=== PATIENT | female | born 1970 | race Caucasian/White ===

== ENCOUNTER 2017-06-11 16:10 | Outpatient (CLI) | payer MEDICAID, SELFPAY ==
[2017-06-11 16:10] VITALS: BMI 18.1
[2017-06-11 16:29] LABS: Basophils % 0.3 % (0.1-2.0); Eosinophils # 0.6 K/mm3 (0.0-0.4); Hematocrit 43.5 % (37.0-47.0); Hemoglobin 13.4 g/dL (12.2-16.2); Lymphocytes # 2.8 K/mm3 (0.7-4.5); Lymphocytes % 24.2 K/mm3 (10-50); Mean Corpuscular HGB Conc 30.9 g/dL (31.8-35.4); Mean Corpuscular Hemoglobin 27.5 pg (27.0-31.2); Mean Corpuscular Volume 89.1 fl (81-99); Mean Platelet Volume 7.4 fl (7.4-10.4); Monocytes # 0.7 K/mm3 (0.1-1.0); Monocytes % 6.3 % (1.7-9.3); Neutrophils # 7.4 K/mm3 (1.8-7.8); Neutrophils % 64.2 % (37.0-80.0); Platelet Count 473 K/mm3 (142-424); Red Blood Count 4.89 M/mm3 (4.20-5.40); Red Cell Distribution Width 16.9 % (11.5-17.5); White Blood Count 11.5 K/mm3 (4.8-10.8)
[2017-06-11 16:36] LABS: INR 1.18 (0.9-1.1); Prothrombin Time 12.8 seconds (9.4-11.8)
[2017-06-11 16:42] LABS: Alanine Aminotransferase 21 U/L (12-78); Albumin Level 2.8 gm/dL (3.4-5.0); Albumin/Globulin Ratio 0.6 (1.1-1.8); Alkaline Phosphatase 95 U/L (46-116); Anion Gap 11.5 mEq/L (5-15); Aspartate Amino Transferase 21 U/L (15-37); Bilirubin,Total 0.1 mg/dL (0.2-1.0); Blood Urea Nitrogen 13 mg/dL (7-18); Calcium 8.7 mg/dL (8.5-10.1); Carbon Dioxide 27 mmol/L (21.0-32.0); Chloride 101 mmol/L (98-107); Creatinine Clearance Estimated 73 mL/min (0-300); Creatinine,Serum 0.63 mg/dL (0.55-1.02); Estimated Glomerular Filt Rate 101 ml/min (>60); GFR (African American) 122 ML/MIN (>60); Glucose 95 mg/dL (74-106); Potassium 4.5 mmoL/L (3.5-5.1); Sodium 135 mmol/L (136-145); Total Protein,Serum 7.8 gm/dL (6.4-8.2)
[2017-06-11 17:15] LABS: Erythrocyte Sedimentation Rate 53 mm/hr (0-20)
--- NOTE | 2017-06-26 10:06 | HMH.ACPN ---
Internal Medicine - PN: Subj *Date: 06/26/17 *Time: 10:06 Assessment and Plan - Assessment and plan all Dx Assessment and Plan for all problems:: CALLED ON 06/15/17 AND LEFT MESSAGE. CALLED ON 06/19/17 AND SOMEONE ANSWERED PHONE BUT HUNG UP X2. CALLED ON 06/26/18 AND LEFT MESSAGE FOR PATIENT TO CALL BACK. CALLED MD OFFICE AND INFORMED THEM THAT I HAVE NOT YET BEEN ABLE TO REACH PATIENT BUT WILL CONTINUE TO TRY. BRYAN BOWLES, PHARMD
== END 2017-06-11 16:37 | disposition home or self-care (01) ==
LOC: INF 16:11
PROVIDERS: Family Provider Internal Medicine Adolescent Medicine; Visit Provider Internal Medicine Adolescent Medicine
DX: D68.61 Antiphospholipid syndrome (principal); M05.79 Rheumatoid arthritis with rheumatoid factor of multiple sites without organ or systems involvement; Z45.2 Encounter for adjustment and management of vascular access device
CPT/HCPCS: 80053; 85025; 85610; 85651; J1642

== ENCOUNTER 2018-02-08 12:18 | Inpatient (IN) ==
[2018-02-08 13:25] LABS: Basophils % 0.1 % (0.1-2.0); Hematocrit 32.1 % (37.0-47.0); Lymphocytes # 1.1 K/mm3 (0.7-4.5); Lymphocytes % 5.1 % (10-50); Mean Corpuscular HGB Conc 28.2 g/dL (31.8-35.4); Mean Corpuscular Hemoglobin 24.4 pg (27.0-31.2); Mean Corpuscular Volume 86.6 fl (81-99); Mean Platelet Volume 6.5 fl (7.4-10.4); Monocytes # 0.5 K/mm3 (0.1-1.0); Monocytes % 2.2 % (1.7-9.3); Neutrophils # 19.7 K/mm3 (1.8-7.8); Neutrophils % 92.6 % (37.0-80.0); Platelet Count 717 K/mm3 (142-424); Red Blood Count 3.71 M/mm3 (4.20-5.40); Red Cell Distribution Width 16.9 % (11.5-17.5); White Blood Count 21.3 K/mm3 (4.8-10.8)
[2018-02-08 13:36] LABS: Albumin Level 2.3 gm/dL (3.4-5.0); Albumin/Globulin Ratio 0.5 (1.1-1.8); Bilirubin,Total 0.3 mg/dL (0.2-1.0); C-Reactive Protein 8.5 mg/L (0.0-0.9); Calcium 8.4 mg/dL (8.5-10.1); Globulin 4.3 gm/dl (1.3-3.2); Total Protein,Serum 6.6 gm/dL (6.4-8.2)
[2018-02-08 13:37] LABS: INR 7.86 (0.9-1.1); Prothrombin Time 76.2 seconds (9.4-11.8)
--- NOTE | 2018-02-08 13:39 | Pharmacy Consult Notes ---
[facility] Pharmacy VTE Monitoring - Patient Demographics Admission date: 02/08/18 Report Date: 02/08/18 Time: 13:39 Allergies/Adverse Reactions: Patient Allergies gabapentin [GABAPENTIN] Allergy (Severe, Verified 11/23/17 08:00) HALLUCINATIONS methadone [METHADONE] Allergy (Severe, Verified 11/23/17 08:00) THROAT CLOSES codeine [CODEINE] Allergy (Mild, Verified 11/23/17 08:00) NA-NAUSEA Height: 1.52 m Weight: 40.965 kg - VTE Risk Labs: VTE Related Lab Results PT 76.2 seconds (9.4-11.8) H 02/08/18 13:15 INR 7.86 (0.9-1.1) H 02/08/18 13:15 VTE Score: 3 VTE Risk Level: Low Risk - Prophylaxis VTE Prophylaxis Ordered?: Yes Types of VTE Prophylaxis: TEDS Knee High Location of Applied Device: Right Leg - VTE Diagnosis Confirmed Treatment or plan recommended: Continue Current Treatment
--- NOTE | 2018-02-08 13:44 | Pharmacy Consult Notes ---
- Pharmacy Consult Date: 02/08/18 Time: 13:43 Referring provider: DR. ZAMORA Reason for Consult:: VANCOMYCIN DOSING Allergies and ADEs:: Allergies Allergy/AdvReac Type Severity Reaction Status Date / Time gabapentin [GABAPENTIN] Allergy Severe HALLUCINATI Verified 11/23/17 08:00 ONS methadone [METHADONE] Allergy Severe THROAT Verified 11/23/17 08:00 CLOSES codeine [CODEINE] Allergy Mild NA-NAUSEA Verified 11/23/17 08:00 Home Medications:: Home Medications Medication Instructions Recorded Confirmed Type Hydroxychloroquine Sulfate 200 mg PO DAILY 11/23/17 11/23/17 History [Plaquenil] Oxycodone HCl/Acetaminophen 1 tab PO DAILY 11/23/17 11/23/17 History [Percocet 10-325 mg Tab] Warfarin Sodium [Coumadin] 4 mg PO DAILY 11/23/17 11/23/17 History Height: 1.52 m Weight: 40.965 kg Laboratory Results:: Laboratory Results - last 24 hr 02/08/18 13:15: Sodium 137, Potassium 4.0, Chloride 101, Carbon Dioxide 29, Anion Gap 11.0, BUN 19 H, Creatinine 0.68, Estimated Creat Clear 65, Estimated GFR 92, Est GFR ( Amer) 111, Glucose 99, Calcium 8.4 L, Total Bilirubin 0.3, AST 13 L, ALT 30, Alkaline Phosphatase 75, C-Reactive Protein 8.5 H, Total Protein 6.6, Albumin 2.3 L, Globulin 4.3 H, Albumin/Globulin Ratio 0.5 L 02/08/18 13:15: PT 76.2 H, INR 7.86 H Medical History: Reports:: Myocardial Infarction Denies:: Cancer, Diabetes Mellitus Type 1, Diabetes Mellitus Type 2, MRSA Assessment and Plan - Assessment and plan all Dx Assessment and Plan for all problems:: BASED ON PATIENT'S FACTORS, RECOMMEND STARTING WITH VANCOMYCIN 750 MG Q18H AT THIS TIME. PHARMACY WILL FOLLOW DAILY AND ADJUST APPROPRIATE. BRYAN BOWLES, KARLAD
[2018-02-08 15:04] LABS: Lymphocytes % 4 % (10-50); Monocytes % 2 % (2-9); Neutrophils % 94 % (42-76); Total Cells Counted 100
[2018-02-08 15:05] LABS: Hypochromasia 1+
--- NOTE | 2018-02-08 15:07 | Consult Report ---
*Admission Date: 02/08/18 *Chief complaint: Left foot cellulitis, ulcer *History of present illness: Mrs. Esteban is a 47 y/o female who presents as a direct admission from Dr. Larry's office for evaluation of left foot cellulitis with an open wound. 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 Patient states she has circulatory vascular i ssues and is on long-term coagulation therapy. Patient also has RA. In 1999 she had reconstructive foot surgery in [place]. Based on previous left foot x-rays it appears she had a gong metatarsal resection with fusions of the toes, which is consistent with how the patient describes "pins coming out of her toes". She states she has had an open wound to the dorsal aspect of the first MPJ on and off for 16 years. She states it closes or almost closes then reopens. She does home wound care with betadine as needed. She denies seeing a Artificial Teeth Inspector "since like [id number]". She denies going to a wound care clinic or having debridements. She admits to frequent episodes of cellulitis, lower extremity bruising and sores, abrasions with occasional pain. Patient takes chronic pain medication at home, Percocet 10/325mg. Based on the chart patient was in the ER 11/23 and again 11/25/17. Ankle x-rays from 11/23/17 show a nondisplaced minimally impacted fracture of the distal fibula with lateral angulation of the distal fracture fragment. She has been utilizing a fracture boot at home. She has not been seeing an orthopedic doctor. Review of Systems - Constitutional Denies body ache(s), Denies chills - Eyes Denies blurry vision - ENT Reports poor balance - *Cardiovascular Denies chest pain, Denies shortness of breath - *Respiratory Denies chest congestion, Denies shortness of breath - *Gastrointestinal Denies abdominal pain - *Genitourinary Denies hot flashes - *Musculoskeletal Reports joint pain, Reports deformity, Reports joint swelling, Reports tingling - Integumentary/Breasts Reports hair loss, Reports change in skin color, Reports changing lesions, Reports non-healing lesions, Reports skin ulcer - *Neurologic Reports localized weakness, Reports tingling/numbness/burning sensations - Endocrine Reports cold intolerance - Hematologic/Lymphatic Reports easy bleeding, Reports easy bruising - Allergic/Immunologic Reports GI upset with certain foods [facility] History Medical History: Reports:: Myocardial Infarction Denies:: Cancer, Diabetes Mellitus Type 1, Diabetes Mellitus Type 2, MRSA Other Medical History: Reports: Anemia, Arthritis, Thyroid Disease Laterality Cases: Right: Other, Bilateral: Tonsillectomy Other Surgeries: Yes: Appendectomy Amputation: Yes (RT leg) Fractures: No - *Social History Educational Level: Completed GED/General Educational Development Smoking Status: Current every day smoker Tobacco Type: cigarettes Alcohol Intake: never Occupational Status: disabled Housing: house Household Members: spouse - Psychiatric History Expresses thoughts of harming self/others: None Suicide Plan Description: No Plan *Family Hx:: Asthma, Coronary Artery Disease, Diabetes, Heart Attack, Hyperlipidemia, Hypertension, Stroke, Tuberculosis Meds Home Medications Medication Instructions Recorded Confirmed Type Warfarin Sodium [Coumadin] 4 mg PO DAILY 11/23/17 02/08/18 History Adalimumab [Humira Pen] 40 mg SQ QOW 02/08/18 02/08/18 History Albuterol Sulfate [Proair Hfa 2 puffs IH QIDP PRN 02/08/18 02/08/18 History 90mcg/puff Inh] Cilostazol [Pletal 100mg tablet] 100 mg PO BID 02/08/18 02/08/18 History Clopidogrel Bisulfate [Clopidogrel 75 mg PO DAILY 02/08/18 02/08/18 History 75mg Tab] Cyclobenzaprine HCl 10 mg PO TIDP PRN 02/08/18 02/08/18 History [Cyclobenzaprine 10mg Tab] Ferrous Sulfate 325 mg PO BID 02/08/18 02/08/18 History Folic Acid [Folic Acid 1mg tablet] 1 mg PO DAILY 02/08/18 02/08/18 History Hydroxychloroquine Sulfate 400 mg PO DAILY 02/08/18 02/08/18 History [Plaquenil 200mg tablet] Levothyroxine Sodium 50 mcg PO DAILY 02/08/18 02/08/18 History [Levothyroxine 50mcg (0.05mg) Tab] Meloxicam [Mobic] 15 mg PO DAILY 02/08/18 02/08/18 History Metoprolol Tartrate 50 mg PO DAILY 02/08/18 02/08/18 History Oxycodone HCl/Acetaminophen 1 tab PO QID 02/08/18 02/08/18 History [Oxycodone W/Apap 325mg Tablet] Pravastatin Sodium [Pravachol] 40 mg PO HS 02/08/18 02/08/18 History Promethazine HCl [Phenergan 25mg 25 mg PO Q6HP PRN 02/08/18 02/08/18 History tab] Tizanidine HCl [Zanaflex] 8 mg PO TID 02/08/18 02/08/18 History predniSONE [Deltasone 20mg 20 mg PO DAILYP PRN 02/08/18 02/08/18 History tablet] raNITIdine HCl [Acid Control] 150 mg PO DAILY 02/08/18 02/08/18 History Allergies Allergy/AdvReac Type Severity Reaction Status Date / Time gabapentin [GABAPENTIN] Allergy Severe HALLUCINATI Verified 11/23/17 08:00 ONS methadone [METHADONE] Allergy Severe THROAT Verified 11/23/17 08:00 CLOSES codeine [CODEINE] Allergy Mild NA-NAUSEA Verified 11/23/17 08:00 Exam Vital signs and Labs for Last 24 Hours: Temp Pulse Resp BP Pulse Ox 98.2 F 89 17 103/69 L 97 02/08/18 12:32 02/08/18 12:32 02/08/18 12:32 02/08/18 12:32 02/08/18 12:32 Laboratory Results - last 24 hr 02/08/18 13:15: WBC 21.3 H*, RBC 3.71 L, Hgb 9.0 L, Hct 32.1 L, MCV 86.6, MCH 24.4 L, MCHC 28.2 L, RDW 16.9, Plt Count 717 H, MPV 6.5 L, Neut % (Auto) 92.6 H, Lymph % (Auto) 5.1 L, [place] % (Auto) 2.2, Eos % (Auto) 0.0 L, Baso % (Auto) 0.1, Neut # (Auto) 19.7 H, Lymph # (Auto) 1.1, [place] # (Auto) 0.5, Eos # (Auto) 0.0, Baso # (Auto) 0.0 02/08/18 13:15: Sodium 137, Potassium 4.0, Chloride 101, Carbon Dioxide 29, Anion Gap 11.0, BUN 19 H, Creatinine 0.68, Estimated Creat Clear 65, Estimated GFR 92, Est GFR ( Amer) 111, Glucose 99, Calcium 8.4 L, Total Bilirubin 0.3, AST 13 L, ALT 30, Alkaline Phosphatase 75, C-Reactive Protein 8.5 H, Total Protein 6.6, Albumin 2.3 L, Globulin 4.3 H, Albumin/Globulin Ratio 0.5 L 02/08/18 13:15: ESR 72 H 02/08/18 13:15: PT 76.2 H, INR 7.86 H I & O for Last 24 hours: Intake & Output 02/06/18 02/07/18 02/08/18 02/09/18 11:59 11:59 11:59 11:59 Intake Total 240 / 240 Balance 240 / 240 Weight 90 lb 5 oz - *Routine HEENT Exam Head: Present: normocephalic ENT: Present: mucous membranes moist - *Routine Neck Exam Present: full ROM - *Routine Respiratory Exam Absent: respiratory distress - *Routine Cardiovascular Exam Present: RRR - *Routine Abdominal Exam Absent: guarding - *Routine Rectal Exam Patient deferred: visual exam - *Routine Exam Patient deferred: external exam - *Routine Extremities Exam Present: edema, amputation. Absent: pulses intact, normal capillary refill - *Routine Skin Exam Present: erythema, dry, scars, ecchymosis - *Routine Neurological Exam Present: alert - Detailed Lower Extremity Exam Foot/Toes: Left crepitus (MPJs 1-5), Left deformity (RA w/previous gong met reconstruction), Left erythema (localized to the 1st MPJ), Left swelling (1st MPJ and left foot), Left tenderness (1st MPJ), Left wound (dorsal 1st MPJ: ~3 x 2.5 x 0.3cm, wound basee 100% fibrotic with slough, no necrotic tissue or purulence), Left pain with active ROM (1st MPJ), Left pain with passive ROM (1st MPJ) Comments: Non palpable and non dopplerable DP. Weakly palpable PT, dopplerable PT monophasic. LLE cold. R AKA. Delayed left CFT. Multiple abrasions and bruising noted to LLE, extending from knee to left medial cuneiform and anterior ankle. Edema to left foot. Localized erythema to 1st MPJ with no ascending cellulitis. No fluctuance or evidence of abscess. Fibrotic slough and wet looking 1st MPJ dorsal ulcer. No purulence or malodor noted. Results - Labs Result Diagrams: 02/08/18 13:15 02/08/18 13:15 Labs: Abnormal lab results 02/08/18 02/08/18 02/08/18 Range/Units 13:15 13:15 13:15 WBC 21.3 H* (4.8-10.8) K/mm3 RBC 3.71 L (4.20-5.40) M/mm3 Hgb 9.0 L (12.2-16.2) g/dL Hct 32.1 L (37.0-47.0) % MCH 24.4 L (27.0-31.2) pg MCHC 28.2 L (31.8-35.4) g/dL Plt Count 717 H (142-424) K/mm3 MPV 6.5 L (7.4-10.4) fl Neut % (Auto) 92.6 H (37.0-80.0) % Lymph % (Auto) 5.1 L (10-50) % Eos % (Auto) 0.0 L (0.1-12.0) % Neut # (Auto) 19.7 H (1.8-7.8) K/mm3 ESR 72 H (0-20) mm/hr PT (9.4-11.8) seconds INR (0.9-1.1) BUN 19 H (7-18) mg/dL Calcium 8.4 L (8.5-10.1) mg/dL AST 13 L (15-37) U/L C-Reactive Protein 8.5 H (0.0-0.9) mg/L Albumin 2.3 L (3.4-5.0) gm/dL Globulin 4.3 H (1.3-3.2) gm/dl Albumin/Globulin Ratio 0.5 L (1.1-1.8) 02/08/18 Range/Units 13:15 WBC (4.8-10.8) K/mm3 RBC (4.20-5.40) M/mm3 Hgb (12.2-16.2) g/dL Hct (37.0-47.0) % MCH (27.0-31.2) pg MCHC (31.8-35.4) g/dL Plt Count (142-424) K/mm3 MPV (7.4-10.4) fl Neut % (Auto) (37.0-80.0) % Lymph % (Auto) (10-50) % Eos % (Auto) (0.1-12.0) % Neut # (Auto) (1.8-7.8) K/mm3 ESR (0-20) mm/hr PT 76.2 H (9.4-11.8) seconds INR 7.86 H (0.9-1.1) BUN (7-18) mg/dL Calcium (8.5-10.1) mg/dL AST (15-37) U/L C-Reactive Protein (0.0-0.9) mg/L Albumin (3.4-5.0) gm/dL Globulin (1.3-3.2) gm/dl Albumin/Globulin Ratio (1.1-1.8) H & H 12/14/18 Range/Units 13:15 Hgb 9.0 L (12.2-16.2) g/dL Hct 32.1 L (37.0-47.0) % Coagulation 12/14/18 Range/Units 13:15 INR 7.86 H (0.9-1.1) All other labs normal. - Diagnostic results Ankle/Foot x-ray: report reviewed (Chronic changes to the foot with no significant change compared to previous x-ray), image reviewed Assessment and Plan (1) Cellulitis of left foot Current visit: Yes Status: Acute Category: Medical Code(s): L03.116 - Cellulitis of left lower limb (2) Ulcer of left foot Current visit: Yes Status: Acute Category: Medical Code(s): L97.529 - Non- pressure chronic ulcer of other part of left foot with unspecified severity (3) Rheumatoid arthritis Current visit: Yes Status: Acute Category: Medical Code(s): M06.9 - Rheumatoid arthritis, unspecified (4) PAD (peripheral artery disease) Current visit: Yes Status: Acute Category: Medical Code(s): I73.9 - Peripheral vascular disease, unspecified (5) Closed fracture of left distal fibula Current visit: No Status: Acute Qualifiers: Encounter type: initial encounter Fracture morphology: unspecified fracture morphology Qualified Code(s): S82.832A - Other fracture of upper and lower end of left fibula, initial encounter for closed fracture Category: Medical Code(s): S82.832A - Other fracture of upper and lower end of left fibula, initial encounter for closed fracture - Assessment and plan all Dx Assessment and Plan for all problems:: Infected Wound: left 1st MPJ ulcer: I discussed with the patient the importance of proper hygiene and maintaining a clean healthy wound bed to avoid the infection spreading. Topical lidocaine applied. Wound culture taken. Patient could not tolerate debridement with currette or even 1st MPJ ROM. The wound extends through skin into capsule overlying bone. Biofilm and fibrotic slough were visible. The wound did probe thru deep fascia and questionable into the bone, not the joint. There was no purulence noted. Ruthann-wound cellulitis noted. Non-palpable popliteal lymph nodes. 1. Dressing applied: dry sterile dressing 2. Wound care instructions given: change dressing daily with Santyl (order by Pharmacy) 3. DME assistance 4. Follow wound culture 5. Broad spectrum IV antibiotics 6. ABIs to evaluate vascular disease 7. MRI left foot w/wout to evaluate for osteomyelitis or underlying abscess I am very concerned with the patient's pulses and circulation history. I would much rather try IV antibiotics and Santyl enzymatic debridement over surgery which could ultimately lead to amputation. I explained to the patient that if the infection becomes life-threatening, redness or purulence or worsening wound then she may require an amputation. Given she has had the ulcer for 16 years I am hesitant for hallux/first metatarsal partial amputation because likely she will not heal. I explained if amputation were undertaken she runs high risk of more proximal amputation including transmetatarsal, below- knee or above-knee amputation. Patient verbalized understanding, and is hesitant for surgery. She states that she would like to try the wound care with IV antibiotics and has agreed to vascular workup and MRI for further evaluation.
--- NOTE | 2018-02-08 16:42 | History & Physical Report ---
*Admission Date: 02/08/18 *Chief complaint: Left foot infection/worsening joint status *History of present illness: Very unfortunate 47-year-old white female with a long and complex medical history, significant for tobacco abuse disorder, peripheral arterial disease and history of antiphospholipid syndrome status post peripheral arterial clot of the right leg causing above-knee amputation in the remote past, as well as recurrent miscarriages and significant KNOWLEDGE MANAGER bleeding resulting in complete hysterectomy several years ago. She also has a remote history of cocaine use which complicated her vascular condition. She also suffers from severe and aggressive rheumatoid arthritis which has made her elbows and hands essentially unusable and has caused her to be wheelchair- bound. She has had multiple complications of vascular and arthritic disease, and came to my office today with a chief complaint of left foot pain and some drainage from the base of the left toe. Her also notes that she has had drainage from both of her elbows and wonders if "she could get a cortisone injection in her joints." On examination she looked very pale and ill-appearing, over her baseline, and had active infection of the base of the left foot as well as serous drainage from what appeared to be a fistula tract on the lateral aspect of the right elbow. I am very concerned about intra-articular infection/aggressive cellulitis and also concerned about the possibility of sepsis. She is admitted for IV antibi otics, laboratory testing and specialty consultation with podiatry and orthopedics. [facility] History Medical History: Reports:: Myocardial Infarction Denies:: Cancer, Diabetes Mellitus Type 1, Diabetes Mellitus Type 2, MRSA Other Medical History: Reports: Anemia, Arthritis, Thyroid Disease Comment: Significant history of antiphospholipid syndrome as noted in HPI, chronic opioid dependence for her chronic joint destruction pain, chronic tobacco use and chronic vascular disease with amputation. Laterality Cases: Right: Other, Bilateral: Tonsillectomy Other Surgeries: Yes: Appendectomy, Hysterectomy-Total Amputation: Yes (RT leg) Fractures: No - *Social History Educational Level: Completed GED/General Educational Development Smoking Status: Current every day smoker Tobacco Type: cigarettes Alcohol Intake: never Substance Use Type: former substance user, crack/cocaine Occupational Status: disabled Housing: house Household Members: spouse - Psychiatric History Expresses thoughts of harming self/others: None Suicide Plan Description: No Plan *Family Hx:: Asthma, Coronary Artery Disease, Diabetes, Heart Attack, Hyperlipidemia, Hypertension, Stroke, Tuberculosis Review of Systems - Review of Systems Review of systems:: pertinent systems reviewed and negative unless documented below - Constitutional Reports anorexia, Reports body ache(s), Reports chills, Denies daytime sleepiness - Eyes Denies blind spots, Denies blurry vision, Denies change in vision - ENT Denies abnormal hearing, Denies bleeding gums - *Cardiovascular Reports shortness of breath, Denies chest pain, Denies chest pain at rest, Denies irregular heart rhythm, Denies leg swelling - *Respiratory Denies change in phlegm color, Denies chest congestion, Denies cough, Denies shortness of breath with activity - *Gastrointestinal Denies abdominal pain, Denies belching, Denies coffee ground vomit, Denies diffi culty swallowing - *Musculoskeletal Reports abnormal walking, Reports muscle weakness - *Neurologic Reports unsteadiness, Reports localized weakness, Reports tingling/numbness/burning sensations, Reports tingling - Endocrine Reports excessive sweating Meds Home Medications Medication Instructions Recorded Confirmed Type Warfarin Sodium [Coumadin] 4 mg PO DAILY 11/23/17 02/08/18 History Adalimumab [Humira Pen] 40 mg SQ QOW 02/08/18 02/08/18 History Albuterol Sulfate [Proair Hfa 2 puffs IH QIDP PRN 02/08/18 02/08/18 History 90mcg/puff Inh] Cilostazol [Pletal 100mg tablet] 100 mg PO BID 02/08/18 02/08/18 History Clopidogrel Bisulfate [Clopidogrel 75 mg PO DAILY 02/08/18 02/08/18 History 75mg Tab] Cyclobenzaprine HCl 10 mg PO TIDP PRN 02/08/18 02/08/18 History [Cyclobenzaprine 10mg Tab] Ferrous Sulfate 325 mg PO BID 02/08/18 02/08/18 History Folic Acid [Folic Acid 1mg tablet] 1 mg PO DAILY 02/08/18 02/08/18 History Hydroxychloroquine Sulfate 400 mg PO DAILY 02/08/18 02/08/18 History [Plaquenil 200mg tablet] Levothyroxine Sodium 50 mcg PO DAILY 02/08/18 02/08/18 History [Levothyroxine 50mcg (0.05mg) Tab] Meloxicam [Mobic] 15 mg PO DAILY 02/08/18 02/08/18 History Metoprolol Tartrate 50 mg PO DAILY 02/08/18 02/08/18 History Oxycodone HCl/Acetaminophen 1 tab PO QID 02/08/18 02/08/18 History [Oxycodone W/Apap 325mg Tablet] Pravastatin Sodium [Pravachol] 40 mg PO HS 02/08/18 02/08/18 History Promethazine HCl [Phenergan 25mg 25 mg PO Q6HP PRN 02/08/18 02/08/18 History tab] Tizanidine HCl [Zanaflex] 8 mg PO TID 02/08/18 02/08/18 History predniSONE [Deltasone 20mg 20 mg PO DAILYP PRN 02/08/18 02/08/18 History tablet] raNITIdine HCl [Acid Control] 150 mg PO DAILY 02/08/18 02/08/18 History Allergies Allergy/AdvReac Type Severity Reaction Status Date / Time gabapentin [GABAPENTIN] Allergy Severe HALLUCINATI Verified 11/23/17 08:00 ONS methadone [METHADONE] Allergy Severe THROAT Verified 11/23/17 08:00 CLOSES codeine [CODEINE] Allergy Mild NA-NAUSEA Verified 11/23/17 08:00 Exam Vital signs and Labs for Last 24 Hours: Temp Pulse Resp BP Pulse Ox 97.5 F L 69 16 82/52 L 93 L 02/08/18 16:32 02/08/18 16:32 02/08/18 16:32 02/08/18 16:32 02/08/18 16:32 Laboratory Results - last 24 hr 02/08/18 13:15: WBC 21.3 H*, RBC 3.71 L, Hgb 9.0 L, Hct 32.1 L, MCV 86.6, MCH 24.4 L, MCHC 28.2 L, RDW 16.9, Plt Count 717 H, MPV 6.5 L, Neut % (Auto) 92.6 H, Lymph % (Auto) 5.1 L, [place] % (Auto) 2.2, Eos % (Auto) 0.0 L, Baso % (Auto) 0.1, Neut # (Auto) 19.7 H, Lymph # (Auto) 1.1, [place] # (Auto) 0.5, Eos # (Auto) 0.0, Baso # (Auto) 0.0, Total Counted 100, Neutrophils % (Manual) 94 H, Lymphocytes % (Manual) 4 L, Monocytes % (Manual) 2, Platelet Estimate Marked increase, Hypochromasia 1+ 02/08/18 13:15: Sodium 137, Potassium 4.0, Chloride 101, Carbon Dioxide 29, Anion Gap 11.0, BUN 19 H, Creatinine 0.68, Estimated Creat Clear 65, Estimated GFR 92, Est GFR ( Amer) 111, Glucose 99, Calcium 8.4 L, Total Bilirubin 0.3, AST 13 L, ALT 30, Alkaline Phosphatase 75, C-Reactive Protein 8.5 H, Total Protein 6.6, Albumin 2.3 L, Globulin 4.3 H, Albumin/Globulin Ratio 0.5 L 02/08/18 13:15: Hemoglobin A1c 5.8 02/08/18 13:15: ESR 72 H 02/08/18 13:15: PT 76.2 H, INR 7.86 H I & O for Last 24 hours: Intake & Output 02/06/18 02/07/18 02/08/18 02/09/18 11:59 11:59 11:59 11:59 Intake Total 240 / 240 Balance 240 / 240 Weight 90 lb 5 oz Narrative: Patient is awake, alert, talkative. However, has a significant peters/sallow appearance to her skin appears dry overall. Lungs have smoker's rhonchi but fairly symmetric air entry. Heart rate is minimally tachycardic but no murmurs. Abdomen is soft, scaphoid, nontender. Extremity exam is markedly abnormal with significant deformity consistent with rheumatoid arthritis in her hands with lateral deviation and MCP joint deformities. Right leg is absent with an above-knee amputation. Left foot and leg show significant swelling at the base of the left great toe with a rim of exposed tissue-please see podiatry exam for detailed description. Her elbows have limited range of motion, swollen and old evidence of synovitis noted. The right elbow has serous/bloody drainage from an area just above the lateral condyle. There is no red streaking or warmth to the joint, however. Assessment and Plan (1) Cellulitis of left foot Current visit: Yes Status: Acute Category: Medical Code(s): L03.116 - Cellulitis of left lower limb Appreciate podiatry consult. (2) Ulcer of left foot Current visit: Yes Status: Acute Category: Medical Code(s): L97.529 - Non- pressure chronic ulcer of other part of left foot with unspecified severity (3) Rheumatoid arthritis Current visit: Yes Status: Acute Category: Medical Code(s): M06.9 - Rheumatoid arthritis, unspecified Complicated with antiphospholipid syndrome. Given elevated INR we will hold warfarin therapy. Podiatry and orthopedic consultation for possible infected joints. Start aggressive antibiotic therapy. (4) PAD (peripheral artery disease) Current visit: Yes Status: Acute Category: Medical Code(s): I73.9 - Peripheral vascular disease, unspecified High risk for issues with surgery or debridement of foot. Agree with podiatry plan. (5) Closed fracture of left distal fibula Current visit: No Status: Acute Qualifiers: Encounter type: initial encounter Fracture morphology: unspecified fracture morphology Qualified Code(s): S82.832A - Other fracture of upper and lower end of left fibula, initial encounter for closed fracture Category: Medical Code(s): S82.832A - Other fracture of upper and lower end of left fibula, initial encounter for closed fracture (6) Arthritis of right elbow Current visit: Yes Status: Acute Category: Medical Code(s): M19.021 - Primary osteoarthritis, right elbow I am concerned about the drainage. Possible infectious issues given her ongoing infection of the toe. Orthopedic consultation.
--- NOTE | 2018-02-08 17:47 | Consult Report ---
*Admission Date: 02/08/18 *Chief complaint: draining wounds bilateral elbows *History of present illness: Mrs. Esteban is a 47 y/o female admitted for treatment of L foot cellulitis and evaluation for possible underlying osteomyelitis. She was also found to have draining wounds from bilateral elbows. She has a history of severe rheumatoid arthritis and has taken many medications over the years for this. She is currently on Humira, prednisone; her last dose of Humira was 2 weeks ago. She says she is taking plaquenil but this is not reflected on her med rec; she is taking Pletal and Plavix. She reports pain in bilateral elbows, wrist, fingers and neck. She has not seen an orthopedic physician for her joints before. 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 Reconstructive foot surgery was done on the E in [place] in 1999; she reports wound healing issues after that surgery, with draining wounds since that time, which intermittently open up and drain red/purulent material. She has a history of antiphospholipid antibody syndrome, on warfarin; INR 7 on admission. Reported hi story of cocaine use in the past, denies current use, and is a smoker. No history of diabetes. Takes Percocet 10/325mg at home, managed by Dr. Larry. L distal fibula fracture sustained in October 2017; has been using a fracture boot at home. She reports a history of neck pain, with prior difficulty holding head up; she would have to use her arms to push her head back so that it wouldn't fall forward. She is unaware of her neck ever being examined/imaged. She is wheelchair-bound and has limited use of her arms due to her RA and destruction of multiple joints. Inflammatory markers elevated today, but no fevers/chills at home. Review of Systems - Review of Systems Review of systems:: pertinent systems reviewed and negative unless documented below - Constitutional Denies fever(s), Denies night sweats, Denies weight loss - *Musculoskeletal Reports joint pain, Reports deformity, Reports joint swelling, Reports limited joint movement, Reports muscle weakness, Reports neck pain, Denies numbness, Denies tingling - *Neurologic Reports localized weakness, Denies numbness [facility] History Medical History: Reports:: Myocardial Infarction Denies:: Cancer, Diabetes Mellitus Type 1, Diabetes Mellitus Type 2, MRSA Other Medical History: Reports: Anemia, Arthritis, Thyroid Disease Comment: rheumatoid arthritis Laterality Cases: Right: Other (R AKA; L foot reconstructive surgery), Bilateral: Tonsillectomy Other Surgeries: Yes: Appendectomy, Hysterectomy-Total Amputation: Yes (RT leg) Fractures: Yes (L distal fibula fracture 10/2017) - *Social History Educational Level: Completed GED/General Educational Development Smoking Status: Current every day smoker Tobacco Type: cigarettes Alcohol Intake: never Substance Use Type: former substance user, crack/cocaine Occupational Status: disabled Housing: house Household Members: spouse - Psychiatric History Expresses thoughts of harming self/others: None Suicide Plan Description: No Plan *Family Hx:: Asthma, Coronary Artery Disease, Diabetes, Heart Attack, Hyperlipidemia, Hypertension, Stroke, Tuberculosis Meds Home Medications Medication Instructions Recorded Confirmed Type Warfarin Sodium [Coumadin] 4 mg PO DAILY 11/23/17 02/08/18 History Adalimumab [Humira Pen] 40 mg SQ QOW 02/08/18 02/08/18 History Albuterol Sulfate [Proair Hfa 2 puffs IH QIDP PRN 02/08/18 02/08/18 History 90mcg/puff Inh] Cilostazol [Pletal 100mg tablet] 100 mg PO BID 02/08/18 02/08/18 History Clopidogrel Bisulfate [Clopidogrel 75 mg PO DAILY 02/08/18 02/08/18 History 75mg Tab] Cyclobenzaprine HCl 10 mg PO TIDP PRN 02/08/18 02/08/18 History [Cyclobenzaprine 10mg Tab] Ferrous Sulfate 325 mg PO BID 02/08/18 02/08/18 History Folic Acid [Folic Acid 1mg tablet] 1 mg PO DAILY 02/08/18 02/08/18 History Hydroxychloroquine Sulfate 400 mg PO DAILY 02/08/18 02/08/18 History [Plaquenil 200mg tablet] Levothyroxine Sodium 50 mcg PO DAILY 02/08/18 02/08/18 History [Levothyroxine 50mcg (0.05mg) Tab] Meloxicam [Mobic] 15 mg PO DAILY 02/08/18 02/08/18 History Metoprolol Tartrate 50 mg PO DAILY 02/08/18 02/08/18 History Oxycodone HCl/Acetaminophen 1 tab PO QID 02/08/18 02/08/18 History [Oxycodone W/Apap 325mg Tablet] Pravastatin Sodium [Pravachol] 40 mg PO HS 02/08/18 02/08/18 History Promethazine HCl [Phenergan 25mg 25 mg PO Q6HP PRN 02/08/18 02/08/18 History tab] Tizanidine HCl [Zanaflex] 8 mg PO TID 02/08/18 02/08/18 History predniSONE [Deltasone 20mg 20 mg PO DAILYP PRN 02/08/18 02/08/18 History tablet] raNITIdine HCl [Acid Control] 150 mg PO DAILY 02/08/18 02/08/18 History Allergies Allergy/AdvReac Type Severity Reaction Status Date / Time gabapentin [GABAPENTIN] Allergy Severe HALLUCINATI Verified 11/23/17 08:00 ONS methadone [METHADONE] Allergy Severe THROAT Verified 11/23/17 08:00 CLOSES codeine [CODEINE] Allergy Mild NA-NAUSEA Verified 11/23/17 08:00 Exam Vital signs and Labs for Last 24 Hours: Temp Pulse Resp BP Pulse Ox 97.5 F L 69 16 82/52 L 93 L 02/08/18 16:32 02/08/18 16:32 02/08/18 16:32 02/08/18 16:32 02/08/18 16:32 Laboratory Results - last 24 hr 02/08/18 13:15: WBC 21.3 H*, RBC 3.71 L, Hgb 9.0 L, Hct 32.1 L, MCV 86.6, MCH 24.4 L, MCHC 28.2 L, RDW 16.9, Plt Count 717 H, MPV 6.5 L, Neut % (Auto) 92.6 H, Lymph % (Auto) 5.1 L, [place] % (Auto) 2.2, Eos % (Auto) 0.0 L, Baso % (Auto) 0.1, Neut # (Auto) 19.7 H, Lymph # (Auto) 1.1, [place] # (Auto) 0.5, Eos # (Auto) 0.0, Baso # (Auto) 0.0, Total Counted 100, Neutrophils % (Manual) 94 H, Lymphocytes % (Manual) 4 L, Monocytes % (Manual) 2, Platelet Estimate Marked increase, Hypochromasia 1+ 02/08/18 13:15: Sodium 137, Potassium 4.0, Chloride 101, Carbon Dioxide 29, Anion Gap 11.0, BUN 19 H, Creatinine 0.68, Estimated Creat Clear 65, Estimated GFR 92, Est GFR ( Amer) 111, Glucose 99, Calcium 8.4 L, Total Bilirubin 0.3, AST 13 L, ALT 30, Alkaline Phosphatase 75, C-Reactive Protein 8.5 H, Total Protein 6.6, Albumin 2.3 L, Globulin 4.3 H, Albumin/Globulin Ratio 0.5 L 02/08/18 13:15: Hemoglobin A1c 5.8 02/08/18 13:15: ESR 72 H 02/08/18 13:15: PT 76.2 H, INR 7.86 H I & O for Last 24 hours: Intake & Output 02/06/18 02/07/18 02/08/18 02/09/18 11:59 11:59 11:59 11:59 Intake Total 240 / 240 Balance 240 / 240 Weight 90 lb 5 oz - Constitutional no acute distress, chronically ill appearing - *Routine HEENT Exam Head: Present: normocephalic Eye: Present: EOMI ENT: Present: mucous membranes moist - *Routine Neck Exam Absent: full ROM - *Routine Respiratory Exam Present: CTA bilaterally. Absent: rhonchi, wheezes, diminished air movement - *Routine Cardiovascular Exam Present: RRR - *Routine Abdominal Exam Present: soft. Absent: tenderness - *Routine Extremities Exam Comments: s/p R AKA; R leg absent from knee distally L foot wrapped; examined by Dr. Castillo, who is treating foot, so I did not remove her dressings bilateral elbows with extremely poor ROM, roughly 60-90 degrees with significant crepitus and pain; difficulty with ROM at all there IS gross deformity of bilateral elbows, wrists and fingers; wrists appear to be dislocated and hang in flexion draining sinus tracts over bilateral posterior elbows, roughly 2-3mm in size; no purulent material expressed, all appears serosanginous no significant foul odor to any extremity SILT distally in m/r/u dist BUE no meaningful use of bilateral wrists/fingers, limited movement in elbows weakly palpable radial pulses bilaterally diminished cervical spine ROM with pain no hyperreflexia with testing of triceps reflex cannot elicit Aponte's but doubt validity of test in this patient, due to her deformity Results - Labs Result Diagrams: 02/08/18 13:15 02/08/18 13:15 Labs: Abnormal lab results 02/08/18 02/08/18 02/08/18 Range/Units 13:15 13:15 13:15 WBC 21.3 H* (4.8-10.8) K/mm3 RBC 3.71 L (4.20-5.40) M/mm3 Hgb 9.0 L (12.2-16.2) g/dL Hct 32.1 L (37.0-47.0) % MCH 24.4 L (27.0-31.2) pg MCHC 28.2 L (31.8-35.4) g/dL Plt Count 717 H (142-424) K/mm3 MPV 6.5 L (7.4-10.4) fl Neut % (Auto) 92.6 H (37.0-80.0) % Lymph % (Auto) 5.1 L (10-50) % Eos % (Auto) 0.0 L (0.1-12.0) % Neut # (Auto) 19.7 H (1.8-7.8) K/mm3 Neutrophils % (Manual) 94 H (42-76) % Lymphocytes % (Manual) 4 L (10-50) % ESR 72 H (0-20) mm/hr PT (9.4-11.8) seconds INR (0.9-1.1) BUN 19 H (7-18) mg/dL Calcium 8.4 L (8.5-10.1) mg/dL AST 13 L (15-37) U/L C-Reactive Protein 8.5 H (0.0-0.9) mg/L Albumin 2.3 L (3.4-5.0) gm/dL Globulin 4.3 H (1.3-3.2) gm/dl Albumin/Globulin Ratio 0.5 L (1.1-1.8) 02/08/18 Range/Units 13:15 WBC (4.8-10.8) K/mm3 RBC (4.20-5.40) M/mm3 Hgb (12.2-16.2) g/dL Hct (37.0-47.0) % MCH (27.0-31.2) pg MCHC (31.8-35.4) g/dL Plt Count (142-424) K/mm3 MPV (7.4-10.4) fl Neut % (Auto) (37.0-80.0) % Lymph % (Auto) (10-50) % Eos % (Auto) (0.1-12.0) % Neut # (Auto) (1.8-7.8) K/mm3 Neutrophils % (Manual) (42-76) % Lymphocytes % (Manual) (10-50) % ESR (0-20) mm/hr PT 76.2 H (9.4-11.8) seconds INR 7.86 H (0.9-1.1) BUN (7-18) mg/dL Calcium (8.5-10.1) mg/dL AST (15-37) U/L C-Reactive Protein (0.0-0.9) mg/L Albumin (3.4-5.0) gm/dL Globulin (1.3-3.2) gm/dl Albumin/Globulin Ratio (1.1-1.8) H & H 12/14/18 Range/Units 13:15 Hgb 9.0 L (12.2-16.2) g/dL Hct 32.1 L (37.0-47.0) % Coagulation 12/14/18 Range/Units 13:15 INR 7.86 H (0.9-1.1) All other labs normal. Assessment and Plan (1) Rheumatoid arthritis Current visit: Yes Status: Acute Category: Medical Code(s): M06.9 - Rheumatoid arthritis, unspecified - Assessment and plan all Dx Assessment and Plan for all problems:: 47yo female with severe rheumatoid arthritis with destruction of multiple j oints, being evaluated by Dr. Castillo for cellulitis/possible osteomyelitis of the L foot; evaluated by myself for draining wounds from bilateral elbows. Also with h/o antiphospholipid antibody syndrome, on chronic anticoagulation with supratherapeutic INR. WBC elevated at 21, CRP 8.5. Has been started on vanc/unasyn. -- elbows, wrists and fingers are clinically deformed; also suspect cervical spi ne involvement. Will order imaging of c-spine, elbows, and wrists/hands since she has not had an orthopedic evaluation for these. Ultimately, wrist fusions would be very beneficial, and ideally elbow arthroplasty as well, but with her h/o infection and use of BUE as weightbearing extremities in her wheelchair, arthroplasty would not be hamlin at this time. Elbow fusion may be a better alternative, but with the draining wounds, I have a high suspicion for a chronic draining sinus tract from osteomyelitis. Should this be true, this would be a significant problem and would likely require surgical treatment and prolonged antibiotic therapy. The first priority is to rule out infection and treat that if present, as well as evaluating and treating her foot; the aforementioned treatments may be considered in the future. If osteo is present in the elbow, bone biopsies versus surgical debridement may be necessary, but results may be skewed because antibiotics have already been started. Recommendations/plan: -- XR of bilateral elbows, wrists, hands and cervical spine -- MRI of bilateral elbows -- recommend blood cultures -- local wound care to bilateral elbows; dry dressing with 4x4/Kerlix -- will f/u imaging results and make further recommendations based on those results
[2018-02-09 06:27] LABS: Basophils % 0.1 % (0.1-2.0); Eosinophils % 0.3 % (0.1-12.0); Hematocrit 27.4 % (37.0-47.0); Lymphocytes # 3.1 K/mm3 (0.7-4.5); Lymphocytes % 24.4 % (10-50); Mean Corpuscular HGB Conc 27.1 g/dL (31.8-35.4); Mean Corpuscular Hemoglobin 23.9 pg (27.0-31.2); Mean Corpuscular Volume 88.2 fl (81-99); Monocytes # 0.5 K/mm3 (0.1-1.0); Monocytes % 4.2 % (1.7-9.3); Neutrophils # 9.1 K/mm3 (1.8-7.8); Neutrophils % 70.9 % (37.0-80.0); Platelet Count 543 K/mm3 (142-424); Red Blood Count 3.11 M/mm3 (4.20-5.40); Red Cell Distribution Width 16.5 % (11.5-17.5); White Blood Count 12.8 K/mm3 (4.8-10.8)
[2018-02-09 06:37] LABS: Hemoglobin 7.4 g/dL (12.2-16.2)
[2018-02-09 06:38] LABS: INR 11.47 (0.9-1.1)
[2018-02-09 06:40] LABS: Albumin Level 1.8 gm/dL (3.4-5.0); Albumin/Globulin Ratio 0.5 (1.1-1.8); Anion Gap 7.8 mEq/L (5-15); Bilirubin,Total 0.2 mg/dL (0.2-1.0); Calcium 7.8 mg/dL (8.5-10.1); Globulin 3.3 gm/dl (1.3-3.2); Potassium 3.8 mmoL/L (3.5-5.1); Total Protein,Serum 5.1 gm/dL (6.4-8.2)
--- NOTE | 2018-02-09 07:55 | Progress Note ---
Internal Medicine - PN: Subj *Date: 02/09/18 *Time: 07:52 Interval history: Patient rested well, states that she feels better and has a little bit more energy. Exam Vital signs and Labs for Last 24 Hours: Temp Pulse Resp BP Pulse Ox 97.5 F L 93 H 17 92/61 L 95 02/09/18 04:00 02/09/18 04:00 02/09/18 04:00 02/09/18 04:00 02/09/18 04:00 Laboratory Results - last 24 hr 02/08/18 13:15: WBC 21.3 H*, RBC 3.71 L, Hgb 9.0 L, Hct 32.1 L, MCV 86.6, MCH 24.4 L, MCHC 28.2 L, RDW 16.9, Plt Count 717 H, MPV 6.5 L, Neut % (Auto) 92.6 H, Lymph % (Auto) 5.1 L, [place] % (Auto) 2.2, Eos % (Auto) 0.0 L, Baso % (Auto) 0.1, Neut # (Auto) 19.7 H, Lymph # (Auto) 1.1, [place] # (Auto) 0.5, Eos # (Auto) 0.0, Baso # (Auto) 0.0, Total Counted 100, Neutrophils % (Manual) 94 H, Lymphocytes % (Manual) 4 L, Monocytes % (Manual) 2, Platelet Estimate Marked increase, Hypochromasia 1+ 02/08/18 13:15: Sodium 137, Potassium 4.0, Chloride 101, Carbon Dioxide 29, Anion Gap 11.0, BUN 19 H, Creatinine 0.68, Estimated Creat Clear 65, Estimated GFR 92, Est GFR ( Amer) 111, Glucose 99, Calcium 8.4 L, Total Bilirubin 0.3, AST 13 L, ALT 30, Alkaline Phosphatase 75, C-Reactive Protein 8.5 H, Total Protein 6.6, Albumin 2.3 L, Globulin 4.3 H, Albumin/Globulin Ratio 0.5 L 02/08/18 13:15: Hemoglobin A1c 5.8 02/08/18 13:15: ESR 72 H 02/08/18 13:15: PT 76.2 H, INR 7.86 H 02/09/18 06:19: WBC 12.8 H D, RBC 3.11 L, Hgb 7.4 L*, Hct 27.4 L, MCV 88.2, MCH 23.9 L, MCHC 27.1 L, RDW 16.5, Plt Count 543 H, MPV 7.0 L, Neut % (Auto) 70.9, Lymph % (Auto) 24.4, [place] % (Auto) 4.2, Eos % (Auto) 0.3, Baso % (Auto) 0.1, Neut # (Auto) 9.1 H, Lymph # (Auto) 3.1, [place] # (Auto) 0.5, Eos # (Auto) 0.0, Baso # (Auto) 0.0 02/09/18 06:19: PT 110.0 H, INR 11.47 H 02/09/18 06:19: Sodium 138, Potassium 3.8, Chloride 106, Carbon Dioxide 28, Anion Gap 7.8, BUN 17, Creatinine 0.71, Estimated Creat Clear 62, Estimated GFR 87, Est GFR ( Amer) 106, Glucose 82, Calcium 7.8 L, Total Bilirubin 0.2, AST 11 L, ALT 21 D, Alkaline Phosphatase 57, Total Protein 5.1 L, Albumin 1.8 L D, Globulin 3.3 H, Albumin/Globulin Ratio 0.5 L I & O for Last 24 hours: Intake & Output 02/06/18 02/07/18 02/08/18 02/09/18 11:59 11:59 11:59 11:59 Intake Total 240 / 240 Output Total 525 / 525 Balance -285 / -285 Weight 90 lb 5 oz Narrative: Patient is awake, alert, eating breakfast. Her color is much improved with more of an appropriate flesh toned color. She has bandages on her foot as well as both elbows. Heart rate regular. Lungs are clear in the anterior rees, abdomen soft, oropharynx is clear. Assessment and Plan (1) Rheumatoid arthritis Current visit: Yes Status: Acute Category: Medical Code(s): M06.9 - Rheumatoid arthritis, unspecified (2) Arthritis of right elbow Current visit: Yes Status: Acute Category: Medical Code(s): M19.021 - Primary osteoarthritis, right elbow (3) Cellulitis of left foot Current visit: Yes Status: Acute Category: Medical Code(s): L03.116 - Cellulitis of left lower limb (4) PAD (peripheral artery disease) Current visit: Yes Status: Acute Category: Medical Code(s): I73.9 - Peripheral vascular disease, unspecified (5) Ankle fracture, left Current visit: No Status: Acute Category: Medical Code(s): S82.892A - Other fracture of left lower leg, initial encounter for closed fracture - Assessment and plan all Dx Assessment and Plan for all problems:: No significant change from plan and H&P. Patient's blood counts dipped below 8 this morning. Given her evidence of infection and need for peripheral perfusion patient does need blood. This will be done today. Follow with podiatry and orthopedics. Continue IV antibiotic
[2018-02-09 13:20] LABS: Hematocrit 33.6 % (37.0-47.0)
[2018-02-09 13:21] LABS: Hemoglobin 9.4 g/dL (12.2-16.2)
[2018-02-10 07:04] LABS: INR 2.62 (0.9-1.1); Prothrombin Time 26.2 seconds (9.4-11.8)
[2018-02-10 07:06] LABS: Anion Gap 8.2 mEq/L (5-15); Calcium 7.6 mg/dL (8.5-10.1); Potassium 3.2 mmoL/L (3.5-5.1)
--- NOTE | 2018-02-10 07:45 | Progress Note ---
Internal Medicine - PN: Subj *Date: 02/10/18 *Time: 08:55 Interval history: Patient did well overnight, tolerating p.o. intake. No fevers, hypotension, nausea or vomiting. Tolerating IV antibiotics. Reports feeling "better". Still having significant pain, current regimen is not controlling and she feels the gap overnight causes her to wake with significant increase in her acute on chronic pain. Exam Vital signs and Labs for Last 24 Hours: Temp Pulse Resp BP Pulse Ox 97.5 F L 88 17 142/81 H 96 02/10/18 04:00 02/10/18 04:00 02/10/18 04:00 02/10/18 04:00 02/10/18 04:00 Laboratory Results - last 24 hr 02/09/18 07:14: Blood Type O Positive, Antibody Screen Negative, Crossmatch (AHG) See Detail 02/09/18 13:10: Hgb 9.4 L D, Hct 33.6 L 02/10/18 06:44: Sodium 138, Potassium 3.2 L, Chloride 107, Carbon Dioxide 26, Anion Gap 8.2, BUN 16, Creatinine 0.66, Estimated Creat Clear 67, Estimated GFR 95, Est GFR ( Amer) 115, Glucose 130 H, Calcium 7.6 L 02/10/18 06:44: PT 26.2 H, INR 2.62 H I & O for Last 24 hours: Intake & Output 02/07/18 02/08/18 02/09/18 02/10/18 23:59 23:59 23:59 23:59 Intake Total 240 / 240 1940 / 1940 750 / 750 Output Total 250 / 250 550 / 550 Balance -10 / -10 1390 / 1390 750 / 750 Weight 40.965 kg Microbiology Reports for the Last 24 Hours: Microbiology 02/08/18 13:46 Blood Blood Culture - Preliminary Gram Positive Cocci Gram Positive Cocci#2 02/08/18 14:00 Foot,Left - Wound Gram Stain - Final 02/08/18 14:00 Foot,Left - Wound Wound Culture - Preliminary Narrative: Chronically ill-appearing 47-year-old female with cushingoid appearance awake, alert, eating breakfast. Color is appropriate flesh toned color. She has bandages on her foot as well as both elbows. Heart rate regular. Lungs are clear in the anterior rees, abdomen soft, oropharynx is clear Capillary refill brisk in toes of left lower extremity Significant deformity in bilateral hands due to chronic rheumatoid arthritis with dislocation of wrist in flexed position, elbows with limited range of motion of 60-90 degrees. Assessment and Plan (1) Rheumatoid arthritis Current visit: Yes Status: Acute Category: Medical Code(s): M06.9 - Rheumatoid arthritis, unspecified (2) Arthritis of right elbow Current visit: Yes Status: Acute Category: Medical Code(s): M19.021 - Primary osteoarthritis, right elbow (3) Cellulitis of left foot Current visit: Yes Status: Acute Category: Medical Code(s): L03.116 - Cellulitis of left lower limb (4) PAD (peripheral artery disease) Current visit: Yes Status: Acute Category: Medical Code(s): I73.9 - Peripheral vascular disease, unspecified (5) Ankle fracture, left Current visit: No Status: Acute Category: Medical Code(s): S82.892A - Other fracture of left lower leg, initial encounter for closed fracture (6) Sepsis Current visit: Yes Status: Acute Qualifiers: Sepsis type: Streptococcus group B Qualified Code(s): A40.1 - Sepsis due to streptococcus, group B Category: Medical Code(s): A41.9 - Sepsis, unspecified organism Patient presented with marked leukocytosis of approximately 21,000, tachycardia greater than 90, found to have positive blood cultures for GBS. -Received IV fluids -Initiated on IV antibiotic -Blood cultures obtained -Symptoms defervescing, hemodynamically stable. Sepsis appears to be resolving - Assessment and plan all Dx Assessment and Plan for all problems:: Continue current management of elbows and foot per orthopedics and podiatry respectively. -Continue anti-biotics as ordered, sensitivities and specificities pending. De- escalate when appropriate -Increase Percocet for pain control for the next 24-48 hours pending response with plan to de-escalate back to home regimen -Stop IV fluids as patient is tolerating p.o. intake appropriately -Continues to require inpatient management
[2018-02-11 06:32] LABS: INR 1.67 (0.9-1.1)
--- NOTE | 2018-02-11 07:36 | Progress Note ---
Subjective Date: 02/11/18 Time: 07:20 Principal diagnosis: Left foot cellulitis Interval history: Patient is resting comfortably eating breakfast. Reports some pain to the left foot, intermittently. Denies any changes to the left lower extremity. Denies N/V, F/C, SOB/CP. Pateint feels left foot "looks and feels better". PN: Obj Ex Vital signs: Temp Pulse Resp BP Pulse Ox 97.9 F 97 H 17 122/75 97 02/11/18 04:00 02/11/18 04:00 02/11/18 04:00 02/11/18 04:00 02/11/18 04:00 Narrative: Afebrile. No N/V, F/C. - Constitutional no acute distress, thin - Routine HEENT Exam Head: Present: normocephalic - Routine Respiratory Exam Absent: respiratory distress - Routine Abdominal Exam Present: guarding - Routine Extremities Exam Present: edema (improving left foot), extremity cold to touch, amputation (R AKA). Absent: pulses intact, normal capillary refill, calf tenderness - Detailed Lower Extremity Exam Comments: Foot/Toes: Left crepitus (MPJs 1-5), Left deformity (RA w/previous gong met re construction), Left erythema (localized to the 1st MPJ), Left swelling has improving, 1st MPJ pain has decreased some Left wound: dorsal 1st MPJ: ~3 x 2.5 x 0.3cm, wound base 100% fibrotic with minimal slough, no necrotic tissue, no drainage or purulence. No malodor or ascending cellulitis Comments: Non palpable and non dopplerable DP. Weakly palpable PT, dopplerable PT monophasic. LLE cold. R AKA. Delayed left CFT. Multiple abrasions and bruising noted to LLE, extending from knee to left medial cuneiform and anterior ankle. Edema to left foot, improving. Localized erythema to 1st MPJ improving with no ascending cellulitis. No fluctuance or evidence of abscess. - Routine Back/Spine/Pelvis Exam Back/Spine: Absent: full ROM - Routine Skin Exam Present: dry, pallor, lesions (multiple LLE abrasions and dry arterial lesions), scars, wounds (left 1st MPJ dorsally). Absent: intact - Routine Neurological Exam Present: alert, oriented X3 Progress Note: A&P (1) Rheumatoid arthritis Status: Acute Current Visit: Yes (2) Arthritis of right elbow Status: Acute Current Visit: Yes (3) Cellulitis of left foot Status: Acute Current Visit: Yes (4) PAD (peripheral artery disease) Status: Acute Current Visit: Yes (5) Ankle fracture, left Status: Acute Current Visit: No (6) Sepsis Status: Acute Current Visit: Yes Assessment and Plan for All Diagnoses:: Left 1st MPJ ulcer, cellulitis: Patient can not tolerate debridement with currette or blade. The wound extends through skin into capsule overlying bone. Biofilm and fibrotic slough were reduced since last dressing change. The wound did probe thru deep fascia and questionable into the bone. Suspicious for osteomyelitis. There was no purulence noted. Ruthann-wound cellulitis noted. Non-palpable popliteal lymph nodes. 1. Dressing changed by myself at bedside 2. Continue wound care: change dressing daily with Santyl 3. DME assistance 4. Wound culture, 02/08/18: Staph, GPB 5. Blood cultures, 02/08/18: positive Group B strep 6. Broad spectrum IV antibiotics, PICC 7. ABIs LLE, 02/08/18: L MIRI 0.68 and TBI 0.22 with diminished pulses and waveforms MIRI indicates moderate arterial vascular disease and toe pressure only 17mmHg indicating severe small vessel disease I am very concerned with the patient's pulses and circulation history. I would much rather try IV antibiotics and Santyl enzymatic debridement over surgery which could ultimately lead to amputation. I explained to the patient that if the infection becomes life-threatening, redness or purulence or worsening wound then she may require an amputation. Given she has had the ulcer for 16 years I am hesitant for hallux/first metatarsal partial amputation because likely she will not heal. I explained if amputation were undertaken she runs high risk of more proximal amputation including transmetatarsal, below-knee or above-knee amputation. Patient verbalized understanding, and is hesitant for surgery. She states that she would like to try the wound care with IV antibiotics and has agreed to vascular workup and MRI for further evaluation. 8. MRI left foot w/wout to evaluate for osteomyelitis or underlying abscess: pending for today 9. Vascular consult: any possible LLE intervention?
--- NOTE | 2018-02-11 07:40 | Progress Note ---
Internal Medicine - PN: Subj *Date: 02/11/18 *Time: 07:38 Interval history: Patient feels better. Seen in conjunction with podiatry who was unwrapping her foot which patient states has some pain. Less fevers. Breathing better. Exam Vital signs and Labs for Last 24 Hours: Temp Pulse Resp BP Pulse Ox 97.9 F 97 H 17 122/75 97 02/11/18 04:00 02/11/18 04:00 02/11/18 04:00 02/11/18 04:00 02/11/18 04:00 Laboratory Results - last 24 hr 02/10/18 19:30: Vancomycin Trough 7.8 L 02/11/18 06:12: PT 17.0 H, INR 1.67 H I & O for Last 24 hours: Intake & Output 02/08/18 02/09/18 02/10/18 02/11/18 11:59 11:59 11:59 11:59 Intake Total 600 / 600 2810 / 2810 1450 / 1450 Output Total 525 / 525 275 / 275 300 / 300 Balance 75 / 75 2535 / 2535 1150 / 1150 Weight 90 lb 5 oz Microbiology Reports for the Last 24 Hours: Microbiology 02/08/18 13:46 Blood Blood Culture - Final Strep agalactiae - (group b)#2 Strep agalactiae - (group b) 02/08/18 14:00 Foot,Left - Wound Gram Stain - Final 02/08/18 14:00 Foot,Left - Wound Wound Culture - Final Staphylococcus aureus#2 Staphylococcus aureus Gram Positive Bacilli 02/08/18 13:15 Blood Blood Culture - Preliminary NO GROWTH AFTER 48 HOURS Narrative: Patient's color looks much better. Lungs have smoker's rhonchi but good air movement. Heart rate regular. Abdomen soft. Joints are essentially unchanged except her foot which has much less redness. The open area has less greenish exudate. Please see podiatry notes for details. Assessment and Plan (1) Rheumatoid arthritis Current visit: Yes Status: Acute Category: Medical Code(s): M06.9 - Rheumatoid arthritis, unspecified Currently stable. Joint destruction is stable. (2) Arthritis of right elbow Current visit: Yes Status: Acute Category: Medical Code(s): M19.021 - Primary osteoarthritis, right elbow Orth O notes appreciated. Consistent with joint destruction and synovial fluid leakage. (3) Cellulitis of left foot Current visit: Yes Status: Acute Category: Medical Code(s): L03.116 - Cellulitis of left lower limb Overall improving on surface exam. MRI pending. Appreciate podiatry input (4) PAD (peripheral artery disease) Current visit: Yes Status: Acute Category: Medical Code(s): I73.9 - Peripheral vascular disease, unspecified (5) Ankle fracture, left Current visit: No Status: Acute Category: Medical Code(s): S82.892A - Other fracture of left lower leg, initial encounter for closed fracture (6) Sepsis Current visit: Yes Status: Acute Qualifiers: Qualified Code(s): A40.1 - Sepsis due to streptococcus, group B Category: Medical Code(s): A41.9 - Sepsis, unspecified organism Group B strep. Questionable culture. Follow sensitivity issues.
--- NOTE | 2018-02-11 07:56 | Progress Note ---
Internal Medicine - PN: Subj *Date: 02/11/18 *Time: 07:56 Exam Vital signs and Labs for Last 24 Hours: Temp Pulse Resp BP Pulse Ox 97.9 F 97 H 17 122/75 97 02/11/18 04:00 02/11/18 04:00 02/11/18 04:00 02/11/18 04:00 02/11/18 04:00 Laboratory Results - last 24 hr 02/10/18 19:30: Vancomycin Trough 7.8 L 02/11/18 06:12: PT 17.0 H, INR 1.67 H I & O for Last 24 hours: Intake & Output 02/08/18 02/09/18 02/10/18 02/11/18 23:59 23:59 23:59 23:59 Intake Total 240 / 240 1940 / 1940 2330 / 2330 350 / 350 Output Total 250 / 250 550 / 550 300 / 300 Balance -10 / -10 1390 / 1390 2330 / 2330 50 / 50 Weight 40.965 kg Microbiology Reports for the Last 24 Hours: Microbiology 02/08/18 13:46 Blood Blood Culture - Final Strep agalactiae - (group b)#2 Strep agalactiae - (group b) 02/08/18 14:00 Foot,Left - Wound Gram Stain - Final 02/08/18 14:00 Foot,Left - Wound Wound Culture - Final Staphylococcus aureus#2 Staphylococcus aureus Gram Positive Bacilli 02/08/18 13:15 Blood Blood Culture - Preliminary NO GROWTH AFTER 48 HOURS Assessment and Plan (1) Rheumatoid arthritis Current visit: Yes Status: Acute Category: Medical Code(s): M06.9 - Rheumatoid arthritis, unspecified (2) Arthritis of right elbow Current visit: Yes Status: Acute Category: Medical Code(s): M19.021 - Primary osteoarthritis, right elbow (3) Cellulitis of left foot Current visit: Yes Status: Acute Category: Medical Code(s): L03.116 - Cellulitis of left lower limb (4) PAD (peripheral artery disease) Current visit: Yes Status: Acute Category: Medical Code(s): I73.9 - Peripheral vascular disease, unspecified (5) Ankle fracture, left Current visit: No Status: Acute Category: Medical Code(s): S82.892A - Other fracture of left lower leg, initial encounter for closed fracture (6) Sepsis Current visit: Yes Status: Acute Qualifiers: Sepsis type: Streptococcus group B Qualified Code(s): A40.1 - Sepsis due to streptococcus, group B Category: Medical Code(s): A41.9 - Sepsis, unspecified organism The patient's infection will respond to the chosen ABx?: Yes Is the patient receiving the right drug, dose, and route?: Yes Could a more targeted ABx be ordered?: No
--- NOTE | 2018-02-11 08:38 | Consult Report ---
History of Present Illness Consult date: 02/11/18 Requesting physician: Mary Lou Castillo Chief complaint: LLE chronic ulcer, Abnormal MIRI Additional Medical History:: 1. Tobacco use since age 12 of about a half a pack per day 2. 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 History of myocardial infarction approximately A. History of coronary stenting x3 in 4. 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 Severe rheumatoid arthritis with recurrent intermittent prednisone use 6. Hypothyroidism 7. Recurrent anemia History of present illness: 47-year-old white female admitted for left lower extremity pain and nonhealing ulcer which has been recurrent since 1999. ABIs were obtained showing left lower extremity MIRI of 0.7. Cardiology consulted for evaluation and recommendations. Patient is felt to have chronic osteomyelitis of the foot and possibly of bilateral elbows for which MRI has been ordered to be performed today. Patient denies chest pain, pressure or tightness. She does continue to smoke. She is on Pletal, Plavix and Coumadin with an INR of 1.67 this morning peer EKG shows prior inferior infarct otherwise no acute changes. [facility] History Medical History: Reports:: Myocardial Infarction Denies:: Cancer, Diabetes Mellitus Type 1, Diabetes Mellitus Type 2, MRSA Other Medical History: Reports: Anemia, Arthritis, Thyroid Disease Laterality Cases: Right: Other (R AKA; L foot reconstructive surgery), Bilateral: Tonsillectomy Other Surgeries: Yes: Appendectomy, Hysterectomy-Total Amputation: Yes (RT leg) Fractures: Yes (L distal fibula fracture 10/2017) - *Social History Educational Level: Completed GED/General Educational Development Smoking Status: Current every day smoker Tobacco Type: cigarettes Alcohol Intake: never Substance Use Type: former substance user, crack/cocaine Occupational Status: disabled Housing: house Household Members: spouse - Psychiatric History Expresses thoughts of harming self/others: None Suicide Plan Description: No Plan *Family Hx:: Asthma, Coronary Artery Disease, Diabetes, Heart Attack, Hyperlipidemia, Hypertension, Stroke, Tuberculosis Meds Home Medications Medication Instructions Recorded Confirmed Type Warfarin Sodium [Coumadin] 4 mg PO DAILY 11/23/17 02/08/18 History Adalimumab [Humira Pen] 40 mg SQ QOW 02/08/18 02/08/18 History Albuterol Sulfate [Proair Hfa 2 puffs IH QIDP PRN 02/08/18 02/08/18 History 90mcg/puff Inh] Cilostazol [Pletal 100mg tablet] 100 mg PO BID 02/08/18 02/08/18 History Clopidogrel Bisulfate [Clopidogrel 75 mg PO DAILY 02/08/18 02/08/18 History 75mg Tab] Cyclobenzaprine HCl 10 mg PO TIDP PRN 02/08/18 02/08/18 History [Cyclobenzaprine 10mg Tab] Ferrous Sulfate 325 mg PO BID 02/08/18 02/08/18 History Folic Acid [Folic Acid 1mg tablet] 1 mg PO DAILY 02/08/18 02/08/18 History Hydroxychloroquine Sulfate 400 mg PO DAILY 02/08/18 02/08/18 History [Plaquenil 200mg tablet] Levothyroxine Sodium 50 mcg PO DAILY 02/08/18 02/08/18 History [Levothyroxine 50mcg (0.05mg) Tab] Meloxicam [Mobic] 15 mg PO DAILY 02/08/18 02/08/18 History Metoprolol Tartrate 50 mg PO DAILY 02/08/18 02/08/18 History Oxycodone HCl/Acetaminophen 1 tab PO QID 02/08/18 02/08/18 History [Oxycodone W/Apap 325mg Tablet] Pravastatin Sodium [Pravachol] 40 mg PO HS 02/08/18 02/08/18 History Promethazine HCl [Phenergan 25mg 25 mg PO Q6HP PRN 02/08/18 02/08/18 History tab] Tizanidine HCl [Zanaflex] 8 mg PO TID 02/08/18 02/08/18 History predniSONE [Deltasone 20mg 20 mg PO DAILYP PRN 02/08/18 02/08/18 History tablet] raNITIdine HCl [Acid Control] 150 mg PO DAILY 02/08/18 02/08/18 History Allergies Allergy/AdvReac Type Severity Reaction Status Date / Time gabapentin [GABAPENTIN] Allergy Severe HALLUCINATI Verified 11/23/17 08:00 ONS methadone [METHADONE] Allergy Severe THROAT Verified 11/23/17 08:00 CLOSES codeine [CODEINE] Allergy Mild NA-NAUSEA Verified 11/23/17 08:00 Review of Systems - *Cardiovascular Denies chest pain, Denies shortness of breath - *Respiratory Reports cough, Denies shortness of breath with activity - *Gastrointestinal Denies abdominal pain, Denies loose stools - *Genitourinary Denies blood in urine - *Musculoskeletal Reports joint pain - *Neurologic Reports abnormal walking, Reports unsteadiness, Reports localized weakness, Reports tingling/numbness/burning sensations, Denies abnormal hearing, Denies numbness, Denies tingling Exam Vital signs and Labs for Last 24 Hours: Temp Pulse Resp BP Pulse Ox 98.2 F 109 H 18 131/67 94 L 02/11/18 08:00 02/11/18 08:00 02/11/18 08:00 02/11/18 08:00 02/11/18 08:00 Laboratory Results - last 24 hr 02/10/18 19:30: Vancomycin Trough 7.8 L 02/11/18 06:12: PT 17.0 H, INR 1.67 H I & O for Last 24 hours: Intake & Output 02/08/18 02/09/18 02/10/18 02/11/18 11:59 11:59 11:59 11:59 Intake Total 600 / 600 2810 / 2810 1450 / 1450 Output Total 525 / 525 275 / 275 300 / 300 Balance 75 / 75 2535 / 2535 1150 / 1150 Weight 90 lb 5 oz Microbiology Reports for the Last 24 Hours: Microbiology 02/08/18 13:46 Blood Blood Culture - Final Strep agalactiae - (group b)#2 Strep agalactiae - (group b) 02/08/18 14:00 Foot,Left - Wound Gram Stain - Final 02/08/18 14:00 Foot,Left - Wound Wound Culture - Final Staphylococcus aureus#2 Staphylococcus aureus Gram Positive Bacilli 02/08/18 13:15 Blood Blood Culture - Preliminary NO GROWTH AFTER 48 HOURS - *Routine Neck Exam Present: supple. Absent: JVD, carotid bruit - *Routine Respiratory Exam Present: CTA bilaterally. Absent: accessory muscle use, rales, rhonchi, wheezes - *Routine Cardiovascular Exam Present: RRR. Absent: murmur, gallop, rubs - *Routine Abdominal Exam Present: soft. Absent: tenderness, distended, guarding - *Routine Extremities Exam Absent: edema, calf tenderness Comments: Right lower extremity AKA noted. Left lower extremity warm with foot wrapped in gauze bandage. No appreciable dorsalis pedis or posterior tibial pulse palpation. - *Routine Neurological Exam Present: alert, oriented X3, moving all extremities Assessment and Plan (1) Rheumatoid arthritis Current visit: Yes Status: Acute Category: Medical Code(s): M06.9 - Rheumatoid arthritis, unspecified (2) Arthritis of right elbow Current visit: Yes Status: Acute Category: Medical Code(s): M19.021 - Primary osteoarthritis, right elbow (3) Cellulitis of left foot Current visit: Yes Status: Acute Category: Medical Code(s): L03.116 - Cellulitis of left lower limb (4) PAD (peripheral artery disease) Current visit: Yes Status: Acute Category: Medical Code(s): I73.9 - Peripheral vascular disease, unspecified (5) Ankle fracture, left Current visit: No Status: Acute Category: Medical Code(s): S82.892A - Other fracture of left lower leg, initial encounter for closed fracture (6) Sepsis Current visit: Yes Status: Acute Qualifiers: Sepsis type: Streptococcus group B Qualified Code(s): A40.1 - Sepsis due to streptococcus, group B Category: Medical Code(s): A41.9 - Sepsis, unspecified organism (7) History of myocardial infarction Current visit: Yes Status: Acute Category: Medical Code(s): I25.2 - Old myocardial infarction (8) History of coronary artery stent placement Current visit: Yes Status: Acute Category: Surgical Code(s): Z95.5 - Presence of coronary angioplasty implant and graft - Assessment and plan all Dx Assessment and Plan for all problems:: 1. With severe PAD and possible osteomyelitis myelitis of the foot and elbows, MRI has been ordered to evaluate this finding. Recommend waiting to see the results of the MRI before proceeding with invasive procedures. If lower extremity arteriogram needed, then would also recommend proceeding with cardiac catheterization to evaluate coronary arteries for presumed preop evaluation. 2. We will obtain an echocardiogram to evaluate left ventricular size and function in the setting of previous myocardial infarction and prior coronary stenting.
--- NOTE | 2018-02-11 11:57 | Pharmacy Consult Notes ---
- Pharmacy Consult Date: 02/11/18 Time: 11:53 Referring provider: DR. ZAMORA Reason for Consult:: VANCOMYCIN LEVEL AND DOSING INTERVAL CHANGE Allergies and ADEs:: Allergies Allergy/AdvReac Type Severity Reaction Status Date / Time gabapentin [GABAPENTIN] Allergy Severe HALLUCINATI Verified 11/23/17 08:00 ONS methadone [METHADONE] Allergy Severe THROAT Verified 11/23/17 08:00 CLOSES codeine [CODEINE] Allergy Mild NA-NAUSEA Verified 11/23/17 08:00 Home Medications:: Home Medications Medication Instructions Recorded Confirmed Type Warfarin Sodium [Coumadin] 4 mg PO DAILY 11/23/17 02/08/18 History Adalimumab [Humira Pen] 40 mg SQ QOW 02/08/18 02/08/18 History Albuterol Sulfate [Proair Hfa 2 puffs IH QIDP PRN 02/08/18 02/08/18 History 90mcg/puff Inh] Cilostazol [Pletal 100mg tablet] 100 mg PO BID 02/08/18 02/08/18 History Clopidogrel Bisulfate [Clopidogrel 75 mg PO DAILY 02/08/18 02/08/18 History 75mg Tab] Cyclobenzaprine HCl 10 mg PO TIDP PRN 02/08/18 02/08/18 History [Cyclobenzaprine 10mg Tab] Ferrous Sulfate 325 mg PO BID 02/08/18 02/08/18 History Folic Acid [Folic Acid 1mg tablet] 1 mg PO DAILY 02/08/18 02/08/18 History Hydroxychloroquine Sulfate 400 mg PO DAILY 02/08/18 02/08/18 History [Plaquenil 200mg tablet] Levothyroxine Sodium 50 mcg PO DAILY 02/08/18 02/08/18 History [Levothyroxine 50mcg (0.05mg) Tab] Meloxicam [Mobic] 15 mg PO DAILY 02/08/18 02/08/18 History Metoprolol Tartrate 50 mg PO DAILY 02/08/18 02/08/18 History Oxycodone HCl/Acetaminophen 1 tab PO QID 02/08/18 02/08/18 History [Oxycodone W/Apap 325mg Tablet] Pravastatin Sodium [Pravachol] 40 mg PO HS 02/08/18 02/08/18 History Promethazine HCl [Phenergan 25mg 25 mg PO Q6HP PRN 02/08/18 02/08/18 History tab] Tizanidine HCl [Zanaflex] 8 mg PO TID 02/08/18 02/08/18 History predniSONE [Deltasone 20mg 20 mg PO DAILYP PRN 02/08/18 02/08/18 History tablet] raNITIdine HCl [Acid Control] 150 mg PO DAILY 02/08/18 02/08/18 History Height: 1.52 m Weight: 40.965 kg Laboratory Results:: Laboratory Results - last 24 hr 02/10/18 19:30: Vancomycin Trough 7.8 L 02/11/18 06:12: PT 17.0 H, INR 1.67 H Medical History: Reports:: Myocardial Infarction Denies:: Cancer, Diabetes Mellitus Type 1, Diabetes Mellitus Type 2, MRSA Assessment and Plan (1) Rheumatoid arthritis Current visit: Yes Status: Acute Category: Medical Code(s): M06.9 - Rheumatoid arthritis, unspecified (2) Arthritis of right elbow Current visit: Yes Status: Acute Category: Medical Code(s): M19.021 - Primary osteoarthritis, right elbow (3) Cellulitis of left foot Current visit: Yes Status: Acute Category: Medical Code(s): L03.116 - Cellulitis of left lower limb (4) PAD (peripheral artery disease) Current visit: Yes Status: Acute Category: Medical Code(s): I73.9 - Peripheral vascular disease, unspecified (5) Ankle fracture, left Current visit: No Status: Acute Category: Medical Code(s): S82.892A - Other fracture of left lower leg, initial encounter for closed fracture (6) Sepsis Current visit: Yes Status: Acute Qualifiers: Sepsis type: Streptococcus group B Qualified Code(s): A40.1 - Sepsis due to streptococcus, group B Category: Medical Code(s): A41.9 - Sepsis, unspecified organism (7) History of myocardial infarction Current visit: Yes Status: Acute Category: Medical Code(s): I25.2 - Old myocardial infarction (8) History of coronary artery stent placement Current visit: Yes Status: Acute Category: Surgical Code(s): Z95.5 - Presence of coronary angioplasty implant and graft - Assessment and plan all Dx Assessment and Plan for all problems:: PATIENT'S VANCOMYCIN TROUGH LEVEL WAS 7.8 MCG/ML OVERNIGHT. VANCOMYCIN DOSING INTERVAL WAS CHANGED FROM Q18H TO Q12H. PHARMACY WILL FOLLOW DAILY AND ADJUST APPROPRIATE. BRYAN BOWLES, PHARMD
--- NOTE | 2018-02-11 21:00 | Progress Note ---
Subjective Date: 02/11/18 Time: 17:55 Principal diagnosis: L foot cellulitis r/o osteomyelitis; draining wounds b/l elbows; severe RA Interval history: I spoke with the patient this evening at bedside, with Dr. Castillo. The patient remains in constant pain, in L foot, bilateral elbows/wrists/shoulders, and the neck. She's on Percocet 10/325mg q4 hours and taking prednisone PRN. MRI of the L foot and B/L elbows performed earlier today. PN: Obj Ex Vital signs: Temp Pulse Resp BP Pulse Ox 98.0 F 92 H 17 135/79 98 02/11/18 20:00 02/11/18 20:00 02/11/18 20:00 02/11/18 20:00 02/11/18 20:00 - Constitutional no acute distress - Routine HEENT Exam Head: Present: normocephalic, cushingoid faces Eye: Present: EOMI ENT: Present: mucous membranes moist - Routine Neck Exam Present: tenderness. Absent: full ROM - Routine Respiratory Exam Present: CTA bilaterally. Absent: accessory muscle use - Routine Cardiovascular Exam Present: RRR - Routine Extremities Exam Present: pulses intact, joint swelling, amputation (R AKA). Absent: full ROM - Detailed Upper Extremity Exam Elbow: Bilateral crepitus, Bilateral deformity, Bilateral swelling, Bilateral tenderness, Bilateral wound, Bilateral decreased ROM, Bilateral pain with active ROM, Bilateral pain with passive ROM Wrist: Bilateral crepitus, Bilateral deformity, Bilateral dislocation, Bilateral tenderness, Bilateral decreased ROM, Bilateral pain with active ROM, Bilateral pain with passive ROM Hand/Fingers: Bilateral joint deformity, Bilateral joint swelling, Bilateral decreased ROM, Bilateral pain with active ROM, Bilateral pain with passive ROM - Routine Skin Exam Present: intact, lesions (open wounds posterior B/L elbows 2-3mm). Absent: erythema, ecchymosis - Routine Neurological Exam Present: alert, oriented X3, moving all extremities, normal tone, vision grossly intact, hearing grossly intact, normal speech. Absent: altered mental status - Detailed Neurological Exam Neuro motor strength exam: LLE 4/5, LUE 5/5 (BUE), RLE 0/5 (absent from mid- thigh distally; s/p AKA) Sensory: Normal lower extremity light touch, Normal upper extremity light touch DTR: 2+: patellar (L), triceps (L), triceps (R) - Routine Psychiatric Exam Present: normal affect, normal thought process, cooperative - Additional findings Additional findings: s/p R AKA; R leg absent from knee distally L foot wrapped; examined by Dr. Castillo, who is treating foot, so I did not remove her dressings bilateral elbows with extremely poor ROM, roughly 60-90 degrees with significant crepitus and pain; difficulty with ROM at all there IS gross deformity of bilateral elbows, wrists and fingers; wrists appear to be dislocated and hang in flexion draining sinus tracts over bilateral posterior elbows, roughly 2-3mm in size; no purulent material expressed, all appears serosanginous no significant foul odor to any extremity SILT distally in m/r/u dist BUE no meaningful use of bilateral wrists/fingers, limited movement in elbows weakly palpable radial pulses bilaterally diminished cervical spine ROM with pain no hyperreflexia with testing of triceps reflex cannot elicit Aponte's but doubt validity of test in this patient, due to her deformity Progress Note: A&P (1) Rheumatoid arthritis Status: Acute Current Visit: Yes (2) Cellulitis of left foot Status: Acute Current Visit: Yes Assessment and Plan for All Diagnoses:: 47yo F with severe RA, admitted with cellulitis L foot and suspicion of osteomyelitis (h/o chronic draining wound) --> WBC/CRP/ESR elevated and bacteremic. INR supratherapeutic with peak of 11 on day 2 of admission. Showing improvement with IV antibiotics and medical stabilization. Draining wounds over bilateral elbows are concerning for osteomyelitis of the elbows as well. -- elbows: XR shows severe destructive changes; MRI with increased signal in/around bone c/w RA but cannot exclude osteo - appearance of both conditions on MRI are similar. No fluid collections amenable to drainage. I would recommend a bone biopsy to r/o osteo, followed by surgical treatment if positive, wound care if negative. The elbows already present a significant reconstructive challenge, but the addition of osteomyelitis would be difficult. I would NOT recommend any surgical intervention of any kind, even a bone biopsy, until her cervical spine is evaluated by a spine surgeon; CT and MRI would be necessary as well. Eventually I also recommend wrist fusion or some other salvage procedure to prevent skin breakdown/infection, as there is very little soft tissue on the dorsum of her wrists at present. -- I recommend transfer to large center with multiple disciplines such as orthopedics/podiatry (specifically upper extremity reconstructive specialists), spine (neuro/ortho), infectious disease, rheumatology, heme/onc, cardiology, and internal medicine. -- Dr. Castillo and I spoke with the patient at length about transfer to , and the patient said she will think about it an speak with her . We reiterated the severity of her condition, specifically her cervical spine, and how she may easily sustain a significant spinal cord injury with an unstable neck. If she is transferred, I recommend cervical collar for transport, and at least a soft collar while she is an inpatient here.
[2018-02-12 07:34] LABS: INR 1.24 (0.9-1.1); Prothrombin Time 12.7 seconds (9.4-11.8)
--- NOTE | 2018-02-12 08:58 | Progress Note ---
Subjective Date: 02/12/18 Time: 08:54 Principal diagnosis: L foot cellulitis r/o osteomyelitis; draining wounds b/l elbows; severe RA Interval history: 47 yo WF in bed. Discussed situation with Dr. Draper. Pt has agreed to proceed with transfer to tertiary facility in [place], [place] for further treatment in setting of multiple medical problems. Exam Vital signs and Labs for Last 24 Hours: Temp Pulse Resp BP Pulse Ox 98.0 F 98 H 18 137/83 97 02/12/18 07:58 02/12/18 07:58 02/12/18 07:58 02/12/18 07:58 02/12/18 07:58 Laboratory Results - last 24 hr 02/09/18 07:14: Crossmatch (AHG) See Detail 02/12/18 07:00: PT 12.7 H, INR 1.24 H I & O for Last 24 hours: Intake & Output 02/09/18 02/10/18 02/11/18 02/12/18 11:59 11:59 11:59 11:59 Intake Total 600 / 600 2810 / 2810 1930 / 1930 1390 / 1390 Output Total 525 / 525 275 / 275 300 / 300 1425 / 1425 Balance 75 / 75 2535 / 2535 1630 / 1630 -35 / -35 Weight 90 lb 5 oz 90 lb 5 oz 90 lb 4.998 oz Microbiology Reports for the Last 24 Hours: Microbiology 02/08/18 13:46 Blood Blood Culture - Final Strep agalactiae - (group b)#2 Strep agalactiae - (group b) 02/08/18 14:00 Foot,Left - Wound Gram Stain - Final 02/08/18 14:00 Foot,Left - Wound Wound Culture - Final Staphylococcus aureus#2 Staphylococcus aureus Gram Positive Bacilli Progress Note: A&P (1) Rheumatoid arthritis Status: Acute Current Visit: Yes (2) Cellulitis of left foot Status: Acute Current Visit: Yes Assessment and Plan for All Diagnoses:: Pt to be transferred to tertiary facility. No further cardiac workup here. Official echo report pending.
--- NOTE | 2018-02-12 12:02 | Discharge Summary ---
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 She also has a remote history of cocaine use which complicated her vascular condition. She also suffers from severe and aggressive rheumatoid arthritis which has made her elbows and hands essentially unusable and has caused her to be wheelchair- bound. She has had multiple complications of vascular and arthritic disease, and came to my office today with a chief complaint of left foot pain and some drainage from the base of the left toe. Her also notes that she has had drainage from both of her elbows and wonders if "she could get a cortisone injection in her joints." On examination she looked very pale and ill-appearing, over her baseline, and had active infection of the base of the left foot as well as serous drainage from what appeared to be a fistula tract on the lateral aspect of the right elbow. I am very concerned about intra-articular infection/aggressive cellulitis and also concerned about the possibility of sepsis. She is admitted for IV antibiot ics, laboratory testing and specialty consultation with podiatry and orthopedics. <Baron,Gasper - 02/12/18 12:02> Hospital Course Hospital Course: Orthopedics were consulted, recommended MRI of elbows and neck, showed significant impending neurosurgical problems, and consideration of neurosurgery services was done. Given patient's significant comorbid conditions of vascular disease, possible osteomyelitis of foot, elbows and need for orthopedic evaluation of elbow and wrist fusion issues as well as neurosurgical consultation for neck stability issues patient will be transferred to [facility] for specialty consultation. She is responded very nicely to Unasyn, cultures of blood have shown Streptococcus species sensitive to penicillin. <Raad Larry - 02/15/18 18:10> Initiated Abx and fluids for sepsis. Defervesced. Consulted Ortho, Podiatry, Images, cards. COmplex. Transfer to <Gasper Draper - 02/12/18 12:02> Objective Vital signs: Temp Pulse Resp BP Pulse Ox 97.3 F L 80 18 112/69 97 02/15/18 15:50 02/15/18 15:50 02/15/18 15:50 02/15/18 15:50 02/15/18 15:50 <Raad Larry - 02/15/18 18:10> Temp Pulse Resp BP Pulse Ox 98.0 F 98 H 18 137/83 97 02/12/18 07:58 02/12/18 07:58 02/12/18 07:58 02/12/18 07:58 02/12/18 08:23 <Gasper Draper 02/12/18 12:02> Narrative: Patient is pleasant, talkative, oriented x3. Much better color and capillary refill than on admission. Significant joint deformity as detailed in the H&P. <Raad Larry - 02/15/18 18:10> Results Labs on day of discharge: Labs from last 24 hours 02/15/18 10:26 PT 28.5 H INR 2.85 H <Raad Larry - 02/15/18 18:10> Labs from last 24 hours 02/12/18 02/09/18 07:00 07:14 PT 12.7 H INR 1.24 H Crossmatch ([facility]G) See Detail Preliminary micro results at discharge 02/08/18 13:15 Blood Culture - Preliminary Blood NO GROWTH AFTER 48 HOURS <Gasper Draper - 02/12/18 12:02> DS: Diagnosis - Discharge Diagnosis (1) Ulcer of left foot Status: Acute (2) PAD (peripheral artery disease) Status: Chronic (3) Cellulitis of left foot Status: Acute (4) Rheumatoid arthritis Status: Acute (5) History of coronary artery stent placement Status: Chronic (6) CAD (coronary artery disease) Status: Acute <Raad Larry - 02/15/18 18:10> (1) Rheumatoid arthritis Status: Acute (2) Cellulitis of left foot Status: Acute (3) History of coronary artery stent placement (4) PAD (peripheral artery disease) (5) Ulcer of left foot <Gasper Draper 02/12/18 12:01> Discharge Plan - Patient Discharge Instructions ACTIVITY: Continue current activity <Raad Larry - 02/15/18 18:10> Patient Instructions: DI for Cellulitis -- Adult, Peripheral Artery Disease, DI for Rheumatoid Arthritis, DI for Sepsis -- Adult, Coumadin Vitamin K/ Diet, Coumadin Therapy Booklet <Raad Larry - 02/15/18 18:10> Forms: <Raad Larry - 02/15/18 18:10> - Follow up Plan Follow up with: <Raad Larry - 02/15/18 18:10> Disposition: Xfer Short-Term Hosp <Raad Larry - 02/15/18 18:10> Home Medications: Home Medications Medication Instructions Recorded Confirmed Type Warfarin Sodium [Coumadin] 4 mg PO DAILY 11/23/17 02/08/18 History Adalimumab [Humira Pen] 40 mg SQ QOW 02/08/18 02/08/18 History Albuterol Sulfate [Proair Hfa 2 puffs IH QIDP PRN 02/08/18 02/08/18 History 90mcg/puff Inh] Cilostazol [Pletal 100mg tablet] 100 mg PO BID 02/08/18 02/08/18 History Clopidogrel Bisulfate [Clopidogrel 75 mg PO DAILY 02/08/18 02/08/18 History 75mg Tab] Cyclobenzaprine HCl 10 mg PO TIDP PRN 02/08/18 02/08/18 History [Cyclobenzaprine 10mg Tab] Ferrous Sulfate 325 mg PO BID 02/08/18 02/08/18 History Folic Acid [Folic Acid 1mg tablet] 1 mg PO DAILY 02/08/18 02/08/18 History Hydroxychloroquine Sulfate 400 mg PO DAILY 02/08/18 02/08/18 History [Plaquenil 200mg tablet] Levothyroxine Sodium 50 mcg PO DAILY 02/08/18 02/08/18 History [Levothyroxine 50mcg (0.05mg) Tab] Meloxicam [Mobic] 15 mg PO DAILY 02/08/18 02/08/18 History Metoprolol Tartrate 50 mg PO DAILY 02/08/18 02/08/18 History Oxycodone HCl/Acetaminophen 1 tab PO QID 02/08/18 02/08/18 History [Oxycodone W/Apap 325mg Tablet] Pravastatin Sodium [Pravachol] 40 mg PO HS 02/08/18 02/08/18 History Promethazine HCl [Phenergan 25mg 25 mg PO Q6HP PRN 02/08/18 02/08/18 History tab] Tizanidine HCl [Zanaflex] 8 mg PO TID 02/08/18 02/08/18 History predniSONE [Deltasone 20mg 20 mg PO DAILYP PRN 02/08/18 02/08/18 History tablet] raNITIdine HCl [Acid Control] 150 mg PO DAILY 02/08/18 02/08/18 History <Raad Larry - 02/15/18 18:10> Prescriptions/Medication Reconciliation: New Ampicillin/Sulbactam [Unasyn 1.5gm Vial] 1.5 gm IV Q8H vial Nicotine [Nicoderm 21mg/24hr patch] 21 mg TD DAILYP PRN patch.td24 PRN Reason: Nicotine Cravings Collagenase Clostridium Hist. [Santyl Ointment 30gm] 1 gm TP DAILY tube Vancomycin HCl [Vancomycin 1000mg Vial] 750 mg IV Q12H vial Continue predniSONE [Deltasone 20mg tablet] 20 mg PO DAILYP PRN PRN Reason: Inflammation Cyclobenzaprine HCl [Cyclobenzaprine 10mg Tab] 10 mg PO TIDP PRN PRN Reason: Muscle Spasm Cilostazol [Pletal 100mg tablet] 100 mg PO BID Metoprolol Tartrate 50 mg PO DAILY Promethazine HCl [Phenergan 25mg tab] 25 mg PO Q6HP PRN PRN Reason: Nausea And Vomiting Hydroxychloroquine Sulfate [Plaquenil 200mg tablet] 400 mg PO DAILY Pravastatin Sodium [Pravachol] 40 mg PO HS Meloxicam [Mobic] 15 mg PO DAILY Levothyroxine Sodium [Levothyroxine 50mcg (0.05mg) Tab] 50 mcg PO DAILY Clopidogrel Bisulfate [Clopidogrel 75mg Tab] 75 mg PO DAILY Folic Acid [Folic Acid 1mg tablet] 1 mg PO DAILY Tizanidine HCl [Zanaflex] 8 mg PO TID Ferrous Sulfate 325 mg PO BID Albuterol Sulfate [Proair Hfa 90mcg/puff Inh] 2 puffs IH QIDP PRN PRN Reason: Shortness Of Breath Or Wheezing Oxycodone HCl/Acetaminophen [Oxycodone W/Apap 325mg Tablet] 1 tab PO QID Warfarin Sodium [Coumadin] 4 mg PO DAILY raNITIdine HCl [Acid Control] 150 mg PO DAILY Discontinued Adalimumab [Humira Pen] 40 mg SQ QOW <Raad Larry - 02/15/18 18:10>
--- NOTE | 2018-02-12 13:56 | Progress Note ---
Internal Medicine - PN: Subj *Date: 02/12/18 *Time: 08:30 Interval history: Did well overnight. Remains afebrile, tolerating regular diet. Pain managed though still constant. No bleeding, SOA, diarrhea, CP. at bedside and updated on plan Exam Vital signs and Labs for Last 24 Hours: Temp Pulse Resp BP Pulse Ox 98.0 F 98 H 18 137/83 97 02/12/18 07:58 02/12/18 07:58 02/12/18 07:58 02/12/18 07:58 02/12/18 08:23 Laboratory Results - last 24 hr 02/09/18 07:14: Crossmatch ([facility]G) See Detail 02/12/18 07:00: PT 12.7 H, INR 1.24 H I & O for Last 24 hours: Intake & Output 02/09/18 02/10/18 02/11/18 02/12/18 23:59 23:59 23:59 23:59 Intake Total 1940 / 1940 2330 / 2330 1070 / 1070 1150 / 1150 Output Total 550 / 550 1375 / 1375 350 / 350 Balance 1390 / 1390 2330 / 2330 -305 / -305 800 / 800 Weight 40.965 kg Narrative: Patient's alert and oriented. Cushingoid faces. Lungs have smoker's rhonchi but good air movement. Heart rate regular. Abdomen soft. Joints are essentially unchanged except her foot which has resolved redness. Please see podiatry and ortho notes for details on MSK and wound exam. Assessment and Plan (1) Rheumatoid arthritis Current visit: Yes Status: Acute Category: Medical Code(s): M06.9 - Rheumatoid arthritis, unspecified (2) Cellulitis of left foot Current visit: Yes Status: Acute Category: Medical Code(s): L03.116 - Cellulitis of left lower limb (3) History of coronary artery stent placement Current visit: Yes Status: Chronic Category: Surgical Code(s): Z95.5 - Presence of coronary angioplasty implant and graft (4) PAD (peripheral artery disease) Current visit: Yes Status: Chronic Category: Medical Code(s): I73.9 - Peripheral vascular disease, unspecified (5) Ulcer of left foot Current visit: Yes Status: Acute Category: Medical Code(s): L97.529 - Non- pressure chronic ulcer of other part of left foot with unspecified severity - Assessment and plan all Dx Assessment and Plan for all problems:: Discussion with patient and about goals of care. Explained the complexities of patient's current condition and wound/orthopedic needs in the setting of rheumatologic and hematologic disorders. and patient agreed that transfer would be in the patient's best interest for improved function, quality of life and resolution of current problems with appropriate ancillary services to consult and assist with care. Continue current plan with Abx, wound management. Will contact for transfer to medicine service with plan to consult ID, Rheum, Ortho, Neurosurgery, Heme. Remains stable, Sepsis resolved. PLace in C-collar to stabilize C-spine given findings of cervical Xray
--- NOTE | 2018-02-13 08:38 | Progress Note ---
Internal Medicine - PN: Subj *Date: 02/13/18 *Time: 08:37 Interval history: Overall patient feels better. No complaints of pain. Doing well receiving antibiotics. Exam Vital signs and Labs for Last 24 Hours: Temp Pulse Resp BP Pulse Ox 98.0 F 117 H 22 140/82 91 L 02/13/18 07:50 02/13/18 07:50 02/13/18 07:50 02/13/18 07:50 02/13/18 07:50 I & O for Last 24 hours: Intake & Output 02/10/18 02/11/18 02/12/18 02/13/18 11:59 11:59 11:59 11:59 Intake Total 2810 / 2810 1930 / 1930 1390 / 1390 600 / 600 Output Total 275 / 275 300 / 300 1425 / 1425 1100 / 1100 Balance 2535 / 2535 1630 / 1630 -35 / -35 -500 / -500 Weight 90 lb 5 oz 90 lb 4.998 oz Narrative: No changes on exam. Patient is pleasant. Alert. Oropharynx clear. Lungs have some rhonchi but at baseline. Heart rate regular. Extremity exam unchanged. Patient wearing c-collar Assessment and Plan (1) Rheumatoid arthritis Current visit: Yes Status: Acute Category: Medical Code(s): M06.9 - Rheumatoid arthritis, unspecified (2) Cellulitis of left foot Current visit: Yes Status: Acute Category: Medical Code(s): L03.116 - Cellulitis of left lower limb (3) History of coronary artery stent placement Current visit: Yes Status: Chronic Category: Surgical Code(s): Z95.5 - Presence of coronary angioplasty implant and graft (4) PAD (peripheral artery disease) Current visit: Yes Status: Chronic Category: Medical Code(s): I73.9 - Peripheral vascular disease, unspecified (5) Ulcer of left foot Current visit: Yes Status: Acute Category: Medical Code(s): L97.529 - Non- pressure chronic ulcer of other part of left foot with unspecified severity - Assessment and plan all Dx Assessment and Plan for all problems:: No changes in plan at this point. Still on wait list for transfer to . Currently stable. No oxygen requirements. Tolerating IV antibiotics well.
--- NOTE | 2018-02-13 09:58 | Progress Note ---
<Romy Blakely - Last Filed: 02/13/18 09:54> Subjective Date: 02/13/18 Time: 09:55 Principal diagnosis: L foot cellulitis r/o osteomyelitis; draining wounds b/l elbows; severe RA Interval history: Pt admitted to the hospital for cellulitis of the LLE. Pt has known severe PAD. 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 Pt has multiple co-morbities and has agreed to be transferred to [facility] for further treatment of her LLE cellulitis, possible osteomyelitis and PAD. This morning she denies CP or pressure. No SOB or edema. No fever, chills, N/V/D, PND or orthopnea. Her only complaint is restless leg at night and spasms in her leg. Flexeril and Zanaflex are not helping with this. Exam Vital signs and Labs for Last 24 Hours: Temp Pulse Resp BP Pulse Ox 98.0 F 85 H 22 140/82 91 L 02/13/18 07:50 02/13/18 09:55 02/13/18 07:50 02/13/18 07:50 02/13/18 07:50 I & O for Last 24 hours: Intake & Output 02/10/18 02/11/18 02/12/18 02/13/18 23:59 23:59 23:59 23:59 Intake Total 2330 / 2330 1070 / 1070 1630 / 1630 120 / 120 Output Total 1375 / 1375 550 / 550 900 / 900 Balance 2330 / 2330 -305 / -305 1080 / 1080 -780 / -780 Weight 90 lb 4.998 oz - Constitutional no acute distress, chronically ill appearing - *Routine HEENT Exam Head: Present: normocephalic, atraumatic Eye: Present: normal accommodation ENT: Present: mucous membranes moist, nares patent, external ear normal - *Routine Neck Exam Present: supple, full ROM. Absent: lymphadenopathy, swelling - *Routine Respiratory Exam Present: CTA bilaterally Comments: lungs are clear to auscultation bilaterally. good inspiratory and expiratory effort. no distres. - *Routine Cardiovascular Exam Present: RRR, Normal S1, Normal S2. Absent: murmur, gallop, rubs - *Routine Abdominal Exam Present: soft, normoactive bowel sounds. Absent: tenderness, distended, organomegaly, mass, bruit - *Routine Extremities Exam Absent: cyanosis, clubbing, edema Comments: RIGHT AKA - *Routine Skin Exam Present: erythema, wounds. Absent: cyanosis - *Routine Neurological Exam Present: alert, oriented X3, CN II-XII intact - Routine Psychiatric Exam Present: normal affect, normal thought process Progress Note: A&P (1) Ulcer of left foot Status: Acute Current Visit: Yes (2) PAD (peripheral artery disease) Status: Chronic Current Visit: Yes (3) Cellulitis of left foot Status: Acute Current Visit: Yes (4) Rheumatoid arthritis Status: Acute Current Visit: Yes (5) History of coronary artery stent placement Status: Chronic Current Visit: Yes (6) CAD (coronary artery disease) Status: Acute Current Visit: Yes Assessment and Plan for All Diagnoses:: Plan: 1. severe PAD is present. Pt with LLE ulcer/cellulitis/possible Osteomyelitis. Pt is awaiting transfer to [facility] for further evaluation and treatment at a tertiary facility given her co-morbidities. 2. CAD is present. she denies CP or pressure. CAD is likely stable. 3. BP is well controlled 4. LDL goal is < 55. 5. echo is pending. 6. RA is present. 7. Pt having restless LLE at night and spasms. zanaflex and flexeril do not help. Pt requesting Valium. Requip may be a better option for this pt. Will leave this up to Dr. Larry. 8. No further recommendations at this time. awaiting transfer to [facility]. Thank you for the opportunity to help participate in the care of this patient. <Jah Brown - Last Filed: 02/13/18 11:19> Exam Vital signs and Labs for Last 24 Hours: Temp Pulse Resp BP Pulse Ox 98.0 F 117 H 22 140/82 91 L 02/13/18 07:50 02/13/18 07:50 02/13/18 07:50 02/13/18 07:50 02/13/18 07:50 I & O for Last 24 hours: Intake & Output 02/10/18 02/11/18 02/12/18 02/13/18 11:59 11:59 11:59 11:59 Intake Total 2810 / 2810 1930 / 1930 1390 / 1390 600 / 600 Output Total 275 / 275 300 / 300 1425 / 1425 1100 / 1100 Balance 2535 / 2535 1630 / 1630 -35 / -35 -500 / -500 Weight 90 lb 5 oz 90 lb 4.998 oz Progress Note: A&P (1) Ulcer of left foot Status: Acute Current Visit: Yes (2) PAD (peripheral artery disease) Status: Chronic Current Visit: Yes (3) Cellulitis of left foot Status: Acute Current Visit: Yes (4) Rheumatoid arthritis Status: Acute Current Visit: Yes (5) History of coronary artery stent placement Status: Chronic Current Visit: Yes (6) CAD (coronary artery disease) Status: Acute Current Visit: Yes Assessment and Plan for All Diagnoses:: Physician Attestation I have discussed the above patient, assessment, and plan with the RIB CLOTH KNITTER and agree with the assessment and plan.
--- NOTE | 2018-02-14 07:45 | Progress Note ---
<Chava Lewis U - Last Filed: 02/14/18 07:41> Subjective Date: 02/14/18 Time: 07:41 Principal diagnosis: L foot cellulitis r/o osteomyelitis; draining wounds b/l elbows; severe RA Interval history: No complaints overnight. Foot redness has improved per patient. Still awaiting transfer to when bed available. Questionable history of clotting disorder (genetic). Pt is on pletal, plavix and coumadin. Exam Vital signs and Labs for Last 24 Hours: Temp Pulse Resp BP Pulse Ox 97.8 F 94 H 16 114/64 97 02/14/18 04:00 02/14/18 04:00 02/14/18 04:00 02/14/18 04:00 02/14/18 04:00 I & O for Last 24 hours: Intake & Output 02/11/18 02/12/18 02/13/18 02/14/18 11:59 11:59 11:59 11:59 Intake Total 1930 / 1930 1390 / 1390 600 / 600 840 / 840 Output Total 300 / 300 1425 / 1425 1100 / 1100 900 / 900 Balance 1630 / 1630 -35 / -35 -500 / -500 -60 / -60 Weight 90 lb 5 oz 90 lb 4.998 oz 100 lb Microbiology Reports for the Last 24 Hours: Microbiology 02/08/18 13:15 Blood Blood Culture - Final NO GROWTH AFTER 5 DAYS - *Routine Cardiovascular Exam Present: RRR. Absent: murmur, gallop, rubs - *Routine Abdominal Exam Present: soft. Absent: tenderness, distended, guarding Progress Note: A&P (1) Ulcer of left foot Status: Acute Current Visit: Yes (2) PAD (peripheral artery disease) Status: Chronic Current Visit: Yes (3) Cellulitis of left foot Status: Acute Current Visit: Yes (4) Rheumatoid arthritis Status: Acute Current Visit: Yes (5) History of coronary artery stent placement Status: Chronic Current Visit: Yes (6) CAD (coronary artery disease) Status: Acute Current Visit: Yes Assessment and Plan for All Diagnoses:: Continue current meds including metoprolol and statin with anti-platelets and coumadin. Echo shows severe LV EF reduction in the 30-40% range with evidence of previous NM. Pt needs further evaluation but will defer to tertiary center due to multiple comorbidities, as long as she remains stable. <Jah Brown - Last Filed: 02/14/18 12:52> Exam Vital signs and Labs for Last 24 Hours: Temp Pulse Resp BP Pulse Ox 97.8 F 94 H 16 114/64 97 02/14/18 08:00 02/14/18 08:00 02/14/18 08:00 02/14/18 08:00 02/14/18 08:00 Laboratory Results - last 24 hr 02/14/18 10:25: Sodium 139, Potassium 4.3, Chloride 105, Carbon Dioxide 28, Anio n Gap 10.3, BUN 11, Creatinine 0.79, Estimated Creat Clear 62, Estimated GFR 77, Est GFR ( Amer) 94, Glucose 159 H, Calcium 7.8 L 02/14/18 10:25: Vancomycin Trough 16.8 I & O for Last 24 hours: Intake & Output 02/12/18 02/13/18 02/14/18 02/15/18 11:59 11:59 11:59 11:59 Intake Total 1390 / 1390 600 / 600 1320 / 1320 Output Total 1425 / 1425 1100 / 1100 900 / 900 Balance -35 / -35 -500 / -500 420 / 420 Weight 90 lb 4.998 oz 100 lb Microbiology Reports for the Last 24 Hours: Microbiology 02/08/18 13:15 Blood Blood Culture - Final NO GROWTH AFTER 5 DAYS Progress Note: A&P (1) Ulcer of left foot Status: Acute Current Visit: Yes (2) PAD (peripheral artery disease) Status: Chronic Current Visit: Yes (3) Cellulitis of left foot Status: Acute Current Visit: Yes (4) Rheumatoid arthritis Status: Acute Current Visit: Yes (5) History of coronary artery stent placement Status: Chronic Current Visit: Yes (6) CAD (coronary artery disease) Status: Acute Current Visit: Yes Assessment and Plan for All Diagnoses:: Physician Attestation I have discussed the above patient, assessment, and plan with the PA-C and agree with the assessment and plan.
--- NOTE | 2018-02-14 08:37 | Progress Note ---
Internal Medicine - PN: Subj *Date: 02/14/18 *Time: 08:36 Interval history: Overall patient feels better. Continues to do well with antibiotics. Exam Vital signs and Labs for Last 24 Hours: Temp Pulse Resp BP Pulse Ox 97.8 F 94 H 16 114/64 97 02/14/18 08:00 02/14/18 08:00 02/14/18 08:00 02/14/18 08:00 02/14/18 08:00 I & O for Last 24 hours: Intake & Output 02/11/18 02/12/18 02/13/18 02/14/18 11:59 11:59 11:59 11:59 Intake Total 1930 / 1930 1390 / 1390 600 / 600 840 / 840 Output Total 300 / 300 1425 / 1425 1100 / 1100 900 / 900 Balance 1630 / 1630 -35 / -35 -500 / -500 -60 / -60 Weight 90 lb 5 oz 90 lb 4.998 oz 100 lb Microbiology Reports for the Last 24 Hours: Microbiology 02/08/18 13:15 Blood Blood Culture - Final NO GROWTH AFTER 5 DAYS Narrative: Patient is pleasant, alert. Lungs clear, heart rate regular. Joints unchanged. Assessment and Plan (1) Ulcer of left foot Current visit: Yes Status: Acute Category: Medical Code(s): L97.529 - Non- pressure chronic ulcer of other part of left foot with unspecified severity (2) PAD (peripheral artery disease) Current visit: Yes Status: Chronic Category: Medical Code(s): I73.9 - Peripheral vascular disease, unspecified (3) Cellulitis of left foot Current visit: Yes Status: Acute Category: Medical Code(s): L03.116 - Cellulitis of left lower limb (4) Rheumatoid arthritis Current visit: Yes Status: Acute Category: Medical Code(s): M06.9 - Rheumatoid arthritis, unspecified (5) History of coronary artery stent placement Current visit: Yes Status: Chronic Category: Surgical Code(s): Z95.5 - Presence of coronary angioplasty implant and graft (6) CAD (coronary artery disease) Current visit: Yes Status: Acute Category: Medical Code(s): I25.10 - Atherosclerotic heart disease of [place] coronary artery without angina pectoris - Assessment and plan all Dx Assessment and Plan for all problems:: No change in plan, patient is currently stable on treatment programs. Await transfer to when bed available
[2018-02-14 10:38] LABS: Anion Gap 10.3 mEq/L (5-15); Calcium 7.8 mg/dL (8.5-10.1); Potassium 4.3 mmoL/L (3.5-5.1)
--- NOTE | 2018-02-14 13:58 | Pharmacy Consult Notes ---
- Pharmacy Consult Date: 02/14/18 Time: 11:00 Referring provider: FATOU Reason for Consult:: VANCOMYCIN THERAPY Allergies and ADEs:: Allergies Allergy/AdvReac Type Severity Reaction Status Date / Time gabapentin [GABAPENTIN] Allergy Severe HALLUCINATI Verified 11/23/17 08:00 ONS methadone [METHADONE] Allergy Severe THROAT Verified 11/23/17 08:00 CLOSES codeine [CODEINE] Allergy Mild NA-NAUSEA Verified 11/23/17 08:00 Home Medications:: Home Medications Medication Instructions Recorded Confirmed Type Warfarin Sodium [Coumadin] 4 mg PO DAILY 11/23/17 02/08/18 History Adalimumab [Humira Pen] 40 mg SQ QOW 02/08/18 02/08/18 History Albuterol Sulfate [Proair Hfa 2 puffs IH QIDP PRN 02/08/18 02/08/18 History 90mcg/puff Inh] Cilostazol [Pletal 100mg tablet] 100 mg PO BID 02/08/18 02/08/18 History Clopidogrel Bisulfate [Clopidogrel 75 mg PO DAILY 02/08/18 02/08/18 History 75mg Tab] Cyclobenzaprine HCl 10 mg PO TIDP PRN 02/08/18 02/08/18 History [Cyclobenzaprine 10mg Tab] Ferrous Sulfate 325 mg PO BID 02/08/18 02/08/18 History Folic Acid [Folic Acid 1mg tablet] 1 mg PO DAILY 02/08/18 02/08/18 History Hydroxychloroquine Sulfate 400 mg PO DAILY 02/08/18 02/08/18 History [Plaquenil 200mg tablet] Levothyroxine Sodium 50 mcg PO DAILY 02/08/18 02/08/18 History [Levothyroxine 50mcg (0.05mg) Tab] Meloxicam [Mobic] 15 mg PO DAILY 02/08/18 02/08/18 History Metoprolol Tartrate 50 mg PO DAILY 02/08/18 02/08/18 History Oxycodone HCl/Acetaminophen 1 tab PO QID 02/08/18 02/08/18 History [Oxycodone W/Apap 325mg Tablet] Pravastatin Sodium [Pravachol] 40 mg PO HS 02/08/18 02/08/18 History Promethazine HCl [Phenergan 25mg 25 mg PO Q6HP PRN 02/08/18 02/08/18 History tab] Tizanidine HCl [Zanaflex] 8 mg PO TID 02/08/18 02/08/18 History predniSONE [Deltasone 20mg 20 mg PO DAILYP PRN 02/08/18 02/08/18 History tablet] raNITIdine HCl [Acid Control] 150 mg PO DAILY 02/08/18 02/08/18 History Height: 1.52 m Weight: 45.359 kg Laboratory Results:: Laboratory Results - last 24 hr 02/14/18 10:25: Sodium 139, Potassium 4.3, Chloride 105, Carbon Dioxide 28, Anion Gap 10.3, BUN 11, Creatinine 0.79, Estimated Creat Clear 62, Estimated GFR 77, Est GFR ( Amer) 94, Glucose 159 H, Calcium 7.8 L 02/14/18 10:25: Vancomycin Trough 16.8 Medical History: Reports:: Myocardial Infarction Denies:: Cancer, Diabetes Mellitus Type 1, Diabetes Mellitus Type 2, MRSA Assessment and Plan (1) Ulcer of left foot Current visit: Yes Status: Acute Category: Medical Code(s): L97.529 - Non- pressure chronic ulcer of other part of left foot with unspecified severity (2) PAD (peripheral artery disease) Current visit: Yes Status: Chronic Category: Medical Code(s): I73.9 - Peripheral vascular disease, unspecified (3) Cellulitis of left foot Current visit: Yes Status: Acute Category: Medical Code(s): L03.116 - Cellulitis of left lower limb (4) Rheumatoid arthritis Current visit: Yes Status: Acute Category: Medical Code(s): M06.9 - Rheumatoid arthritis, unspecified (5) History of coronary artery stent placement Current visit: Yes Status: Chronic Category: Surgical Code(s): Z95.5 - Presence of coronary angioplasty implant and graft (6) CAD (coronary artery disease) Current visit: Yes Status: Acute Category: Medical Code(s): I25.10 - Atherosclerotic heart disease of [place] coronary artery without angina pectoris - Assessment and plan all Dx Assessment and Plan for all problems:: VANCOMYCIN TROUGH = 16.8. WILL CONTINUE CURRENT VANCOMYCIN DOSING 750MG IVPB EVERY 12 HOURS. WILL CONTINUE TO FOLLOW DAILY AND ADJUST NECESSARY
--- NOTE | 2018-02-15 08:03 | Progress Note ---
Internal Medicine - PN: Subj *Date: 02/15/18 *Time: 08:02 Interval history: Patient is in good spirits. Again, request to go home. No neck pain, has been compliant with c-collar. Exam Vital signs and Labs for Last 24 Hours: Temp Pulse Resp BP Pulse Ox 98.3 F 81 16 127/69 95 02/15/18 04:00 02/15/18 04:00 02/15/18 04:00 02/15/18 04:00 02/15/18 04:00 Laboratory Results - last 24 hr 02/14/18 10:25: Sodium 139, Potassium 4.3, Chloride 105, Carbon Dioxide 28, Anion Gap 10.3, BUN 11, Creatinine 0.79, Estimated Creat Clear 62, Estimated GFR 77, Est GFR ( Amer) 94, Glucose 159 H, Calcium 7.8 L 02/14/18 10:25: Vancomycin Trough 16.8 I & O for Last 24 hours: Intake & Output 02/12/18 02/13/18 02/14/18 02/15/18 11:59 11:59 11:59 11:59 Intake Total 1390 / 1390 600 / 600 1320 / 1320 240 / 240 Output Total 1425 / 1425 1100 / 1100 900 / 900 Balance -35 / -35 -500 / -500 420 / 420 240 / 240 Weight 90 lb 4.998 oz 100 lb 100 lb Microbiology Reports for the Last 24 Hours: Microbiology 02/08/18 14:00 Foot,Left - Wound - Final 02/08/18 14:00 Foot,Left - Wound - Final Narrative: I reviewed patient's foot films which show no significant evidence of osteomyelitis. Culture results with streptococcal sepsis, responding very nicely to penicillin based antibiotics. Neck films are the most concerning. However she continues to do fairly well here. Lungs have good air movement. Heart rate regular. She is able to move her extremities well but significant deformities at her movement. No change in elbow or stump or foot exam from prior. Assessment and Plan (1) Ulcer of left foot Current visit: Yes Status: Acute Category: Medical Code(s): L97.529 - Non- pressure chronic ulcer of other part of left foot with unspecified severity (2) PAD (peripheral artery disease) Current visit: Yes Status: Chronic Category: Medical Code(s): I73.9 - Peripheral vascular disease, unspecified (3) Cellulitis of left foot Current visit: Yes Status: Acute Category: Medical Code(s): L03.116 - Cellulitis of left lower limb (4) Rheumatoid arthritis Current visit: Yes Status: Acute Category: Medical Code(s): M06.9 - Rheumatoid arthritis, unspecified (5) History of coronary artery stent placement Current visit: Yes Status: Chronic Category: Surgical Code(s): Z95.5 - Presence of coronary angioplasty implant and graft (6) CAD (coronary artery disease) Current visit: Yes Status: Acute Category: Medical Code(s): I25.10 - Atherosclerotic heart disease of [place] coronary artery without angina pectoris - Assessment and plan all Dx Assessment and Plan for all problems:: Overall patient is vastly improved. Infectious disease issues are under control. Issues with joints seem to be able to be put off at this point. My most concerning item is her neck and possible instability. still has a long wait list. I will discussed the case with neurosurgery by phone and see if they feel that outpatient follow-up is appropriate, and then we may arrange discharge home with IV antibiotics.
[2018-02-15 10:41] LABS: INR 2.85 (0.9-1.1); Prothrombin Time 28.5 seconds (9.4-11.8)
== END 2018-02-15 19:37 | disposition home or self-care (01) ==
LOC: 2ND → OBSVTOIN 12:18
PROVIDERS: ADMIT Internal Medicine Adolescent Medicine; ATTEND Internal Medicine Adolescent Medicine

== ENCOUNTER 2018-03-08 12:17 | Outpatient (CLI) | payer MEDICAID, SELFPAY ==
[2018-03-08 12:17] VITALS: BMI 17.9
[2018-03-08 12:55] LABS: Basophils % 0.2 % (0.1-2.0); Eosinophils # 0.1 K/mm3 (0.0-0.4); Eosinophils % 0.4 % (0.1-12.0); Hematocrit 30.2 % (37.0-47.0); Hemoglobin 8.2 g/dL (12.2-16.2); Lymphocytes # 3.1 K/mm3 (0.7-4.5); Lymphocytes % 22.2 % (10-50); Mean Corpuscular HGB Conc 27.1 g/dL (31.8-35.4); Mean Corpuscular Hemoglobin 23.8 pg (27.0-31.2); Mean Platelet Volume 7.1 fl (7.4-10.4); Monocytes # 0.9 K/mm3 (0.1-1.0); Monocytes % 6.5 % (1.7-9.3); Neutrophils % 70.7 % (37.0-80.0); Platelet Count 672 K/mm3 (142-424); Red Blood Count 3.43 M/mm3 (4.20-5.40); Red Cell Distribution Width 17.5 % (11.5-17.5); White Blood Count 14.1 K/mm3 (4.8-10.8)
[2018-03-08 12:57] LABS: INR 1.32 (0.9-1.1); Prothrombin Time 13.5 seconds (9.4-11.8)
[2018-03-08 13:02] LABS: Alanine Aminotransferase 17 U/L (12-78); Albumin Level 2.6 gm/dL (3.4-5.0); Albumin/Globulin Ratio 0.7 (1.1-1.8); Alkaline Phosphatase 73 U/L (46-116); Anion Gap 10.9 mEq/L (5-15); Aspartate Amino Transferase 14 U/L (15-37); Bilirubin,Total 0.2 mg/dL (0.2-1.0); Blood Urea Nitrogen 14 mg/dL (7-18); Calcium 8.7 mg/dL (8.5-10.1); Carbon Dioxide 30 mmol/L (21.0-32.0); Chloride 104 mmol/L (98-107); Creatinine Clearance Estimated 72 mL/min (50-200); Creatinine,Serum 0.62 mg/dL (0.55-1.02); Estimated Glomerular Filt Rate 102 ml/min (>60); GFR (African American) 124 ML/MIN (>60); Glucose 85 mg/dL (74-106); Potassium 3.9 mmoL/L (3.5-5.1); Sodium 141 mmol/L (136-145); Total Protein,Serum 6.6 gm/dL (6.4-8.2)
[2018-03-08 13:23] LABS: Chol/HDL Ratio 2.4 (1-3.5); Cholesterol 116 mg/dL (140-200); HDL Cholesterol 49 mg/dL (29-89); LDL Cholesterol 47 mg/dL (0-130); Triglycerides 100 mg/dL (30-200); VLDL Cholesterol 20 mg/dL (0-40)
== END 2018-03-08 12:45 | disposition home or self-care (01) ==
LOC: INF 12:17
PROVIDERS: Visit Provider Internal Medicine Adolescent Medicine
DX: Z45.2 Encounter for adjustment and management of vascular access device (principal); Z51.81 Encounter for therapeutic drug level monitoring; Z79.01 Long term (current) use of anticoagulants; Z13.220 Encounter for screening for lipoid disorders; M05.79 Rheumatoid arthritis with rheumatoid factor of multiple sites without organ or systems involvement; D68.61 Antiphospholipid syndrome
CPT/HCPCS: 80053; 80061; 85025; 85610; J1642

== ENCOUNTER → 2018-07-19 17:13 | Outpatient (CLI) | payer MEDICAID, SELFPAY ==
[2018-07-19 17:46] LABS: Prothrombin Time 23.9 seconds (9.4-11.8)
[2018-07-19 18:00] LABS: Basophils % 0.2 % (0.1-2.0); Eosinophils # 0.1 K/mm3 (0.0-0.4); Eosinophils % 1.3 % (0.1-12.0); Hematocrit 34.4 % (37.0-47.0); Hemoglobin 9.8 g/dL (12.2-16.2); Lymphocytes # 4.1 K/mm3 (0.7-4.5); Lymphocytes % 40.1 % (10-50); Mean Corpuscular HGB Conc 28.6 g/dL (31.8-35.4); Mean Corpuscular Hemoglobin 21.1 pg (27.0-31.2); Mean Corpuscular Volume 73.8 fl (81-99); Mean Platelet Volume 7.2 fl (7.4-10.4); Monocytes # 0.4 K/mm3 (0.1-1.0); Monocytes % 3.5 % (1.7-9.3); Neutrophils # 5.7 K/mm3 (1.8-7.8); Neutrophils % 54.9 % (37.0-80.0); Platelet Count 550 K/mm3 (142-424); Red Blood Count 4.66 M/mm3 (4.20-5.40); White Blood Count 10.3 K/mm3 (4.8-10.8)
[2018-07-19 19:54] LABS: Alanine Aminotransferase 24 U/L (12-78); Albumin Level 2.8 gm/dL (3.4-5.0); Albumin/Globulin Ratio 0.7 (1.1-1.8); Alkaline Phosphatase 71 U/L (46-116); Anion Gap 13.9 mEq/L (5-15); Aspartate Amino Transferase 16 U/L (15-37); Bilirubin,Total 0.2 mg/dL (0.2-1.0); Blood Urea Nitrogen 12 mg/dL (7-18); Calcium 8.5 mg/dL (8.5-10.1); Carbon Dioxide 27 mmol/L (21.0-32.0); Chloride 100 mmol/L (98-107); Estimated Glomerular Filt Rate 89 ml/min (>60); Ferritin 12 ng/mL (8-388); GFR (African American) 108 ML/MIN (>60); Globulin 3.9 gm/dl (1.3-3.2); Glucose 135 mg/dL (74-106); Potassium 3.9 mmoL/L (3.5-5.1); Sodium 137 mmol/L (136-145); Total Protein,Serum 6.7 gm/dL (6.4-8.2)
[2018-07-21 17:26] LABS: Vitamin B12 184 pg/mL (232-1245)
== END ==
PROVIDERS: Visit Provider Internal Medicine Adolescent Medicine
DX: M05.731 Rheumatoid arthritis with rheumatoid factor of right wrist without organ or systems involvement (principal); D68.61 Antiphospholipid syndrome; D50.9 Iron deficiency anemia, unspecified
CPT/HCPCS: 80053; 82607; 82728; 85025; 85610

== ENCOUNTER 2018-11-15 16:27 | Outpatient (CLI) | payer MEDICAID, SELFPAY ==
[2018-11-15 16:16] VITALS: BMI 17.9
[2018-11-15 16:48] LABS: Basophils % 0.2 % (0.1-2.0); Eosinophils # 0.1 K/mm3 (0.0-0.4); Eosinophils % 0.5 % (0.1-12.0); Hematocrit 38.1 % (37.0-47.0); Hemoglobin 10.9 g/dL (12.2-16.2); Lymphocytes # 1.6 K/mm3 (0.7-4.5); Lymphocytes % 12.6 % (10-50); Mean Corpuscular HGB Conc 28.7 g/dL (31.8-35.4); Mean Corpuscular Hemoglobin 23.9 pg (27.0-31.2); Mean Corpuscular Volume 83.4 fl (81-99); Mean Platelet Volume 7.8 fl (7.4-10.4); Monocytes # 0.3 K/mm3 (0.1-1.0); Monocytes % 2.1 % (1.7-9.3); Neutrophils # 10.9 K/mm3 (1.8-7.8); Neutrophils % 84.7 % (37.0-80.0); Platelet Count 557 K/mm3 (142-424); Red Blood Count 4.57 M/mm3 (4.20-5.40); Red Cell Distribution Width 16.7 % (11.5-17.5); White Blood Count 12.8 K/mm3 (4.8-10.8)
[2018-11-15 16:53] LABS: Activated Partial Thrombo Time 30.9 seconds (23.6-34.0); INR 1.12 (0.9-1.1); Prothrombin Time 11.6 seconds (9.4-11.8)
[2018-11-15 16:57] LABS: Alanine Aminotransferase 15 U/L (12-78); Albumin Level 2.9 gm/dL (3.4-5.0); Albumin/Globulin Ratio 0.6 (1.1-1.8); Alkaline Phosphatase 73 U/L (46-116); Anion Gap 14.1 mEq/L (5-15); Aspartate Amino Transferase 18 U/L (15-37); Bilirubin,Total 0.1 mg/dL (0.2-1.0); Blood Urea Nitrogen 10 mg/dL (7-18); Calcium 8.5 mg/dL (8.5-10.1); Carbon Dioxide 25 mmol/L (21.0-32.0); Chloride 102 mmol/L (98-107); Creatinine Clearance Estimated 73 mL/min (50-200); Creatinine,Serum 0.61 mg/dL (0.55-1.02); Estimated Glomerular Filt Rate 104 ml/min (>60); GFR (African American) 126 ML/MIN (>60); Globulin 4.5 gm/dl (1.3-3.2); Glucose 149 mg/dL (74-106); Potassium 4.1 mmoL/L (3.5-5.1); Sodium 137 mmol/L (136-145); Total Protein,Serum 7.4 gm/dL (6.4-8.2)
[2018-11-15 17:50] LABS: Ferritin 13 ng/mL (8-388)
== END 2018-11-15 16:40 | disposition home or self-care (01) ==
LOC: INF 16:27
PROVIDERS: PCP Internal Medicine Adolescent Medicine; Visit Provider Internal Medicine Adolescent Medicine
DX: D50.9 Iron deficiency anemia, unspecified (principal); D68.61 Antiphospholipid syndrome; Z79.01 Long term (current) use of anticoagulants
CPT/HCPCS: 80053; 82728; 85025; 85610; 85730

== ENCOUNTER 2019-03-12 15:16 | Outpatient (CLI) | payer OTHER, SELFPAY ==
[2019-03-12 15:17] VITALS: BMI 17.9
[2019-03-12 15:36] LABS: Basophils % 0.3 % (0.1-2.0); Eosinophils # 0.1 K/mm3 (0.0-0.4); Eosinophils % 1.2 % (0.1-12.0); Hematocrit 34.2 % (37.0-47.0); Hemoglobin 9.7 g/dL (12.2-16.2); Lymphocytes # 2.5 K/mm3 (0.7-4.5); Lymphocytes % 27.3 % (10-50); Mean Corpuscular HGB Conc 28.4 g/dL (31.8-35.4); Mean Corpuscular Hemoglobin 21.3 pg (27.0-31.2); Mean Platelet Volume 7.6 fl (7.4-10.4); Monocytes # 0.5 K/mm3 (0.1-1.0); Monocytes % 5.9 % (1.7-9.3); Neutrophils % 65.3 % (37.0-80.0); Platelet Count 520 K/mm3 (142-424); Red Blood Count 4.55 M/mm3 (4.20-5.40); Red Cell Distribution Width 17.5 % (11.5-17.5); White Blood Count 9.1 K/mm3 (4.8-10.8)
[2019-03-12 15:46] LABS: INR 1.99 (0.9-1.1)
[2019-03-12 15:51] LABS: Alanine Aminotransferase 11 U/L (12-78); Albumin Level 2.5 gm/dL (3.4-5.0); Albumin/Globulin Ratio 0.6 (1.1-1.8); Alkaline Phosphatase 73 U/L (46-116); Anion Gap 9.1 mEq/L (5-15); Aspartate Amino Transferase 15 U/L (15-37); Bilirubin,Total 0.2 mg/dL (0.2-1.0); Blood Urea Nitrogen 16 mg/dL (7-18); Calcium 8.4 mg/dL (8.5-10.1); Carbon Dioxide 27 mmol/L (21.0-32.0); Chloride 101 mmol/L (98-107); Creatinine Clearance Estimated 68 mL/min (50-200); Creatinine,Serum 0.65 mg/dL (0.55-1.02); Estimated Glomerular Filt Rate 96 ml/min (>60); GFR (African American) 117 ML/MIN (>60); Globulin 4.3 gm/dl (1.3-3.2); Glucose 82 mg/dL (74-106); Potassium 4.1 mmoL/L (3.5-5.1); Sodium 133 mmol/L (136-145); Total Protein,Serum 6.8 gm/dL (6.4-8.2)
== END 2019-03-12 15:35 | disposition home or self-care (01) ==
LOC: INF 15:16
PROVIDERS: PCP Internal Medicine Adolescent Medicine; Visit Provider Internal Medicine Adolescent Medicine
DX: D68.61 Antiphospholipid syndrome (principal)
CPT/HCPCS: 80053; 85025; 85610; J1642

== ENCOUNTER 2019-08-02 22:39 | Emergency (ER) | payer OTHER, SELFPAY ==
[2019-08-02 22:57] VITALS: BMI 23.4
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
[2019-08-02 22:58] VITALS: BP 143/107; PULSE 77; RESP 23; TEMP 37.1; O2SAT 95; BMI 23.6
--- NOTE | 2019-08-02 23:36 | PC.NURSE ---
called lab to obtain blood for inr lab. spoke with michael thompson.
[2019-08-03 00:25] LABS: Basophils % 0.1 % (0.1-2.0); Eosinophils # 0.3 K/mm3 (0.0-0.4); Eosinophils % 2.5 % (0.1-12.0); Hematocrit 37.6 % (37.0-47.0); Lymphocytes % 25.7 % (10-50); Mean Corpuscular HGB Conc 29.2 g/dL (31.8-35.4); Mean Corpuscular Hemoglobin 21.8 pg (27.0-31.2); Mean Corpuscular Volume 74.7 fl (81-99); Mean Platelet Volume 7.2 fl (7.4-10.4); Monocytes # 0.7 K/mm3 (0.1-1.0); Monocytes % 5.5 % (1.7-9.3); Neutrophils # 7.7 K/mm3 (1.8-7.8); Neutrophils % 66.1 % (37.0-80.0); Platelet Count 464 K/mm3 (142-424); Red Blood Count 5.03 M/mm3 (4.20-5.40); Red Cell Distribution Width 16.4 % (11.5-17.5); White Blood Count 11.7 K/mm3 (4.8-10.8)
[2019-08-03 00:35] LABS: Alanine Aminotransferase 16 U/L (12-78); Albumin Level 3.6 g/dl (3.5-5.0); Albumin/Globulin Ratio 0.8 (1.1-1.8); Alkaline Phosphatase 86 U/L (38-126); Anion Gap 12.4 mEq/L (5-15); Aspartate Amino Transferase 30 U/L (14-36); Bilirubin,Total 0.3 mg/dl (0.2-1.3); Blood Urea Nitrogen 9 mg/dl (7-17); Carbon Dioxide 29 mmol/L (22.0-30.0); Chloride 99 mmol/L (98-107); Creatinine Clearance Estimated 96 mL/min (50-200); Estimated Glomerular Filt Rate 106 ml/min (>60); GFR (African American) 128 ML/MIN (>60); Globulin 4.3 g/dL (1.3-3.2); Glucose 112 mg/dl (74-100); Potassium 3.4 mmoL/L (3.5-5.1); Sodium 137 mmol/L (136-145); Total Protein,Serum 7.9 g/dl (6.3-8.2)
[2019-08-03 00:38] LABS: INR 1.86 (0.9-1.1); Prothrombin Time 18.4 seconds (9.4-11.8)
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
[2019-08-03 01:14] VITALS: BP 143/89; PULSE 102; RESP 20; TEMP 36.9; O2SAT 94
== END 2019-08-03 01:55 | disposition home or self-care (01) ==
PROVIDERS: Emergency Provider Emergency Medicine; PCP Internal Medicine Adolescent Medicine
DX: S81.812A Laceration without foreign body, left lower leg, initial encounter (principal); W45.8XXA Other foreign body or object entering through skin, initial encounter; W22.8XXA Striking against or struck by other objects, initial encounter; Y92.019 Unspecified place in single-family (private) house as the place of occurrence of the external cause; I25.2 Old myocardial infarction; Z88.5 Allergy status to narcotic agent; F17.210 Nicotine dependence, cigarettes, uncomplicated; M06.9 Rheumatoid arthritis, unspecified; Z90.09 Acquired absence of other part of head and neck; Z79.899 Other long term (current) drug therapy; Z23 Encounter for immunization
CPT/HCPCS: 12004; 73590; 80053; 85025; 85610; 90471; 90715; 96374; 96375; 99283; J2405

== ENCOUNTER → 2019-11-11 11:57 | Outpatient (CLI) | payer OTHER, SELFPAY | PROVIDERS: Visit Provider Internal Medicine Adolescent Medicine | DX: S81.802A Unspecified open wound, left lower leg, initial encounter (principal) | CPT/HCPCS: 87070; 87077; 87186; 87205 ==

== ENCOUNTER 2019-12-09 14:00 | Outpatient (RCR) | payer OTHER, SELFPAY ==
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
== END 2019-12-09 14:05 | disposition home or self-care (01) ==
LOC: PT 14:00
PROVIDERS: Visit Provider Internal Medicine Adolescent Medicine
DX: L03.116 Cellulitis of left lower limb (principal)
CPT/HCPCS: 97163; 97597; 97598

== ENCOUNTER 2019-12-22 21:42 | Inpatient (IN) | payer OTHER, SELFPAY ==
[2019-12-22 21:56] VITALS: BP 140/83; PULSE 65; RESP 18; TEMP 36.9; O2SAT 98; BMI 13.3
--- NOTE | 2019-12-22 22:00 | PC.NURSE ---
offered pt to transfer from to bed, refused at this time. offered pillow, to prop leg up on; refused at this time.
--- NOTE | 2019-12-22 22:07 | CT_ITS ---
PROCEDURE: CT LOWER LEG LT WO CON CLINICAL HISTORY: rule out osteo Pain swelling and redness with drainage COMPARISON: CR XR TIBIA FIBULA LT 2V from 08/02/2019 TECHNIQUE: Axial images obtained with sagittal and coronal reformats. All CT scans at the facility use one or more dose reduction, viz: automated exposure control, ma/kV adjustment per patient size (including targeted exams where dose is matched to indication, i.e. head), or iterative reconstruction technique. FINDINGS: Osteoarthritic changes are present at the knee involving all 3 compartments. Sclerosis is present at the fibular neck and may be due to an old fracture. There is diffuse osteopenia. No acute fracture or dislocation. No bony destructive process. Please see separate ankle and foot report for those findings. There is a small knee joint effusion and Ba cyst. There is mild diffuse subcutaneous edema of the leg. Irregular skin defect is present along the anterior medial aspect of the junction of the mid distal 1/3 of the tibia with overlying soft tissue swelling but no bony erosive change. No abscess. Abscess evaluation is limited without IV contrast. There is diffuse generalized cutaneous and subcutaneous edema. IMPRESSION: 1. No acute fracture or bony destructive process that would indicate acute osteomyelitis of the leg. 2. Sclerosis of the fibular neck suggesting old fracture. 3. Mild osteoarthritis of the knee with knee joint effusion and Ba's cyst. 4. Diffuse cutaneous and subcutaneous edema with skin defect along the anterior medial aspect of the distal 1/3 of the leg soft tissue thickening superficial to the bone but no abscess or bony destruction Dictated by: Alfredo Britton MD 12/23/2019 06:17 Alfredo Britton MD in [place] 12/23/2019 06:17
--- NOTE | 2019-12-22 22:07 | XR_ITS ---
PROCEDURE: XR FOOT LT 2V CLINICAL INDICATION: rule out osteo Injury with pain worse with redness an open wound COMPARISON: CR FTL3 FOOT-LT-3 VIEWS from 01/14/2014 CR [id number] XR foot LT min 3V from 11/23/2017 CR [id number] XR foot LT min 3V from 02/08/[address] FOOT LT WO CON from 12/22/2019 FINDINGS: There is overall no significant change in the ununited fracture at the proximal aspect of the proximal phalanx of the great toe with prior fusion of the 1st MTP joint. Chronic dislocation of the 2nd metatarsophalangeal joint, old fracture at the 3rd metatarsophalangeal joint, erosion of the distal aspect of the metatarsals 1 through 4 and old fracture at the proximal aspect of the 1st metatarsal. There is diffuse osteopenia. No acute fracture or bony destructive process. IMPRESSION: Chronic changes as described above, no acute finding Dictated by: Alfredo Britton MD 12/23/2019 05:45 Alfredo Britton MD in [facility] 12/23/2019 05:45
--- NOTE | 2019-12-22 22:07 | XR_ITS ---
PROCEDURE: XR TIBIA FIBULA LT 2V CLINICAL INDICATION: rule out osteo Pain, open wound COMPARISON: CR XR TIBIA FIBULA LT 2V from 08/02/2019 FINDINGS: No acute fracture or dislocation. There is diffuse vascular calcification. Along the lower 1/3 of the tibia there is a faint curvilinear lucency possibly due to the overlying wound. There are osteoarthritic changes at the ankle. There is sclerosis of the proximal fibula at the neck.. Skin defect is present at the medial aspect of the distal tibia. IMPRESSION: Overall no significant change this with no acute bony findings. Skin defect medially and diffuse vascular calcification of the sella as osteoarthritis of the ankle. This Dictated by: Alfredo Britton MD 12/23/2019 05:38 Alfredo Britton MD in [place] 12/23/2019 05:38
--- NOTE | 2019-12-22 22:10 | CT_ITS ---
PROCEDURE: CT FOOT LT WO CON CLINICAL HISTORY: rule out osteo Pain swelling redness and drainage with discoloration COMPARISON: CR [id number] XR foot LT min 3V from 11/23/2017 CR XR FOOT LT 2V from 12/22/2019 TECHNIQUE: Axial images obtained with sagittal and coronal reformats. All CT scans at the facility use one or more dose reduction, viz: automated exposure control, ma/kV adjustment per patient size (including targeted exams where dose is matched to indication, i.e. head), or iterative reconstruction technique. FINDINGS: There is severe osteopenia. Severe osteoarthritic changes are present at the ankle with loss of joint space. In the mid and lateral aspect of the talus there is a well-circumscribed lucent defect which measures 1.3 x 1.4 cm. Within this defect there is an area of sclerosis. This could represent a large osteochondral defect with osteochondritis dissecans. Differential diagnosis would include an area of chronic osteomyelitis with sequestered bone. This defect communicates with ankle joint itself along the superior margin. There are other lucent areas within the talus and other tarsal bones including the calcaneus. The lucency in the calcaneus measures 1.4 by 1.2 cm and is slightly more dense than the remaining defects within the tarsal bones. The calcaneal lucency extends to the cortex of the foot with adjacent soft tissue thickening.. There is extensive erosion of the distal MTP articulations. There is skin thickening and edematous infiltration of the subcutaneous fat along the dorsum of the foot. There are areas of focal ulceration of the skin adjacent to the distal tibia as well as the dorsum of the foot there is diffuse vascular calcification there is valgus angulation of the phalanges. There is an old fracture of the mid aspect of the 1st metatarsal IMPRESSION: 1. Skin thickening and edematous infiltration of the subcutaneous fat of the lower extremity extending into the dorsum of the foot which may reflect cellulitis or passive edema with areas of skin ulceration along the distal tibia medially and the dorsum of the foot. 2. Severe osteoarthritis of the ankle at the tibial talar articulation with a 1.4 cm lucent defect of the talar dome and a central area of bony sclerosis which may represent bony sequestrum. A chronic large osteochondral defect with osteochondrosis dissecans or chronic osteomyelitis is a consideration. 3. Lytic defect of the calcaneus with intermediate attenuation internally extending into the plantar surface of the calcaneus with adjacent soft tissue thickening. Osteomyelitis here is a consideration. 4. Chronic changes of the metatarsophalangeal joint with chronic erosion of the distal aspect of the metatarsals with an old 1st metatarsal fracture and valgus angulation of the phalanges. 5. Numerous lucent defects of the tarsal bones possibly related to the diffuse osteopenia Dictated by: Alfredo Britton MD 12/23/2019 06:31 Alfredo Britton MD in [place] 12/23/2019 06:31
[2019-12-22 22:39] LABS: Basophils % 0.1 % (0.1-2.0); Eosinophils # 0.1 K/mm3 (0.0-0.4); Eosinophils % 0.6 % (0.1-12.0); Hematocrit 33.4 % (37.0-47.0); Hemoglobin 9.3 g/dL (12.2-16.2); Lymphocytes # 1.3 K/mm3 (0.7-4.5); Lymphocytes % 8.1 % (10-50); Mean Corpuscular HGB Conc 27.9 g/dL (31.8-35.4); Mean Corpuscular Hemoglobin 20.9 pg (27.0-31.2); Mean Corpuscular Volume 75.2 fl (81-99); Mean Platelet Volume 6.8 fl (7.4-10.4); Monocytes # 0.4 K/mm3 (0.1-1.0); Monocytes % 2.7 % (1.7-9.3); Neutrophils # 14.1 K/mm3 (1.8-7.8); Neutrophils % 88.6 % (37.0-80.0); Platelet Count 723 K/mm3 (142-424); Red Blood Count 4.45 M/mm3 (4.20-5.40); Red Cell Distribution Width 18.1 % (11.5-17.5); White Blood Count 15.9 K/mm3 (4.8-10.8)
[2019-12-22 22:41] LABS: Chloride 99 mmol/L (98-107); Potassium 4.3 mmoL/L (3.5-5.1); Sodium 132 mmol/L (136-145)
[2019-12-22 22:43] LABS: Blood Urea Nitrogen 15 mg/dl (7-17); Creatinine Clearance Estimated 60 mL/min (50-200); Estimated Glomerular Filt Rate 105 ml/min (>60); GFR (African American) 128 ML/MIN (>60)
[2019-12-22 22:44] LABS: Alanine Aminotransferase 19 U/L (12-78); Albumin Level 2.7 g/dl (3.5-5.0); Albumin/Globulin Ratio 0.7 (1.1-1.8); Alkaline Phosphatase 115 U/L (38-126); Anion Gap 9.3 mEq/L (5-15); Aspartate Amino Transferase 22 U/L (14-36); Calcium 8.3 mg/dl (8.4-10.2); Carbon Dioxide 28 mmol/L (22.0-30.0); Globulin 3.9 g/dL (1.3-3.2); Glucose 115 mg/dl (74-100); MANUAL DIFFERENTIAL MANUAL DIFFERENTIAL (MANUAL DIFF); Total Protein,Serum 6.6 g/dl (6.3-8.2)
[2019-12-22 22:45] LABS: Lactic Acid 1.9 mmol/L (0.7-2.1)
[2019-12-22 22:49] LABS: C-Reactive Protein 42.7 mg/L (0-4)
[2019-12-22 22:51] VITALS: BP 121/79; PULSE 72; RESP 15; O2SAT 92
[2019-12-22 22:53] LABS: Bilirubin,Total < 0.1 mg/dl (0.2-1.3)
[2019-12-22 23:02] LABS: Coronavirus 19 IgG Antibody Negative (Negative); Coronavirus 19 IgM Antibody Positive (Negative)
[2019-12-22 23:05] LABS: Erythrocyte Sedimentation Rate 59 mm/hr (0-30)
--- NOTE | 2019-12-22 23:05 | PC.NURSE ---
received positive IGM result on blood work. swab obtained for COVID in house testing. pt will receive the full swab due to lab stating they are out of the covid pcr swabs. spoke with chalo
[2019-12-22 23:09] LABS: Lymphocytes % 7 % (10-50); Neutrophils % 93 % (42-76); Total Cells Counted 100
[2019-12-22 23:10] LABS: Platelet Estimate Normal
[2019-12-22 23:11] LABS: Hypochromasia 2+; Microcytosis 1+; Ovalocytes 1+; Stomatocytes 1+
[2019-12-22 23:14] LABS: Adenovirus,PCR Not Detected (NotDetected); Bordetella Pertussis Not Detected (NotDetected); Chlamydophila Pneumoniae, PCR Not Detected (NotDetected); Coronavirus 19, PCR Not Detected (NotDetected); Coronavirus 229E Not Detected (NotDetected); Coronavirus NL63 Not Detected (NotDetected); Coronavirus OC43 Not Detected (NotDetected); Coronovirus HKU1,PCR Not Detected (NotDetected); Human Metapneumovirus Not Detected (NotDetected); Influenza A, PCR Not Detected (NotDetected); Influenza AH1, 2009 Not Detected (NotDetected); Influenza AH1, PCR Not Detected (NotDetected); Influenza AH3,PCR Not Detected (NotDetected); Influenza B, PCR Not Detected (NotDetected); Mycoplasma Pneumoniae, PCR Not Detected (NotDetected); Parainfluenza 1, PCR Not Detected (NotDetected); Parainfluenza 2, PCR Not Detected (NotDetected); Parainfluenza 3, PCR Not Detected (NotDetected); Parainfluenza 4, PCR Not Detected (NotDetected); Respiratory Syncytial Virus Not Detected (NotDetected); Rhinovirus/Enterovirus Not Detected (NotDetected)
[2019-12-22 23:20] VITALS: BP 107/64; PULSE 75; RESP 14; O2SAT 95
--- NOTE | 2019-12-22 23:25 | PC.NURSE ---
pt sent family member to request pillow for leg at this time
--- NOTE | 2019-12-22 23:43 | PC.NURSE ---
paged pharmacy on-call from vancomycin dose
--- NOTE | 2019-12-22 23:51 | PC.NURSE ---
call received from kenya rousseau who stated to give patient a LOADING DOSE of 750mg, then follow with 500mgmg iv q12 hours after that. notified
[2019-12-23] VITALS (8 sets, daily range): BP systolic 102–133; BP diastolic 66–88; PULSE 71–108; RESP 16–18; TEMP 36.2–36.9; O2SAT 93–100; BMI 16.7; BMI 16.8; BMI 16.9
--- NOTE | 2019-12-23 01:15 | PC.NURSE ---
paged dr alexander on-call
--- NOTE | 2019-12-23 01:17 | HMH.EDSKAF ---
ED Disposition Clinical Impression: Cellulitis of lower extremity Qualifiers: Laterality: left Qualified Code(s): L03.116 - Cellulitis of left lower limb Disposition: Admitted as Observation Condition on Discharge: Fair Referrals: Raad Larry MD [Primary Care Provider] - - Critical Care Critical Care Time: No Attestation: On 12/22/19, the high probability of a clinically significant, sudden or life threatening deterioration of the following system(s) required my full and direct attention, intervention and personal management. The time I documented below is in addition to time spent performing reported procedures but includes the following listed in this critical care notation. Medical Decision Making - Medical Records Medical records reviewed: Yes: I reviewed the patient's medical records. - Vaibhav Inquiry Pt receiving controlled substance: No Vital Signs: 12/22/19 21:56 12/22/19 22:51 12/22/19 23:20 Temperature 98.5 F Temperature Source Oral Pulse Rate [Right Brachial] 65 72 75 Respiratory Rate 18 15 14 Blood Pressure [Right Arm] 140/83 121/79 107/64 L Blood Pressure Mean [Right Arm] 102 93 78 Blood Pressure Source [Right Arm] Automatic Cuff Automatic Cuff Blood Pressure Position [Right Arm] Sitting Sitting 02 Sat by Pulse Oximetry 98 92 L 95 Oxygen Delivery Method Room Air Room Air Room Air 12/23/19 00:12 Temperature Temperature Source Pulse Rate [Right Brachial] 71 Respiratory Rate 16 Blood Pressure [Right Arm] 128/73 Blood Pressure Mean [Right Arm] 91 Blood Pressure Source [Right Arm] Automatic Cuff Blood Pressure Position [Right Arm] Sitting 02 Sat by Pulse Oximetry 96 Oxygen Delivery Method Room Air - Lab Data Lab results reviewed: Yes: I reviewed the patient's lab results. Lab Results 12/22/19 22:25: WBC 15.9 H, RBC 4.45, Hgb 9.3 L, Hct 33.4 L, MCV 75.2 L, MCH 20.9 L, MCHC 27.9 L, RDW 18.1 H, Plt Count 723 H, MPV 6.8 L, Neut % (Auto) 88.6 H, Lymph % (Auto) 8.1 L, [place] % (Auto) 2.7, Eos % (Auto) 0.6, Baso % (Auto) 0.1, Neut # (Auto) 14.1 H, Lymph # (Auto) 1.3, [place] # (Auto) 0.4, Eos # (Auto) 0.1, Baso # (Auto) 0.0, Total Counted 100, Neutrophils % (Manual) 93 H, Lymphocytes % (Manual) 7 L, Platelet Estimate Normal, RBC Morphology Not Reportable, Hypochromasia 2+, Microcytosis 1+, Ovalocytes 1+, Stomatocytes 1+, ESR 59 H 12/22/19 22:25: Sodium 132 L, Potassium 4.3, Chloride 99, Carbon Dioxide 28, Anion Gap 9.3, BUN 15, Creatinine 0.60, Estimated Creat Clear 60, Estimated GFR 105, Est GFR ( Amer) 128, Glucose 115 H, Calcium 8.3 L, Total Bilirubin < 0.1 L, AST 22, ALT 19, Alkaline Phosphatase 115, C-Reactive Protein 42.7 H, Total Protein 6.6, Albumin 2.7 L, Globulin 3.9 H, Albumin/Globulin Ratio 0.7 L 12/22/19 22:25: Lactate 1.9 12/22/19 22:25: SARS-CoV-2 IgG Ab (Rapid) Negative, SARS-CoV-2 IgM Ab (Rapid) Positive A 12/22/19 23:07: Chlamy pneumoniae PCR Not detected, Adenovirus (PCR) Not detected, B. pertussis DNA (PCR) Not detected, Coronavirus OC43 (PCR) Not detected, Coronavirus HKU1 (PCR) Not detected, Coronavirus 229E (PCR) Not detected, SARS-CoV-2 (PCR) Not detected, Coronavirus NL63 (PCR) Not detected, Human Metapneumovir PCR Not detected, Influenza A (H1) PCR Not detected, Influ A (H1N1/09) PCR Not detected, Influenza A (H3) PCR Not detected, Influenza Type A (PCR) Not detected, Influenza Type B (PCR) Not detected, M. pneumoniae (PCR) Not detected, Parainfluenza 1 (PCR) Not detected, Parainfluenza 2 (PCR) Not detected, Parainfluenza 3 (PCR) Not detected, Parainfluenza 4 (PCR) Not detected, RSV (PCR) Not detected, Entero/Rhino (PCR) Not detected Result diagrams: 12/22/19 22:25 12/22/19 22:25 Orders (Tests/Meds): ED MEDICATIONS Generic Name Dose Route Start Last Admin Trade Name Freq PRN Reason Stop Dose Admin Sodium Chloride 1,000 mls @ 999 mls/hr 12/22/19 23:00 12/22/19 22:50 Sod Chlor 0.9% 1000ml Bag IV 12/23/19 00:00 999 mls/hr .Q1H1M RANJAN Administr
--- NOTE | 2019-12-23 01:17 | PC.NURSE ---
on-call md returned call, dr terrell.
--- NOTE | 2019-12-23 01:46 | PC.NURSE ---
PT ARRIVED T THE FLOOR VIA W/C FROM ED W/STAFF AT 0725
[2019-12-23 02:52] LABS: INR > 8.00 (0.9-1.1); Prothrombin Time > 90.0 seconds (9.4-11.8)
--- NOTE | 2019-12-23 04:50 | PC.NURSE ---
LLE anterior to medial ulceration with opaque ylw drainage and exudate. Redness & edema surrounding wound. 15cm X 20cm
--- NOTE | 2019-12-23 04:56 | PC.NURSE ---
Posterior LLE. 2cm X 2cm ylw/brw scab. Redness, edema, and mottling noted
--- NOTE | 2019-12-23 04:58 | PC.NURSE ---
LLE Lateral ulceration with moran/ylw moist exudate. Redness, edmea, and mottling noted. 30cm X 11cm.
--- NOTE | 2019-12-23 05:02 | PC.NURSE ---
LLE Lateral to Posterior. moran/ylw moist exudate. Redness, edema, and cyanosis to wound.
--- NOTE | 2019-12-23 05:04 | PC.NURSE ---
Pt is A&Ox4 and has been up to [facility] x1 with staff and pt's to assist. Pt has a prev. BKA and large draining wound to LLE. Redness, edema, mottling, and cyanosis noted. Pictures taken and uploaded to chart and consent placed in chart. Lungs CTA on room air. Pt & were given soup, crackers and water (all low sodium), as they both report they have not eating since yesterday am. ABD is soft, non-tender, with active BS & last BM reported to be on 12/20. Pt c/o pain to LLE of 12/05 on [employer] and reports it to be burning, sharp pain. LLE placed on white chux pad and elevated on 1 pillow for pt's comfort and edema. +2 pitting edema to foot. Absent pulse to Left dorsal pedis peripheral pulse (palpation & Doppler). +1 pulse to popliteal and posterior tibia peripheral pulses. VSS, call light within reach, will continue to monitor.
--- NOTE | 2019-12-23 07:33 | HMH.HP ---
*Admission Date: 12/23/19 *Chief complaint: leg pain, drainage, infection *History of present illness: Mrs. Esteban is a 49yo F with stents of history of destructive rheumatoid arthritis, tobacco use, peripheral arterial disease, coronary artery disease, chronic steroid use (immunocompromise), antiphospholipid syndrome on chronic warfarin therapy, and chronic pain. She presented to the ER due to worsening pain and drainage from a left leg wound. Of note she sustained a wound to her left medial leg approximately 7 months ago when trying to enter a vehicle. Wound initially treated in the ER with some stitches but never healed properly. Has had chronic arterial ulceration with granulation tissue and undermining of larger medial wound. Was seen in the office approximately 7 to 8 weeks ago due to nonhealing ulcer and sent to wound management for further care out of concern for risk of infection. Has not been back to wound care in a few weeks but has since developed inflammation, bruising, drainage from the lateral aspect of her lower leg as well. On assessment the ER she was noted to have significant redness, pain, swelling of lower extremity. Purulent drainage from both aspects of her leg. Labs remarkable for leukocytosis, elevated phlegm Girard markers, and grossly abnormal INR. 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 Vancomycin initiated in the ER and blood cultures obtained. On assessment this morning, patient complaining of pain that is throbbing in character. Is afebrile but tachycardic. Hemodynamically stable. at bedside. [facility] History I have reviewed the patient's past medical history: Yes Medical History: Reports:: Congestive Heart Failure, Coronary Artery Disease, Myocardial Infarction, Peripheral Artery Disease Denies:: Cancer, Diabetes Mellitus Type 1, Diabetes Mellitus Type 2, MRSA *Have you ever received a pneumonia vaccine?: Yes *Have you received a flu vaccine this season?: No Other Medical History: Reports: Anemia, Arthritis, Thyroid Disease Comment:: Rheumatoid arthritis, antiphospholipid syndrome Laterality Cases: Right: Other, Bilateral: Tonsillectomy Other Surgeries: Yes: Appendectomy, Cardiac Catheterization, Coronary Stent, Hysterectomy-Total Amputation: Yes (RT leg) Fractures: Yes (L distal fibula fracture 10/2017) - *Social History Smoking Status: Current every day smoker Tobacco Type: cigarettes # Packs/Day (cigarettes): 1 Alcohol Intake: never Substance Use Type: former substance user, crack/cocaine *Occupational Status:: disabled Housing: house Household Members: spouse *Travel in the last 8 weeks: None Family Hx:: Asthma, Coronary Artery Disease, Diabetes, Heart Attack, Hyperlipidemia, Hypertension, Stroke, Tuberculosis Review of Systems - Review of Systems Review of systems:: pertinent systems reviewed and negative unless documented below (14 point review of systems performed, pertinent positives and negatives as per HPI) - *Neurologic Denies localized weakness Meds Home Medications Medication Instructions Recorded Confirmed Type Warfarin Sodium [Coumadin] 4 mg PO DAILY 11/23/17 12/23/19 History Albuterol Sulfate [Proair Hfa 2 puffs IH QIDP PRN 02/08/18 12/23/19 History 90mcg/puff Inh] Clopidogrel Bisulfate [Clopidogrel 75 mg PO DAILY 02/08/18 12/23/19 History 75mg Tab] Cyclobenzaprine HCl 10 mg PO TIDP PRN 02/08/18 12/23/19 History [Cyclobenzaprine 10mg Tab*] Ferrous Sulfate 325 mg PO BID 02/08/18 12/23/19 History Folic Acid [Folic Acid 1mg tablet] 1 mg PO DAILY 02/08/18 12/23/19 History Hydroxychloroquine Sulfate 400 mg PO DAILY 02/08/18 12/23/19 History [Plaquenil 200mg tablet] Levothyroxine Sodium 50 mcg PO DAILY 02/08/18 12/23/19 History [Levothyroxine 50mcg (0.05mg) Tab] Meloxicam [Mobic 15 mg tab] 15 mg PO DAILY 02/08/18 12/23/19 History Metoprolol Tartrate 50 mg PO DAILY 02/08/18 12/23/19 History Oxycodone HCl/Acetaminophen 1 tab PO QID P
--- NOTE | 2019-12-23 07:35 | HMH.PHAVTE ---
[facility] [place] Pharmacy VTE Monitoring - Patient Demographics Admission date: 12/23/19 Report Date: 12/23/19 Time: 07:36 Allergies/Adverse Reactions: Patient Allergies gabapentin [GABAPENTIN] Allergy (Severe, Verified 11/23/17 08:00) HALLUCINATIONS methadone [METHADONE] Allergy (Severe, Verified 11/23/17 08:00) THROAT CLOSES codeine [CODEINE] Allergy (Mild, Verified 11/23/17 08:00) NA-NAUSEA Height: 1.52 m Weight: 39.122 kg Patient Problems: Current Active Problems Cellulitis of lower extremity (Acute) - VTE Risk Labs: VTE Related Lab Results Hgb 9.3 g/dL (12.2-16.2) L 12/22/19 22:25 Hct 33.4 % (37.0-47.0) L 12/22/19 22:25 Plt Count 723 K/mm3 (142-424) H 12/22/19 22:25 PT > 90.0 seconds (9.4-11.8) H 12/23/19 02:15 INR > 8.00 (0.9-1.1) H 12/23/19 02:15 BUN 15 mg/dl (7-17) 12/22/19 22:25 Creatinine 0.60 mg/dl (0.52-1.04) 12/22/19 22:25 Estimated Creat Clear 60 mL/min (50-200) 12/22/19 22:25 Was VTE Risk Assessment Performed: Yes VTE Score: 11 VTE Risk Level: Moderate Risk Clinical Trial Participant: No - Prophylaxis VTE Prophylaxis Ordered?: Yes Types of VTE Prophylaxis: TEDS Knee High
--- NOTE | 2019-12-23 08:14 | PC.NURSE ---
Notified Dr. Draper of INR & PTT notification results @ [id number]
--- NOTE | 2019-12-23 09:44 | HMH.PHAINT ---
HOME MEDICATION RECONCILIATION COMPLETED USING LIST FROM [facility]
[2019-12-23 09:57] LABS: Chloride 106 mmol/L (98-107)
[2019-12-23 09:58] LABS: Sodium 137 mmol/L (136-145)
[2019-12-23 10:00] LABS: Blood Urea Nitrogen 16 mg/dl (7-17); Creatinine Clearance Estimated 69 mL/min (50-200); Estimated Glomerular Filt Rate 105 ml/min (>60); GFR (African American) 128 ML/MIN (>60)
[2019-12-23 10:01] LABS: Calcium 7.8 mg/dl (8.4-10.2); Carbon Dioxide 28 mmol/L (22.0-30.0); Glucose 87 mg/dl (74-100)
[2019-12-23 10:10] LABS: Basophils % 0.2 % (0.1-2.0); Eosinophils # 0.1 K/mm3 (0.0-0.4); Eosinophils % 0.5 % (0.1-12.0); Hematocrit 32.9 % (37.0-47.0); Lymphocytes # 1.8 K/mm3 (0.7-4.5); Lymphocytes % 10.2 % (10-50); Mean Corpuscular HGB Conc 27.3 g/dL (31.8-35.4); Mean Corpuscular Hemoglobin 20.7 pg (27.0-31.2); Mean Corpuscular Volume 75.9 fl (81-99); Mean Platelet Volume 6.3 fl (7.4-10.4); Monocytes # 0.8 K/mm3 (0.1-1.0); Monocytes % 4.5 % (1.7-9.3); Neutrophils # 14.8 K/mm3 (1.8-7.8); Neutrophils % 84.6 % (37.0-80.0); Platelet Count 638 K/mm3 (142-424); Red Blood Count 4.34 M/mm3 (4.20-5.40); Red Cell Distribution Width 18.4 % (11.5-17.5); White Blood Count 17.5 K/mm3 (4.8-10.8)
--- NOTE | 2019-12-23 10:11 | HMH.ORTHOCON ---
*Admission Date: 12/23/19 *Reason for consult:: L leg cellulitis, ulcers *History of present illness: 49yo F admitted overnight with non-healing ulcers and cellulitis of the LLE. I previously saw her in consultation during a hospital admission in January 2018, for open draining wounds of B/L elbows. She had cellulitis with an open wound of the L foot at that time and was evaluated by Dr. Castillo. Vascular workup and evaluation for possible amputation was begun but she was transferred to . Treatment at that time is unknown; records have been requested from . She has been followed as an outpatient by her PCP, and an injury to the L leg noted in April 2019. She was getting into a vehicle when she scraped the medial aspect of the lower leg. She performed local wound care at home but the wound was failing to heal so she was referred to outpatient wound care. Due to transportation issues she ceased follow-up with them and has been trying to care for the wound at home. Meanwhile, ecchymosis developed around the posterior and lateral aspects of the leg and heel, progressing to infected, necrotic wounds. They have been draining, prompting ER evaluation last night. She denies fevers or chills at home. She has a history of severe rheumatoid arthritis and has been on Humira in the past; she has not been on this recently. She was on it when I saw her in 2017 but the medication was denied by insurance last year so her last dose is unknown. She is currently on prednisone and plaquenil. Additionally she has a history of severe PVD and is on warfarin, plavix and pletal. S/p R AKA many years ago, which healed well. She underwent reconstructive surgery on the L foot 20 years ago, after which she reported wound healing issues. She says that over the past 20 years the wounds would intermittently open up and drain red/purulent material. She has a history of antiphospholipid antibody syndrome as well, and is on warfarin for this; INR was >8 on admission. Reported history of cocaine use in the past, denies current use; she is a smoker. No history of diabetes. She is wheelchair-bound and has limited use of her arms due to her RA and destruction of multiple joints. [facility] History I have reviewed the patient's past medical history: Yes Medical History: Reports:: Congestive Heart Failure, Myocardial Infarction Denies:: Cancer, Diabetes Mellitus Type 1, Diabetes Mellitus Type 2, MRSA *Have you ever received a pneumonia vaccine?: Yes *Have you received a flu vaccine this season?: No Other Medical History: Reports: Anemia, Arthritis, Thyroid Disease Laterality Cases: Right: Other, Bilateral: Tonsillectomy Other Surgeries: Yes: Appendectomy, Cardiac Catheterization, Coronary Stent, Hysterectomy-Total Amputation: Yes (RT leg) Fractures: Yes (L distal fibula fracture 10/2017) - *Social History Smoking Status: Current every day smoker Tobacco Type: cigarettes # Packs/Day (cigarettes): 1 Alcohol Intake: never Substance Use Type: former substance user, crack/cocaine *Occupational Status:: disabled Housing: house Household Members: spouse *Travel in the last 8 weeks: None Family Hx:: Asthma, Coronary Artery Disease, Diabetes, Heart Attack, Hyperlipidemia, Hypertension, Stroke, Tuberculosis Review of Systems - Review of Systems Review of systems:: pertinent systems reviewed and negative unless documented below - *Neurologic Denies localized weakness Meds Home Medications Medication Instructions Recorded Confirmed Type Warfarin Sodium [Coumadin] 4 mg PO DAILY 11/23/17 12/23/19 History Albuterol Sulfate [Proair Hfa 2 puffs IH QIDP PRN 02/08/18 12/23/19 History 90mcg/puff Inh] Clopidogrel Bisulfate [Clopidogrel 75 mg PO DAILY 02/08/18 12/23/19 History 75mg Tab] Cyclobenzaprine HCl 10 mg PO TIDP PRN 02/08/18 12/23/19 History [Cyclobenzaprine 10mg Tab*] Ferrous Sulfate 325 mg PO BID 02/08/18 12/23/19 History Folic Acid [Folic Acid 1mg tablet] 1 mg PO DAILY 02/08/18
[2019-12-23 10:12] LABS: MANUAL DIFFERENTIAL MANUAL DIFFERENTIAL (MANUAL DIFF)
--- NOTE | 2019-12-23 10:37 | HMH.PHACONS ---
- Pharmacy Consult Date: 12/23/19 Time: 10:37 Referring provider: DR. ZAMORA Reason for Consult:: PATIENT RECEIVED VANCOMYCIN 750 MG X1 DOSE IN ER OVERNIGHT. RECOMMENDED CONTINUING WITH VANCOMYCIN 500 MG Q12H AT THIS TIME STARTING AT 1100 TODAY. WILL OBTAIN TROUGH LEVEL TOMORROW. PHARMACY WILL FOLLOW DAILY AND ADJUST APPROPRIATE. Allergies and ADEs:: Allergies Allergy/AdvReac Type Severity Reaction Status Date / Time gabapentin [GABAPENTIN] Allergy Severe HALLUCINATI Verified 11/23/17 08:00 ONS methadone [METHADONE] Allergy Severe THROAT Verified 11/23/17 08:00 CLOSES codeine [CODEINE] Allergy Mild NA-NAUSEA Verified 11/23/17 08:00 Home Medications:: Home Medications Medication Instructions Recorded Confirmed Type Warfarin Sodium [Coumadin] 4 mg PO DAILY 11/23/17 12/23/19 History Albuterol Sulfate [Proair Hfa 2 puffs IH QIDP PRN 02/08/18 12/23/19 History 90mcg/puff Inh] Clopidogrel Bisulfate [Clopidogrel 75 mg PO DAILY 02/08/18 12/23/19 History 75mg Tab] Cyclobenzaprine HCl 10 mg PO TIDP PRN 02/08/18 12/23/19 History [Cyclobenzaprine 10mg Tab*] Ferrous Sulfate 325 mg PO BID 02/08/18 12/23/19 History Folic Acid [Folic Acid 1mg tablet] 1 mg PO DAILY 02/08/18 12/23/19 History Hydroxychloroquine Sulfate 400 mg PO DAILY 02/08/18 12/23/19 History [Plaquenil 200mg tablet] Levothyroxine Sodium 50 mcg PO DAILY 02/08/18 12/23/19 History [Levothyroxine 50mcg (0.05mg) Tab] Meloxicam [Mobic 15 mg tab] 15 mg PO DAILY 02/08/18 12/23/19 History Metoprolol Tartrate 50 mg PO DAILY 02/08/18 12/23/19 History Oxycodone HCl/Acetaminophen 1 tab PO QID PRN 02/08/18 12/23/19 History [Oxycodone W/Apap 325mg Tablet] Pravastatin Sodium [Pravachol] 40 mg PO HS 02/08/18 12/23/19 History Promethazine HCl [Phenergan 25mg 25 mg PO Q6HP PRN 02/08/18 12/23/19 History tab] Tizanidine HCl [Zanaflex 4mg 8 mg PO TID PRN 02/08/18 12/23/19 History tab] cilostazoL [Pletal 100mg tablet] 100 mg PO BID 02/08/18 12/23/19 History predniSONE [Deltasone 20mg 20 mg PO DAILYP PRN 02/08/18 12/23/19 History tablet] Nicotine [Nicoderm 21mg/24hr 21 mg TD DAILYP PRN patch.td24 02/12/18 12/23/19 Rx patch] Collagenase Clostridium Hist. 1 gm TP DAILY 05/05/18 12/23/19 History [Santyl Ointment 30gm] Famotidine [Pepcid 20mg Tablet] 20 mg PO BID 12/23/19 12/23/19 History Height: 1.52 m Weight: 39.122 kg Laboratory Results:: Laboratory Results - last 24 hr 12/22/19 22:25: WBC 15.9 H, RBC 4.45, Hgb 9.3 L, Hct 33.4 L, MCV 75.2 L, MCH 20.9 L, MCHC 27.9 L, RDW 18.1 H, Plt Count 723 H, MPV 6.8 L, Neut % (Auto) 88.6 H, Lymph % (Auto) 8.1 L, [place] % (Auto) 2.7, Eos % (Auto) 0.6, Baso % (Auto) 0.1, Neut # (Auto) 14.1 H, Lymph # (Auto) 1.3, [place] # (Auto) 0.4, Eos # (Auto) 0.1, Baso # (Auto) 0.0, Total Counted 100, Neutrophils % (Manual) 93 H, Lymphocytes % (Manual) 7 L, Platelet Estimate Normal, RBC Morphology Not Reportable, Hypochromasia 2+, Microcytosis 1+, Ovalocytes 1+, Stomatocytes 1+, ESR 59 H 12/22/19 22:25: Sodium 132 L, Potassium 4.3, Chloride 99, Carbon Dioxide 28, Anion Gap 9.3, BUN 15, Creatinine 0.60, Estimated Creat Clear 60, Estimated GFR 105, Est GFR ( Amer) 128, Glucose 115 H, Calcium 8.3 L, Total Bilirubin < 0.1 L, AST 22, ALT 19, Alkaline Phosphatase 115, C-Reactive Protein 42.7 H, Total Protein 6.6, Albumin 2.7 L, Globulin 3.9 H, Albumin/Globulin Ratio 0.7 L 12/22/19 22:25: Lactate 1.9 12/22/19 22:25: SARS-CoV-2 IgG Ab (Rapid) Negative, SARS-CoV-2 IgM Ab (Rapid) Positive A 12/22/19 23:07: Chlamy pneumoniae PCR Not detected, Adenovirus (PCR) Not detected, B. pertussis DNA (PCR) Not detected, Coronavirus OC43 (PCR) Not detected, Coronavirus HKU1 (PCR) Not detected, Coronavirus 229E (PCR) Not detected, SARS-CoV-2 (PCR) Not detected, Coronavirus NL63 (PCR) Not detected, Human Metapneumovir PCR Not detected, Influenza A (H1) PCR Not detected, Influ A (H1N1/09) PCR Not detected, Influenza A (H3) PC
[2019-12-23 10:50] LABS: Lymphocytes % 13 % (10-50); Monocytes % 5 % (2-9); Neutrophils % 82 % (42-76); Platelet Estimate Marked Increase; Total Cells Counted 100
[2019-12-23 10:51] LABS: Hypochromasia 2+
[2019-12-23 10:52] LABS: Poikilocytosis 1+; Stomatocytes 1+
--- NOTE | 2019-12-23 11:52 | HMH.CNCARD ---
History of Present Illness Consult date: 12/23/19 Requesting physician: Gasper Draper Consult reason: pre-op evaluation Chief complaint: Non-healing ulcers LLE Additional Medical History:: 1. Tobacco use since age 12 of about a half a pack per day 2. 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 Chronic Coumadin therapy for antiphospholipid antibody 3. History of myocardial infarction approximately A. History of coronary stenting x3 in 4. 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 MIRI, 2018, left lower extremity MIRI 0.7 5. Severe rheumatoid arthritis with recurrent intermittent prednisone use A. History of Humira use 6. Hypothyroidism 7. Recurrent anemia History of present illness: Mrs. Esteban is a 49yo F with extensive history of destructive rheumatoid arthritis, tobacco use, peripheral arterial disease, coronary artery disease, chronic steroid use (immunocompromise), antiphospholipid syndrome on chronic warfarin therapy, and chronic pain. She presented to the ER due to worsening pain and drainage from a left leg wound. Of note she sustained a wound to her left medial leg approximately 7 months ago when trying to enter a vehicle. Wound initially treated in the ER with some stitches but never healed properly. Has had chronic arterial ulceration with granulation tissue and undermining of larger medial wound. Was seen in the office approximately 7 to 8 weeks ago due to nonhealing ulcer and sent to wound management for further care out of concern for risk of infection. Has not been back to wound care in a few weeks but has since developed inflammation, bruising, drainage from the lateral aspect of her lower leg as well. On assessment the ER she was noted to have significant redness, pain, swelling of lower extremity. Purulent drainage from both aspects of her leg. Labs remarkable for leukocytosis, elevated phlegm Giovanni markers, and grossly abnormal INR. 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 Vancomycin initiated in the ER and blood cultures obtained. On assessment this morning, patient complaining of pain that is throbbing in character. Is afebrile but tachycardic. Hemodynamically stable. at bedside. The above per Dr. Draper 49yo F admitted overnight with non-healing ulcers and cellulitis of the LLE. I previously saw her in consultation during a hospital admission in January 2018, for open draining wounds of B/L elbows. She had cellulitis with an open wound of the L foot at that time and was evaluated by Dr. Castillo. Vascular workup and evaluation for possible amputation was begun but she was transferred to . Treatment at that time is unknown; records have been requested from . She has been followed as an outpatient by her PCP, and an injury to the L leg noted in April 2019. She was getting into a vehicle when she scraped the medial aspect of the lower leg. She performed local wound care at home but the wound was failing to heal so she was referred to outpatient wound care. Due to transportation issues she ceased follow-up with them and has been trying to care for the wound at home. Meanwhile, ecchymosis developed around the posterior and lateral aspects of the leg and heel, progressing to infected, necrotic wounds. They have been draining, prompting ER evaluation last night. She denies fevers or chills at home. She has a history of severe rheumatoid arthritis and has been on Humira in the past; she has not been on this recently. She was on it when I saw her in 2017 but the medication was denied by insurance last year so her last dose is unknown. She is currently on prednisone and plaquenil. Additionally she has a history of severe PVD and is on warfarin, plavix and pletal. S/p R AKA many years ago, which healed well. She underwent reconstructive surgery on the L foot 20 years ago, after which she reporte
--- NOTE | 2019-12-23 12:15 | HMH.PTWOUND ---
Rehab Inpt Wound Evaluation Rehab IP Wound Evaluation Start: 12/23/19 07:33 Freq: ONCE Status: Active Protocol: Document 12/23/19 11:59 [email or web address] (Rec: 12/23/19 12:15 [email or web address] [id number]) Rehab PT Wound Assessment Patient Status Premedicated Prior to Dressing Change Yes Subjective Subjective Pt reports she has been to OP wound care but unable to go for a few weeks . Pt reports wound on lateral calf has been there a couple of weeks - Pt reports c/o pain in LLE calf area, partner reports c/ o wound smells bad Wound Left Posterior Lateral Calf Wound Type Stasis Ulcer Is This a Chronic Wound Yes Wound Length (cm) 20 Wound Width (cm) 10 Wound Bed Appearance Slough,Peeling Skin,Necrotic Percentage of Slough (%) 100 Percentage of Eschar (Purple) (%) 100 Wound Margins Description Indistinct Surrounding Tissue Appearance Purple,Macerated,Weeping Surrounding Tissue Temperature Cool Wound Drainage Description Serous Drainage Amount Moderate Drainage Odor Foul Odor Dressing Status Open to Air Wound Topical Solution/Irrigant Antibiotic Irrigant Primary Dressing Gauze Pad Comment betadyne gauze Wound Secondary Dressing Type Gauze Roll/Wrap Dressing Change Date 12/23/19 Dressing Change Patient Tolerance Tolerated Poorly Left Anterior Medial [place] Wound Type Stasis Ulcer Wound Length (cm) 10 Wound Width (cm) 6 Wound Depth (cm) 2 Wound Bed Appearance Yellow,Slough Percentage of Slough (%) 100 Percentage of Eschar (Yellow) (%) 100 Wound Margins Description Roll Under Edges Surrounding Tissue Appearance [place],Blanched/Dull Surrounding Tissue Temperature Cool Wound Drainage Description None Drainage Amount None Drainage Odor Slight Odor Dressing Status Open to Air Wound Topical Solution/Irrigant Antibiotic Irrigant Packing Type Gauze Pads Primary Dressing Gauze Pad Comment betadyne gauze Wound Secondary Dressing Type Gauze Roll/Wrap Comment kerlix Wound Debridement Amount of Tissue None Removed Wound Debridement Result Necrotic Tissue Remains Dressing Change Date 12/23/19 Dressing Change Patient Tolerance Tolerated Poorly Plan/Recommendation Comment Pt
[2019-12-23 13:09] LABS: Prothrombin Time > 90.0 seconds (9.4-11.8)
[2019-12-23 13:10] LABS: INR > 8.00 (0.9-1.1)
--- NOTE | 2019-12-23 14:14 | HMH.ORTHOCON ---
*Admission Date: 12/23/19 *Reason for consult:: LLE wounds *History of present illness: Per Dr. Caro: 49yo F admitted overnight with non-healing ulcers and cellulitis of the LLE. I previously saw her in consultation during a hospital admission in January 2018, for open draining wounds of B/L elbows. She had cellulitis with an open wound of the L foot at that time and was evaluated by Dr. Castillo. Vascular workup and evaluation for possible amputation was begun but she was transferred to . Treatment at that time is unknown; records have been requested from . She has been followed as an outpatient by her PCP, and an injury to the L leg noted in April 2019. She was getting into a vehicle when she scraped the medial aspect of the lower leg. She performed local wound care at home but the wound was failing to heal so she was referred to outpatient wound care. Due to transportation issues she ceased follow-up with them and has been trying to care for the wound at home. Meanwhile, ecchymosis developed around the posterior and lateral aspects of the leg and heel, progressing to infected, necrotic wounds. They have been draining, prompting ER evaluation last night. She denies fevers or chills at home. She has a history of severe rheumatoid arthritis and has been on Humira in the past; she has not been on this recently. She was on it when I saw her in 2017 but the medication was denied by insurance last year so her last dose is unknown. She is currently on prednisone and plaquenil. Additionally she has a history of severe PVD and is on warfarin, plavix and pletal. S/p R AKA many years ago, which healed well. She underwent reconstructive surgery on the L foot 20 years ago, after which she reported wound healing issues. She says that over the past 20 years the wounds would intermittently open up and drain red/purulent material. She has a history of antiphospholipid antibody syndrome as well, and is on warfarin for this; INR was >8 on admission. Reported history of cocaine use in the past, denies current use; she is a smoker. No history of diabetes. She is wheelchair-bound and has limited use of her arms due to her RA and destruction of multiple joints. [facility] History I have reviewed the patient's past medical history: Yes Medical History: Reports:: Congestive Heart Failure, Coronary Artery Disease, Myocardial Infarction, Peripheral Artery Disease Denies:: Cancer, Diabetes Mellitus Type 1, Diabetes Mellitus Type 2, MRSA *Have you ever received a pneumonia vaccine?: Yes *Have you received a flu vaccine this season?: No Other Medical History: Reports: Anemia, Arthritis, Thyroid Disease Laterality Cases: Right: Other, Bilateral: Tonsillectomy Other Surgeries: Yes: Appendectomy, Cardiac Catheterization, Coronary Stent, Hysterectomy-Total Amputation: Yes (RT leg) Fractures: Yes (L distal fibula fracture 10/2017) - *Social History Smoking Status: Current every day smoker Tobacco Type: cigarettes # Packs/Day (cigarettes): 1 Alcohol Intake: never Substance Use Type: former substance user, crack/cocaine *Occupational Status:: disabled Housing: house Household Members: spouse *Travel in the last 8 weeks: None Family Hx:: Asthma, Coronary Artery Disease, Diabetes, Heart Attack, Hyperlipidemia, Hypertension, Stroke, Tuberculosis Review of Systems - Review of Systems Review of systems:: pertinent systems reviewed and negative unless documented below - Constitutional Denies chills - Eyes Denies blind spots - ENT Denies abnormal hearing - *Cardiovascular Reports generalized swelling, Denies chest pain - *Respiratory Denies shortness of breath - *Gastrointestinal Reports nausea, Denies abdominal pain - *Genitourinary Denies abnormal periods - *Musculoskeletal Reports joint pain, Reports deformity, Reports joint swelling, Reports limited joint movement, Reports muscle weakness, Reports neck pain - Integumentary/Breasts Reports hair loss, Reports nail changes,
--- NOTE | 2019-12-23 15:54 | PC.NURSE ---
1314 Michael BHATIA NOTIFIED OF PT AND INR THAT HE ORDERED. NO NEW ORDERS.
--- NOTE | 2019-12-23 15:59 | PC.NURSE ---
Patient is relaxing in bed. She is able to turn herself in bed and resposition herself as needed.
--- NOTE | 2019-12-23 18:24 | PC.NURSE ---
Patient has remained alert x 4 throughout the day. Pain is poorly controlled, patient can request medication for pain. Patient is on room air. Self turn. Wounds on left lower extremity are now rapid and bandaged per physical therapy. Patients bowels are active in all quads. Patients pain medication has been changed per due to patient report that morphine was not working. Patient has eaten less than 25% of dinner and was npo prior to dinner
[2019-12-24 04:00] VITALS: BP 134/69; PULSE 117; RESP 18; TEMP 37.4; O2SAT 93
[2019-12-24 05:26] VITALS: BMI 17.2
[2019-12-24 06:47] LABS: Basophils % 0.2 % (0.1-2.0); Eosinophils # 0.1 K/mm3 (0.0-0.4); Eosinophils % 0.5 % (0.1-12.0); Hematocrit 30.2 % (37.0-47.0); Hemoglobin 8.6 g/dL (12.2-16.2); Lymphocytes # 1.8 K/mm3 (0.7-4.5); Lymphocytes % 12.9 % (10-50); Mean Corpuscular HGB Conc 28.6 g/dL (31.8-35.4); Mean Corpuscular Hemoglobin 21.6 pg (27.0-31.2); Mean Corpuscular Volume 75.5 fl (81-99); Mean Platelet Volume 6.7 fl (7.4-10.4); Monocytes # 0.9 K/mm3 (0.1-1.0); Monocytes % 6.3 % (1.7-9.3); Neutrophils % 80.2 % (37.0-80.0); Platelet Count 617 K/mm3 (142-424); Red Blood Count 3.99 M/mm3 (4.20-5.40); Red Cell Distribution Width 18.4 % (11.5-17.5); White Blood Count 13.7 K/mm3 (4.8-10.8)
[2019-12-24 06:48] LABS: Chloride 104 mmol/L (98-107); Potassium 3.8 mmoL/L (3.5-5.1); Sodium 133 mmol/L (136-145)
[2019-12-24 06:50] LABS: Alanine Aminotransferase 16 U/L (12-78); Aspartate Amino Transferase 28 U/L (14-36); Bilirubin,Total 0.4 mg/dl (0.2-1.3); Blood Urea Nitrogen 11 mg/dl (7-17); Creatinine Clearance Estimated 69 mL/min (50-200); Estimated Glomerular Filt Rate 105 ml/min (>60); GFR (African American) 128 ML/MIN (>60)
[2019-12-24 06:51] LABS: Albumin Level 2.4 g/dl (3.5-5.0); Albumin/Globulin Ratio 0.7 (1.1-1.8); Alkaline Phosphatase 109 U/L (38-126); Anion Gap 8.8 mEq/L (5-15); Calcium 7.9 mg/dl (8.4-10.2); Carbon Dioxide 24 mmol/L (22.0-30.0); Globulin 3.6 g/dL (1.3-3.2); Glucose 65 mg/dl (74-100); Magnesium 1.5 mg/dl (1.6-2.3)
--- NOTE | 2019-12-24 07:00 | PC.NURSE ---
Pt is A&Ox3 and has turned self and was assisted to bsc 3x this shift and pt tolerated well. Pt has denied any nausea. Pt has c/o pain to LLE t/o shift, medicated per APR. Pt received Dilaudid 1x, Oxycodone 2x, Zanaflex 1x, and Flexeril 1x for pain and muscle ache this shift. On pain reassessment pt has been resting quietly or asleep. At the beginning of the shift pt had removed her own dressing to her E claiming that it was too tight. Pt was found to be blotting the drainage from her leg wounds with napkins and tissue paper. Pt instructed on wound care and this RN attempted to clean and re-dress wound, pt refused. Pt was eventually acquiescent to wound care and new betadine soaked gauze packing with kerlix wrapping. Pt tolerated fair, pt was very painful with the removal of the remaining napkins/cotton pieces. Pt was premeditated. Pt did sleep for several hours.
[2019-12-24 07:13] LABS: Activated Partial Thrombo Time 33.9 seconds (23.6-34.0); INR 1.53 (0.9-1.1); Prothrombin Time 16.3 seconds (9.4-11.8)
--- NOTE | 2019-12-24 07:45 | HMH.ACPN2 ---
Internal Medicine - PN: Subj *Date: 12/24/19 *Time: 07:45 Interval history: Patient is alert. In significant pain in the leg from the currently ordered vascular Dopplers that are being performed. Initial results shows critical flow deficit which is certainly not surprising. Exam Vital signs and Labs for Last 24 Hours: Temp Pulse Resp BP Pulse Ox 99.4 F 117 H 18 134/69 93 L 12/24/19 04:00 12/24/19 04:00 12/24/19 04:00 12/24/19 04:00 12/24/19 04:00 Laboratory Results - last 24 hr 12/23/19 09:45: WBC 17.5 H, RBC 4.34, Hgb 9.0 L, Hct 32.9 L, MCV 75.9 L, MCH 20.7 L, MCHC 27.3 L, RDW 18.4 H, Plt Count 638 H, MPV 6.3 L, Neut % (Auto) 84.6 H, Lymph % (Auto) 10.2, [place] % (Auto) 4.5, Eos % (Auto) 0.5, Baso % (Auto) 0.2, Neut # (Auto) 14.8 H, Lymph # (Auto) 1.8, [place] # (Auto) 0.8, Eos # (Auto) 0.1, Baso # (Auto) 0.0, Total Counted 100, Neutrophils % (Manual) 82 H, Lymphocytes % (Manual) 13, Monocytes % (Manual) 5, Platelet Estimate Marked increase, Hypochromasia 2+, Poikilocytosis 1+, Stomatocytes 1+ 12/23/19 09:45: Sodium 137, Potassium 4.0, Chloride 106, Carbon Dioxide 28, Anion Gap 7.0, BUN 16, Creatinine 0.60, Estimated Creat Clear 69, Estimated GFR 105, Est GFR ( Amer) 128, Glucose 87 D, Calcium 7.8 L 12/23/19 12:30: PT > 90.0 H, INR > 8.00 H 12/24/19 06:25: WBC 13.7 H, RBC 3.99 L, Hgb 8.6 L, Hct 30.2 L, MCV 75.5 L, MCH 21.6 L, MCHC 28.6 L, RDW 18.4 H, Plt Count 617 H, MPV 6.7 L, Neut % (Auto) 80.2 H, Lymph % (Auto) 12.9, [place] % (Auto) 6.3, Eos % (Auto) 0.5, Baso % (Auto) 0.2, Neut # (Auto) 11.0 H, Lymph # (Auto) 1.8, [place] # (Auto) 0.9, Eos # (Auto) 0.1, Baso # (Auto) 0.0 12/24/19 06:25: PT 16.3 H, INR 1.53 H, APTT 33.9 12/24/19 06:25: Sodium 133 L, Potassium 3.8, Chloride 104, Carbon Dioxide 24, Anion Gap 8.8, BUN 11 D, Creatinine 0.60, Estimated Creat Clear 69, Estimated GFR 105, Est GFR ( Amer) 128, Glucose 65 L D, Calcium 7.9 L, Magnesium 1.5 L, Total Bilirubin 0.4, AST 28 D, ALT 16, Alkaline Phosphatase 109, Total Protein 6.0 L, Albumin 2.4 L D, Globulin 3.6 H, Albumin/Globulin Ratio 0.7 L I & O for Last 24 hours: Intake & Output 12/21/19 12/22/19 12/23/19 12/24/19 11:59 11:59 11:59 11:59 Intake Total 2267 / 2267 1805 / 1805 Output Total 700 / 700 Balance 2267 / 2267 1105 / 1105 Weight 86 lb 4 oz 87 lb 7 oz Microbiology Reports for the Last 24 Hours: Microbiology 12/22/19 22:25 Leg,Left - Drainage Gram Stain - Final 12/22/19 22:25 Leg,Left - Drainage Wound Culture - Preliminary Narrative: Patient is awake. Alert. Lungs with smoker's rhonchi, good air movement, heart rate regular. Abdomen soft. Stump on the right leg as previously noted. Gangrenous changes to the left leg as documented on H&P and nursing pictures. Able to move arms well. Assessment and Plan (1) Tobacco use disorder Status: Chronic Category: Medical Code(s): F17.200 - Nicotine dependence, unspecified, uncomplicated (2) Cellulitis of lower extremity Status: Acute Qualifiers: Laterality: left Qualified Code(s): L03.116 - Cellulitis of left lower limb Category: Medical Code(s): L03.119 - Cellulitis of unspecified part of limb (3) Rheumatoid arthritis Status: Chronic Qualifiers: Rheumatoid arthritis location: multiple sites Rheumatoid factor presence: with rheumatoid factor Qualified Code(s): M05.79 - Rheumatoid arthritis with rheumatoid factor of multiple sites without organ or systems involvement Category: Medical Code(s): M06.9 - Rheumatoid arthritis, unspecified (4) PAD (peripheral artery disease) Status: Chronic Category: Medical Code(s): I73.9 - Peripheral vascular disease, unspecified (5) History of coronary artery stent placement Status: Chronic Category: Surgical Code(s): Z95.5 - Presence of coronary angioplasty implant and graft (6) Chronic pain Status: Chronic Category: Medical Code(s): G89.29 - Other chronic pain
[2019-12-24 08:00] VITALS: BP 118/59; PULSE 131; RESP 18; TEMP 37.8; O2SAT 92
--- NOTE | 2019-12-24 09:38 | DIET.NUTRFU ---
Nutritional assessment/consult completed. Pt is malnourished and with limited self feeding ability dt contracted hands. Adaptive equipment and protein supplements tid added to diet order. Pt in severe pain this am, brief diet edu given. Counseling/edu in progress t/o stay for malnutrition, increased protein/fluid needs, and CHF.
--- NOTE | 2019-12-24 09:55 | HMH.PNCARD ---
Subjective Date: 12/24/19 Time: 09:30 Principal diagnosis: PAD, arteral leg ulcer Interval history: This is a 49-year-old white female who was admitted to the hospital for an arterial ulcer to her left lower extremity. She is going to have to undergo amputation of the left lower extremity and the orthopedist wanted her vascular status evaluated before proceeding with the amputation. The patient does have a history of a femoral-popliteal bypass in 2005 or 2006 as well as stents to the bilateral groin area. She is status post right [id number] amputation. She does have a worsening wound with drainage to her left lower extremity. She has had this wound for approximately 7 months and it continues to worsen and she will now require amputation. The patient has antiphospholipid syndrome and on chronic warfarin therapy for this. She is also on Plavix and Pletal for her severe PAD history. This morning she denies any chest pain or pressure. She denies any shortness of breath. She does have some edema in her left lower extremity. She states that she had an MIRI on her left lower extremity this morning and is still having some pain in her left leg. She denies any fever, chills, nausea, vomiting, diarrhea, PND or orthopnea. Her left lower extremity runoff was scheduled for yesterday but her INR was supratherapeutic at greater than 8. Her INR is down to 1.5 today and she is scheduled to undergo left lower extremity runoff today. Exam Vital signs and Labs for Last 24 Hours: Temp Pulse Resp BP Pulse Ox 100.1 F H 131 H 18 118/59 L 92 L 12/24/19 08:00 12/24/19 08:00 12/24/19 08:00 12/24/19 08:00 12/24/19 08:00 Laboratory Results - last 24 hr 12/23/19 09:45: WBC 17.5 H, RBC 4.34, Hgb 9.0 L, Hct 32.9 L, MCV 75.9 L, MCH 20.7 L, MCHC 27.3 L, RDW 18.4 H, Plt Count 638 H, MPV 6.3 L, Neut % (Auto) 84.6 H, Lymph % (Auto) 10.2, [place] % (Auto) 4.5, Eos % (Auto) 0.5, Baso % (Auto) 0.2, Neut # (Auto) 14.8 H, Lymph # (Auto) 1.8, [place] # (Auto) 0.8, Eos # (Auto) 0.1, Baso # (Auto) 0.0, Total Counted 100, Neutrophils % (Manual) 82 H, Lymphocytes % (Manual) 13, Monocytes % (Manual) 5, Platelet Estimate Marked increase, Hypochromasia 2+, Poikilocytosis 1+, Stomatocytes 1+ 12/23/19 09:45: Sodium 137, Potassium 4.0, Chloride 106, Carbon Dioxide 28, Anion Gap 7.0, BUN 16, Creatinine 0.60, Estimated Creat Clear 69, Estimated GFR 105, Est GFR ( Amer) 128, Glucose 87 D, Calcium 7.8 L 12/23/19 12:30: PT > 90.0 H, INR > 8.00 H 12/24/19 06:25: WBC 13.7 H, RBC 3.99 L, Hgb 8.6 L, Hct 30.2 L, MCV 75.5 L, MCH 21.6 L, MCHC 28.6 L, RDW 18.4 H, Plt Count 617 H, MPV 6.7 L, Neut % (Auto) 80.2 H, Lymph % (Auto) 12.9, [place] % (Auto) 6.3, Eos % (Auto) 0.5, Baso % (Auto) 0.2, Neut # (Auto) 11.0 H, Lymph # (Auto) 1.8, [place] # (Auto) 0.9, Eos # (Auto) 0.1, Baso # (Auto) 0.0 12/24/19 06:25: PT 16.3 H, INR 1.53 H, APTT 33.9 12/24/19 06:25: Sodium 133 L, Potassium 3.8, Chloride 104, Carbon Dioxide 24, Anion Gap 8.8, BUN 11 D, Creatinine 0.60, Estimated Creat Clear 69, Estimated GFR 105, Est GFR ( Amer) 128, Glucose 65 L D, Calcium 7.9 L, Magnesium 1.5 L, Total Bilirubin 0.4, AST 28 D, ALT 16, Alkaline Phosphatase 109, Total Protein 6.0 L, Albumin 2.4 L D, Globulin 3.6 H, Albumin/Globulin Ratio 0.7 L I & O for Last 24 hours: Intake & Output 12/21/19 12/22/19 12/23/19 12/24/19 23:59 23:59 23:59 23:59 Intake Total 2507 / 2747 1565 / 1565 Output Total 950 / 950 Balance 2507 / 2447 615 / 615 Weight 75 lb 86 lb 3.212 oz 87 lb 7 oz Microbiology Reports for the Last 24 Hours: Microbiology 12/22/19 22:25 Leg,Left - Drainage Gram Stain - Final 12/22/19 22:25 Leg,Left - Drainage Wound Culture - Preliminary Narrative: Preliminary MIRI on the left lower extremity is 0.29. - Constitutional no acute distress, average body habitus, chronically ill appearing - *Routine HEENT Exam Head: Present: normocephalic, atraumatic Eye: Present: EOMI, PER
--- NOTE | 2019-12-24 10:52 | PC.NURSE ---
pt off floor with cathlab
[2019-12-24 11:38] LABS: Vancomycin,Trough 6.8 ug/mL (5.0-10.0)
--- NOTE | 2019-12-24 12:04 | CT_ITS ---
Procedure: CT ANGIO ABDOMEN/FEMORAL CLINICAL HISTORY: PAD Peripheral artery disease, abnormal lower extremity arterial Doppler, left lower extremity cellulitis and wound drainage. Prior right above the knee amputation. COMPARISON: CT CTAAA CTA-ABD AORTA ROSANNA ILEOFEM RO from 01/19/2014 TECHNIQUE: IV Contrast: 100ml Optiray 350 Axial images obtained with sagittal and coronal reformats. All CT scans at the facility use one or more dose reduction, viz: automated exposure control, ma/kV adjustment per patient size (including targeted exams where dose is matched to indication, i.e. head), or iterative reconstruction technique. FINDINGS: There are atheromatous changes of the abdominal aorta but no significant stenosis or aneurysm. No significant stenosis of the celiac or SMA. ISAC is patent. No significant renal artery stenosis centrally. There is occlusion of the right common iliac artery. Atheromatous changes involve the left common iliac. There is a patent left common iliac artery stent with approximately 40 percent stenosis at the distal aspect of the stent. Atheromatous changes involve the left external iliac artery with less than 50 percent areas of segmental stenosis. There is an occluded left fem-fem graft. There is occlusion of the left superficial femoral artery. There is a patent profundus femora on the left. The SFA is occluded at its origin. Atheromatous changes involve profundus branches. The superficial femoral artery is occluded throughout its length with reconstitution of the popliteal artery with severe atheromatous changes of the popliteal and trifurcation vessels with segmental areas of high-grade stenosis. The posterior tibial and peroneal arteries are patent at the ankle. Nonvascular findings: Atelectasis versus patchy infiltrate in the right lower lobe. Mildly distended gallbladder. Cortical thinning of the right kidney. There is a moderate amount of retained colonic feces. The urinary bladder is moderately distended. There are some air-fluid levels with fluid-filled colon noted. There is mild diffuse subcutaneous edema of the right leg. There has been a prior above the knee amputation. The edema is at the amputation site. Severe osteoarthritic changes are present at the ankle with a well-circumscribed lucent defect and central area of sclerosis involving the talus. Please see the CT scan of the foot report on 12/22/2019. IMPRESSION: 1. Occluded right common iliac artery with no reconstitution distally. 2. Occluded left superficial femoral artery with collateral vessels about the hip with reconstitution of the left popliteal artery with severe segmental stenosis and atheromatous changes of the popliteal runoff vessels on the left. 3. Atelectasis or patchy infiltrate in the right lower lobe 4. Other nonacute findings as described above. Dictated by: Alfredo Britton MD 12/24/2019 14:55 Alfredo Britton MD in [place] 12/24/2019 14:55
--- NOTE | 2019-12-24 12:09 | HMH.PHACONS ---
- Pharmacy Consult Date: 12/24/19 Time: 12:09 Referring provider: DR. ZAMORA Reason for Consult:: VANCOMYCIN TROUGH AND DOSE ADJUSTMENT Allergies and ADEs:: Allergies Allergy/AdvReac Type Severity Reaction Status Date / Time gabapentin [GABAPENTIN] Allergy Severe HALLUCINATI Verified 11/23/17 08:00 ONS methadone [METHADONE] Allergy Severe THROAT Verified 11/23/17 08:00 CLOSES codeine [CODEINE] Allergy Mild NA-NAUSEA Verified 11/23/17 08:00 Home Medications:: Home Medications Medication Instructions Recorded Confirmed Type Warfarin Sodium [Coumadin] 4 mg PO DAILY 11/23/17 12/23/19 History Albuterol Sulfate [Proair Hfa 2 puffs IH QIDP PRN 02/08/18 12/23/19 History 90mcg/puff Inh] Clopidogrel Bisulfate [Clopidogrel 75 mg PO DAILY 02/08/18 12/23/19 History 75mg Tab] Cyclobenzaprine HCl 10 mg PO TIDP PRN 02/08/18 12/23/19 History [Cyclobenzaprine 10mg Tab*] Ferrous Sulfate 325 mg PO BID 02/08/18 12/23/19 History Folic Acid [Folic Acid 1mg tablet] 1 mg PO DAILY 02/08/18 12/23/19 History Hydroxychloroquine Sulfate 400 mg PO DAILY 02/08/18 12/23/19 History [Plaquenil 200mg tablet] Levothyroxine Sodium 50 mcg PO DAILY 02/08/18 12/23/19 History [Levothyroxine 50mcg (0.05mg) Tab] Meloxicam [Mobic 15 mg tab] 15 mg PO DAILY 02/08/18 12/23/19 History Metoprolol Tartrate 50 mg PO DAILY 02/08/18 12/23/19 History Oxycodone HCl/Acetaminophen 1 tab PO QID PRN 02/08/18 12/23/19 History [Oxycodone W/Apap 325mg Tablet] Pravastatin Sodium [Pravachol] 40 mg PO HS 02/08/18 12/23/19 History Promethazine HCl [Phenergan 25mg 25 mg PO Q6HP PRN 02/08/18 12/23/19 History tab] Tizanidine HCl [Zanaflex 4mg 8 mg PO TID PRN 02/08/18 12/23/19 History tab] cilostazoL [Pletal 100mg tablet] 100 mg PO BID 02/08/18 12/23/19 History predniSONE [Deltasone 20mg 20 mg PO DAILYP PRN 02/08/18 12/23/19 History tablet] Nicotine [Nicoderm 21mg/24hr 21 mg TD DAILYP PRN patch.td24 02/12/18 12/23/19 Rx patch] Collagenase Clostridium Hist. 1 gm TP DAILY 05/05/18 12/23/19 History [Santyl Ointment 30gm] Famotidine [Pepcid 20mg Tablet] 20 mg PO BID 12/23/19 12/23/19 History Height: 1.52 m Weight: 39.661 kg Laboratory Results:: Laboratory Results - last 24 hr 12/23/19 12:30: PT > 90.0 H, INR > 8.00 H 12/24/19 06:25: WBC 13.7 H, RBC 3.99 L, Hgb 8.6 L, Hct 30.2 L, MCV 75.5 L, MCH 21.6 L, MCHC 28.6 L, RDW 18.4 H, Plt Count 617 H, MPV 6.7 L, Neut % (Auto) 80.2 H, Lymph % (Auto) 12.9, [place] % (Auto) 6.3, Eos % (Auto) 0.5, Baso % (Auto) 0.2, Neut # (Auto) 11.0 H, Lymph # (Auto) 1.8, [place] # (Auto) 0.9, Eos # (Auto) 0.1, Baso # (Auto) 0.0 12/24/19 06:25: PT 16.3 H, INR 1.53 H, APTT 33.9 12/24/19 06:25: Sodium 133 L, Potassium 3.8, Chloride 104, Carbon Dioxide 24, Anion Gap 8.8, BUN 11 D, Creatinine 0.60, Estimated Creat Clear 69, Estimated GFR 105, Est GFR ( Amer) 128, Glucose 65 L D, Calcium 7.9 L, Magnesium 1.5 L, Total Bilirubin 0.4, AST 28 D, ALT 16, Alkaline Phosphatase 109, Total Protein 6.0 L, Albumin 2.4 L D, Globulin 3.6 H, Albumin/Globulin Ratio 0.7 L 12/24/19 10:35: Vancomycin Trough 6.8 Medical History: Reports:: Congestive Heart Failure, Coronary Artery Disease, Myocardial Infarction, Peripheral Artery Disease Denies:: Cancer, Diabetes Mellitus Type 1, Diabetes Mellitus Type 2, MRSA Assessment and Plan (1) Arterial leg ulcer Status: Chronic Category: Medical Code(s): L97.909 - Non-pressure chronic ulcer of unspecified part of unspecified lower leg with unspecified severity (2) PAD (peripheral artery disease) Status: Chronic Category: Medical Code(s): I73.9 - Peripheral vascular disease, unspecified (3) Cellulitis of lower extremity Status: Acute Qualifiers: Laterality: left Qualified Code(s): L03.116 - Cellulitis of left lower limb Category: Medical Code(s): L03.119 - Cellulitis of unspecified part of limb (4) Tobacco use disorder Status: Chroni
--- NOTE | 2019-12-24 12:15 | PC.NURSE ---
Left buttock has 5 stage 2 pressure ulcers. Entire area is reddened, approximate size is 8x7 inches. Area is now covered with a mepelix
--- NOTE | 2019-12-24 12:19 | PC.NURSE ---
Right butt cheek has 4 stage 2 pressure ulcers. Entire area is roughly 6 x 8 inches in diameter and oozing. Area is now covered with a mepelix.
--- NOTE | 2019-12-24 13:06 | HMH.PULMCON ---
*Admission Date: 12/23/19 *History of present illness: Completed 49-year-old female chronic smoker more than [id number] smoking history currently smoking 1-1 and half pack a day on inhalers compliant with her medications, denies any new respiratory symptoms was admitted to the hospital for her left lower extremity worsening pain and swelling on further examination patient was found to have peripheral arterial disease with possible cellulitis and pulmonary was called for further management. Upon chart review patient was also had a history of antiphospholipid syndrome, with presentation of stroke and right lower extremity extremity thrombosis around 2006 status post amputation and she was started on warfarin since then. He was supratherapeutic on presentation however sub-therapeutic today. Patient also has history of erosive rheumatoid arthritis for which she is taking Plaquenil. [facility] History Medical History: Reports:: Congestive Heart Failure, Coronary Artery Disease, Myocardial Infarction, Peripheral Artery Disease Denies:: Cancer, Diabetes Mellitus Type 1, Diabetes Mellitus Type 2, MRSA *Have you ever received a pneumonia vaccine?: Yes *Have you received a flu vaccine this season?: No Other Medical History: Reports: Anemia, Arthritis, Thyroid Disease Laterality Cases: Right: Other, Bilateral: Tonsillectomy Other Surgeries: Yes: Appendectomy, Cardiac Catheterization, Coronary Stent, Hysterectomy-Total Amputation: Yes (RT leg) Fractures: Yes (L distal fibula fracture 10/2017) - *Social History Smoking Status: Current every day smoker Tobacco Type: cigarettes # Packs/Day (cigarettes): 1 Alcohol Intake: never Substance Use Type: former substance user, crack/cocaine *Occupational Status:: disabled Housing: house Household Members: spouse *Travel in the last 8 weeks: None Family Hx:: Asthma, Coronary Artery Disease, Diabetes, Heart Attack, Hyperlipidemia, Hypertension, Stroke, Tuberculosis ROS - Cons Reports chills, Reports fever(s) - Card Reports leg swelling, Denies shortness of breath with activity - Resp Respiratory: Yes system reviewed and no additional complaints, except as docu, No shortness of breath, No change in phlegm color, No non-productive cough, Yes dyspnea, Yes dyspnea on exertion, No excessive phlegm production, No coughing up blood, No pain on inspiration, No pain with cough, No cough with sputum production, No pain with breathing, No snoring, No stridor, No wheezing, No other - GI Gastrointestingal: Reports: system reviewed and no additional complaints, except as docu Meds Home Medications Medication Instructions Recorded Confirmed Type Warfarin Sodium [Coumadin] 4 mg PO DAILY 11/23/17 12/23/19 History Albuterol Sulfate [Proair Hfa 2 puffs IH QIDP PRN 02/08/18 12/23/19 History 90mcg/puff Inh] Clopidogrel Bisulfate [Clopidogrel 75 mg PO DAILY 02/08/18 12/23/19 History 75mg Tab] Cyclobenzaprine HCl 10 mg PO TIDP PRN 02/08/18 12/23/19 History [Cyclobenzaprine 10mg Tab*] Ferrous Sulfate 325 mg PO BID 02/08/18 12/23/19 History Folic Acid [Folic Acid 1mg tablet] 1 mg PO DAILY 02/08/18 12/23/19 History Hydroxychloroquine Sulfate 400 mg PO DAILY 02/08/18 12/23/19 History [Plaquenil 200mg tablet] Levothyroxine Sodium 50 mcg PO DAILY 02/08/18 12/23/19 History [Levothyroxine 50mcg (0.05mg) Tab] Meloxicam [Mobic 15 mg tab] 15 mg PO DAILY 02/08/18 12/23/19 History Metoprolol Tartrate 50 mg PO DAILY 02/08/18 12/23/19 History Oxycodone HCl/Acetaminophen 1 tab PO QID PRN 02/08/18 12/23/19 History [Oxycodone W/Apap 325mg Tablet] Pravastatin Sodium [Pravachol] 40 mg PO HS 02/08/18 12/23/19 History Promethazine HCl [Phenergan 25mg 25 mg PO Q6HP PRN 02/08/18 12/23/19 History tab] Tizanidine HCl [Zanaflex 4mg 8 mg PO TID PRN 02/08/18 12/23/19 History tab] cilostazoL [Pletal 100mg tablet] 100 mg PO BID 02/08/18 12/23/19 History predniSONE [Deltasone 20mg 20 mg PO DAILYP PRN 02/08/18
--- NOTE | 2019-12-24 13:18 | XR_ITS ---
PROCEDURE: XR CHEST PORTABLE CLINICAL HISTORY: SOB Shortness of breath, smoker COMPARISON: CR CXR CHEST(2 VIEWS-NOT PORTABLE) from 02/17/2014 CR CXR2V XR chest 2V from 05/05/2018 CR XR CHEST 2V from 02/26/[address] ANGIO ABDOMEN/FEMORAL from 12/24/2019 FINDINGS: Normal heart size. Right subclavian MediPort catheter is present with tip in the region the SVC. There is diffuse pulmonary fibrotic changes with prominence of the interstitium. Patchy density is present in the right midlung and right lower lobe and may be related to atelectasis or infiltrate. There is some minimal blunting of the right CP angle. Chronic dysplastic changes are present involving the humeral heads on both sides with some scalloping of the undersurface of the right distal clavicle on acetabulum. IMPRESSION: Interstitial lung disease with patchy infiltrate or atelectasis in the right mid lower lung zone Dictated by: Alfredo Britton MD 12/24/2019 15:33 Alfredo Britton MD in [place] 12/24/2019 15:33
--- NOTE | 2019-12-24 14:22 | PC.NURSE ---
Patient's pain level has been very well controlled today. Patient has been relaxed and slept for several hours throughout the day. Patient went to [facility]lab for lle runoff, which was cancelled per who ordered instead a cta of the abdomen. Patient is currently alert x 4. Lung sounds are clear and diminished. Patient is voiding per bedside commode with standby assist. Patient ambulates in bed as needed. Patient is relaxed right now and states that she feels much better after having rested. Antibiotic therapy continues. Patient remains npo pending consultation.
[2019-12-24 16:00] VITALS: BP 111/67; PULSE 88; RESP 16; TEMP 36.6; O2SAT 94
--- NOTE | 2019-12-24 16:24 | PC.NURSE ---
Dr. Crook at bedside to see patient and leg. dressing removed from patient and reapplied after Dr. Crook seen. Dr. Crook stated he plans to do an AKA in the am around 1100. spoke with Maulik GUERRA who stated Dr. Brown stated he will view CT results he ordered in the am for clearance.
--- NOTE | 2019-12-24 16:46 | PC.NURSE ---
spoke with and left messafe with ramana in dr. ribeiro office regarding what dr. pulido said (previous note) at 0492
--- NOTE | 2019-12-24 16:56 | HMH.ORTHOCON ---
*Admission Date: 12/23/19 *Reason for consult:: Nonhealing infected ulcers, left leg *History of present illness: Patient is a 49-year-old female admitted to hospital during early hours of yesterday for management of non-healing ulcers and cellulitis of the left lower extremity. Patient was seen by Dr. Castillo and Dr. Caro during this admission and an above-knee amputation is recommended pending clearances. However, as it turns out Dr. Caro is not able to operate; therefore therefore, I was consulted today for possible surgery. Patient has had longstanding problem with open wounds her left foot/leg and was under care of Dr. Castillo and Dr. Caro at various points. As I understand, vascular workup and evaluation for possible amputation was considered 2 years ago but patient was transferred to . Further treatment at it that time is unknown. She sustained an injury/laceration to the medial aspect of the left leg while getting into a weekly in April 2019. She initially treated the wound by herself at home followed by ER and subsequently by outpatient wound care. Due to transportation issues she ceased follow-up with them and has been trying to care for the wound herself at home. Meanwhile, ecchymosis developed around the posterior and lateral aspects of the leg and heel, progressing to infected, necrotic wounds. They have been draining, prompting ER evaluation and admission yesterday. She denies fevers, chills or rigors. No history of any systemic symptoms. She has a history of severe rheumatoid arthritis and has been on Humira in the past; she has not been on this recently. She is currently on prednisone and plaquenil. Additionally she has a history of severe peripheral vascular disease and is on warfarin, plavix and pletal. She is s/p right AKA about 13 years ago, for thrombosis and the incision has healed well. She underwent reconstructive surgery on the left foot 20 years ago, after which she had problems with wound healing. She has history of antiphospholipid antibody syndrome as well, and is on warfarin for this; she had supratherapeutic INR on admission. This is since corrected and INR today is 1.5. Reported history of cocaine use in the past, denies current use; she is a chronic smoker and smokes 1-1 and a packs a day. No history of diabetes. She is wheelchair-bound and does not ambulate. She also has limited use of her arms due to contractures secondary to her RA and destruction of multiple joints. Her medical history includes destructive rheumatoid arthritis, tobacco use, peripheral arterial disease, coronary artery disease, chronic steroid use (immunocompromise), antiphospholipid syndrome on chronic warfarin therapy, and chronic pain. She is on IV vancomycin, cefepime and clindamycin. [facility] History I have reviewed the patient's past medical history: Yes Medical History: Reports:: Congestive Heart Failure, Coronary Artery Disease, Myocardial Infarction, Peripheral Artery Disease Denies:: Cancer, Diabetes Mellitus Type 1, Diabetes Mellitus Type 2, MRSA *Have you ever received a pneumonia vaccine?: Yes *Have you received a flu vaccine this season?: No Other Medical History: Reports: Anemia, Arthritis, Thyroid Disease Laterality Cases: Right: Other, Bilateral: Tonsillectomy Other Surgeries: Yes: Appendectomy, Cardiac Catheterization, Coronary Stent, Hysterectomy-Total Amputation: Yes (RT leg) Fractures: Yes (L distal fibula fracture 10/2017) - *Social History Smoking Status: Current every day smoker Tobacco Type: cigarettes # Packs/Day (cigarettes): 1 Alcohol Intake: never Substance Use Type: former substance user, crack/cocaine *Occupational Status:: disabled Housing: house Household Members: spouse *Travel in the last 8 weeks: None Family Hx:: Asthma, Coronary Artery Disease, Diabetes, Heart Attack, Hyperlipidemia, Hypertension, Stroke, Tuberculosis Review of Systems - Review of Systems Review of systems:: pertinent systems reviewed an
[2019-12-24 18:10] VITALS: PULSE 67; PULSE 69; O2SAT 90
--- NOTE | 2019-12-24 19:12 | PC.NURSE ---
report given to shawna
[2019-12-24 20:00] VITALS: BP 96/58; PULSE 72; RESP 16; RESP 18; TEMP 36.4; O2SAT 92
[2019-12-25] VITALS (36 sets, daily range): BP systolic 96–146; BP diastolic 52–81; PULSE 65–118; RESP 14–20; TEMP 36.6–43; O2SAT 91–99; BMI 16.7
--- NOTE | 2019-12-25 05:19 | PC.NURSE ---
Pt is A&Ox4 and has turned self in bed and assisted to BSC 2x this shift thus far. Pt has c/o pain to LLE 3x, medicated per APR. Pt has denied any nausea. Pt has kept betadine dressing in place to her LLE t/o shift. Dressings to bilat buttocks in place and are C/D/I. LLE is red, sara, eschar and blackened areas. Mascorro/ylw purulent drainage. Wounds are malodorous. Lungs are diminished with scattered rhochi and pt on room air with SaO2 92-95%. BP has been on the low side but MAP >65 and SBP >90. Pt resting quietly in bed at this time, will continue to monitor.
--- NOTE | 2019-12-25 06:40 | SW/DCPLANNER ---
PATIENT ADMITTED TO [facility] ON 12/22 WITH LEG PAIN AND DRAINAGE WITH A CELLULITIS... THE PLAN WAS FOR A POSSIBLY TRANSFER TO [facility] WITH THE NEED FOR SURGERY BUT AT THIS TIME SHE WILL BE STAYING HERE AT [facility] WITH A SURGERY CLEARANCE TODAY FROM CARDIOLOGY, PULMONOLOGY HAS ALREADY GIVEN PATIENT CLEARANCE TO HAVE SURGERY.. SHE WILL HAVE A LEFT POSSIBLE AKA.... ONCE SHE HAS SURGERY, SHE WILL NEED SOME [facility] OR EVEN A SPECIALTY HOSPITAL.. CM WILL FOLLOW AND ASSIST INDICATED BY ...
[2019-12-25 07:31] LABS: Chloride 107 mmol/L (98-107); Potassium 3.6 mmoL/L (3.5-5.1); Sodium 134 mmol/L (136-145)
[2019-12-25 07:34] LABS: Anion Gap 7.6 mEq/L (5-15); Blood Urea Nitrogen 13 mg/dl (7-17); Carbon Dioxide 23 mmol/L (22.0-30.0); Creatinine Clearance Estimated 68 mL/min (50-200); Estimated Glomerular Filt Rate 105 ml/min (>60); GFR (African American) 128 ML/MIN (>60)
[2019-12-25 07:35] LABS: Calcium 7.9 mg/dl (8.4-10.2); Glucose 61 mg/dl (74-100)
[2019-12-25 08:29] LABS: Basophils % 0.1 % (0.1-2.0); Eosinophils # 0.1 K/mm3 (0.0-0.4); Eosinophils % 0.7 % (0.1-12.0); Hematocrit 30.8 % (37.0-47.0); Hemoglobin 8.7 g/dL (12.2-16.2); Lymphocytes # 2.7 K/mm3 (0.7-4.5); Lymphocytes % 18.6 % (10-50); Mean Corpuscular HGB Conc 28.1 g/dL (31.8-35.4); Mean Corpuscular Volume 74.7 fl (81-99); Mean Platelet Volume 7.9 fl (7.4-10.4); Monocytes # 0.8 K/mm3 (0.1-1.0); Monocytes % 5.7 % (1.7-9.3); Neutrophils # 10.7 K/mm3 (1.8-7.8); Neutrophils % 74.8 % (37.0-80.0); Platelet Count 704 K/mm3 (142-424); Red Blood Count 4.13 M/mm3 (4.20-5.40); Red Cell Distribution Width 18.6 % (11.5-17.5); White Blood Count 14.4 K/mm3 (4.8-10.8)
--- NOTE | 2019-12-25 08:29 | HMH.ACPN2 ---
Internal Medicine - PN: Subj *Date: 12/25/19 *Time: 08:29 Interval history: Extensive preoperative work-up yesterday, pulmonary consultation reviewed and appreciated. Cardiology consultation reviewed and appreciated, still reviewing images to decide about optimum location for above-knee amputation. Orthopedics consultation also reviewed and appreciated, ready for OR on cardiology evaluation. The patient reports pain in the leg, otherwise is in fairly good spirits. Exam Vital signs and Labs for Last 24 Hours: Temp Pulse Resp BP Pulse Ox 98.6 F 104 H 20 112/59 L 91 L 12/25/19 07:45 12/25/19 07:45 12/25/19 07:45 12/25/19 07:45 12/25/19 06:24 Laboratory Results - last 24 hr 12/24/19 10:35: Vancomycin Trough 6.8 12/25/19 07:00: Sodium 134 L, Potassium 3.6, Chloride 107, Carbon Dioxide 23, Anion Gap 7.6, BUN 13, Creatinine 0.60, Estimated Creat Clear 68, Estimated GFR 105, Est GFR ( Amer) 128, Glucose 61 L, Calcium 7.9 L I & O for Last 24 hours: Intake & Output 12/22/19 12/23/19 12/24/19 12/25/19 11:59 11:59 11:59 11:59 Intake Total 2267 / 2267 1805 / 1805 480 / 480 Output Total 950 / 950 400 / 400 Balance 2267 / 2267 855 / 855 80 / 80 Weight 86 lb 4 oz 87 lb 7 oz 85 lb 9 oz Microbiology Reports for the Last 24 Hours: Microbiology 12/22/19 22:25 Blood Blood Culture - Preliminary NO GROWTH AFTER 48 HOURS 12/22/19 22:25 Blood Blood Culture - Preliminary NO GROWTH AFTER 48 HOURS 12/22/19 22:25 Leg,Left - Drainage Gram Stain - Final 12/22/19 22:25 Leg,Left - Drainage Wound Culture - Preliminary Narrative: Patient is alert, pleasant. Oriented x3. Left leg with gangrenous changes wrapped in dressing which appears clean. Heart rate regular. Abdomen soft. Lungs have smoker's rhonchi otherwise normal. Cranial nerves visibly intact. Oropharynx clear Assessment and Plan (1) Arterial leg ulcer Status: Chronic Category: Medical Code(s): L97.909 - Non-pressure chronic ulcer of unspecified part of unspecified lower leg with unspecified severity (2) PAD (peripheral artery disease) Status: Chronic Category: Medical Code(s): I73.9 - Peripheral vascular disease, unspecified (3) Cellulitis of lower extremity Status: Acute Qualifiers: Laterality: left Qualified Code(s): L03.116 - Cellulitis of left lower limb Category: Medical Code(s): L03.119 - Cellulitis of unspecified part of limb (4) Tobacco use disorder Status: Chronic Category: Medical Code(s): F17.200 - Nicotine dependence, unspecified, uncomplicated (5) Rheumatoid arthritis Status: Chronic Qualifiers: Rheumatoid arthritis location: multiple sites Rheumatoid factor presence: with rheumatoid factor Qualified Code(s): M05.79 - Rheumatoid arthritis with rheumatoid factor of multiple sites without organ or systems involvement Category: Medical Code(s): M06.9 - Rheumatoid arthritis, unspecified (6) History of coronary artery stent placement Status: Chronic Category: Surgical Code(s): Z95.5 - Presence of coronary angioplasty implant and graft (7) Chronic pain Status: Chronic Category: Medical Code(s): G89.29 - Other chronic pain (8) Protein-calorie malnutrition, severe Status: Chronic Category: Medical Code(s): E43 - Unspecified severe protein-calorie malnutrition - Assessment and plan all Dx Assessment and Plan for all problems:: Plan for amputation today. On subcu heparin given her history of antiphospholipid syndrome and need to avoid further clots. Add clindamycin today for possible gangrenous changes with multiple organisms possible.
--- NOTE | 2019-12-25 08:42 | HMH.PNCARD ---
Subjective Date: 12/25/19 Time: 08:42 Principal diagnosis: PAD, arteral leg ulcer Interval history: 49-year-old white female in bed in no acute distress but does continue to have left leg pain. Abdominal CTA results reviewed with Dr. Brown. Waiting to talk to Dr. Britton to see if the origin of the SFA is identifiable. If the origin is identifiable then an attempt to open up the SFA will be performed. If not then no further intervention recommended. Exam Vital signs and Labs for Last 24 Hours: Temp Pulse Resp BP Pulse Ox 98.6 F 104 H 20 112/59 L 91 L 12/25/19 07:45 12/25/19 07:45 12/25/19 07:45 12/25/19 07:45 12/25/19 06:24 Laboratory Results - last 24 hr 12/24/19 10:35: Vancomycin Trough 6.8 12/25/19 07:00: WBC 14.4 H, RBC 4.13 L, Hgb 8.7 L, Hct 30.8 L, MCV 74.7 L, MCH 21.0 L, MCHC 28.1 L, RDW 18.6 H, Plt Count 704 H, MPV 7.9, Neut % (Auto) 74.8, Lymph % (Auto) 18.6, [place] % (Auto) 5.7, Eos % (Auto) 0.7, Baso % (Auto) 0.1, Neut # (Auto) 10.7 H, Lymph # (Auto) 2.7, [place] # (Auto) 0.8, Eos # (Auto) 0.1, Baso # (Auto) 0.0 12/25/19 07:00: Sodium 134 L, Potassium 3.6, Chloride 107, Carbon Dioxide 23, Anion Gap 7.6, BUN 13, Creatinine 0.60, Estimated Creat Clear 68, Estimated GFR 105, Est GFR ( Amer) 128, Glucose 61 L, Calcium 7.9 L 12/25/19 07:00: Blood Type O Positive I & O for Last 24 hours: Intake & Output 12/22/19 12/23/19 12/24/19 12/25/19 11:59 11:59 11:59 11:59 Intake Total 2267 / 2267 1805 / 1805 480 / 480 Output Total 950 / 950 400 / 400 Balance 2267 / 2267 855 / 855 80 / 80 Weight 86 lb 4 oz 87 lb 7 oz 85 lb 9 oz Microbiology Reports for the Last 24 Hours: Microbiology 12/22/19 22:25 Blood Blood Culture - Preliminary NO GROWTH AFTER 48 HOURS 12/22/19 22:25 Blood Blood Culture - Preliminary NO GROWTH AFTER 48 HOURS 12/22/19 22:25 Leg,Left - Drainage Gram Stain - Final 12/22/19 22:25 Leg,Left - Drainage Wound Culture - Preliminary - *Routine Respiratory Exam Present: CTA bilaterally - *Routine Cardiovascular Exam Present: RRR - *Routine Abdominal Exam Present: soft, normoactive bowel sounds. Absent: tenderness - *Routine Extremities Exam Present: edema, amputation. Absent: cyanosis, clubbing - *Routine Neurological Exam Present: alert, oriented X3 Progress Note: A&P (1) Arterial leg ulcer Status: Chronic (2) PAD (peripheral artery disease) Status: Chronic (3) Cellulitis of lower extremity Status: Acute (4) Tobacco use disorder Status: Chronic (5) Rheumatoid arthritis Status: Chronic (6) History of coronary artery stent placement Status: Chronic (7) Chronic pain Status: Chronic (8) Protein-calorie malnutrition, severe Status: Chronic Assessment and Plan for All Diagnoses:: 1. Left lower extremity nonhealing ulcers with plans for [id number] amputation later today. 2. PAD with history of femorofemoral bypass. CTA of the abdomen reviewed with Dr. Brown and Dr. Britton, the SFA is occluded at it's origin since at least 2013. We have no plans for intervention. 3. Rheumatoid arthritis, chronic prednisone therapy 4. Antiphospholipid antibody with chronic Coumadin therapy, currently on hold with INR 1.5 as of yesterday, heparin therapy ongoing. Recommend switching from coumadin to Xarelto 20 mg daily after surgery due to supratherapeutic INR on admission and administration of Vit K which may have prolonged effects on coumadin dosing. 5. Chronic anemia 6. COVID-19 antibodies but PCR negative. 7. Pulmonary fibrosis, Pulmonary seeing the patient.
--- NOTE | 2019-12-25 09:47 | PC.NURSE ---
pt off floor for surgery. clindamycin given to OR nurses.
--- NOTE | 2019-12-25 10:24 | P.PN_ITS ---
[facility] Anesthesia Checklist - Patient Identification Patient Identification: Arm Band - Structural Data Admitted From: Inpatient Planned Operative Procedure/s: Left Above the Knee Amputation Consent for Planned Operative Procedure(s) Verified: Yes Verified Documents: Surgical Consent, History and Physical - NPO Status Verified Time NPO: 00:00 - Additional verifications Anesthesia Reactions: No - Airway Assessment C-Spine Mobility Assessed: Yes (mp2) TMJ Mobility Assessed: Yes Dentition: Good Dentition - Neurological Assessment Level of Consciousness: Awake, Alert - Anesthesia Plan Anesthesia Risk discussed: Yes Anesthesia Plan: Verified ASA Class: III Anesthesia Type: General [facility] History I have reviewed the patient's past medical history: Yes Medical History: Reports:: Congestive Heart Failure, Coronary Artery Disease, Lung Disease, Myocardial Infarction, Peripheral Artery Disease Denies:: Cancer, Diabetes Mellitus Type 1, Diabetes Mellitus Type 2, MRSA *Have you ever received a pneumonia vaccine?: Yes *Have you received a flu vaccine this season?: No Other Medical History: Reports: Anemia, Arthritis, Thyroid Disease Anesthesia experience/problems:: nac Laterality Cases: Right: Other, Bilateral: Tonsillectomy Other Surgeries: Yes: Appendectomy, Cardiac Catheterization, Coronary Stent, Hysterectomy-Total Amputation: Yes (RT leg) Fractures: Yes (L distal fibula fracture 10/2017) - *Social History Smoking Status: Current every day smoker Tobacco Type: cigarettes # Packs/Day (cigarettes): 1 Alcohol Intake: never Substance Use Type: former substance user, crack/cocaine *Occupational Status:: disabled Housing: house Household Members: spouse *Travel in the last 8 weeks: None Family Hx:: Asthma, Coronary Artery Disease, Diabetes, Heart Attack, Hyperlipidemia, Hypertension, Stroke, Tuberculosis
--- NOTE | 2019-12-25 11:13 | HMH.PULMPN ---
Internal Medicine - PN: Subj *Date: 12/25/19 *Time: 11:13 Interval history: No acute respiratory events overnight Exam - Constitutional Constitutional:: no acute distress, comfortable - HENMT Exam HENMT: normocephalic, atraumatic - Eye Exam Eyes:: normal appearance both eyes and related structures, eyelids normal, normal conjunctiva, normal sclera - Neck Exam Neck:: normal visual inspection, thyroid normal, no lymphadenopathy - Respiratory Exam Respiratory:: able to speak in complete sentences, normal respiratory effort, crackles - Cardiovascular Exam Cardiac:: regular rhythm, S1, S2 - GI Exam GI:: soft, no hepatosplenomegaly, normal to inspection, normoactive bowel sounds, no tenderness - Skin Exam Skin: no rash, normal elastacity, no lesions, normal turgor - Neurological Exam Neurological: alert, awake, oriented X3 - Psychiatric Exam Psychiatric: normal affect, appearance grossly normal, affect normal, attitude normal, no homicidal ideation, no suicidal ideation Assessment and Plan (1) Arterial leg ulcer Status: Chronic Category: Medical Code(s): L97.909 - Non-pressure chronic ulcer of unspecified part of unspecified lower leg with unspecified severity (2) PAD (peripheral artery disease) Status: Chronic Category: Medical Code(s): I73.9 - Peripheral vascular disease, unspecified (3) Cellulitis of lower extremity Status: Acute Qualifiers: Laterality: left Qualified Code(s): L03.116 - Cellulitis of left lower limb Category: Medical Code(s): L03.119 - Cellulitis of unspecified part of limb (4) Tobacco use disorder Status: Chronic Category: Medical Code(s): F17.200 - Nicotine dependence, unspecified, uncomplicated (5) Rheumatoid arthritis Status: Chronic Qualifiers: Rheumatoid arthritis location: multiple sites Rheumatoid factor presence: with rheumatoid factor Qualified Code(s): M05.79 - Rheumatoid arthritis with rheumatoid factor of multiple sites without organ or systems involvement Category: Medical Code(s): M06.9 - Rheumatoid arthritis, unspecified (6) History of coronary artery stent placement Status: Chronic Category: Surgical Code(s): Z95.5 - Presence of coronary angioplasty implant and graft (7) Chronic pain Status: Chronic Category: Medical Code(s): G89.29 - Other chronic pain (8) Protein-calorie malnutrition, severe Status: Chronic Category: Medical Code(s): E43 - Unspecified severe protein-calorie malnutrition - Assessment and plan all Dx Assessment and Plan for all problems:: #Rheumatoid arthritis: #Interstitial lung disease: #COPD: 49-year-old female more than [id number] smoker history currently smoking 1 pack a day history of rheumatoid arthritis previously on Humira on Plaquenil, stopped taking Humira for the last 1 year presented with lower extremity cellulitis and pulmonary was consulted for further management. Chest x-ray from yesterday showed significant interstitial lung disease, however chest x-ray from 12/[address] abdomen from 12/2013 that showing lower lung rees are within normal limits. I am concerned that rheumatoid arthritis is affecting her lung disease chronic interstitial lung disease and eventually pulmonary fibrosis. Given her worsening of x-ray from December 2018 to now patient will definitely need rheumatology follow-up to evaluate for her rheumatoid arthritis at this seems not to be under control. Plan: -Continue DuoNebs every 6 hours scheduled along with albuterol as needed for her COPD. - We will get HRCT to evaluate for her pulmonary fibrosis. -Coordinate with primary care to have a rheumatology follow-up to evaluate for this patient's rheumatoid arthritis (from the chart review patient is having erosive rheumatoid arthritis that might warrant disease modifying agents along with Plaquenil) -We will hold off on initiating steroids at this point of time as she is undergoing surgery for lower extre
--- NOTE | 2019-12-25 14:32 | HMH.ANESI ---
[facility] Anesthesia Record Part I Intake, IV Amount: 1,800 Estimated blood loss (mL): 100 Urine output (mL): 500 Blood Products used (#): none Blood Pressure: 101/60 SaO2: 96 Pulse Rate: 87 Respiratory Rate: 16 Temperature: 98.6 F Patient is:: Drowsy, Stable Stable to PACU at:: 14:20
--- NOTE | 2019-12-25 14:42 | SW/DCPLANNER ---
Addendum entered by Mackenzie Vázquez 12/26/19 12:55: Becca from [facility] stated that patient information is continuing to be reviewed. Becca has also stated that they will not be able to offer a bed till Sunday if accepted. Original Note: Patient information has been faxed to Becca at [facility]. I will follow up with Becca once patient information is reviewed.
[2019-12-25 14:47] LABS: Hematocrit 27.5 % (37.0-47.0)
[2019-12-25 14:49] LABS: Hemoglobin 7.9 g/dL (12.2-16.2)
--- NOTE | 2019-12-25 15:50 | HMH.ANESII ---
[facility] Anesthesia Record Part II Discharge Time: 14:50 Destination: Medical Surgical Department PACU nurse assessment reviewed?: Yes Patient Condition:: Good Anesthesia Complications:: None Swallowing reflex intact?: Yes Cyanosis?: No Blood Pressure: 111/71 Pulse Rate: 84 Temperature: 98.6 F Mental Status: Alert & Oriented Pain level:: 0 Nausea and/or vomitting:: None Intake, IV Amount: 0
--- NOTE | 2019-12-25 16:04 | HMH.OPNOTE ---
Date of procedure: 12/25/19 Pre-op Diagnosis:: 1. Peripheral arterial disease 2. Infected nonhealing ulcers, left leg 3. Cellulitis, left leg 4. Tobacco use disorder. Post-op Diagnosis:: Same Procedure performed:: Above-knee amputation, left Surgeon:: Darnell Crook MD Student Nurse(s):: Yumiko Millard PINSETTER MECHANIC HELPER:: Jay Torres Anesthesia: GETA Estimated blood loss (mL): 100 Clinical Note:: Patient is a 49-year-old female admitted to hospital during early hours of yesterday for management of non-healing ulcers and cellulitis of the left lower extremity. Patient was seen by Dr. Castillo and Dr. Caro during this admission and an above-knee amputation is recommended pending clearances. However, as it turns out Dr. Caro is not able to operate; therefore therefore, I was consulted today for possible surgery. Patient has had longstanding problem with open wounds her left foot/leg and was under care of Dr. Castillo and Dr. Caro at various points. As I understand, vascular workup and evaluation for possible amputation was considered 2 years ago but patient was transferred to . Further treatment at it that time is unknown. She sustained an injury/laceration to the medial aspect of the left leg while getting into a weekly in April 2019. She initially treated the wound by herself at home followed by ER and subsequently by outpatient wound care. Due to transportation issues she ceased follow-up with them and has been trying to care for the wound herself at home. Meanwhile, ecchymosis developed around the posterior and lateral aspects of the leg and heel, progressing to infected, necrotic wounds. They have been draining, prompting ER evaluation and admission yesterday. She denies fevers, chills or rigors. No history of any systemic symptoms. She has a history of severe rheumatoid arthritis and has been on Humira in the past; she has not been on this recently. She is currently on prednisone and plaquenil. Additionally she has a history of severe peripheral vascular disease and is on warfarin, plavix and pletal. She is s/p right AKA about 13 years ago, for thrombosis and the incision has healed well. She underwent reconstructive surgery on the left foot 20 years ago, after which she had problems with wound healing. She has history of antiphospholipid antibody syndrome as well, and is on warfarin for this; she had supratherapeutic INR on admission. This is since corrected and INR today is 1.5. Reported history of cocaine use in the past, denies current use; she is a chronic smoker and smokes 1-1 and a packs a day. No history of diabetes. She is wheelchair-bound and does not ambulate. She also has limited use of her arms due to contractures secondary to her RA and destruction of multiple joints. Her medical history includes destructive rheumatoid arthritis, tobacco use, peripheral arterial disease, coronary artery disease, chronic steroid use (immunocompromise), antiphospholipid syndrome on chronic warfarin therapy, and chronic pain. She is on IV vancomycin, cefepime and clindamycin. On examination of the left lower extremity, there is extensive cellulitis extending all the way up to the upper third of the leg. Large unhealthy looking ulcerations noted over the medial middle third of the leg. The floor is covered with unhealthy nature, fibrotic tissue without any granulation tissue. The wound is roughly 10cm x 5cm; scant amount of foul-smelling discharge noted. Posterior/lateral leg with extensive area of superficial gangrene/dark skin discoloration with boggy feel and foul odor. Small superficial abrasions/ulcers noted over the knee. There is no knee joint no effusion, or swelling; knee range of flexion is 10 degrees to 100 degrees. Nonpalpable pedal pulses. Left foot is erythematous and cold. Sensation is intact to light touch in all distributions LLE. Right AKA noted. Severe deformities and contractures in both upper extremities secon
--- NOTE | 2019-12-25 17:14 | PC.NURSE ---
Notified MD of antibiotics currently infusing, blood infusion will be delayed. MD aware. No new orders.
--- NOTE | 2019-12-25 18:28 | PC.NURSE ---
Lali Kelley RN attempted an IV on pt, not successful. Verified on conpatability chart, clindamycin and flagyl are compatable.
--- NOTE | 2019-12-25 19:54 | PC.NURSE ---
pt has done well since post aka. c/o pain x1, med given per mar with desired relief. SUMEET drain emptied during bedside report, 20cc emptied. shay cath draining at bedside. vss. will cont. to monitor.
[2019-12-26] VITALS (18 sets, daily range): BP systolic 82–144; BP diastolic 50–98; PULSE 60–99; RESP 16–20; TEMP 36.6–37; O2SAT 91–98; BMI 18.2
--- NOTE | 2019-12-26 01:34 | PC.NURSE ---
Pt's O2 sat on room air = 95%.
--- NOTE | 2019-12-26 02:00 | PC.NURSE ---
2350 first unit of blood completed, no s/s of transfusion reaction, no back pain, chills, dizziness, fever, flank pain, SOA
[2019-12-26 04:06] LABS: Hemoglobin 11.1 g/dL (12.2-16.2)
--- NOTE | 2019-12-26 04:08 | PC.NURSE ---
0250 second unit completed, no s/s of transfusion reaction
--- NOTE | 2019-12-26 04:12 | PC.NURSE ---
shift summary, pt has received 2 units of blood this shift, no s/s of transfusion reaction noted, lungs CTA, IS at bedside and patient educated on how to use, pt complained of left limb pain while receiving first unit of blood, patient crying, restless in bed, medicated per MAR, SUMEET drain in place with bloody drainage noted, has remained afebrile, catheter patent, draining clear yellow urine
--- NOTE | 2019-12-26 05:15 | PC.NURSE ---
Pt sleeping soundly no respiratory distress noted. Spoke to RN regarding waking Pt for treatment, RN states Pt has been awake most of the night due to uncontrollable pain and is finally resting. No indication for treatment at this time. SPO2 97% on Room Air, RR 16 BBS clear and equal. Will continue to monitor.
--- NOTE | 2019-12-26 06:44 | PC.NURSE ---
implanted port flushes and draws easily
[2019-12-26 06:50] LABS: Basophils % 0.1 % (0.1-2.0); Hematocrit 37.9 % (37.0-47.0); Hemoglobin 11.4 g/dL (12.2-16.2); Lymphocytes % 5.5 % (10-50); Mean Corpuscular HGB Conc 30.1 g/dL (31.8-35.4); Mean Corpuscular Hemoglobin 24.6 pg (27.0-31.2); Mean Corpuscular Volume 81.6 fl (81-99); Mean Platelet Volume 7.3 fl (7.4-10.4); Monocytes # 0.7 K/mm3 (0.1-1.0); Monocytes % 3.6 % (1.7-9.3); Neutrophils # 16.6 K/mm3 (1.8-7.8); Neutrophils % 90.7 % (37.0-80.0); Platelet Count 502 K/mm3 (142-424); Red Blood Count 4.64 M/mm3 (4.20-5.40); Red Cell Distribution Width 19.1 % (11.5-17.5); White Blood Count 18.3 K/mm3 (4.8-10.8)
[2019-12-26 06:52] LABS: Chloride 107 mmol/L (98-107); Sodium 133 mmol/L (136-145)
[2019-12-26 06:53] LABS: MANUAL DIFFERENTIAL MANUAL DIFFERENTIAL (MANUAL DIFF)
[2019-12-26 06:56] LABS: Blood Urea Nitrogen 11 mg/dl (7-17); Calcium 7.3 mg/dl (8.4-10.2); Carbon Dioxide 21 mmol/L (22.0-30.0); Creatinine Clearance Estimated 74 mL/min (50-200); Estimated Glomerular Filt Rate 105 ml/min (>60); GFR (African American) 128 ML/MIN (>60); Glucose 106 mg/dl (74-100)
--- NOTE | 2019-12-26 08:00 | CT_ITS ---
PROCEDURE: CT CHEST WO CON CLINICAL INDICATION: Pulmonary Fibrosis - Need HRCT COMPARISON: CR XR CHEST PORTABLE from 12/24/2019 TECHNIQUE: Axial images obtained with sagittal and coronal reformats. All CT scans at the facility use one or more dose reduction, viz: automated exposure control, ma/kV adjustment per patient size (including targeted exams where dose is matched to indication, i.e. head), or iterative reconstruction technique. Inspiration and expiration images obtained with HRCT. The patient refused to lay on her stomach for prone imaging. FINDINGS: There are few scattered small mediastinal lymph nodes. Coronary artery calcifications are present. There are small bilateral pleural effusions. There is COPD with diffuse pulmonary fibrotic changes and scattered areas of scarring. There are atelectatic changes in the lower lobes. There is interlobular septal thickening in the right lower lobe with pulmonary fibrotic change/honeycombing. Atelectatic changes are present in the lung bases. There is irregular thickening in the right major fissure superiorly. Calcified granuloma is present in the right middle lobe. The there is a right subclavian MediPort catheter present with tip in the region the superior vena cava. Expiration images show similar amount of lung expansion suggesting underlying air trapping. There is dysplastic changes of the humeral heads on both sides with prominence of the joint space consistent with Charcot joint of the shoulders. There is mild lumbar scoliosis convex right. IMPRESSION: COPD with pulmonary fibrosis with bilateral pleural effusions. Atelectatic changes are present in the lower lobes. There is some indeterminate irregular thickening in the right major fissure superiorly for which follow-up is suggested. Similar degree of lung volume on inspiration and expiration images suggesting some element of air trapping. Suspect Charcot joint of the shoulders Dictated by: Alfredo Britton MD 12/26/2019 16:32 Alfredo Britton MD in [place] 12/26/2019 16:32
[2019-12-26 08:11] LABS: Lymphocytes % 9 % (10-50); Monocytes % 3 % (2-9); Neutrophils % 88 % (42-76); Platelet Estimate Slight Increase; RBC Morphology Normal; Total Cells Counted 100
--- NOTE | 2019-12-26 08:41 | HMH.ACPN2 ---
Internal Medicine - PN: Subj *Date: 12/26/19 *Time: 08:53 Interval history: States she is feels much better today. She is status post left AKA performed yesterday evening. Pain doing better. Able to control on current regimen. No longer having throbbing issues with removal of infected/gangrenous lower extremity. Denies shortness of breath, chest pain, nausea. Pleasant on interview this morning. Reviewed labs today. Exam Vital signs and Labs for Last 24 Hours: Temp Pulse Resp BP Pulse Ox 97.8 F 75 16 106/63 L 93 L 12/26/19 08:00 12/26/19 08:00 12/26/19 08:00 12/26/19 08:00 12/26/19 08:00 Laboratory Results - last 24 hr 12/25/19 07:00: Blood Type O Positive, Antibody Screen Negative, Crossmatch (AHG) See Detail 12/25/19 14:40: Hgb 7.9 L*, Hct 27.5 L 12/26/19 03:50: Hgb 11.1 L D, Hct 35.0 L 12/26/19 06:20: WBC 18.3 H D, RBC 4.64, Hgb 11.4 L, Hct 37.9, MCV 81.6, MCH 24.6 L, MCHC 30.1 L, RDW 19.1 H, Plt Count 502 H D, MPV 7.3 L, Neut % (Auto) 90.7 H, Lymph % (Auto) 5.5 L, [place] % (Auto) 3.6, Eos % (Auto) 0.0 L, Baso % (Auto) 0.1, Neut # (Auto) 16.6 H, Lymph # (Auto) 1.0, [place] # (Auto) 0.7, Eos # (Auto) 0.0, Baso # (Auto) 0.0, Total Counted 100, Neutrophils % (Manual) 88 H, Lymphocytes % (Manual) 9 L, Monocytes % (Manual) 3, Platelet Estimate Slight increase, RBC Morphology Normal 12/26/19 06:20: Sodium 133 L, Potassium 4.0, Chloride 107, Carbon Dioxide 21 L, Anion Gap 9.0, BUN 11, Creatinine 0.60, Estimated Creat Clear 74, Estimated GFR 105, Est GFR ( Amer) 128, Glucose 106 H D, Calcium 7.3 L I & O for Last 24 hours: Intake & Output 12/23/19 12/24/19 12/25/19 12/26/19 23:59 23:59 23:59 23:59 Intake Total 2507 / 2747 1805 / 2045 2160 / 2160 967 / 967 Output Total 950 / 1350 920 / 1970 1130 / 1130 Balance 2507 / 2447 855 / 695 1240 / 190 -163 / -163 Weight 39.1 kg 39.661 kg 38.81 kg 42.093 kg Microbiology Reports for the Last 24 Hours: Microbiology 12/25/19 13:45 Leg,Left - Deep Gram Stain - Final 12/25/19 13:45 Leg,Left - Deep Wound Culture - Preliminary 12/22/19 22:25 Leg,Left - Drainage Gram Stain - Final 12/22/19 22:25 Leg,Left - Drainage Wound Culture - Preliminary Gram Negative Rods - Constitutional no acute distress, thin, chronically ill appearing - *Routine HEENT Exam Head: Present: cushingoid faces Eye: Present: EOMI, PERRL ENT: Present: mucous membranes moist - *Routine Neck Exam Present: supple. Absent: lymphadenopathy - *Routine Respiratory Exam Present: CTA bilaterally - *Routine Cardiovascular Exam Present: RRR - *Routine Abdominal Exam Present: soft, normoactive bowel sounds. Absent: tenderness - *Routine Extremities Exam Present: edema (Of upper extremities). Absent: cyanosis, clubbing Comments: Left lower extremity status post AKA and surgical bandage, minimal bloody discharge/drainage in SUMEET drain; significant deformity of wrists with erosive arthritis - *Routine Skin Exam Present: warm, ecchymosis. Absent: rash - *Routine Neurological Exam Present: alert, oriented X3 Assessment and Plan (1) Arterial leg ulcer Status: Resolved Category: Medical Code(s): L97.909 - Non-pressure chronic ulcer of unspecified part of unspecified lower leg with unspecified severity (2) PAD (peripheral artery disease) Status: Chronic Category: Medical Code(s): I73.9 - Peripheral vascular disease, unspecified (3) Cellulitis of lower extremity Status: Acute Qualifiers: Laterality: left Qualified Code(s): L03.116 - Cellulitis of left lower limb Category: Medical Code(s): L03.119 - Cellulitis of unspecified part of limb (4) Tobacco use disorder Status: Chronic Category: Medical Code(s): F17.200 - Nicotine dependence, unspecified, uncomplicated (5) Rheumatoid arthritis Status: Chronic Qualifiers: Rheumatoid arthritis location: multiple sites Rheumatoid factor presence: with rheum
--- NOTE | 2019-12-26 09:45 | HMH.PULMPN ---
Internal Medicine - PN: Subj *Date: 12/26/19 *Time: 09:45 Interval history: No acute respiratory events overnight. Patient post amputation, resting comfortably in bed with no acute distress Exam - Constitutional Constitutional:: no acute distress, comfortable, cooperative - HENMT Exam HENMT: normocephalic, atraumatic, cushingoid faces - Eye Exam Eyes:: normal appearance both eyes and related structures - Neck Exam Neck:: normal visual inspection, thyroid normal, no lymphadenopathy - Respiratory Exam Respiratory:: able to speak in complete sentences, normal breath sounds, no respiratory distress - Cardiovascular Exam Cardiac:: regular rhythm, S1, S2 - GI Exam GI:: soft, no hepatosplenomegaly - Skin Exam Skin: warm, no rash - Neurological Exam Neurological: alert, awake, normal cognition - Extremities Exam Comments: Bilateral lower extremity amputation - Psychiatric Exam Psychiatric: normal affect, appearance grossly normal, affect normal, cooperative Assessment and Plan (1) Arterial leg ulcer Status: Resolved Category: Medical Code(s): L97.909 - Non-pressure chronic ulcer of unspecified part of unspecified lower leg with unspecified severity (2) PAD (peripheral artery disease) Status: Chronic Category: Medical Code(s): I73.9 - Peripheral vascular disease, unspecified (3) Cellulitis of lower extremity Status: Acute Qualifiers: Laterality: left Qualified Code(s): L03.116 - Cellulitis of left lower limb Category: Medical Code(s): L03.119 - Cellulitis of unspecified part of limb (4) Tobacco use disorder Status: Chronic Category: Medical Code(s): F17.200 - Nicotine dependence, unspecified, uncomplicated (5) Rheumatoid arthritis Status: Chronic Qualifiers: Rheumatoid arthritis location: multiple sites Rheumatoid factor presence: with rheumatoid factor Qualified Code(s): M05.79 - Rheumatoid arthritis with rheumatoid factor of multiple sites without organ or systems involvement Category: Medical Code(s): M06.9 - Rheumatoid arthritis, unspecified (6) History of coronary artery stent placement Status: Chronic Category: Surgical Code(s): Z95.5 - Presence of coronary angioplasty implant and graft (7) Chronic pain Status: Chronic Category: Medical Code(s): G89.29 - Other chronic pain (8) Protein-calorie malnutrition, severe Status: Chronic Category: Medical Code(s): E43 - Unspecified severe protein-calorie malnutrition - Assessment and plan all Dx Assessment and Plan for all problems:: #COPD: 49-year-old female more than [id number] smoker history currently smoking 1 pack a day history of rheumatoid arthritis previously on Humira on Plaquenil, stopped taking Humira for the last 1 year presented with lower extremity cellulitis and pulmonary was consulted for further management. Respiratory status at baseline. Not in exacerbation. Chest x-ray showed worsening interstitial lung disease Plan: -Continue DuoNebs every 6 hours scheduled along with albuterol as needed for her COPD. -Patient can be discharged when appropriate on Anoro inhaler or equivalent LAMA + LABA combination along with albuterol as needed - Incentive Spirometry # Anti-Phospholipid Syndrome #Rheumatoid arthritis: #Interstitial lung disease: Chest x-ray from this admission showed significant interstitial lung disease, however chest x-ray from 12/[address] abdomen from 12/2013 that showing lower lung rees are within normal limits. I am concerned that rheumatoid arthritis is affecting her lung disease leadind to RA - ILD and eventually progressed to pulmonary fibrosis. Given her worsening of x-ray compared from December 2018, patient will definitely need rheumatology follow-up to evaluate for her rheumatoid arthritis at this seems not to be under control and patient likely to be resumed on her Humira that was discontinued last year Plan; - F/U HRCT to evaluate for
--- NOTE | 2019-12-26 10:21 | HMH.ACPN ---
Internal Medicine - PN: Subj *Date: 12/26/19 *Time: 10:21 Exam Vital signs and Labs for Last 24 Hours: Temp Pulse Resp BP Pulse Ox 97.8 F 75 16 106/63 L 93 L 12/26/19 08:00 12/26/19 08:00 12/26/19 08:00 12/26/19 08:00 12/26/19 08:00 Laboratory Results - last 24 hr 12/25/19 07:00: Blood Type O Positive, Antibody Screen Negative, Crossmatch (AHG) See Detail 12/25/19 14:40: Hgb 7.9 L*, Hct 27.5 L 12/26/19 03:50: Hgb 11.1 L D, Hct 35.0 L 12/26/19 06:20: WBC 18.3 H D, RBC 4.64, Hgb 11.4 L, Hct 37.9, MCV 81.6, MCH 24.6 L, MCHC 30.1 L, RDW 19.1 H, Plt Count 502 H D, MPV 7.3 L, Neut % (Auto) 90.7 H, Lymph % (Auto) 5.5 L, [place] % (Auto) 3.6, Eos % (Auto) 0.0 L, Baso % (Auto) 0.1, Neut # (Auto) 16.6 H, Lymph # (Auto) 1.0, [place] # (Auto) 0.7, Eos # (Auto) 0.0, Baso # (Auto) 0.0, Total Counted 100, Neutrophils % (Manual) 88 H, Lymphocytes % (Manual) 9 L, Monocytes % (Manual) 3, Platelet Estimate Slight increase, RBC Morphology Normal 12/26/19 06:20: Sodium 133 L, Potassium 4.0, Chloride 107, Carbon Dioxide 21 L, Anion Gap 9.0, BUN 11, Creatinine 0.60, Estimated Creat Clear 74, Estimated GFR 105, Est GFR ( Amer) 128, Glucose 106 H D, Calcium 7.3 L I & O for Last 24 hours: Intake & Output 12/23/19 12/24/19 12/25/19 12/26/19 23:59 23:59 23:59 23:59 Intake Total 2507 / 2747 1805 / 2045 2160 / 2160 967 / 967 Output Total 950 / 1350 920 / 1969 1130 / 1130 Balance 2507 / 2447 855 / 695 1240 / 190 -163 / -163 Weight 39.1 kg 39.661 kg 38.81 kg 42.093 kg Microbiology Reports for the Last 24 Hours: Microbiology 12/25/19 13:45 Leg,Left - Deep Gram Stain - Final 12/25/19 13:45 Leg,Left - Deep Wound Culture - Preliminary 12/22/19 22:25 Leg,Left - Drainage Gram Stain - Final 12/22/19 22:25 Leg,Left - Drainage Wound Culture - Preliminary Gram Negative Rods Assessment and Plan (1) Arterial leg ulcer Status: Resolved Category: Medical Code(s): L97.909 - Non-pressure chronic ulcer of unspecified part of unspecified lower leg with unspecified severity (2) PAD (peripheral artery disease) Status: Chronic Category: Medical Code(s): I73.9 - Peripheral vascular disease, unspecified (3) Cellulitis of lower extremity Status: Acute Qualifiers: Laterality: left Qualified Code(s): L03.116 - Cellulitis of left lower limb Category: Medical Code(s): L03.119 - Cellulitis of unspecified part of limb (4) Tobacco use disorder Status: Chronic Category: Medical Code(s): F17.200 - Nicotine dependence, unspecified, uncomplicated (5) Rheumatoid arthritis Status: Chronic Qualifiers: Rheumatoid arthritis location: multiple sites Rheumatoid factor presence: with rheumatoid factor Qualified Code(s): M05.79 - Rheumatoid arthritis with rheumatoid factor of multiple sites without organ or systems involvement Category: Medical Code(s): M06.9 - Rheumatoid arthritis, unspecified (6) History of coronary artery stent placement Status: Chronic Category: Surgical Code(s): Z95.5 - Presence of coronary angioplasty implant and graft (7) Chronic pain Status: Chronic Category: Medical Code(s): G89.29 - Other chronic pain (8) Protein-calorie malnutrition, severe Status: Chronic Category: Medical Code(s): E43 - Unspecified severe protein-calorie malnutrition The patient's infection will respond to the chosen ABx?: Yes Is the patient receiving the right drug, dose, and route?: Yes Could a more targeted ABx be ordered?: No (AWAITING CULTURES)
--- NOTE | 2019-12-26 10:36 | HMH.PNCARD ---
Subjective Date: 12/26/19 Time: 10:36 Principal diagnosis: PAD, arteral leg ulcer Interval history: 49-year-old white female in bed in no acute distress. States her pain is much improved since her left [id number] amputation yesterday. She denies any chest pain, pressure, tightness or shortness of breath. Exam Vital signs and Labs for Last 24 Hours: Temp Pulse Resp BP Pulse Ox 97.8 F 75 16 106/63 L 93 L 12/26/19 08:00 12/26/19 08:00 12/26/19 08:00 12/26/19 08:00 12/26/19 08:00 Laboratory Results - last 24 hr 12/25/19 07:00: Blood Type O Positive, Antibody Screen Negative, Crossmatch (AHG) See Detail 12/25/19 14:40: Hgb 7.9 L*, Hct 27.5 L 12/26/19 03:50: Hgb 11.1 L D, Hct 35.0 L 12/26/19 06:20: WBC 18.3 H D, RBC 4.64, Hgb 11.4 L, Hct 37.9, MCV 81.6, MCH 24.6 L, MCHC 30.1 L, RDW 19.1 H, Plt Count 502 H D, MPV 7.3 L, Neut % (Auto) 90.7 H, Lymph % (Auto) 5.5 L, [place] % (Auto) 3.6, Eos % (Auto) 0.0 L, Baso % (Auto) 0.1, Neut # (Auto) 16.6 H, Lymph # (Auto) 1.0, [place] # (Auto) 0.7, Eos # (Auto) 0.0, Baso # (Auto) 0.0, Total Counted 100, Neutrophils % (Manual) 88 H, Lymphocytes % (Manual) 9 L, Monocytes % (Manual) 3, Platelet Estimate Slight increase, RBC Morphology Normal 12/26/19 06:20: Sodium 133 L, Potassium 4.0, Chloride 107, Carbon Dioxide 21 L, Anion Gap 9.0, BUN 11, Creatinine 0.60, Estimated Creat Clear 74, Estimated GFR 105, Est GFR ( Amer) 128, Glucose 106 H D, Calcium 7.3 L I & O for Last 24 hours: Intake & Output 12/23/19 12/24/19 12/25/19 12/26/19 11:59 11:59 11:59 11:59 Intake Total 2267 / 2267 1805 / 1805 480 / 480 2887 / 2887 Output Total 950 / 950 400 / 400 1650 / 1650 Balance 2267 / 2267 855 / 855 80 / 80 1237 / 1237 Weight 86 lb 4 oz 87 lb 7 oz 85 lb 9 oz 92 lb 12.8 oz Microbiology Reports for the Last 24 Hours: Microbiology 12/25/19 13:45 Leg,Left - Deep Gram Stain - Final 12/25/19 13:45 Leg,Left - Deep Wound Culture - Preliminary 12/22/19 22:25 Leg,Left - Drainage Gram Stain - Final 12/22/19 22:25 Leg,Left - Drainage Wound Culture - Preliminary Gram Negative Rods - Constitutional no acute distress - *Routine HEENT Exam Head: Present: normocephalic Eye: Present: EOMI, PERRL ENT: Present: mucous membranes moist - *Routine Respiratory Exam Present: CTA bilaterally - *Routine Cardiovascular Exam Present: RRR - *Routine Neurological Exam Present: alert, oriented X3 Progress Note: A&P (1) Arterial leg ulcer Status: Resolved (2) PAD (peripheral artery disease) Status: Chronic (3) Cellulitis of lower extremity Status: Acute (4) Tobacco use disorder Status: Chronic (5) Rheumatoid arthritis Status: Chronic (6) History of coronary artery stent placement Status: Chronic (7) Chronic pain Status: Chronic (8) Protein-calorie malnutrition, severe Status: Chronic Assessment and Plan for All Diagnoses:: 1. PAD with history of femorofemoral bypass. No plans for intervention. 2. Nonhealing ulcers of the left lower extremity, status post [id number] amputation. 3. Coronary artery disease, clinically stable on Plavix therapy. Patient is also on metoprolol tartrate 50 mg daily but will switch this to 25 mg twice daily for better sustained control. 4. History of antiphospholipid antibody, recommend switching to Xarelto due to supratherapeutic INR on admission and subsequent vitamin K administration with potential continued reversal effect of Coumadin. 5. Rheumatoid arthritis with recommendation for follow-up with rheumatology 6. Pulmonary fibrosis felt secondary to rheumatoid arthritis, per pulmonary 7. Anemia, status post blood transfusion x2 units yesterday.
--- NOTE | 2019-12-26 11:17 | HMH.PTEV ---
Physical Therapy Evaluation Rehab PT IP Evaluation Start: 12/26/19 09:18 Freq: ONCE Status: Active Protocol: Document 12/26/19 11:13 PHORBRENDAN (Rec: 12/26/19 11:16 PHORNE [id number]) Subjective/History History History 49 yowf adm to [facility] with L LE wounds and severe PAD, now S/P L AKA. She has hx of prior R AKA and RA with limited use of B UE. SHe has assist at home at all times. Subjective Subjective Pt reports less pain in the L LE today. Rehab PT IP Eval Objective Appearance Patient Behavior Appropriate Patient Orientation Person,Place,Time Difficulty following instructions none Speech Pattern Clear Ambulation Patient Able to Ambulate No Balance Ability to Arise Able, uses arms to help Sitting Balance Steady, safe Dynamic Sitting Balance Ability Good Transfers Bed Transfer Ability Moderate x 1 (50% assist) Chair Transfer Ability Total/Dependent (100%) ROM All Extremities PT ROM Status WFL MMT All Extremities PT MMT ABN Abnormal MMT Grade all ext grossly 2/5 Rehab PT IP prob,goals,plan Problems Date of Evaluation: 12/26/19 PT IP Problems Bed Mobility,Transfers Rehab Potential Rehab Potential Fair Plan PT Intervention Plan Bed Mobility,Transfers, Therapeutic Exercise PT Plan Frequency Daily Duration LOS Discharge Goals Bed Transfer Ability Minimal x 2 (25% assist) Discharge Plan PT Discharge Plan Pt is most appropriate for rehab placement once medically stable. G -code Required No Eval Complexity Eval Charge Codes 91383 - Moderate Complexity PHYSICIAN CERTIFICATION: I certify the specified therapy services for Johanna Esteban are required, authorized, and reviewed every 30 days.
--- NOTE | 2019-12-26 13:56 | DIET.NUTRFU ---
Pt says she is tolerating diet well, no c/o abdominal symptoms, PO intake 25-50% with protein supplements TID. Post-op weight gain 7#.
[2019-12-26 14:33] LABS: Vancomycin,Trough 17.7 ug/mL (5.0-10.0)
--- NOTE | 2019-12-26 14:43 | HMH.OTEV ---
OT Inpatient Evaluation Rehab OT IP Evaluation Start: 12/26/19 09:18 Freq: ONCE Status: Complete Protocol: Document 12/26/19 14:36 [facility] (Rec: 12/26/19 14:43 [facility] [id number]) Rehab OT IP Assessment Subjective History Pt oriented x 3 on arrival. Pt agreeable to engage in therapy evaluation; pt resting in bed. Pt was admitted on 12/23/19 via ED due to Left LE cellulitis. Pt has a past medical history of CHF, CAD, PA, PAD, and arthritis. Pt reports prior to being admitted to hospital she lived at home with her . According to patient, she was unable to ambulate and stayed in wheelchair. Pt also reports her assisted her with all ADLs and she is dependent upon him with all IADL's. Subjective I need to wake up. Objective Patient Orientation Person,Place,Birthday Upper Extremity Gross ROM WFL Bed Mobility bed mobility-scooting,bed mobility - supine/sit,bed mobility - rolling Assist Level Moderate x 1 (50% assist) Feeding Ability Assist with Tray Set Up Eating (Feeding) Assistive Devices Adapted Utensil Rehab OT IP prob,goals,plan Problems Date of Evaluation: 12/26/19 OT IP Problems Bed Mobility,Transfers,Gait, Balance,Self care,Safety Rehab Potential Rehab Potential Good Equipment Needs Assistive Devices Wheelchair Plan OT intervention Plan Bed Mobility,Transfers,Gait, Balance,Self care,Safety, Therapeutic Exercise OT Plan Frequency Daily Duration LOS Discharge Goals Bed Mobility Ability Assistance x1 Sit to Stand Chair Transfer Ability Minimal x 1 (25% assist) Chair Transfer Ability Minimal x 1 (25% assist) Chair Transfer Technique Sit to/from Ambulatory Feeding Ability Assist with Tray Set Up Lower Body Dressing Ability Assistance X1 Upper Body Dressing Ability Assistance X1 Bathing Ability Assistance x1 Performing Toilet Hygiene Ability Assistance X1 Commode/Toilet Transfer Technique Sit to/from Ambulatory Discharge Plan OT Discharge Plan Pt would froylan
--- NOTE | 2019-12-26 14:49 | HMH.PHACONS ---
- Pharmacy Consult Date: 12/26/19 Time: 14:49 Referring provider: DR. ZAMORA Reason for Consult:: VANCOMYCIN TROUGH LEVEL Allergies and ADEs:: Allergies Allergy/AdvReac Type Severity Reaction Status Date / Time gabapentin [GABAPENTIN] Allergy Severe HALLUCINATI Verified 11/23/17 08:00 ONS methadone [METHADONE] Allergy Severe THROAT Verified 11/23/17 08:00 CLOSES codeine [CODEINE] Allergy Mild NA-NAUSEA Verified 11/23/17 08:00 Home Medications:: Home Medications Medication Instructions Recorded Confirmed Type Warfarin Sodium [Coumadin] 4 mg PO DAILY 11/23/17 12/23/19 History Albuterol Sulfate [Proair Hfa 2 puffs IH QIDP PRN 02/08/18 12/23/19 History 90mcg/puff Inh] Clopidogrel Bisulfate [Clopidogrel 75 mg PO DAILY 02/08/18 12/23/19 History 75mg Tab] Cyclobenzaprine HCl 10 mg PO TIDP PRN 02/08/18 12/23/19 History [Cyclobenzaprine 10mg Tab*] Ferrous Sulfate 325 mg PO BID 02/08/18 12/23/19 History Folic Acid [Folic Acid 1mg tablet] 1 mg PO DAILY 02/08/18 12/23/19 History Hydroxychloroquine Sulfate 400 mg PO DAILY 02/08/18 12/23/19 History [Plaquenil 200mg tablet] Levothyroxine Sodium 50 mcg PO DAILY 02/08/18 12/23/19 History [Levothyroxine 50mcg (0.05mg) Tab] Meloxicam [Mobic 15 mg tab] 15 mg PO DAILY 02/08/18 12/23/19 History Metoprolol Tartrate 50 mg PO DAILY 02/08/18 12/23/19 History Oxycodone HCl/Acetaminophen 1 tab PO QID PRN 02/08/18 12/23/19 History [Oxycodone W/Apap 325mg Tablet] Pravastatin Sodium [Pravachol] 40 mg PO HS 02/08/18 12/23/19 History Promethazine HCl [Phenergan 25mg 25 mg PO Q6HP PRN 02/08/18 12/23/19 History tab] Tizanidine HCl [Zanaflex 4mg 8 mg PO TID PRN 02/08/18 12/23/19 History tab] cilostazoL [Pletal 100mg tablet] 100 mg PO BID 02/08/18 12/23/19 History predniSONE [Deltasone 20mg 20 mg PO DAILYP PRN 02/08/18 12/23/19 History tablet] Nicotine [Nicoderm 21mg/24hr 21 mg TD DAILYP PRN patch.td24 02/12/18 12/23/19 Rx patch] Collagenase Clostridium Hist. 1 gm TP DAILY 05/05/18 12/23/19 History [Santyl Ointment 30gm] Famotidine [Pepcid 20mg Tablet] 20 mg PO BID 12/23/19 12/23/19 History Height: 1.52 m Weight: 42.093 kg Laboratory Results:: Laboratory Results - last 24 hr 12/25/19 07:00: Blood Type O Positive, Antibody Screen Negative, Crossmatch (AHG) See Detail 12/25/19 14:40: Hgb 7.9 L*, Hct 27.5 L 12/26/19 03:50: Hgb 11.1 L D, Hct 35.0 L 12/26/19 06:20: WBC 18.3 H D, RBC 4.64, Hgb 11.4 L, Hct 37.9, MCV 81.6, MCH 24.6 L, MCHC 30.1 L, RDW 19.1 H, Plt Count 502 H D, MPV 7.3 L, Neut % (Auto) 90.7 H, Lymph % (Auto) 5.5 L, [place] % (Auto) 3.6, Eos % (Auto) 0.0 L, Baso % (Auto) 0.1, Neut # (Auto) 16.6 H, Lymph # (Auto) 1.0, [place] # (Auto) 0.7, Eos # (Auto) 0.0, Baso # (Auto) 0.0, Total Counted 100, Neutrophils % (Manual) 88 H, Lymphocytes % (Manual) 9 L, Monocytes % (Manual) 3, Platelet Estimate Slight increase, RBC Morphology Normal 12/26/19 06:20: Sodium 133 L, Potassium 4.0, Chloride 107, Carbon Dioxide 21 L, Anion Gap 9.0, BUN 11, Creatinine 0.60, Estimated Creat Clear 74, Estimated GFR 105, Est GFR ( Amer) 128, Glucose 106 H D, Calcium 7.3 L 12/26/19 12:30: Vancomycin Trough 17.7 H Medical History: Reports:: Congestive Heart Failure, Coronary Artery Disease, Lung Disease, Myocardial Infarction, Peripheral Artery Disease Denies:: Cancer, Diabetes Mellitus Type 1, Diabetes Mellitus Type 2, MRSA Assessment and Plan (1) Arterial leg ulcer Status: Resolved Category: Medical Code(s): L97.909 - Non-pressure chronic ulcer of unspecified part of unspecified lower leg with unspecified severity (2) PAD (peripheral artery disease) Status: Chronic Category: Medical Code(s): I73.9 - Peripheral vascular disease, unspecified (3) Cellulitis of lower extremity Status: Acute Qualifiers: Laterality: left Qualified Code(s): L03.116 - Cellulitis of left lower limb Category: Medical Code(s): L03.119 - Celluli
--- NOTE | 2019-12-26 16:29 | P.PN_ITS ---
Subjective Date: 12/26/19 Time: 16:15 Principal diagnosis: PAD, arteral leg ulcer; status post AKA, left Interval history: Patient is status post left AKA, postop day 1. She says she is doing a 'lot better today' and reports no problems. She says her pain is well controlled with the current pain medication. She says she is eating and drinking well. Denies any shortness of breath, chest pain, nausea. She received 2 units of PRBC yesterday with appropriate bump in H&H. PN: Obj Ex Vital signs: Temp Pulse Resp BP Pulse Ox 97.9 F 73 16 109/59 L 97 12/26/19 16:00 12/26/19 16:00 12/26/19 16:00 12/26/19 16:00 12/26/19 16:00 Narrative: Laboratory Results - last 24 hr 12/25/19 07:00: Blood Type O Positive, Antibody Screen Negative, Crossmatch (AH G) See Detail 12/26/19 03:50: Hgb 11.1 L D, Hct 35.0 L 12/26/19 06:20: WBC 18.3 H D, RBC 4.64, Hgb 11.4 L, Hct 37.9, MCV 81.6, MCH 24.6 L, MCHC 30.1 L, RDW 19.1 H, Plt Count 502 H D, MPV 7.3 L, Neut % (Auto) 90.7 H, Lymph % (Auto) 5.5 L, [place] % (Auto) 3.6, Eos % (Auto) 0.0 L, Baso % (Auto) 0.1, Neut # (Auto) 16.6 H, Lymph # (Auto) 1.0, [place] # (Auto) 0.7, Eos # (Auto) 0.0, Baso # (Auto) 0.0, Total Counted 100, Neutrophils % (Manual) 88 H, Lymphocytes % (Manual) 9 L, Monocytes % (Manual) 3, Platelet Estimate Slight increase, RBC Morphology Normal 12/26/19 06:20: Sodium 133 L, Potassium 4.0, Chloride 107, Carbon Dioxide 21 L, Anion Gap 9.0, BUN 11, Creatinine 0.60, Estimated Creat Clear 74, Estimated GFR 105, Est GFR ( Amer) 128, Glucose 106 H D, Calcium 7.3 L 12/26/19 12:30: Vancomycin Trough 17.7 H General appearance: alert, active, awake, no acute distress Cardiovascular: regular rate & rhythm Respiratory: No respiratory distress noted, speaks in full sentences ABD: soft and non tender Neuro: alert, awake, oriented x 3 Psych: Appropriate mood and affect for her situation On examination of the left lower extremity, the dressings are clean dry and intact over the residual limb. There is about 10 to 15 cc of bloody drainage in the SUMEET drain. 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 - Urinary Catheter Management Richard Cath placed during this visit: no Progress Note: A&P (1) Arterial leg ulcer Status: Resolved (2) PAD (peripheral artery disease) Status: Chronic (3) Cellulitis of lower extremity Status: Acute (4) Tobacco use disorder Status: Chronic (5) Rheumatoid arthritis Status: Chronic (6) History of coronary artery stent placement Status: Chronic (7) Chronic pain Status: Chronic (8) Protein-calorie malnutrition, severe Status: Chronic Assessment and Plan for All Diagnoses:: I have reviewed the clinical findings and progress with the patient. Patient is doing well and reports no postoperative problems. Total SUMEET drainage so far is about 100 cc. Appropriate bump of H&H noted following 2 units of PRBC transfusion yesterday. For change of dressings and removal of drain tomorrow. Continue medical management as per Dr. Larry/Dr. Draper.
--- NOTE | 2019-12-26 17:25 | PC.NURSE ---
Pt has been pleasant and cooperative this shift. A&O X4. Pt has had frequent complaints of pain and has been medicated with Tylenol, Dilaudid, Oxycodone, Zanaflex, and Flexeril. Pt reports significant pain relief and has rested peacefully throughout the shift. Pt is on room air with sats. > 90%. Lungs CTA. No edema noted. LT AKA surgical dressing is C/D/I with SUMEET drain in place. 60 ML of bloody drainage has been recorded for this shift thus far and a large clot was noted. Bilateral buttocks ulcerations are covered with Allevant dressings that are C/D/I. F/C is patent and draining clear, dark, yellow urine at bedside to gravity. 1000 ML of urine have been recorded for this shift thus far. No BM today. Appetite is good and pt eats about 50-75% of all meals. Pt worked cooperatively with PT/OT today and sat up on the side of the bed for about 10 minutes. Implanted port to the RT upper chest is patent and infusing NS @ 50 ML/HR. VSS. Call light within reach. Will continue to monitor.
--- NOTE | 2019-12-26 19:14 | PC.NURSE ---
report given top shawna
[2019-12-27] VITALS (10 sets, daily range): BP systolic 85–109; BP diastolic 50–72; PULSE 68–82; RESP 14–16; TEMP 36.6–37; O2SAT 94–99; BMI 17.4
--- NOTE | 2019-12-27 03:44 | PC.NURSE ---
PT. C/O MILD PAIN X2; TX WITH OXYCODONE PER APR. DSG TO LLE C/D/I WITH SCANT SANGUINEOUS DRAINAGE. NO C/O N/V/D, DIZZINESS OR SOA. FAMILY AT BEDSIDE.
[2019-12-27 06:21] LABS: Basophils % 0.2 % (0.1-2.0); Eosinophils # 0.1 K/mm3 (0.0-0.4); Eosinophils % 0.7 % (0.1-12.0); Hematocrit 36.1 % (37.0-47.0); Lymphocytes # 2.4 K/mm3 (0.7-4.5); Lymphocytes % 18.4 % (10-50); Mean Corpuscular HGB Conc 30.3 g/dL (31.8-35.4); Mean Corpuscular Hemoglobin 25.1 pg (27.0-31.2); Mean Corpuscular Volume 82.7 fl (81-99); Monocytes # 0.9 K/mm3 (0.1-1.0); Monocytes % 6.8 % (1.7-9.3); Neutrophils # 9.5 K/mm3 (1.8-7.8); Neutrophils % 73.8 % (37.0-80.0); Platelet Count 503 K/mm3 (142-424); Red Blood Count 4.37 M/mm3 (4.20-5.40); Red Cell Distribution Width 19.8 % (11.5-17.5); White Blood Count 12.9 K/mm3 (4.8-10.8)
[2019-12-27 06:23] LABS: Chloride 109 mmol/L (98-107); Potassium 3.4 mmoL/L (3.5-5.1); Sodium 134 mmol/L (136-145)
[2019-12-27 06:25] LABS: Blood Urea Nitrogen 11 mg/dl (7-17); Creatinine Clearance Estimated 53 mL/min (50-200); Estimated Glomerular Filt Rate 76 ml/min (>60); GFR (African American) 92 ML/MIN (>60)
[2019-12-27 06:26] LABS: Alanine Aminotransferase 19 U/L (12-78); Albumin/Globulin Ratio 0.6 (1.1-1.8); Alkaline Phosphatase 77 U/L (38-126); Anion Gap 7.4 mEq/L (5-15); Aspartate Amino Transferase 34 U/L (14-36); Bilirubin,Total 0.2 mg/dl (0.2-1.3); Calcium 7.4 mg/dl (8.4-10.2); Carbon Dioxide 21 mmol/L (22.0-30.0); Globulin 3.2 g/dL (1.3-3.2); Glucose 82 mg/dl (74-100); Magnesium 1.3 mg/dl (1.6-2.3); Total Protein,Serum 5.2 g/dl (6.3-8.2)
--- NOTE | 2019-12-27 08:28 | HMH.ACPN2 ---
Internal Medicine - PN: Subj *Date: 12/27/19 *Time: 08:28 Interval history: Patient did well overnight, blood counts remained stable, blood pressure is slightly low but patient is alert, responsive. Exam Vital signs and Labs for Last 24 Hours: Temp Pulse Resp BP Pulse Ox 98.4 F 72 16 85/50 L 94 L 12/27/19 08:00 12/27/19 08:00 12/27/19 08:00 12/27/19 08:00 12/27/19 08:00 Laboratory Results - last 24 hr 12/26/19 12:30: Vancomycin Trough 17.7 H 12/27/19 05:30: WBC 12.9 H D, RBC 4.37, Hgb 11.0 L, Hct 36.1 L, MCV 82.7, MCH 25.1 L, MCHC 30.3 L, RDW 19.8 H, Plt Count 503 H, MPV 8.0, Neut % (Auto) 73.8, Lymph % (Auto) 18.4, [place] % (Auto) 6.8, Eos % (Auto) 0.7, Baso % (Auto) 0.2, Neut # (Auto) 9.5 H, Lymph # (Auto) 2.4, [place] # (Auto) 0.9, Eos # (Auto) 0.1, Baso # (Auto) 0.0 12/27/19 05:30: Sodium 134 L, Potassium 3.4 L, Chloride 109 H, Carbon Dioxide 21 L, Anion Gap 7.4, BUN 11, Creatinine 0.80 D, Estimated Creat Clear 53, Estimated GFR 76, Est GFR ( Amer) 92 D, Glucose 82 D, Calcium 7.4 L, Magnesium 1.3 L D, Total Bilirubin 0.2, AST 34, ALT 19, Alkaline Phosphatase 77, Total Protein 5.2 L, Albumin 2.0 L, Globulin 3.2, Albumin/Globulin Ratio 0.6 L I & O for Last 24 hours: Intake & Output 12/24/19 12/25/19 12/26/19 12/27/19 11:59 11:59 11:59 11:59 Intake Total 1805 / 1805 480 / 480 2887 / 2887 2943 / 2943 Output Total 950 / 950 400 / 400 1650 / 1650 1865 / 1865 Balance 855 / 855 80 / 80 1237 / 1237 1078 / 1078 Weight 87 lb 7 oz 85 lb 9 oz 92 lb 12.8 oz 88 lb 9 oz Microbiology Reports for the Last 24 Hours: Microbiology 12/22/19 22:25 Leg,Left - Drainage Gram Stain - Final 12/22/19 22:25 Leg,Left - Drainage Wound Culture - Final Providencia rettgeri 12/25/19 13:45 Leg,Left - Deep Gram Stain - Final 12/25/19 13:45 Leg,Left - Deep Wound Culture - Preliminary Narrative: Heart rate regular. Lungs with good air movement. Abdomen soft. Patient is alert, oriented. Wound exam per orthopedics. No changes in significant deformity of joint exams. Neurologic exam intact Assessment and Plan (1) Arterial leg ulcer Status: Resolved Category: Medical Code(s): L97.909 - Non-pressure chronic ulcer of unspecified part of unspecified lower leg with unspecified severity (2) PAD (peripheral artery disease) Status: Chronic Category: Medical Code(s): I73.9 - Peripheral vascular disease, unspecified (3) Cellulitis of lower extremity Status: Acute Qualifiers: Laterality: left Qualified Code(s): L03.116 - Cellulitis of left lower limb Category: Medical Code(s): L03.119 - Cellulitis of unspecified part of limb (4) Tobacco use disorder Status: Chronic Category: Medical Code(s): F17.200 - Nicotine dependence, unspecified, uncomplicated (5) Rheumatoid arthritis Status: Chronic Qualifiers: Rheumatoid arthritis location: multiple sites Rheumatoid factor presence: with rheumatoid factor Qualified Code(s): M05.79 - Rheumatoid arthritis with rheumatoid factor of multiple sites without organ or systems involvement Category: Medical Code(s): M06.9 - Rheumatoid arthritis, unspecified (6) History of coronary artery stent placement Status: Chronic Category: Surgical Code(s): Z95.5 - Presence of coronary angioplasty implant and graft (7) Chronic pain Status: Chronic Category: Medical Code(s): G89.29 - Other chronic pain (8) Protein-calorie malnutrition, severe Status: Chronic Category: Medical Code(s): E43 - Unspecified severe protein-calorie malnutrition - Assessment and plan all Dx Assessment and Plan for all problems:: Status post AKA. Patient is now bilateral lower extremity amputee. Patient is going to require inpatient subacute rehab. She is resistant to this idea but I have impressed upon her it is absolutely medically necessary to go through a couple of weeks of rehab for safety issues
[2019-12-27 13:22] LABS: Vancomycin,Trough 20.3 ug/mL (5.0-10.0)
--- NOTE | 2019-12-27 13:37 | HMH.PHACONS ---
- Pharmacy Consult Date: 12/27/19 Time: 13:37 Referring provider: DR. ZAMORA Reason for Consult:: VANCOMYCIN TROUGH LEVEL AND DOSE CHANGE Allergies and ADEs:: Allergies Allergy/AdvReac Type Severity Reaction Status Date / Time gabapentin [GABAPENTIN] Allergy Severe HALLUCINATI Verified 11/23/17 08:00 ONS methadone [METHADONE] Allergy Severe THROAT Verified 11/23/17 08:00 CLOSES codeine [CODEINE] Allergy Mild NA-NAUSEA Verified 11/23/17 08:00 Home Medications:: Home Medications Medication Instructions Recorded Confirmed Type Warfarin Sodium [Coumadin] 4 mg PO DAILY 11/23/17 12/23/19 History Albuterol Sulfate [Proair Hfa 2 puffs IH QIDP PRN 02/08/18 12/23/19 History 90mcg/puff Inh] Clopidogrel Bisulfate [Clopidogrel 75 mg PO DAILY 02/08/18 12/23/19 History 75mg Tab] Cyclobenzaprine HCl 10 mg PO TIDP PRN 02/08/18 12/23/19 History [Cyclobenzaprine 10mg Tab*] Ferrous Sulfate 325 mg PO BID 02/08/18 12/23/19 History Folic Acid [Folic Acid 1mg tablet] 1 mg PO DAILY 02/08/18 12/23/19 History Hydroxychloroquine Sulfate 400 mg PO DAILY 02/08/18 12/23/19 History [Plaquenil 200mg tablet] Levothyroxine Sodium 50 mcg PO DAILY 02/08/18 12/23/19 History [Levothyroxine 50mcg (0.05mg) Tab] Meloxicam [Mobic 15 mg tab] 15 mg PO DAILY 02/08/18 12/23/19 History Metoprolol Tartrate 50 mg PO DAILY 02/08/18 12/23/19 History Oxycodone HCl/Acetaminophen 1 tab PO QID PRN 02/08/18 12/23/19 History [Oxycodone W/Apap 325mg Tablet] Pravastatin Sodium [Pravachol] 40 mg PO HS 02/08/18 12/23/19 History Promethazine HCl [Phenergan 25mg 25 mg PO Q6HP PRN 02/08/18 12/23/19 History tab] Tizanidine HCl [Zanaflex 4mg 8 mg PO TID PRN 02/08/18 12/23/19 History tab] cilostazoL [Pletal 100mg tablet] 100 mg PO BID 02/08/18 12/23/19 History predniSONE [Deltasone 20mg 20 mg PO DAILYP PRN 02/08/18 12/23/19 History tablet] Nicotine [Nicoderm 21mg/24hr 21 mg TD DAILYP PRN patch.td24 02/12/18 12/23/19 Rx patch] Collagenase Clostridium Hist. 1 gm TP DAILY 05/05/18 12/23/19 History [Santyl Ointment 30gm] Famotidine [Pepcid 20mg Tablet] 20 mg PO BID 12/23/19 12/23/19 History Height: 1.52 m Weight: 40.171 kg Laboratory Results:: Laboratory Results - last 24 hr 12/26/19 12:30: Vancomycin Trough 17.7 H 12/27/19 05:30: WBC 12.9 H D, RBC 4.37, Hgb 11.0 L, Hct 36.1 L, MCV 82.7, MCH 25.1 L, MCHC 30.3 L, RDW 19.8 H, Plt Count 503 H, MPV 8.0, Neut % (Auto) 73.8, Lymph % (Auto) 18.4, [place] % (Auto) 6.8, Eos % (Auto) 0.7, Baso % (Auto) 0.2, Neut # (Auto) 9.5 H, Lymph # (Auto) 2.4, [place] # (Auto) 0.9, Eos # (Auto) 0.1, Baso # (Auto) 0.0 12/27/19 05:30: Sodium 134 L, Potassium 3.4 L, Chloride 109 H, Carbon Dioxide 21 L, Anion Gap 7.4, BUN 11, Creatinine 0.80 D, Estimated Creat Clear 53, Estimated GFR 76, Est GFR ( Amer) 92 D, Glucose 82 D, Calcium 7.4 L, Magnesium 1.3 L D, Total Bilirubin 0.2, AST 34, ALT 19, Alkaline Phosphatase 77, Total Protein 5.2 L, Albumin 2.0 L, Globulin 3.2, Albumin/Globulin Ratio 0.6 L 12/27/19 12:25: Vancomycin Trough 20.3 H Medical History: Reports:: Congestive Heart Failure, Coronary Artery Disease, Lung Disease, Myocardial Infarction, Peripheral Artery Disease Denies:: Cancer, Diabetes Mellitus Type 1, Diabetes Mellitus Type 2, MRSA Assessment and Plan (1) Arterial leg ulcer Status: Resolved Category: Medical Code(s): L97.909 - Non-pressure chronic ulcer of unspecified part of unspecified lower leg with unspecified severity (2) PAD (peripheral artery disease) Status: Chronic Category: Medical Code(s): I73.9 - Peripheral vascular disease, unspecified (3) Cellulitis of lower extremity Status: Acute Qualifiers: Laterality: left Qualified Code(s): L03.116 - Cellulitis of left lower limb Category: Medical Code(s): L03.119 - Cellulitis of unspecified part of limb (4) Tobacco use disorder Status: Chronic Category: Medical Code(s): F17.20
--- NOTE | 2019-12-27 15:30 | P.PN_ITS ---
Subjective Date: 12/27/19 Time: 15:00 Principal diagnosis: PAD, arteral leg ulcer; status post AKA, left Interval history: Patient is status post left AKA, postop day 2. She says she is doing well and reports no overnight problems. She says they have loosened the bandages as it felt too tight. Says her pain is well controlled with as needed pain medication. She is eating and drinking well. Denies any shortness of breath, chest pain, nausea. PN: Obj Ex Vital signs: Temp Pulse Resp BP Pulse Ox 98.6 F 76 16 109/56 L 95 12/27/19 12:00 12/27/19 12:11 12/27/19 12:00 12/27/19 12:00 12/27/19 12:00 Narrative: Laboratory Results - last 24 hr 12/27/19 05:30: WBC 12.9 H D, RBC 4.37, Hgb 11.0 L, Hct 36.1 L, MCV 82.7, MCH 25.1 L, MCHC 30.3 L, RDW 19.8 H, Plt Count 503 H, MPV 8.0, Neut % (Auto) 73.8, Lymph % (Auto) 18.4, [place] % (Auto) 6.8, Eos % (Auto) 0.7, Baso % (Auto) 0.2, Neut # (Auto) 9.5 H, Lymph # (Auto) 2.4, [place] # (Auto) 0.9, Eos # (Auto) 0.1, Baso # (Auto) 0.0 12/27/19 05:30: Sodium 134 L, Potassium 3.4 L, Chloride 109 H, Carbon Dioxide 21 L, Anion Gap 7.4, BUN 11, Creatinine 0.80 D, Estimated Creat Clear 53, Estimated GFR 76, Est GFR ( Amer) 92 D, Glucose 82 D, Calcium 7.4 L, Magnesium 1.3 L D, Total Bilirubin 0.2, AST 34, ALT 19, Alkaline Phosphatase 77, Total Protein 5.2 L, Albumin 2.0 L, Globulin 3.2, Albumin/Globulin Ratio 0.6 L 12/27/19 12:25: Vancomycin Trough 20.3 H Exam: General appearance: alert, active, awake, no acute distress Cardiovascular: regular rate & rhythm Respiratory: No respiratory distress noted, speaks in full sentences ABD: soft and non tender Neuro: alert, awake, oriented x 3 Psych: Appropriate mood and affect for her situation On examination of the residual left lower extremity, the dressings are clean and dry. I have changed the dressings today and removed the SUMEET drain. The stump and surgical incision look healthy. No erythema, discharge or induration noted. The skin edges are well vascularized and viable. 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 - Urinary Catheter Management Richard Cath placed during this visit: no Progress Note: A&P (1) Arterial leg ulcer Status: Resolved (2) PAD (peripheral artery disease) Status: Chronic (3) Cellulitis of lower extremity Status: Acute (4) Tobacco use disorder Status: Chronic (5) Rheumatoid arthritis Status: Chronic (6) History of coronary artery stent placement Status: Chronic (7) Chronic pain Status: Chronic (8) Protein-calorie malnutrition, severe Status: Chronic Assessment and Plan for All Diagnoses:: I have reviewed the findings and progress with the patient. Patient is doing well and reports no postoperative problems. The surgical dressings are changed today and the incision as well as a stump appear healthy. No signs of infection or other complications noted at this stage. Discontinue urinary catheter. From an orthopedic standpoint patient can be discharged as appropriate medically. Continue change of dressing as needed-apply nonadhesive dressings. Follow-up in my office in 10 to 14 days time for suture removal. Continue medical management as per Dr. Larry/Dr. Draper.
--- NOTE | 2019-12-27 17:34 | PC.NURSE ---
Pt has been pleasant and cooperative this shift. A&O X4. Pt has had frequent complaints of pain and has been medicated with Tylenol, Dilaudid, Oxycodone, Zanaflex, and Flexeril. Pt reports favorable results with the combination of these medications. Pt is on room air with sats. > 90%. Lungs CTA. No edema noted. LT AKA surgical dressing was changed this shift per Dr. Crook and SUMEET drain was removed. Bilateral buttocks ulcerations are covered with Allevyn dressings that are C/D/I. F/C was DC'd this shift per Dr. Crook. No BM today. Appetite is good and pt eats about 50-75% of all meals. Implanted port to the RT upper chest is patent and infusing NS @ 50 ML/HR. B/P has been slightly low. Other VSS. Call light within reach. Will continue to monitor.
[2019-12-28] VITALS (9 sets, daily range): BP systolic 87–132; BP diastolic 55–88; PULSE 49–111; RESP 16–17; TEMP 36.6–36.9; O2SAT 92–97; BMI 17.0
--- NOTE | 2019-12-28 04:20 | PC.NURSE ---
Pt has slept majority of this shift. Pt is A&Ox4. Pt has stated her pain has been controllable compared to other nights since being here. Pt continues to get scheduled pain meds and has requested PRN pain meds x1 this shift with favorable results. Pt continues to tolerate RA, lung sounds remain clear t/o with the exception of fine crackles heard at BL bases. Dressing remains CDI on left AKA incision. Call light remains in reach. No other acute changes or complaints at this time. Will continue to monitor.
[2019-12-28 06:12] LABS: Basophils # 0.1 K/mm3 (0-0.2); Basophils % 0.5 % (0.1-2.0); Eosinophils # 0.1 K/mm3 (0.0-0.4); Eosinophils % 0.4 % (0.1-12.0); Hematocrit 39.8 % (37.0-47.0); Hemoglobin 12.1 g/dL (12.2-16.2); Lymphocytes # 2.8 K/mm3 (0.7-4.5); Lymphocytes % 15.4 % (10-50); Mean Corpuscular HGB Conc 30.4 g/dL (31.8-35.4); Mean Corpuscular Hemoglobin 25.2 pg (27.0-31.2); Mean Corpuscular Volume 82.8 fl (81-99); Mean Platelet Volume 7.8 fl (7.4-10.4); Monocytes % 5.6 % (1.7-9.3); Neutrophils % 78.1 % (37.0-80.0); Platelet Count 544 K/mm3 (142-424); Red Blood Count 4.81 M/mm3 (4.20-5.40); Red Cell Distribution Width 20.5 % (11.5-17.5); White Blood Count 17.9 K/mm3 (4.8-10.8)
[2019-12-28 06:18] LABS: MANUAL DIFFERENTIAL MANUAL DIFFERENTIAL (MANUAL DIFF)
[2019-12-28 06:22] LABS: Blood Urea Nitrogen 8 mg/dl (7-17); Calcium 7.9 mg/dl (8.4-10.2); Carbon Dioxide 20 mmol/L (22.0-30.0); Chloride 107 mmol/L (98-107); Creatinine Clearance Estimated 69 mL/min (50-200); Estimated Glomerular Filt Rate 105 ml/min (>60); GFR (African American) 128 ML/MIN (>60); Sodium 135 mmol/L (136-145)
[2019-12-28 06:28] LABS: Glucose 58 mg/dl (74-100)
[2019-12-28 06:30] LABS: Lymphocytes % 13 % (10-50); Monocytes % 2 % (2-9); Neutrophils % 82 % (42-76); Total Cells Counted 100
[2019-12-28 06:31] LABS: Anisocytosis 2+; Hypochromasia 2+; Microcytosis 1+; Platelet Estimate Slight Increase; Rouleaux 1+
--- NOTE | 2019-12-28 08:34 | HMH.ACPN2 ---
Internal Medicine - PN: Subj *Date: 12/28/19 *Time: 08:34 Interval history: Patient did well through the day yesterday and through the evening. Labs reviewed. Patient wishes to be discharged home today and promises that she will go to rehab facility tomorrow. Exam Vital signs and Labs for Last 24 Hours: Temp Pulse Resp BP Pulse Ox 98.4 F 51 L 16 118/55 L 96 12/28/19 04:00 12/28/19 05:57 12/28/19 04:00 12/28/19 04:00 12/28/19 07:50 Laboratory Results - last 24 hr 12/27/19 12:25: Vancomycin Trough 20.3 H 12/28/19 05:25: WBC 17.9 H D, RBC 4.81, Hgb 12.1 L, Hct 39.8, MCV 82.8, MCH 25.2 L, MCHC 30.4 L, RDW 20.5 H, Plt Count 544 H, MPV 7.8, Neut % (Auto) 78.1, Lymph % (Auto) 15.4, [place] % (Auto) 5.6, Eos % (Auto) 0.4, Baso % (Auto) 0.5, Neut # (Auto) 14.0 H, Lymph # (Auto) 2.8, [place] # (Auto) 1.0, Eos # (Auto) 0.1, Baso # (Auto) 0.1, Total Counted 100, Neutrophils % (Manual) 82 H, Band Neutrophils % 3.0, Lymphocytes % (Manual) 13, Monocytes % (Manual) 2, Platelet Estimate Slight increase, Hypochromasia 2+, Anisocytosis 2+, Microcytosis 1+, Rouleaux 1+ 12/28/19 05:25: Sodium 135 L, Potassium 3.0 L, Chloride 107, Carbon Dioxide 20 L, Anion Gap 11.0, BUN 8 D, Creatinine 0.60 D, Estimated Creat Clear 69, Estimated GFR 105, Est GFR ( Amer) 128 D, Glucose 58 L D, Calcium 7.9 L I & O for Last 24 hours: Intake & Output 12/25/19 12/26/19 12/27/19 12/28/19 11:59 11:59 11:59 10:59 Intake Total 480 / 480 2887 / 2887 2943 / 2943 3044 / 3044 Output Total 400 / 400 1650 / 1650 1865 / 1865 2600 / 2600 Balance 80 / 80 1237 / 1237 1078 / 1078 444 / 444 Weight 85 lb 9 oz 92 lb 12.8 oz 88 lb 9 oz 86 lb 14.4 oz Microbiology Reports for the Last 24 Hours: Microbiology 12/22/19 22:25 Blood Blood Culture - Final NO GROWTH AFTER 5 DAYS 12/22/19 22:25 Blood Blood Culture - Final NO GROWTH AFTER 5 DAYS Narrative: Patient is awake, able to sit up in the bed. Lungs have good air movement except for smoker's rhonchi. Heart rate regular. Abdomen is soft. No changes in significant joint destruction of hands and wrists. No change in mild edema of her hands, nurses report that her labia is mildly swollen. Lower extremity exam per orthopedics. No focal neurologic deficits. Assessment and Plan (1) Arterial leg ulcer Status: Resolved Category: Medical Code(s): L97.909 - Non-pressure chronic ulcer of unspecified part of unspecified lower leg with unspecified severity (2) PAD (peripheral artery disease) Status: Chronic Category: Medical Code(s): I73.9 - Peripheral vascular disease, unspecified (3) Cellulitis of lower extremity Status: Acute Qualifiers: Laterality: left Qualified Code(s): L03.116 - Cellulitis of left lower limb Category: Medical Code(s): L03.119 - Cellulitis of unspecified part of limb (4) Tobacco use disorder Status: Chronic Category: Medical Code(s): F17.200 - Nicotine dependence, unspecified, uncomplicated (5) Rheumatoid arthritis Status: Chronic Qualifiers: Rheumatoid arthritis location: multiple sites Rheumatoid factor presence: with rheumatoid factor Qualified Code(s): M05.79 - Rheumatoid arthritis with rheumatoid factor of multiple sites without organ or systems involvement Category: Medical Code(s): M06.9 - Rheumatoid arthritis, unspecified (6) History of coronary artery stent placement Status: Chronic Category: Surgical Code(s): Z95.5 - Presence of coronary angioplasty implant and graft (7) Chronic pain Status: Chronic Category: Medical Code(s): G89.29 - Other chronic pain (8) Protein-calorie malnutrition, severe Status: Chronic Category: Medical Code(s): E43 - Unspecified severe protein-calorie malnutrition (9) Hypokalemia Status: Acute Category: Medical Code(s): E87.6 - Hypokalemia (10) Hypocalcemia Status: Acute Category: Medical
--- NOTE | 2019-12-28 16:25 | PC.NURSE ---
Pt has been pleasant and cooperative this shift. A&O X4. Pt has had frequent complaints of pain and has been medicated with Tylenol, Dilaudid, Oxycodone, Zanaflex, and Flexeril. Pt reports favorable results with the combination of these medications. Pt is on room air with sats. > 90%. Faint crackles noted to bilateral lungs. 2+ pitting edema noted to labia and bilateral elbows. IVF DC'd this shift per Dr. Larry. Metoprolol withheld this AM due to consistent low blood pressure and heart rate. LT AKA surgical dressing is C/D/I. Bilateral buttocks ulcerations are covered with Allevyn dressings that are C/D/I. Pt voids clear, yellow urine per bedpan. 1 large, brown, loose BM this shift. Appetite is good and pt eats about 50-75% of all meals. Pt was lifted into the recliner around lunch time and has been sitting up ever since. Implanted port to the RT upper chest is patent and SL. VSS. Call light within reach. Will continue to monitor.
--- NOTE | 2019-12-28 18:14 | P.PN_ITS ---
Subjective Date: 12/28/19 Time: 17:00 Principal diagnosis: PAD, arteral leg ulcer; status post AKA, left Interval history: Patient is status post left AKA, postop day 3. She says she is doing well and reports no problems. She is sitting on a chair. She says she has very little pain and her pain is well controlled with as needed pain medication. She is eating and drinking well. Denies any shortness of breath, chest pain, nausea. PN: Obj Ex Vital signs: Temp Pulse Resp BP Pulse Ox 97.9 F 83 16 102/64 L 97 12/28/19 16:00 12/28/19 16:00 12/28/19 16:00 12/28/19 16:00 12/28/19 16:00 Narrative: Laboratory Results - last 24 hr 12/28/19 05:25: WBC 17.9 H D, RBC 4.81, Hgb 12.1 L, Hct 39.8, MCV 82.8, MCH 25.2 L, MCHC 30.4 L, RDW 20.5 H, Plt Count 544 H, MPV 7.8, Neut % (Auto) 78.1, Lymph % (Auto) 15.4, [place] % (Auto) 5.6, Eos % (Auto) 0.4, Baso % (Auto) 0.5, Neut # (Auto) 14.0 H, Lymph # (Auto) 2.8, [place] # (Auto) 1.0, Eos # (Auto) 0.1, Baso # (Auto) 0.1, Total Counted 100, Neutrophils % (Manual) 82 H, Band Neutrophils % 3.0, Lymphocytes % (Manual) 13, Monocytes % (Manual) 2, Platelet Estimate Slight increase, Hypochromasia 2+, Anisocytosis 2+, Microcytosis 1+, [place]le[place] 1+ 12/28/19 05:25: Sodium 135 L, Potassium 3.0 L, Chloride 107, Carbon Dioxide 20 L , Anion Gap 11.0, BUN 8 D, Creatinine 0.60 D, Estimated Creat Clear 69, Estimated GFR 105, Est GFR ( Amer) 128 D, Glucose 58 L D, Calcium 7.9 L Exam: General appearance: alert, active, awake, no acute distress Cardiovascular: regular rate & rhythm Respiratory: No respiratory distress noted, speaks in full sentences ABD: soft and non tender Neuro: alert, awake, oriented x 3 Psych: Appropriate mood and affect for her situation On examination of the residual left lower extremity, the dressings are clean and dry. Previous AKA on the right side. 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 - Urinary Catheter Management Richard Cath placed during this visit: no Progress Note: A&P (1) Arterial leg ulcer Status: Resolved (2) PAD (peripheral artery disease) Status: Chronic (3) Cellulitis of lower extremity Status: Acute (4) Tobacco use disorder Status: Chronic (5) Rheumatoid arthritis Status: Chronic (6) History of coronary artery stent placement Status: Chronic (7) Chronic pain Status: Chronic (8) Protein-calorie malnutrition, severe Status: Chronic (9) Hypokalemia Status: Acute (10) Hypocalcemia Status: Acute Assessment and Plan for All Diagnoses:: I have reviewed the findings and progress with the patient. Patient is doing well and reports no postoperative problems with regards to her left AKA. No dressings over the residual limb are clean, dry and intact. From an orthopedic standpoint patient can be discharged as appropriate medically. Continue change of dressing as needed-apply nonadhesive dressings. Follow-up in my office in 2 weeks time for suture removal. Continue medical management as per Dr. Larry.
[2019-12-29] VITALS (13 sets, daily range): BP systolic 86–131; BP diastolic 56–78; PULSE 63–118; RESP 16–18; TEMP 36.4–36.9; O2SAT 90–98; BMI 16.9
--- NOTE | 2019-12-29 04:55 | PC.NURSE ---
Pt is A&Ox4. Pt has slept intermittently this shift. Pt has been in recliner entire shift and states it feels more comfortable . Pt has complained of LLE pain and lower back pain multiple times this shift, PRN meds administered per APR. +2 pitting edema noted to labia and bilateral elbows present with non-pitting edema. Rt chest port remains patent and saline locked. Fine crackles heard per auscultation t/o all lung rees. LLE dressing remains CDI. Gluteal ulcerations remain dressed and CDI. remains at bedside. No other acute changes or complaints at this time. Will continue to monitor.
[2019-12-29 07:18] LABS: Basophils # 0.1 K/mm3 (0-0.2); Basophils % 0.4 % (0.1-2.0); Chloride 108 mmol/L (98-107); Eosinophils # 0.2 K/mm3 (0.0-0.4); Eosinophils % 0.9 % (0.1-12.0); Hematocrit 34.9 % (37.0-47.0); Hemoglobin 10.4 g/dL (12.2-16.2); Lymphocytes # 2.5 K/mm3 (0.7-4.5); Lymphocytes % 14.7 % (10-50); Mean Corpuscular HGB Conc 29.9 g/dL (31.8-35.4); Mean Corpuscular Hemoglobin 24.6 pg (27.0-31.2); Mean Corpuscular Volume 82.1 fl (81-99); Mean Platelet Volume 7.3 fl (7.4-10.4); Monocytes # 0.7 K/mm3 (0.1-1.0); Neutrophils # 13.5 K/mm3 (1.8-7.8); Platelet Count 492 K/mm3 (142-424); Potassium 4.6 mmoL/L (3.5-5.1); Red Blood Count 4.25 M/mm3 (4.20-5.40); Red Cell Distribution Width 20.8 % (11.5-17.5); Sodium 133 mmol/L (136-145); White Blood Count 16.9 K/mm3 (4.8-10.8)
[2019-12-29 07:21] LABS: Anion Gap 8.6 mEq/L (5-15); Blood Urea Nitrogen 9 mg/dl (7-17); Calcium 8.2 mg/dl (8.4-10.2); Carbon Dioxide 21 mmol/L (22.0-30.0); Creatinine Clearance Estimated 51 mL/min (50-200); Estimated Glomerular Filt Rate 76 ml/min (>60); GFR (African American) 92 ML/MIN (>60); Glucose 84 mg/dl (74-100)
[2019-12-29 07:33] LABS: MANUAL DIFFERENTIAL MANUAL DIFFERENTIAL (MANUAL DIFF)
--- NOTE | 2019-12-29 07:46 | HMH.ACPN2 ---
Internal Medicine - PN: Subj *Date: 12/29/19 *Time: 07:46 Interval history: Patient is awake, up in a chair, pleasant. Apologizes for her anger regarding wish to be discharged yesterday. Exam Vital signs and Labs for Last 24 Hours: Temp Pulse Resp BP Pulse Ox 98.3 F 84 18 131/73 92 L 12/29/19 04:00 12/29/19 06:21 12/29/19 04:00 12/29/19 04:00 12/29/19 06:21 Laboratory Results - last 24 hr 12/29/19 06:40: WBC 16.9 H, RBC 4.25, Hgb 10.4 L, Hct 34.9 L, MCV 82.1, MCH 24.6 L, MCHC 29.9 L, RDW 20.8 H, Plt Count 492 H, MPV 7.3 L, Neut % (Auto) 80.0, Lymph % (Auto) 14.7, [place] % (Auto) 4.0, Eos % (Auto) 0.9, Baso % (Auto) 0.4, Neut # (Auto) 13.5 H, Lymph # (Auto) 2.5, [place] # (Auto) 0.7, Eos # (Auto) 0.2, Baso # (Auto) 0.1 12/29/19 06:40: Sodium 133 L, Potassium 4.6 D, Chloride 108 H, Carbon Dioxide 21 L, Anion Gap 8.6, BUN 9, Creatinine 0.80 D, Estimated Creat Clear 51, Estimated GFR 76, Est GFR ( Amer) 92 D, Glucose 84, Calcium 8.2 L I & O for Last 24 hours: Intake & Output 12/26/19 12/27/19 12/28/19 12/29/19 12:59 12:59 11:59 11:59 Intake Total 2475 / 2475 Output Total 370 / 370 Balance 2105 / 2105 Weight 86 lb Narrative: Lungs are clear, heart rate regular. Oropharynx clear. No changes in skin exam, color looks good. Skin turgor looks good, edema in the arms look better. Abdomen soft. Examination of lower extremities per Ortho. No changes in neuro exam. Assessment and Plan (1) Arterial leg ulcer Status: Resolved Category: Medical Code(s): L97.909 - Non-pressure chronic ulcer of unspecified part of unspecified lower leg with unspecified severity (2) PAD (peripheral artery disease) Status: Chronic Category: Medical Code(s): I73.9 - Peripheral vascular disease, unspecified (3) Cellulitis of lower extremity Status: Acute Qualifiers: Laterality: left Qualified Code(s): L03.116 - Cellulitis of left lower limb Category: Medical Code(s): L03.119 - Cellulitis of unspecified part of limb (4) Tobacco use disorder Status: Chronic Category: Medical Code(s): F17.200 - Nicotine dependence, unspecified, uncomplicated (5) Rheumatoid arthritis Status: Chronic Qualifiers: Rheumatoid arthritis location: multiple sites Rheumatoid factor presence: with rheumatoid factor Qualified Code(s): M05.79 - Rheumatoid arthritis with rheumatoid factor of multiple sites without organ or systems involvement Category: Medical Code(s): M06.9 - Rheumatoid arthritis, unspecified (6) History of coronary artery stent placement Status: Chronic Category: Surgical Code(s): Z95.5 - Presence of coronary angioplasty implant and graft (7) Chronic pain Status: Chronic Category: Medical Code(s): G89.29 - Other chronic pain (8) Protein-calorie malnutrition, severe Status: Chronic Category: Medical Code(s): E43 - Unspecified severe protein-calorie malnutrition (9) Hypokalemia Status: Acute Category: Medical Code(s): E87.6 - Hypokalemia (10) Hypocalcemia Status: Acute Category: Medical Code(s): E83.51 - Hypocalcemia - Assessment and plan all Dx Assessment and Plan for all problems:: Electrolyte disturbances are improved after correction yesterday. Continue current therapy. Plan for transfer hopefully to [facility] if bed available today or tomorrow.
--- NOTE | 2019-12-29 08:22 | SW/DCPLANNER ---
Addendum entered by Jazmine Lainez 12/30/19 13:57: CANCELLED [facility] AFTER PATIENT WAS VERY ADAMANT SHE WAS GOING HOME... PATIENT AND STATED SHE HAS BEEN IN THE HOSPITAL FOR SEVERAL DAYS AND JUST WANTS TO GO HOME.. SHE REQUESTED HOME HEALTH TO BE SET UP WITH [facility] AND A [facility] AND TRANSFER BOARD WAS ORDERED AND WILL BE DELIVERED TO HER HOME LATER IN THE AFTERNOON.. SHE IS DISCHARGING HOME TODAY AND I HAVE NOTIFIED [facility] TO CANCEL REFERRAL.... Addendum entered by Jazmine Lainez 12/29/19 13:45: PT, SHIV MARTINEZ CAME IN AND SAID PATIENT IS SAFE TO GO HOME... HER INFORMATION WAS SENT TO [facility] AND CURRENTLY WAITING TO HEAR TO WHETHER SHE HAS BEEN ACCEPTED.. HOPEFUL SHE WILL GO IF ACCEPTED.. Original Note: SENT UPDATED INFORMATION ON THIS PATIENT TO [facility] THIS MORNING... I HAVE BEEN IN CONTACT WITH [facility] AND INFORMED HER THAT DR ZAMORA STATED PATIENT IS MEDICALLY READY FOR A DISPOSITION IF THERE IS A BED THERE FOR HER... [facility] REQUESTED ADDITIONAL INFORMATION TO BE SENT.. WAITING TO HEAR BACK, IF ACCEPTED AND MEDICALLY STABLE SHE CAN GO [facility]....
[2019-12-29 08:58] LABS: Lymphocytes % 20 % (10-50); Monocytes % 5 % (2-9); Neutrophils % 75 % (42-76); Platelet Estimate Normal; Total Cells Counted 100
[2019-12-29 08:59] LABS: Anisocytosis 1+; Hypochromasia 1+
--- NOTE | 2019-12-29 10:21 | HMH.PULMPN ---
Internal Medicine - PN: Subj *Date: 12/29/19 *Time: 10:21 Interval history: No acute respiratory events over the weekend Exam - Constitutional Constitutional:: no acute distress - HENMT Exam HENMT: normocephalic, atraumatic - Eye Exam Eyes:: normal appearance both eyes and related structures - Neck Exam Neck:: normal visual inspection, thyroid normal, no lymphadenopathy - Respiratory Exam Respiratory:: able to speak in complete sentences, normal breath sounds, normal respiratory effort Comments: Bibasilar crackles heard - Cardiovascular Exam Cardiac:: regular rhythm, chest pain - GI Exam GI:: soft, no hepatosplenomegaly - Neurological Exam Neurological: alert, awake, oriented X3 - Extremities Exam Extremities: no cyanosis, no clubbing Comments: Bilateral lower extremity amputation Assessment and Plan (1) Arterial leg ulcer Status: Resolved Category: Medical Code(s): L97.909 - Non-pressure chronic ulcer of unspecified part of unspecified lower leg with unspecified severity (2) PAD (peripheral artery disease) Status: Chronic Category: Medical Code(s): I73.9 - Peripheral vascular disease, unspecified (3) Cellulitis of lower extremity Status: Acute Qualifiers: Laterality: left Qualified Code(s): L03.116 - Cellulitis of left lower limb Category: Medical Code(s): L03.119 - Cellulitis of unspecified part of limb (4) Tobacco use disorder Status: Chronic Category: Medical Code(s): F17.200 - Nicotine dependence, unspecified, uncomplicated (5) Rheumatoid arthritis Status: Chronic Qualifiers: Rheumatoid arthritis location: multiple sites Rheumatoid factor presence: with rheumatoid factor Qualified Code(s): M05.79 - Rheumatoid arthritis with rheumatoid factor of multiple sites without organ or systems involvement Category: Medical Code(s): M06.9 - Rheumatoid arthritis, unspecified (6) History of coronary artery stent placement Status: Chronic Category: Surgical Code(s): Z95.5 - Presence of coronary angioplasty implant and graft (7) Chronic pain Status: Chronic Category: Medical Code(s): G89.29 - Other chronic pain (8) Protein-calorie malnutrition, severe Status: Chronic Category: Medical Code(s): E43 - Unspecified severe protein-calorie malnutrition (9) Hypokalemia Status: Acute Category: Medical Code(s): E87.6 - Hypokalemia (10) Hypocalcemia Status: Acute Category: Medical Code(s): E83.51 - Hypocalcemia - Assessment and plan all Dx Assessment and Plan for all problems:: # Anti-Phospholipid Syndrome #Rheumatoid arthritis: #Interstitial lung disease: HRCT from this admission showed bilateral lower lobe interstitial changes consistent with pulmonary fibrosis, no obvious groundglass opacities noted. Trace pleural effusions noted bilaterally. chest x-ray from 12/[address] abdomen from 12/2013 that showing lower lung rees are within normal limits. I am concerned that rheumatoid arthritis is affecting her lung disease leadind to RA - ILD and eventually progressed to pulmonary fibrosis. Given her worsening of x-ray compared from December 2018, patient will definitely need rheumatology follow-up to evaluate for her rheumatoid arthritis at this seems not to be under control and patient likely to be resumed on her Humira that was discontinued last year Plan; - Coordinate with primary care to have a rheumatology follow-up to evaluate for this patient's rheumatoid arthritis (from the chart review patient is having erosive rheumatoid arthritis that might warrant disease modifying agents along with Plaquenil) - We will follow in the clinic in 6 weeks post discharge will full PFTs. #COPD: 49-year-old female more than [id number] smoker history currently smoking 1 pack a day history of rheumatoid arthritis previously on Humira on Plaquenil, stopped taking Humira for the last 1 year presented with lower extremity cellulitis
--- NOTE | 2019-12-29 11:36 | PC.NURSE ---
RN notified of BP.
--- NOTE | 2019-12-29 13:09 | DIET.NUTRFU ---
Pt doing well nutritionally, has tolerated diet and with baseline appetite. PO intakes 50% + nutritional supplements qid, good acceptance supplements. She has been educated on high protein low sodium diet. No complaints or further nutritional needs at this time, continuing to monitor.
[2019-12-29 15:30] LABS: Vancomycin,Trough 12.1 ug/mL (5.0-10.0)
--- NOTE | 2019-12-29 16:16 | HMH.PHACONS ---
- Pharmacy Consult Date: 12/29/19 Time: 16:16 Referring provider: DR. ZAMORA Reason for Consult:: VANCOMYCIN TROUGH LEVEL Allergies and ADEs:: Allergies Allergy/AdvReac Type Severity Reaction Status Date / Time gabapentin [GABAPENTIN] Allergy Severe HALLUCINATI Verified 11/23/17 08:00 ONS methadone [METHADONE] Allergy Severe THROAT Verified 11/23/17 08:00 CLOSES codeine [CODEINE] Allergy Mild NA-NAUSEA Verified 11/23/17 08:00 Home Medications:: Home Medications Medication Instructions Recorded Confirmed Type Warfarin Sodium [Coumadin] 4 mg PO DAILY 11/23/17 12/23/19 History Albuterol Sulfate [Proair Hfa 2 puffs IH QIDP PRN 02/08/18 12/23/19 History 90mcg/puff Inh] Clopidogrel Bisulfate [Clopidogrel 75 mg PO DAILY 02/08/18 12/23/19 History 75mg Tab] Cyclobenzaprine HCl 10 mg PO TIDP PRN 02/08/18 12/23/19 History [Cyclobenzaprine 10mg Tab*] Ferrous Sulfate 325 mg PO BID 02/08/18 12/23/19 History Folic Acid [Folic Acid 1mg tablet] 1 mg PO DAILY 02/08/18 12/23/19 History Hydroxychloroquine Sulfate 400 mg PO DAILY 02/08/18 12/23/19 History [Plaquenil 200mg tablet] Levothyroxine Sodium 50 mcg PO DAILY 02/08/18 12/23/19 History [Levothyroxine 50mcg (0.05mg) Tab] Meloxicam [Mobic 15 mg tab] 15 mg PO DAILY 02/08/18 12/23/19 History Metoprolol Tartrate 50 mg PO DAILY 02/08/18 12/23/19 History Oxycodone HCl/Acetaminophen 1 tab PO QID PRN 02/08/18 12/23/19 History [Oxycodone W/Apap 325mg Tablet] Pravastatin Sodium [Pravachol] 40 mg PO HS 02/08/18 12/23/19 History Promethazine HCl [Phenergan 25mg 25 mg PO Q6HP PRN 02/08/18 12/23/19 History tab] Tizanidine HCl [Zanaflex 4mg 8 mg PO TID PRN 02/08/18 12/23/19 History tab] cilostazoL [Pletal 100mg tablet] 100 mg PO BID 02/08/18 12/23/19 History predniSONE [Deltasone 20mg 20 mg PO DAILYP PRN 02/08/18 12/23/19 History tablet] Nicotine [Nicoderm 21mg/24hr 21 mg TD DAILYP PRN patch.td24 02/12/18 12/23/19 Rx patch] Collagenase Clostridium Hist. 1 gm TP DAILY 05/05/18 12/23/19 History [Santyl Ointment 30gm] Famotidine [Pepcid 20mg Tablet] 20 mg PO BID 12/23/19 12/23/19 History Height: 1.52 m Weight: 39.009 kg Laboratory Results:: Laboratory Results - last 24 hr 12/25/19 07:00: Crossmatch (AHG) See Detail 12/29/19 06:40: WBC 16.9 H, RBC 4.25, Hgb 10.4 L, Hct 34.9 L, MCV 82.1, MCH 24.6 L, MCHC 29.9 L, RDW 20.8 H, Plt Count 492 H, MPV 7.3 L, Neut % (Auto) 80.0, Lymph % (Auto) 14.7, [place] % (Auto) 4.0, Eos % (Auto) 0.9, Baso % (Auto) 0.4, Neut # (Auto) 13.5 H, Lymph # (Auto) 2.5, [place] # (Auto) 0.7, Eos # (Auto) 0.2, Baso # (Auto) 0.1, Total Counted 100, Neutrophils % (Manual) 75, Lymphocytes % (Manual) 20, Monocytes % (Manual) 5, Platelet Estimate Normal, Hypochromasia 1+, Anisocytosis 1+ 12/29/19 06:40: Sodium 133 L, Potassium 4.6 D, Chloride 108 H, Carbon Dioxide 21 L, Anion Gap 8.6, BUN 9, Creatinine 0.80 D, Estimated Creat Clear 51, Estimated GFR 76, Est GFR ( Amer) 92 D, Glucose 84, Calcium 8.2 L 12/29/19 15:10: Vancomycin Trough 12.1 H Medical History: Reports:: Congestive Heart Failure, Coronary Artery Disease, Lung Disease, Myocardial Infarction, Peripheral Artery Disease Denies:: Cancer, Diabetes Mellitus Type 1, Diabetes Mellitus Type 2, MRSA Assessment and Plan (1) Arterial leg ulcer Status: Resolved Category: Medical Code(s): L97.909 - Non-pressure chronic ulcer of unspecified part of unspecified lower leg with unspecified severity (2) PAD (peripheral artery disease) Status: Chronic Category: Medical Code(s): I73.9 - Peripheral vascular disease, unspecified (3) Cellulitis of lower extremity Status: Acute Qualifiers: Laterality: left Qualified Code(s): L03.116 - Cellulitis of left lower limb Category: Medical Code(s): L03.119 - Cellulitis of unspecified part of limb (4) Tobacco use disorder Status: Chronic Category: Medical Code(s): F17.200 - Nicotine depen
--- NOTE | 2019-12-29 19:20 | PC.NURSE ---
report given to wil
--- NOTE | 2019-12-29 20:17 | PC.NURSE ---
Pt unable to take PM meds this shift. States she can not take them whole, prefers them crushed in applesauce. This RN crushed all meds and placed them in applesauce as requested by pt. Pt spit all medication out after being administered stating she can't do it tonight . Refused to take the rest of leftover medication that had not been administered.
[2019-12-30] VITALS: BP 129/80; PULSE 131; RESP 16; TEMP 36.9; O2SAT 98
--- NOTE | 2019-12-30 00:35 | PC.NURSE ---
Pt and left unit after being told by this RN to stay on unit while walking around. Both were found in ER lobby by this RN and escorted back to unit with provided instructions of staying within the unit doors. Both pt and verbalized understanding at this time.
--- NOTE | 2019-12-30 02:18 | PC.NURSE ---
Dsg to left stump noted falling off. Pt's rang call light stating he needed a nurse. Upon entering the room, this RN noticed the had already taken the loose dsg off the sx site. This RN reapplied a non-adherent dsg to left stump sx site. New dsg noted c/d/i.
--- NOTE | 2019-12-30 02:47 | PC.NURSE ---
Pt is alert and oriented x4. Pt noted restless thus far this shift. Pt states she sleeps in her chair at home, therefore has remained in her chair for majority of this shift. PERRLA. Bilateral hand sheet cutting operator noted equal and strong. Cap refill < 3 seconds. Bilateral breath sounds noted clear t/o upon auscultation. Tolerated RA well with no c/o SOA. C/o mild pain to back and left leg. Rating pain at most an 8/10 on pain scale. Administered meds per mar. Upon reassessment pt states adequate pain relief. RUE skin noted seeping with fluids. Placed absorbent pad under arm, pt refused tp let this RN elevated arm while sitting in chair. Pt states the pillows hurt her shoulders. Encouraged elevation of bilateral arms due to edema. Abdomen noted soft and non-tender upon palpation. Left stump dsg noted c/d/i after dsg change this am. VSS. Pt's noted at bedside t/o shift. He prefers to provide her care if able. Pt states she is ready to go home . Remains safe. Call light within reach. Will continue to monitor.
[2019-12-30 04:00] VITALS: BP 133/87; PULSE 116; RESP 16; TEMP 36.6; O2SAT 98
[2019-12-30 05:00] VITALS: BMI 16.2
[2019-12-30 05:47] VITALS: PULSE 112; PULSE 115; O2SAT 99
[2019-12-30 06:27] LABS: Basophils # 0.1 K/mm3 (0-0.2); Basophils % 0.5 % (0.1-2.0); Eosinophils # 0.2 K/mm3 (0.0-0.4); Eosinophils % 0.9 % (0.1-12.0); Hematocrit 39.8 % (37.0-47.0); Lymphocytes # 2.3 K/mm3 (0.7-4.5); Lymphocytes % 13.8 % (10-50); Mean Corpuscular Hemoglobin 24.7 pg (27.0-31.2); Mean Corpuscular Volume 85.4 fl (81-99); Mean Platelet Volume 7.5 fl (7.4-10.4); Monocytes # 0.6 K/mm3 (0.1-1.0); Monocytes % 3.7 % (1.7-9.3); Neutrophils # 13.8 K/mm3 (1.8-7.8); Neutrophils % 81.2 % (37.0-80.0); Platelet Count 521 K/mm3 (142-424); Red Blood Count 4.66 M/mm3 (4.20-5.40); Red Cell Distribution Width 21.7 % (11.5-17.5)
[2019-12-30 06:33] LABS: Chloride 106 mmol/L (98-107); Potassium 3.7 mmoL/L (3.5-5.1); Sodium 135 mmol/L (136-145)
[2019-12-30 06:36] LABS: Anion Gap 10.7 mEq/L (5-15); Blood Urea Nitrogen 8 mg/dl (7-17); Calcium 8.4 mg/dl (8.4-10.2); Carbon Dioxide 22 mmol/L (22.0-30.0); Estimated Glomerular Filt Rate 105 ml/min (>60); GFR (African American) 128 ML/MIN (>60); Glucose 75 mg/dl (74-100)
[2019-12-30 07:02] LABS: MANUAL DIFFERENTIAL MANUAL DIFFERENTIAL (MANUAL DIFF)
[2019-12-30 07:17] LABS: Creatinine Clearance Estimated 66 mL/min (50-200)
[2019-12-30 07:43] VITALS: BP 138/76; PULSE 130; RESP 18; TEMP 36.8; O2SAT 98
[2019-12-30 08:16] LABS: Lymphocytes % 20 % (10-50); Monocytes % 2 % (2-9); Neutrophils % 78 % (42-76); Platelet Estimate Marked Increase; RBC Morphology Normal; Total Cells Counted 100
[2019-12-30 09:13] LABS: Hemoglobin 11.5 g/dL (12.2-16.2)
--- NOTE | 2019-12-30 09:24 | HMH.DCSUM ---
General - General Admission date:: 12/23/19 Discharge date: 12/30/19 HPI HPI: Mrs. Esteban is a 49yo F with stents of history of destructive rheumatoid arthritis, tobacco use, peripheral arterial disease, coronary artery disease, chronic steroid use (immunocompromise), antiphospholipid syndrome on chronic warfarin therapy, and chronic pain. She presented to the ER due to worsening pain and drainage from a left leg wound. Of note she sustained a wound to her left medial leg approximately 7 months ago when trying to enter a vehicle. Wound initially treated in the ER with some stitches but never healed properly. Has had chronic arterial ulceration with granulation tissue and undermining of larger medial wound. Was seen in the office approximately 7 to 8 weeks ago due to nonhealing ulcer and sent to wound management for further care out of concern for risk of infection. Has not been back to wound care in a few weeks but has since developed inflammation, bruising, drainage from the lateral aspect of her lower leg as well. On assessment the ER she was noted to have significant redness, pain, swelling of lower extremity. Purulent drainage from both aspects of her leg. Labs remarkable for leukocytosis, elevated phlegm Giovanni markers, and grossly abnormal INR. 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 Vancomycin initiated in the ER and blood cultures obtained. On assessment this morning, patient complaining of pain that is throbbing in character. Is afebrile but tachycardic. Hemodynamically stable. at bedside. Hospital Course Hospital Course: Mrs. Esteban is a 49-year-old female with complex past medical history of severe RA, peripheral artery disease, chronic pain, COPD. She was admitted for cellulitis and infection of chronic arterial ulcer left lower extremity. Started on broad-spectrum antibiotics. Orthopedics consulted for possible amputation given peripheral artery disease and chronic nonhealing ulcer as source for infection. Cardiology was also consulted to assist with assessing blood flow to lower extremity and clearance for surgery. Ultimately decision made to amputate left lower extremity just above the knee. Patient tolerated the procedure well with significant improvement in her pain after surgery. Antibiotics continued during hospitalization for empiric coverage however source control was achieved with amputation of leg so antibiotics were discontinued at time of discharge. Patient's pain was easier to control with intermittent Dilaudid doses in addition to her chronic opiate regimen. Overall she did well during hospitalization. Physical therapy consulted to assist with placement recommendations. Initial recommendation supported rehab at time of discharge however patient showed exceptional effort, and was able to transfer with minimal assist, demonstrated surprising level of independence, and was assessed to be at a level where she could discharge to the home setting where she has assistance as long as she has appropriate adaptive devices. Extensive discussion on day of discharge with patient about wound care, rehab recommendations, patient desire to go home, and medical recommendation for alf placement in rehab at least for a short period of time. I expressed my concern that going home puts her at risk for recurrent infection at her surgical site, she will have less than optimal physical therapy in the home setting compared to inpatient/alf setting, and has increased risk for morbidity including further amputation if complications arise with her surgical wound. She stated along with her however they felt very comfortable going home, she was adamant about going to the home setting and being around family. Was amenable to Coumadin clinic to help manage her warfarin, amenable to home health for physical therapy and wound care, and had many adaptive devices already, would j
--- NOTE | 2019-12-30 09:57 | HMH.PULMPN ---
Internal Medicine - PN: Subj *Date: 12/30/19 *Time: 09:57 Interval history: No acute respiratory events overnight. Patient remained on room air. Exam - Constitutional Constitutional:: no acute distress, comfortable - HENMT Exam HENMT: normocephalic, atraumatic - Eye Exam Eyes:: normal appearance both eyes and related structures - Neck Exam Neck:: normal visual inspection, thyroid normal, no lymphadenopathy - Respiratory Exam Respiratory:: able to speak in complete sentences Comments: Bibasilar coarse crackles heard - Cardiovascular Exam Cardiac:: S1, S2 - GI Exam GI:: soft, no hepatosplenomegaly - Extremities Exam Comments: Bilateral lower extremity amputations - Psychiatric Exam Psychiatric: normal affect Assessment and Plan (1) Arterial leg ulcer Status: Resolved Category: Medical Code(s): L97.909 - Non-pressure chronic ulcer of unspecified part of unspecified lower leg with unspecified severity (2) PAD (peripheral artery disease) Status: Chronic Category: Medical Code(s): I73.9 - Peripheral vascular disease, unspecified (3) Cellulitis of lower extremity Status: Acute Qualifiers: Laterality: left Qualified Code(s): L03.116 - Cellulitis of left lower limb Category: Medical Code(s): L03.119 - Cellulitis of unspecified part of limb (4) Tobacco use disorder Status: Chronic Category: Medical Code(s): F17.200 - Nicotine dependence, unspecified, uncomplicated (5) Rheumatoid arthritis Status: Chronic Qualifiers: Rheumatoid arthritis location: multiple sites Rheumatoid factor presence: with rheumatoid factor Qualified Code(s): M05.79 - Rheumatoid arthritis with rheumatoid factor of multiple sites without organ or systems involvement Category: Medical Code(s): M06.9 - Rheumatoid arthritis, unspecified (6) History of coronary artery stent placement Status: Chronic Category: Surgical Code(s): Z95.5 - Presence of coronary angioplasty implant and graft (7) Chronic pain Status: Chronic Category: Medical Code(s): G89.29 - Other chronic pain (8) Protein-calorie malnutrition, severe Status: Chronic Category: Medical Code(s): E43 - Unspecified severe protein-calorie malnutrition (9) Hypokalemia Status: Acute Category: Medical Code(s): E87.6 - Hypokalemia (10) Hypocalcemia Status: Acute Category: Medical Code(s): E83.51 - Hypocalcemia - Assessment and plan all Dx Assessment and Plan for all problems:: # Anti-Phospholipid Syndrome #Rheumatoid arthritis: #Interstitial lung disease: HRCT from this admission showed bilateral lower lobe interstitial changes consistent with pulmonary fibrosis, no obvious groundglass opacities noted. Trace pleural effusions noted bilaterally. chest x-ray from 12/[address] abdomen from 12/2013 that showing lower lung rees are within normal limits. I am concerned that rheumatoid arthritis is affecting her lung disease leading to RA - ILD and eventually progressed to pulmonary fibrosis. Given her worsening of x-ray compared from December 2018, patient will definitely need rheumatology follow-up to evaluate for her rheumatoid arthritis at this seems not to be under control and patient likely to be resumed on her Humira that was discontinued last year. Patient stable on room air saturating 98% and above Plan; - Coordinate with primary care to have a rheumatology follow-up to evaluate for this patient's rheumatoid arthritis (from the chart review patient is having erosive rheumatoid arthritis that might warrant disease modifying agents along with Plaquenil either be methotrexate or Humira based on her insurance issues, plan personally discussed with the primary team) - We will follow in the clinic in 6 weeks post discharge will full PFTs. #COPD: 49-year-old female more than [id number] smoker history currently smoking 1 pack a day history of rheumatoid arthritis previously on Humira on Plaquenil
[2019-12-30 11:20] VITALS: PULSE 110; O2SAT 97
[2019-12-30 11:25] VITALS: BP 123/86; PULSE 112; RESP 16; TEMP 36.8; O2SAT 96
--- NOTE | 2019-12-30 13:08 | PC.NURSE ---
came to patients room and changed dressing. Advised patient to leave wound uncovered when showering at home but to apply a new dressing when out of shower. Patient was advised to follow up with in 14 days. Appointment made.
--- NOTE | 2019-12-30 13:46 | PC.NURSE ---
patient is resting comfortably in recliner watching television. Patient is anxious regarding possible discharge today. Patient would benefit from a roho cushion to prevent in worsening or new pressure ulcers and skin breakdown on sacrum. Patient would also benefit with having a transfer bench to assist in transferring to chair due to patients inability to ambulate following amputation of leg.
--- NOTE | 2019-12-30 14:39 | HMH.ORTHPN ---
Subjective Date: 12/30/19 Time: 12:30 Principal diagnosis: PAD, arteral leg ulcer; status post AKA, left Interval history: Patient is status post left AKA, postop day 5. She says she is doing well and reports no problems. She is sitting out on a chair. She says she has very little pain and her pain is well controlled with as needed pain medication. She is eating and drinking well. Denies any shortness of breath, chest pain, nausea. She says the dressings fell off last night and the nurse reapplied dressings over the incision. She is being discharged home today with home health. PN: Obj Ex Vital signs: Temp Pulse Resp BP Pulse Ox 98.2 F 112 H 16 123/86 96 12/30/19 11:25 12/30/19 11:25 12/30/19 11:25 12/30/19 11:25 12/30/19 11:25 Narrative: Laboratory Results - last 24 hr 12/25/19 07:00: Crossmatch (AHG) See Detail 12/29/19 15:10: Vancomycin Trough 12.1 H 12/30/19 05:35: WBC 17.0 H, RBC 4.66, Hgb 11.5 L D, Hct 39.8, MCV 85.4, MCH 24.7 L, MCHC 29.0 L, RDW 21.7 H, Plt Count 521 H, MPV 7.5, Neut % (Auto) 81.2 H, Lymph % (Auto) 13.8, [place] % (Auto) 3.7, Eos % (Auto) 0.9, Baso % (Auto) 0.5, Neut # (Auto) 13.8 H, Lymph # (Auto) 2.3, [place] # (Auto) 0.6, Eos # (Auto) 0.2, Baso # (Auto) 0.1, Total Counted 100, Neutrophils % (Manual) 78 H, Lymphocytes % (Manual) 20, Monocytes % (Manual) 2, Platelet Estimate Marked increase, RBC Morphology Normal 12/30/19 05:35: Sodium 135 L, Potassium 3.7, Chloride 106, Carbon Dioxide 22, Anion Gap 10.7, BUN 8, Creatinine 0.60 D, Estimated Creat Clear 66, Estimated GFR 105, Est GFR ( Amer) 128 D, Glucose 75, Calcium 8.4 Exam: General appearance: alert, active, awake, no acute distress Cardiovascular: regular rate & rhythm Respiratory: No respiratory distress noted, speaks in full sentences ABD: soft and non tender Neuro: alert, awake, oriented x 3 Psych: Appropriate mood and affect for her situation On examination of the residual left lower extremity, the dressings are clean and dry. I have changed the dressings today and applied new nonadhesive dressings. The suture line looks healthy and well perfused. No evidence of any infection or other complications are noted. Previous AKA on the right side. 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 - Urinary Catheter Management Richard Cath placed during this visit: no Progress Note: A&P (1) Arterial leg ulcer Status: Resolved (2) PAD (peripheral artery disease) Status: Chronic (3) Cellulitis of lower extremity Status: Resolved (4) Tobacco use disorder Status: Chronic (5) Rheumatoid arthritis Status: Chronic (6) History of coronary artery stent placement Status: Chronic (7) Chronic pain Status: Chronic (8) Protein-calorie malnutrition, severe Status: Chronic (9) Hypokalemia Status: Acute (10) Hypocalcemia Status: Acute Assessment and Plan for All Diagnoses:: I have reviewed the findings and progress with the patient. Patient is doing well and reports no postoperative problems with regards to her left AKA. The dressings changed today and surgical incision is looking healthy and healing well. No signs of infection or other complications noted. Patient is being discharged home with home health today. Continue change of dressing as needed-apply nonadhesive dressings. Follow-up in my office in 10 to 14 days time for suture removal. Continue medical management as per Dr. Larry/Dr. Draper.
[2019-12-30 14:47] LABS: Procalcitonin 0.192 ng/mL (0.0-2.0)
== END 2019-12-30 14:50 | disposition home or self-care (01) | DRG 239 ==
LOC: ER 12-23 01:24 → 2ND 12-23 13:24
PROVIDERS: Internal Medicine; Internal Medicine Adolescent Medicine; Nurse Anesthetist, Certified Registered; Orthopaedic Surgery; Physician Assistant; Admitting Provider Family Medicine; Emergency Provider Emergency Medicine; PCP Internal Medicine Adolescent Medicine; Visit Provider Internal Medicine Adolescent Medicine
PROC: 0Y6D0Z3 Detachment at Left Upper Leg, Low, Open Approach (ICD-10-PCS; CPT 27590; principal; 2019-12-25 10:00)
DX: I70.262 Atherosclerosis of native arteries of extremities with gangrene, left leg (principal); E43 Unspecified severe protein-calorie malnutrition; L03.116 Cellulitis of left lower limb; L97.202 Non-pressure chronic ulcer of unspecified calf with fat layer exposed; Z68.1 Body mass index [BMI] 19.9 or less, adult; L97.826 Non-pressure chronic ulcer of other part of left lower leg with bone involvement without evidence of necrosis; I70.92 Chronic total occlusion of artery of the extremities; M86.662 Other chronic osteomyelitis, left tibia and fibula; Z86.19 Personal history of other infectious and parasitic diseases; R79.1 Abnormal coagulation profile; E03.9 Hypothyroidism, unspecified; M05.79 Rheumatoid arthritis with rheumatoid factor of multiple sites without organ or systems involvement; I77.1 Stricture of artery; Z79.01 Long term (current) use of anticoagulants; Z72.0 Tobacco use; Z95.5 Presence of coronary angioplasty implant and graft; Z99.3 Dependence on wheelchair; Z79.52 Long term (current) use of systemic steroids; G89.4 Chronic pain syndrome; I69.398 Other sequelae of cerebral infarction; I69.311 Memory deficit following cerebral infarction
CPT/HCPCS: 27590; 36415; 71045; 71250; 73590; 73620; 73700; 75635; 80048; 80053; 80202; 83605; 83735; 84145; 85007; 85014; 85018; 85025; 85610; 85651; 85730; 86140; 86328; 86850; 87040; 87070; 87075; 87077; 87186; 87205; 87581; 87633; 87798; 88307; 88311; 90686; 94640; 94761; 96365; 96367; 96375; 97110; 97162; 97166; 97530; 99284; J2405; J2710; J3370; P9016; Q9967

== ENCOUNTER 2020-01-02 13:09 | Outpatient (CLI) | payer OTHER, SELFPAY ==
[2020-01-02 15:11] LABS: PHA INR Fingerstick 1.6 (0.9-1.1)
--- NOTE | 2020-01-06 11:08 | HMH.PHAINT ---
Addendum entered and electronically signed by Dea Damon PharmD 01/07/20 15:10: [facility]-01/07/20 CALLED PATIENT X3 AND LEFT MESSAGE TO RETURN CALL FOR FOLLOW UP. Original Note: [facility]-01/05/20 PATIENT DID NOT SHOW UP FOR FOLLOW UP IN COUMADIN CLINIC 01/05/20. [facility]-01/06/20 CALLED PATIENT AND LEFT MESSAGE TO RETURN CALL FOR FOLLOW UP.
--- NOTE | 2020-01-09 10:14 | HMH.PHAINT ---
[facility]-01/09/2020--CALLED PATIENT THIS AM ~1000. PATIENT INDICATED SHE THOUGHT SHE SHOULD BE ABLE TO MAKE IT IN TODAY FOR INR CHECK. INSTRUCTED PATIENT TO CALL BACK SOON POSSIBLE TO CONFIRM. PATIENT MISSED APPOINTMENT THIS WEEK ALREADY AND WAS NOT RETURNING PHONE CALLS. MD CONTACTED PATIENT AND ME YESTERDAY ABOUT FOLLOWING UP IN COUMADIN CLINIC.
--- NOTE | 2020-01-09 15:46 | HMH.PHAINT ---
[facility]-01/09/2020- LEFT MESSAGE AGAIN WITH ANSWERING MACHINE. INSTRUCTED PATIENT TO CALL WITH INTENTIONS TO EITHER COME IN FOR COUMADIN CLINIC OR LAB TO INR. INFORMED PATIENT OF HOURS OF COUMADIN CLINIC BUT THAT I WILL ALSO BE HERE FROM 0800 TO 1500 TOMORROW.
== END 2020-01-02 15:15 | disposition home or self-care (01) ==
LOC: ACC 13:11
PROVIDERS: PCP Internal Medicine Adolescent Medicine; Visit Provider Internal Medicine Adolescent Medicine
DX: Z51.81 Encounter for therapeutic drug level monitoring (principal); Z79.01 Long term (current) use of anticoagulants
CPT/HCPCS: 85610; G0463

== ENCOUNTER 2020-01-13 16:07 | Outpatient (CLI) | payer OTHER, SELFPAY ==
[2020-01-13 16:29] LABS: PHA INR Fingerstick 1.8 (0.9-1.1)
--- NOTE | 2020-02-09 14:50 | HMH.PHAINT ---
[facility]-02/09/20- HAVE TRIED TO CALL PATIENT MULTIPLE TIMES WITH NO RESULTS. PATIENT'S ANSWERING MACHINE EITHER NOT TAKING MESSAGES OR PATIENT NOT ANSWERING. WILL CONTINUE TO CALL POSSIBLE.
== END 2020-01-13 16:35 | disposition home or self-care (01) ==
PROVIDERS: PCP Internal Medicine Adolescent Medicine; Visit Provider Internal Medicine Adolescent Medicine
DX: Z51.81 Encounter for therapeutic drug level monitoring (principal); Z79.01 Long term (current) use of anticoagulants
CPT/HCPCS: 85610; 99211; G0463

== ENCOUNTER 2020-02-18 12:45 | Outpatient (CLI) | payer OTHER, SELFPAY ==
[2020-02-18 13:02] VITALS: BMI 16.0
[2020-02-18 13:24] LABS: Basophils % 0.2 % (0.1-2.0); Eosinophils % 0.1 % (0.1-12.0); Hematocrit 38.6 % (37.0-47.0); Hemoglobin 10.9 g/dL (12.2-16.2); Lymphocytes # 0.9 K/mm3 (0.7-4.5); Lymphocytes % 13.7 % (10-50); Mean Corpuscular HGB Conc 28.3 g/dL (31.8-35.4); Mean Corpuscular Hemoglobin 24.8 pg (27.0-31.2); Mean Corpuscular Volume 87.6 fl (81-99); Monocytes # 0.2 K/mm3 (0.1-1.0); Monocytes % 2.3 % (1.7-9.3); Neutrophils # 5.3 K/mm3 (1.8-7.8); Neutrophils % 83.7 % (37.0-80.0); Platelet Count 423 K/mm3 (142-424); Red Blood Count 4.41 M/mm3 (4.20-5.40); Red Cell Distribution Width 17.5 % (11.5-17.5); White Blood Count 6.3 K/mm3 (4.8-10.8)
[2020-02-18 13:29] LABS: Chloride 103 mmol/L (98-107); Potassium 3.8 mmoL/L (3.5-5.1); Sodium 136 mmol/L (136-145)
[2020-02-18 13:31] LABS: Blood Urea Nitrogen 18 mg/dl (7-17); Creatinine Clearance Estimated 98 mL/min (50-200); Estimated Glomerular Filt Rate 168 ml/min (>60); GFR (African American) 204 ML/MIN (>60)
[2020-02-18 13:32] LABS: Alanine Aminotransferase 21 U/L (12-78); Albumin Level 2.8 g/dl (3.5-5.0); Albumin/Globulin Ratio 0.8 (1.1-1.8); Alkaline Phosphatase 95 U/L (38-126); Anion Gap 8.8 mEq/L (5-15); Aspartate Amino Transferase 24 U/L (14-36); Bilirubin,Total 0.2 mg/dl (0.2-1.3); Calcium 8.4 mg/dl (8.4-10.2); Carbon Dioxide 28 mmol/L (22.0-30.0); Globulin 3.7 g/dL (1.3-3.2); Glucose 196 mg/dl (74-100); Total Protein,Serum 6.5 g/dl (6.3-8.2)
[2020-02-18 13:50] LABS: INR 2.63 (0.9-1.1); Prothrombin Time 26.7 seconds (9.4-11.8)
== END 2020-02-18 13:20 | disposition home or self-care (01) ==
LOC: INF 12:54
PROVIDERS: PCP Internal Medicine Adolescent Medicine; Visit Provider Internal Medicine Adolescent Medicine
DX: L89.153 Pressure ulcer of sacral region, stage 3 (principal); D68.61 Antiphospholipid syndrome; Z45.2 Encounter for adjustment and management of vascular access device; Z51.81 Encounter for therapeutic drug level monitoring; Z79.01 Long term (current) use of anticoagulants
CPT/HCPCS: 80053; 85025; 85610; J1642

== ENCOUNTER 2020-03-01 09:18 | Emergency (ER) | payer OTHER, SELFPAY ==
[2020-03-01 09:19] VITALS: BP 128/83; PULSE 120; RESP 20; TEMP 36.6; O2SAT 95; BMI 17.2
[2020-03-01 09:44] VITALS: BP 128/83; PULSE 84; RESP 20; O2SAT 96
[2020-03-01 10:13] LABS: Basophils % 0.2 % (0.1-2.0); Eosinophils # 0.2 K/mm3 (0.0-0.4); Eosinophils % 1.5 % (0.1-12.0); Hematocrit 36.1 % (37.0-47.0); Hemoglobin 10.8 g/dL (12.2-16.2); Lymphocytes % 13.4 % (10-50); Mean Corpuscular Hemoglobin 25.5 pg (27.0-31.2); Mean Corpuscular Volume 84.9 fl (81-99); Mean Platelet Volume 7.1 fl (7.4-10.4); Monocytes # 0.6 K/mm3 (0.1-1.0); Monocytes % 3.6 % (1.7-9.3); Neutrophils # 12.4 K/mm3 (1.8-7.8); Neutrophils % 81.3 % (37.0-80.0); Platelet Count 628 K/mm3 (142-424); Red Blood Count 4.25 M/mm3 (4.20-5.40); Red Cell Distribution Width 16.8 % (11.5-17.5); White Blood Count 15.2 K/mm3 (4.8-10.8)
[2020-03-01 10:16] LABS: MANUAL DIFFERENTIAL MANUAL DIFFERENTIAL (MANUAL DIFF)
[2020-03-01 10:19] LABS: Alanine Aminotransferase 16 U/L (12-78); Albumin/Globulin Ratio 0.8 (1.1-1.8); Alkaline Phosphatase 75 U/L (38-126); Anion Gap 10.4 mEq/L (5-15); Aspartate Amino Transferase 23 U/L (14-36); Bilirubin,Total 0.2 mg/dl (0.2-1.3); Blood Urea Nitrogen 15 mg/dl (7-17); Calcium 8.8 mg/dl (8.4-10.2); Carbon Dioxide 28 mmol/L (22.0-30.0); Chloride 100 mmol/L (98-107); Creatinine Clearance Estimated 84 mL/min (50-200); Estimated Glomerular Filt Rate 130 ml/min (>60); GFR (African American) 157 ML/MIN (>60); Globulin 3.8 g/dL (1.3-3.2); Glucose 95 mg/dl (74-100); Potassium 4.4 mmoL/L (3.5-5.1); Sodium 134 mmol/L (136-145); Total Protein,Serum 6.8 g/dl (6.3-8.2)
[2020-03-01 10:29] LABS: INR 3.46 (0.9-1.1); Prothrombin Time 39.3 seconds (9.4-11.8)
--- NOTE | 2020-03-01 10:34 | PC.NURSE ---
Spoke with vascular, pt is to have MIRI of upper extremities
[2020-03-01 10:38] VITALS: BP 133/86; PULSE 100; O2SAT 92
[2020-03-01 10:45] LABS: Eosinophils % 1 % (0-3); Lymphocytes % 14 % (10-50); Monocytes % 1 % (2-9); Neutrophils % 84 % (42-76); Platelet Estimate Moderate Increase; RBC Morphology Normal; Total Cells Counted 100
--- NOTE | 2020-03-01 10:45 | PC.NURSE ---
DR METCALF SPOKE WITH DR SERNA HE IS REQUESTING B/P IN EACH ARM
--- NOTE | 2020-03-01 10:48 | PC.NURSE ---
Left arm bp 127/79 Right arm bp 133/87
--- NOTE | 2020-03-01 10:56 | HMH.EDSKAF ---
ED Disposition Clinical Impression: PVD (peripheral vascular disease), Tobacco use disorder COPD (chronic obstructive pulmonary disease) Qualifiers: COPD type: unspecified COPD Qualified Code(s): J44.9 - Chronic obstructive pulmonary disease, unspecified Rheumatoid arthritis Qualifiers: Rheumatoid arthritis location: unspecified site Rheumatoid factor presence: unspecified presence Qualified Code(s): M06.9 - Rheumatoid arthritis, unspecified Disposition: Home, Self-Care Condition on Discharge: Fair Instructions: DI for Peripheral Vascular (Arterial) Disease Additional Instructions: use meds and see card and pcp for follow up Referrals: Raad Larry MD [Primary Care Provider] - - Critical Care Critical Care Time: No Attestation: On 03/01/20, the high probability of a clinically significant, sudden or life threatening deterioration of the following system(s) required my full and direct attention, intervention and personal management. The time I documented below is in addition to time spent performing reported procedures but includes the following listed in this critical care notation. Medical Decision Making - Medical Records Medical records reviewed: Yes: I reviewed the patient's medical records. - Vaibhav Inquiry Pt receiving controlled substance: No Vital Signs: 03/01/20 09:19 03/01/20 09:44 03/01/20 10:38 Temperature 97.9 F Temperature Source Oral Pulse Rate [Left Radial] 120 H 84 100 H Respiratory Rate 20 20 Blood Pressure [Right Arm] 128/83 128/83 133/86 Blood Pressure Mean [Right Arm] 98 98 101 Blood Pressure Source [Right Arm] Automatic Cuff Automatic Cuff Automatic Cuff Blood Pressure Position [Right Arm] Sitting Supine Supine 02 Sat by Pulse Oximetry 95 96 92 L Oxygen Delivery Method Room Air Room Air Room Air 03/01/20 11:00 03/01/20 13:30 Temperature Temperature Source Pulse Rate [Left Radial] 92 H 114 H Respiratory Rate 20 Blood Pressure [Right Arm] 119/79 122/85 Blood Pressure Mean [Right Arm] 92 97 Blood Pressure Source [Right Arm] Automatic Cuff Automatic Cuff Blood Pressure Position [Right Arm] Supine Sitting 02 Sat by Pulse Oximetry 88 L Oxygen Delivery Method Room Air - Lab Data Lab results reviewed: Yes: I reviewed the patient's lab results. Lab Results 03/01/20 09:50: WBC 15.2 H, RBC 4.25, Hgb 10.8 L, Hct 36.1 L, MCV 84.9, MCH 25.5 L, MCHC 30.0 L, RDW 16.8, Plt Count 628 H, MPV 7.1 L, Neut % (Auto) 81.3 H, Lymph % (Auto) 13.4, [place] % (Auto) 3.6, Eos % (Auto) 1.5, Baso % (Auto) 0.2, Neut # (Auto) 12.4 H, Lymph # (Auto) 2.0, [place] # (Auto) 0.6, Eos # (Auto) 0.2, Baso # (Auto) 0.0, Total Counted 100, Neutrophils % (Manual) 84 H, Lymphocytes % (Manual) 14, Monocytes % (Manual) 1 L, Eosinophils % (Manual) 1, Platelet Estimate Moderate increase, RBC Morphology Normal 03/01/20 09:50: PT 39.3 H, INR 3.46 H 03/01/20 09:50: Sodium 134 L, Potassium 4.4, Chloride 100, Carbon Dioxide 28, Anion Gap 10.4, BUN 15, Creatinine 0.50 L, Estimated Creat Clear 84, Estimated GFR 130, Est GFR ( Amer) 157, Glucose 95, Calcium 8.8, Total Bilirubin 0.2, AST 23, ALT 16, Alkaline Phosphatase 75, Total Protein 6.8, Albumin 3.0 L, Globulin 3.8 H, Albumin/Globulin Ratio 0.8 L Result diagrams: 03/01/20 09:50 03/01/20 09:50 Orders (Tests/Meds): ED MEDICATIONS Discontinued Medications Generic Name Dose Route Start Last Admin Trade Name Hugoq PRN Reason Stop Dose Admin Iopamidol 70 ml 03/01/20 13:31 03/01/20 13:32 Iopamidol-370 (76%);100ml Bottle IV 03/01/20 13:32 70 ml ONCE ONE Administration Sodium Chloride 50 ml 03/01/20 13:31 03/01/20 13:32 0.9 % Sodium Chloride 50 Ml Vial IV 03/01/20 13:32 50 ml ONCE ONE Administration Sodium Chloride 10 ml 03/01/20 13:31 03/01/20 13:32 Sodium Chloride 0.9% 10ml Syr (Rad Only) IV 03/01/20 13:32 10 ml ONCE ONE Administration - CT Data CT Scan: Other (chest ) Time Received: 14:[address] Reviewed:
[2020-03-01 11:00] VITALS: BP 119/79; PULSE 92; RESP 20
--- NOTE | 2020-03-01 11:20 | US_ITS ---
APPROVED REPORT Laterality: Bilateral Repair Weaver: Marina Valente RVT Indications Current Smoker CAD Symptoms History of Smoking Risk Factors Cardiac Disease Smoking: CAD Medications Coumadin Pressures Brachial 104.0mmHg Radial 121.0mmHg Ulnar 137.0mmHg Left Brachial 100.0mmHg Radial 95.0mmHg Ulnar 115.0mmHg Pressures/Indices Right Left INDEX INDEX 104.0mmHg Brachial 100.0mmHg Findings RT WBI:1.32 LT WBI:1.11 RT DIGIT:0.37 LT DIGIT:0.57 WAVEFORMS NORMAL BILATERAL PULSES DAMPENED AT ALL LEVELS EXCEPT RT ULNAR Conclusion RT WBI:1.32 LT WBI:1.11 RT DIGIT:0.37 LT DIGIT:0.57 WAVEFORMS NORMAL BILATERAL PULSES DAMPENED AT ALL LEVELS EXCEPT RT ULNAR Electronically signed by : Alfredo Britton MD 03/01/2020 17:25:13
--- NOTE | 2020-03-01 11:29 | PC.NURSE ---
PT GONE TO US
--- NOTE | 2020-03-01 12:26 | PC.NURSE ---
Calling Dr. Larry
--- NOTE | 2020-03-01 12:34 | CT_ITS ---
PROCEDURE: CT ANGIO CHEST CLINCIAL INDICATION: poor circulation Fingers turning blue, poor circulation COMPARISON: CT SHOULDLTWO CT shoulder LT wo con from 11/25/[address] CHEST WO CON from 12/26/2019 TECHNIQUE: IV Contrast: 70ML Isovue 370 Axial images obtained with sagittal and coronal reformats. All CT scans at the facility use one or more dose reduction, viz: automated exposure control, ma/kV adjustment per patient size (including targeted exams where dose is matched to indication, i.e. head), or iterative reconstruction technique. FINDINGS: Cardiomegaly is present with enlarged left ventricle. The aorta has an unremarkable appearance. No evidence ulcerating plaque. The aortic arch is unremarkable. There is some minimal calcific plaque within the right brachiocephalic artery. The right subclavian artery is unremarkable.. There is some minimal soft plaque at the subclavian brachial artery junction on both sides but no significant stenosis. The thyroid gland is enlarged on the right. There is a substernal extension of the right lobe of the there are mildly prominent mediastinal lymph nodes present in the pretracheal region and precarinal area. These appear somewhat more prominent from 12/26/2019. There is no evidence pulmonary embolus. There is increased soft tissue density in the right infrahilar area at 1.9 by 1.3 cm suggesting an enlarged lymph node. There is COPD with centrilobular emphysema and areas of pulmonary fibrosis. There is some patchy density in the left lower lobe nonspecific could be due to an area of infiltrate. MediPort catheter is present from the right subclavian approach. Upper abdominal images show mild atherosclerotic changes of the celiac artery. There is diffuse well-circumscribed erosive changes of the humeral heads on both sides with bilateral shoulder joint effusions and enlarged glenoid fossa. Rheumatoid arthritis of the shoulder is considered. IMPRESSION: 1. No evidence of atheromatous ulceration of the aorta. The brachiocephalic and subclavian arteries have an unremarkable appearance. 2. Severe COPD with centrilobular emphysema and pulmonary fibrosis with patchy infiltrate in the left lower lobe. 3. Mediastinal and right hilar adenopathy which has developed since the previous exam. 4. Erosive changes of the humeral heads with enlargement of the glenoid fossa with bilateral shoulder joint effusions consistent with severe arthritic changes possibly rheumatoid arthritis. Dictated by: Alfredo Britton MD 03/01/2020 14:10 Alfredo Britton MD in [place] 03/01/2020 14:10
[2020-03-01 13:30] VITALS: BP 122/85; PULSE 114; O2SAT 88
[2020-03-01 14:58] VITALS: BP 128/90; PULSE 110; RESP 16; TEMP 36.6; O2SAT 100
== END 2020-03-01 14:59 | disposition home or self-care (01) ==
PROVIDERS: Emergency Provider Emergency Medicine; PCP Internal Medicine Adolescent Medicine
DX: I70.208 Unspecified atherosclerosis of native arteries of extremities, other extremity (principal); F17.210 Nicotine dependence, cigarettes, uncomplicated; J44.9 Chronic obstructive pulmonary disease, unspecified; M06.9 Rheumatoid arthritis, unspecified; I25.10 Atherosclerotic heart disease of native coronary artery without angina pectoris; I25.2 Old myocardial infarction; Z89.611 Acquired absence of right leg above knee; Z88.5 Allergy status to narcotic agent; Z79.899 Other long term (current) drug therapy
CPT/HCPCS: 71275; 80053; 85007; 85025; 85610; 93923; 99283; Q9967

== ENCOUNTER → 2020-05-18 17:24 | Outpatient (CLI) | payer OTHER, SELFPAY ==
[2020-05-18 18:01] LABS: Basophils % 0.2 % (0.1-2.0); Eosinophils # 0.1 K/mm3 (0.0-0.4); Eosinophils % 1.3 % (0.1-12.0); Lymphocytes # 1.6 K/mm3 (0.7-4.5); Lymphocytes % 20.5 % (10-50); Mean Corpuscular HGB Conc 26.5 g/dL (31.8-35.4); Mean Corpuscular Hemoglobin 20.2 pg (27.0-31.2); Mean Corpuscular Volume 76.3 fl (81-99); Mean Platelet Volume 7.1 fl (7.4-10.4); Monocytes # 0.3 K/mm3 (0.1-1.0); Monocytes % 3.5 % (1.7-9.3); Neutrophils # 5.8 K/mm3 (1.8-7.8); Neutrophils % 74.5 % (37.0-80.0); Platelet Count 607 K/mm3 (142-424); Red Cell Distribution Width 17.4 % (11.5-17.5); White Blood Count 7.8 K/mm3 (4.8-10.8)
[2020-05-18 18:10] LABS: Hematocrit 22.9 % (37.0-47.0); Hemoglobin 6.1 g/dL (12.2-16.2)
[2020-05-18 18:30] LABS: Alanine Aminotransferase 13 U/L (12-78); Albumin Level 2.3 g/dl (3.5-5.0); Albumin/Globulin Ratio 0.7 (1.1-1.8); Alkaline Phosphatase 86 U/L (38-126); Anion Gap 7.6 mEq/L (5-15); Aspartate Amino Transferase 18 U/L (14-36); Bilirubin,Total 0.2 mg/dl (0.2-1.3); Blood Urea Nitrogen 10 mg/dl (7-17); Calcium 7.5 mg/dl (8.4-10.2); Carbon Dioxide 26 mmol/L (22.0-30.0); Chloride 100 mmol/L (98-107); Estimated Glomerular Filt Rate 168 ml/min (>60); GFR (African American) 204 ML/MIN (>60); Globulin 3.2 g/dL (1.3-3.2); Glucose 71 mg/dl (74-100); Potassium 4.6 mmoL/L (3.5-5.1); Sodium 129 mmol/L (136-145); Total Protein,Serum 5.5 g/dl (6.3-8.2)
[2020-05-18 18:58] LABS: INR 1.23 (0.9-1.1); Prothrombin Time 14.3 seconds (10.1-12.5)
== END ==
PROVIDERS: Visit Provider Internal Medicine Adolescent Medicine
DX: I73.9 Peripheral vascular disease, unspecified (principal)
CPT/HCPCS: 36415; 80053; 84443; 85025; 85610

== ENCOUNTER 2020-05-20 11:31 | Observation (INO) | payer OTHER, SELFPAY ==
[2020-05-20] VITALS (25 sets, daily range): BP systolic 100–142; BP diastolic 52–97; PULSE 61–102; RESP 15–20; TEMP 36.7–36.8; O2SAT 95–100; BMI 17.4; BMI 16.0
--- NOTE | 2020-05-20 11:44 | HMH.EDGENADL ---
ED Disposition Clinical Impression: Dry gangrene Hypothyroidism Qualifiers: Hypothyroidism type: unspecified Qualified Code(s): E03.9 - Hypothyroidism, unspecified Anemia Qualifiers: Anemia type: unspecified type Qualified Code(s): D64.9 - Anemia, unspecified Disposition: Admitted as Observation Condition on Discharge: Fair Referrals: Raad Larry MD [Primary Care Provider] - - Critical Care Critical Care Time: No Attestation: On , the high probability of a clinically significant, sudden or life threatening deterioration of the following system(s) required my full and direct attention, intervention and personal management. The time I documented below is in addition to time spent performing reported procedures but includes the following listed in this critical care notation. Medical Decision Making - Medical Records Medical records reviewed: Yes: I reviewed the patient's medical records. MR Comment: Labs reviewed from 05/18/2020. TSH also noted to be markedly elevated. - Vaibhav Inquiry Pt receiving controlled substance: No Vital Signs: 05/20/20 11:32 05/20/20 11:48 05/20/20 11:56 Temperature 98.2 F Temperature Source Oral Pulse Rate 88 95 H Pulse Rate [Right] 61 Respiratory Rate 16 16 Blood Pressure 109/76 L 109/76 L Blood Pressure [Right Arm] 138/97 H Blood Pressure Mean 87 Blood Pressure Mean [Right Arm] 110 02 Sat by Pulse Oximetry 98 100 98 Oxygen Delivery Method Room Air 05/20/20 12:00 Temperature Temperature Source Pulse Rate 87 Pulse Rate [Right] Respiratory Rate Blood Pressure 112/84 Blood Pressure [Right Arm] Blood Pressure Mean 95 Blood Pressure Mean [Right Arm] 02 Sat by Pulse Oximetry 97 Oxygen Delivery Method - Lab Data Lab results reviewed: Yes: I reviewed the patient's lab results. Lab Results 05/20/20 12:15: WBC 6.0, RBC 3.26 L, Hgb 6.5 L*, Hct 25.2 L, MCV 77.1 L, MCH 19.9 L, MCHC 25.8 L, RDW 17.4, Plt Count 628 H, MPV 7.0 L, Neut % (Auto) 87.3 H, Lymph % (Auto) 10.9, [place] % (Auto) 1.7, Eos % (Auto) 0.1, Baso % (Auto) 0.1, Neut # (Auto) 5.3, Lymph # (Auto) 0.7, [place] # (Auto) 0.1, Eos # (Auto) 0.0, Baso # (Auto) 0.0, Total Counted 100, Neutrophils % (Manual) 94 H, Lymphocytes % (Manual) 5 L, Monocytes % (Manual) 1 L, Platelet Estimate Moderate increase, Hypochromasia 3+, Anisocytosis 1+, Microcytosis 1+ 05/20/20 12:15: Sodium 134 L, Potassium 4.5, Chloride 104, Carbon Dioxide 25, Anion Gap 9.5, BUN 8, Creatinine 0.30 L D, Estimated Creat Clear 141, Estimated GFR 235, Est GFR ( Amer) 284 D, Glucose 112 H, Calcium 8.1 L, Total Bilirubin 0.2, AST 37 H D, ALT 20 D, Alkaline Phosphatase 112, Total Protein 6.4, Albumin 2.7 L, Globulin 3.7 H, Albumin/Globulin Ratio 0.7 L Result diagrams: 05/20/20 12:15 05/20/20 12:15 Orders (Tests/Meds): ED MEDICATIONS Generic Name Dose Route Start Last Admin Trade Name Freq PRN Reason Stop Dose Admin Sodium Chloride 250 mls @ 25 mls/hr 05/20/20 12:00 Sod Chlor 0.9% 250ml Bag IV 05/21/20 11:59 .Q10H RANJAN ORDERS Category Date Time Status PRBC [Red Blood Cells] Stat BBK 05/20/20 11:55 Ordered Type and Screen Stat BBK 05/20/20 11:55 Ordered Free T4 (Free Thyroxine) Stat Lab 05/20/20 13:03 Ordered - Physician Consults Physician Consulted: Dr. Larry Time: 13:06 Reason -: Admission Comment/Response: Agrees to admit the patient to the hospital. We discussed the patient's clinical information, including history, exam, laboratory and radiology results and ED course. Per hospital procedure, I will write temporary bridge inpatient orders on the patient. Specific orders requested by the admitting physician: Agrees with transfusion 2 units packed red blood cells, requested Ortho consult for dry gangrene of right hand. Requests free T4 level. General Adult HPI - General Stated complaint: low on blood Time Seen by Provider: 05/20/20 11:44 - History of Present Illness HPI narra
--- NOTE | 2020-05-20 11:54 | PC.NURSE ---
VERBALLY OK'D FOR RN TO ACCESS PATIENTS POWER PORT
--- NOTE | 2020-05-20 12:08 | PC.NURSE ---
Called lab for type and screen.
--- NOTE | 2020-05-20 12:11 | PC.NURSE ---
lab at bedside
[2020-05-20 12:40] LABS: Mean Corpuscular HGB Conc 25.8 g/dL (31.8-35.4); Mean Corpuscular Hemoglobin 19.9 pg (27.0-31.2); Monocytes # 0.1 K/mm3 (0.1-1.0); Red Cell Distribution Width 17.4 % (11.5-17.5)
[2020-05-20 12:41] LABS: Basophils % 0.1 % (0.1-2.0); Eosinophils % 0.1 % (0.1-12.0); Hematocrit 25.2 % (37.0-47.0); Lymphocytes # 0.7 K/mm3 (0.7-4.5); Lymphocytes % 10.9 % (10-50); Mean Corpuscular Volume 77.1 fl (81-99); Monocytes % 1.7 % (1.7-9.3); Neutrophils # 5.3 K/mm3 (1.8-7.8); Neutrophils % 87.3 % (37.0-80.0); Platelet Count 628 K/mm3 (142-424); Red Blood Count 3.26 M/mm3 (4.20-5.40)
[2020-05-20 12:42] LABS: Hemoglobin 6.5 g/dL (12.2-16.2); MANUAL DIFFERENTIAL MANUAL DIFFERENTIAL (MANUAL DIFF)
[2020-05-20 12:43] LABS: Chloride 104 mmol/L (98-107); Potassium 4.5 mmoL/L (3.5-5.1); Sodium 134 mmol/L (136-145)
--- NOTE | 2020-05-20 12:44 | PC.NURSE ---
CALLED PATIENTS' PHARMACY WITH PATIENT PERMISSION AND REVIEWED MEDICATION LIST WITH THE PHARMACIST AT [facility] IN [place]
[2020-05-20 12:45] LABS: Blood Urea Nitrogen 8 mg/dl (7-17); Creatinine Clearance Estimated 141 mL/min (50-200); Estimated Glomerular Filt Rate 235 ml/min (>60); GFR (African American) 284 ML/MIN (>60)
[2020-05-20 12:46] LABS: Alanine Aminotransferase 20 U/L (12-78); Albumin Level 2.7 g/dl (3.5-5.0); Albumin/Globulin Ratio 0.7 (1.1-1.8); Alkaline Phosphatase 112 U/L (38-126); Anion Gap 9.5 mEq/L (5-15); Aspartate Amino Transferase 37 U/L (14-36); Bilirubin,Total 0.2 mg/dl (0.2-1.3); Calcium 8.1 mg/dl (8.4-10.2); Carbon Dioxide 25 mmol/L (22.0-30.0); Globulin 3.7 g/dL (1.3-3.2); Glucose 112 mg/dl (74-100); Total Protein,Serum 6.4 g/dl (6.3-8.2)
[2020-05-20 12:56] LABS: Anisocytosis 1+; Hypochromasia 3+; Lymphocytes % 5 % (10-50); Microcytosis 1+; Monocytes % 1 % (2-9); Neutrophils % 94 % (42-76); Platelet Estimate Moderate Increase; Total Cells Counted 100
--- NOTE | 2020-05-20 12:59 | PC.NURSE ---
Laron on phone for
--- NOTE | 2020-05-20 13:02 | PC.NURSE ---
dr boyd speaking to dr alexander
[2020-05-20 13:26] LABS: Lactic Acid 2.7 mmol/L (0.7-2.1)
[2020-05-20 13:43] LABS: Free T4 (Free Thyroxine) 0.31 ng/dl (0.78-2.19)
--- NOTE | 2020-05-20 13:56 | PC.NURSE ---
Blood ready for pickup. supervisor kennel RN, Bishnu going to apple picking supervisor.
--- NOTE | 2020-05-20 14:41 | PC.NURSE ---
SAROJ RN WITH PATIENT THE FIRST 15 MINUTES AT BEDSIDE WITH PATIENT DURING THE BLOOD TRANSFUSION INITIATION. PATIENT DENIES FEELING ANY REACTION SYMPTOMS. PT EXPLAINED ALL THE S/S OF BLOOD TRANSFUSION REACTIONS AND PATIENT INSTRUCTED TO NOTIFY RN IF SHE FEELS ANY. WILL CONTINUE TO MONITOR PATIENT
[2020-05-20 15:41] LABS: Adenovirus,PCR Not Detected (NotDetected); Bordetella Pertussis Not Detected (NotDetected); Chlamydophila Pneumoniae, PCR Not Detected (NotDetected); Coronavirus 19, PCR Not Detected (NotDetected); Coronavirus 229E Not Detected (NotDetected); Coronavirus NL63 Not Detected (NotDetected); Coronavirus OC43 Not Detected (NotDetected); Coronovirus HKU1,PCR Not Detected (NotDetected); Human Metapneumovirus Not Detected (NotDetected); Influenza A, PCR Not Detected (NotDetected); Influenza AH1, 2009 Not Detected (NotDetected); Influenza AH1, PCR Not Detected (NotDetected); Influenza AH3,PCR Not Detected (NotDetected); Influenza B, PCR Not Detected (NotDetected); Mycoplasma Pneumoniae, PCR Not Detected (NotDetected); Parainfluenza 1, PCR Not Detected (NotDetected); Parainfluenza 2, PCR Not Detected (NotDetected); Parainfluenza 3, PCR Not Detected (NotDetected); Parainfluenza 4, PCR Not Detected (NotDetected); Respiratory Syncytial Virus Not Detected (NotDetected); Rhinovirus/Enterovirus Not Detected (NotDetected)
--- NOTE | 2020-05-20 15:42 | PC.NURSE ---
REPORT GIVEN TO SAMUEL MOREAU ON 2ND FLOOR. SAMUEL MOREAU AWARE OG CURRENT BLOOD TRANSFUSION
--- NOTE | 2020-05-20 15:55 | PC.NURSE ---
PATIENT PICKED UP AND BROUGHT UPSTAIRS INTO HOSPITAL BED FOR ADMISSION AT THIS TIME
[2020-05-20 16:41] LABS: Reflex Lactic Add Lactic Reflex
[2020-05-20 17:13] LABS: Lactic Acid Follow Up (RFLX 1) 2.6 mmol/L (0.7-2.1)
--- NOTE | 2020-05-20 17:19 | HMH.HP ---
*Admission Date: 05/20/20 *Chief complaint: anemia, low INR, dry gangrene of fingertips, elevated TSH *History of present illness: 49-year-old white female with long history of multiple arterial clots, from antiphospholipid syndrome, tobacco use disorder and medical noncompliance, who has had bilateral above-knee amputations, and was seen in the office with multiple issues, labs were done and she was found to have significantly low hemoglobin at 6 g, and markedly elevated TSH over 300. It was recommended that she return to the hospital for admission, but patient did not come in yesterday, and finally came in today, given her length of time since we evaluated her I requested that she be evaluated in the emergency department and this was done. Found to have evidence of dry gangrene, similar lab values and admitted to hospital for further evaluation, blood transfusion and further diagnostic testing. Patient states that she has been taking her medication as prescribed although does note that she has missed some of her thyroid medication. Otherwise she reports no pain, no dyspnea, is down to 3 cigarettes daily. Reports no fevers or chills. [facility] History I have reviewed the patient's past medical history: Yes Medical History: Reports:: Congestive Heart Failure, Coronary Artery Disease, Lung Disease, Myocardial Infarction, Peripheral Artery Disease Denies:: Cancer, Diabetes Mellitus Type 1, Diabetes Mellitus Type 2, MRSA *Have you ever received a pneumonia vaccine?: No *Have you received a flu vaccine this season?: Yes Other Medical History: Reports: Anemia, Arthritis, Thyroid Disease Laterality Cases: Right: Other, Bilateral: Tonsillectomy Other Surgeries: Yes: Appendectomy, Cardiac Catheterization, Coronary Stent, Hysterectomy-Total Amputation: Yes (RT leg) Fractures: Yes (L distal fibula fracture 10/2017) - *Social History Smoking Status: Current every day smoker Tobacco Type: cigarettes # Packs/Day (cigarettes): 1 Alcohol Intake: never Substance Use Type: former substance user, crack/cocaine *Occupational Status:: disabled Housing: house Household Members: spouse *Travel in the last 8 weeks: None Family Hx:: Asthma, Coronary Artery Disease, Diabetes, Heart Attack, Hyperlipidemia, Hypertension, Stroke, Tuberculosis Review of Systems - Review of Systems Review of systems:: pertinent systems reviewed and negative unless documented below - Constitutional Reports chills, Reports fatigue - ENT Reports poor balance, Reports dizziness - *Cardiovascular Reports shortness of breath with activity - *Respiratory Reports shortness of breath with activity - *Gastrointestinal Reports abdominal pain - Integumentary/Breasts Reports change in skin color, Reports changing lesions - Hematologic/Lymphatic Reports easy bleeding - Allergic/Immunologic Reports GI upset with certain foods Meds Home Medications Medication Instructions Recorded Confirmed Type Clopidogrel Bisulfate [Clopidogrel 75 mg PO DAILY 02/08/18 05/20/20 History 75mg Tab] Cyclobenzaprine HCl 10 mg PO TIDP PRN 02/08/18 05/20/20 History [Cyclobenzaprine 10mg Tab*] Ferrous Sulfate 325 mg PO BID 02/08/18 05/20/20 History Folic Acid [Folic Acid 1mg tablet] 1 mg PO DAILY 02/08/18 05/20/20 History Hydroxychloroquine Sulfate 400 mg PO DAILY 02/08/18 05/20/20 History [Plaquenil 200mg tablet] Levothyroxine Sodium 50 mcg PO DAILY 02/08/18 05/20/20 History [Levothyroxine 50mcg (0.05mg) Tab] Pravastatin Sodium [Pravachol] 40 mg PO HS 02/08/18 05/20/20 History Promethazine HCl [Phenergan 25mg 25 mg PO Q6HP PRN 02/08/18 05/20/20 History tab] predniSONE [Deltasone 20mg 20 mg PO DAILYP PRN 02/08/18 05/20/20 History tablet] Nicotine [Nicoderm 21mg/24hr 21 mg TD DAILYP PRN patch.td24 02/12/18 05/20/20 Rx patch] Famotidine [Pepcid 20mg Tablet] 20 mg PO BID 12/23/19 05/20/20 History Ipratropium/Albuterol Sulfate 3 ml IH Q6RT 03/01/20
[2020-05-20 18:55] LABS: Reflex Lactic (2 hrs) Add Lactic Reflex
--- NOTE | 2020-05-20 19:29 | PC.NURSE ---
Addendum entered by Dasha Luna RN 05/20/20 19:55: Portacath to (R) chest wall de accessed prior to discharge. Addendum entered by Dasha Luna RN 05/20/20 19:54: Dr. Draper notified of pt leaving AMA @ 1837 Original Note: Prior to arrival to floor this nurse had discussed w/ pt and SO that visiting hours were from 9-5, both had verbalized understanding. Upon entering room to begin second unit of blood it was noted that pt's sig other was still at bedside, reminded them both that it was hospital policy that no one was allowed to stay the night and that visiting hours were from 9a-5p, A Nell Jaimes (vat house supervisor) also at bedside d/t needing 2nd nurse to verify blood. Pt's SO became upset and stated that he was not leaving and that if he must leave that he would be taking her w/ him. During this time pt made no remarks that she wished to leave or that she was upset that he would not be able to stay. Stated to them both that this nurse would notify quality control lab tech physician of issue. Dr. Draper notified @ 180, states he will speak to Dr. Larry about incident. Pt and SO updated that nurse is awaiting call back from . Dr. Draper called back @ 181, states that if pt verbalizes that she wishes to leave she will need to sign out AMA. 1820 - This nurse and vat house supervisor returns to pt's bedside, SO still upset and raising his voice to staff. Explained to them both that I had spoke to Dr. Draper, he states that it would be unsafe for pt to leave @ this time and that if she is to want to leave it would be against medical advice. Pt is A&O x 4, able to make decisions on her own. Pt verbalizes that she wishes to sign out AMA. AMA paper went over w/ pt and signed. Pt left via wheelchair w/ sig other @ 1834
--- NOTE | 2020-05-20 22:08 | HMH.DCSUM ---
General - General Admission date:: 05/20/20 Discharge date: 05/20/20 HPI HPI: 49-year-old white female with long history of multiple arterial clots, from antiphospholipid syndrome, tobacco use disorder and medical noncompliance, who has had bilateral above-knee amputations, and was seen in the office with multiple issues, labs were done and she was found to have significantly low hemoglobin at 6 g, and markedly elevated TSH over 300. It was recommended that she return to the hospital for admission, but patient did not come in yesterday, and finally came in today, given her length of time since we evaluated her I requested that she be evaluated in the emergency department and this was done. Found to have evidence of dry gangrene, similar lab values and admitted to hospital for further evaluation, blood transfusion and further diagnostic testing. Patient states that she has been taking her medication as prescribed although does note that she has missed some of her thyroid medication. Otherwise she reports no pain, no dyspnea, is down to 3 cigarettes daily. Reports no fevers or chills. Hospital Course Hospital Course: Admitted with gross abnormalities on labs and need for transfusion. Received one unit of RBCs. Some time during secon unit was asked to leave as visiting hours were over. I was called as he refused to leave and stated he was going to sign patient out AMA if he could not stay. Pt decided she was not going to stay either even in the setting of her critical lab abnormalities and understanding this was against medical advice. Appropriate forms signed. Pt left with . Unable to perform any exam or further assessment. Objective Vital signs: Temp Pulse Resp BP Pulse Ox 98.2 F 91 H 16 125/75 99 05/20/20 18:20 05/20/20 18:20 05/20/20 18:20 05/20/20 18:20 05/20/20 17:45 Results Labs on day of discharge: Labs from last 24 hours 05/20/20 05/20/20 05/20/20 16:49 12:20 12:15 WBC RBC Hgb Hct MCV MCH MCHC RDW Plt Count MPV Neut % (Auto) Lymph % (Auto) [place] % (Auto) Eos % (Auto) Baso % (Auto) Neut # (Auto) Lymph # (Auto) [place] # (Auto) Eos # (Auto) Baso # (Auto) Total Counted Neutrophils % (Manual) Lymphocytes % (Manual) Monocytes % (Manual) Platelet Estimate Hypochromasia Anisocytosis Microcytosis Sodium Potassium Chloride Carbon Dioxide Anion Gap BUN Creatinine Estimated Creat Clear Estimated GFR Est GFR ( Amer) Glucose Lactate 2.6 H 2.7 H Calcium Total Bilirubin AST ALT Alkaline Phosphatase Total Protein Albumin Globulin Albumin/Globulin Ratio Free T4 Chlamy pneumoniae PCR Not detected Adenovirus (PCR) Not detected B. pertussis DNA (PCR) Not detected Coronavirus OC43 (PCR) Not detected Coronavirus HKU1 (PCR) Not detected Coronavirus 229E (PCR) Not detected SARS-CoV-2 (PCR) Not detected Coronavirus NL63 (PCR) Not detected Human Metapneumovir PCR Not detected Influenza A (H1) PCR Not detected Influ A (H1N1/09) PCR Not detected Influenza A (H3) PCR Not detected Influenza Type A (PCR) Not detected Influenza Type B (PCR) Not detected M. pneumoniae (PCR) Not detected Parainfluenza 1 (PCR) Not detected Parainfluenza 2 (PCR) Not detected Parainfluenza 3 (PCR) Not detected Parainfluenza 4 (PCR) Not detected RSV (PCR) Not detected Entero/Rhino (PCR) Not detected Blood Type Antibody Screen Crossmatch ([facility]) 05/20/20 05/20/20 05/20/20 12:15 12:15 12:15 WBC RBC Hgb Hct MCV MCH MCHC RDW Plt Count MPV Neut % (Auto) Lymph % (Auto) [place] % (Auto) Eos % (Auto) Baso % (Auto) Neut # (Auto) Lymph # (Auto) [place] # (Auto) Eos # (Auto) Baso # (Auto) Total
== END 2020-05-20 18:34 | disposition left against medical advice (07) | DRG 812 ==
LOC: ER 13:06 → 2ND 16:06
PROVIDERS: Admitting Provider Internal Medicine Adolescent Medicine; Emergency Provider Emergency Medicine; PCP Internal Medicine Adolescent Medicine; Visit Provider Internal Medicine Adolescent Medicine
DX: D64.9 Anemia, unspecified (principal); I96 Gangrene, not elsewhere classified; D68.61 Antiphospholipid syndrome; I25.10 Atherosclerotic heart disease of native coronary artery without angina pectoris; Z91.14 Patient's other noncompliance with medication regimen; E03.9 Hypothyroidism, unspecified; Z72.0 Tobacco use; Z89.612 Acquired absence of left leg above knee; Z89.611 Acquired absence of right leg above knee; Z79.899 Other long term (current) drug therapy
CPT/HCPCS: 36415; 80053; 83605; 84439; 84443; 85007; 85025; 85610; 86850; 87040; 87581; 87633; 87798; 94640; 99203; G0378; G0463; P9016

== ENCOUNTER → 2020-05-30 09:14 | Outpatient (CLI) | payer OTHER, SELFPAY ==
[2020-05-30 09:48] VITALS: BMI 16.1
[2020-05-30 10:10] LABS: Eosinophils # 0.1 K/mm3 (0.0-0.4); Monocytes # 0.4 K/mm3 (0.1-1.0); Red Cell Distribution Width 17.2 % (11.5-17.5)
[2020-05-30 10:13] LABS: Basophils % 0.3 % (0.1-2.0); Eosinophils % 1.3 % (0.1-12.0); Hematocrit 32.3 % (37.0-47.0); Hemoglobin 8.2 g/dL (12.2-16.2); Lymphocytes # 2.2 K/mm3 (0.7-4.5); Lymphocytes % 27.1 % (10-50); Mean Corpuscular HGB Conc 25.4 g/dL (31.8-35.4); Mean Corpuscular Hemoglobin 20.7 pg (27.0-31.2); Mean Corpuscular Volume 81.6 fl (81-99); Mean Platelet Volume 6.8 fl (7.4-10.4); Monocytes % 5.3 % (1.7-9.3); Neutrophils # 5.4 K/mm3 (1.8-7.8); Platelet Count 507 K/mm3 (142-424); Red Blood Count 3.96 M/mm3 (4.20-5.40); White Blood Count 8.1 K/mm3 (4.8-10.8)
[2020-05-30 10:22] LABS: Chloride 106 mmol/L (98-107); Potassium 4.7 mmoL/L (3.5-5.1); Sodium 137 mmol/L (136-145)
[2020-05-30 10:23] LABS: INR 1.58 (0.9-1.1)
[2020-05-30 10:25] LABS: Anion Gap 6.7 mEq/L (5-15); Blood Urea Nitrogen 12 mg/dl (7-17); Calcium 8.2 mg/dl (8.4-10.2); Carbon Dioxide 29 mmol/L (22.0-30.0); Creatinine Clearance Estimated 98 mL/min (50-200); Estimated Glomerular Filt Rate 168 ml/min (>60); GFR (African American) 204 ML/MIN (>60); Glucose 90 mg/dl (74-100)
== END ==
PROVIDERS: PCP Internal Medicine Adolescent Medicine; Visit Provider Internal Medicine Adolescent Medicine
DX: D50.9 Iron deficiency anemia, unspecified (principal); R79.1 Abnormal coagulation profile
CPT/HCPCS: 80048; 85025; 85610; 86850

== ENCOUNTER 2020-07-21 15:13 | Outpatient (CLI) | payer OTHER, SELFPAY ==
[2020-07-21 15:13] VITALS: BMI 16.0
[2020-07-21 15:54] LABS: Basophils % 0.2 % (0.1-2.0); Eosinophils # 0.1 K/mm3 (0.0-0.4); Eosinophils % 0.9 % (0.1-12.0); Hematocrit 29.5 % (37.0-47.0); Hemoglobin 8.9 g/dL (12.2-16.2); Lymphocytes # 1.2 K/mm3 (0.7-4.5); Lymphocytes % 12.6 % (10-50); Mean Corpuscular HGB Conc 30.3 g/dL (31.8-35.4); Mean Corpuscular Hemoglobin 24.9 pg (27.0-31.2); Mean Corpuscular Volume 82.3 fl (81-99); Mean Platelet Volume 7.5 fl (7.4-10.4); Monocytes # 0.5 K/mm3 (0.1-1.0); Monocytes % 4.9 % (1.7-9.3); Neutrophils # 7.7 K/mm3 (1.8-7.8); Neutrophils % 81.4 % (37.0-80.0); Platelet Count 453 K/mm3 (142-424); Red Blood Count 3.58 M/mm3 (4.20-5.40); Red Cell Distribution Width 20.7 % (11.5-17.5); White Blood Count 9.5 K/mm3 (4.8-10.8)
[2020-07-21 15:55] LABS: Chloride 96 mmol/L (98-107); Potassium 3.9 mmoL/L (3.5-5.1); Sodium 128 mmol/L (136-145)
[2020-07-21 15:58] LABS: Alanine Aminotransferase 13 U/L (12-78); Albumin Level 2.7 g/dl (3.5-5.0); Albumin/Globulin Ratio 0.8 (1.1-1.8); Alkaline Phosphatase 104 U/L (38-126); Anion Gap 7.9 mEq/L (5-15); Aspartate Amino Transferase 25 U/L (14-36); Bilirubin,Total 0.2 mg/dl (0.2-1.3); Blood Urea Nitrogen 11 mg/dl (7-17); Carbon Dioxide 28 mmol/L (22.0-30.0); Creatinine Clearance Estimated 130 mL/min (50-200); Estimated Glomerular Filt Rate 235 ml/min (>60); GFR (African American) 284 ML/MIN (>60); Globulin 3.2 g/dL (1.3-3.2); Total Protein,Serum 5.9 g/dl (6.3-8.2)
[2020-07-21 15:59] LABS: Calcium 7.6 mg/dl (8.4-10.2); Glucose 74 mg/dl (74-100)
[2020-07-21 16:05] LABS: C-Reactive Protein 81.3 mg/L (0-4)
== END 2020-07-21 15:30 | disposition home or self-care (01) ==
LOC: INF 15:13
DX: Z45.2 Encounter for adjustment and management of vascular access device (principal); L03.119 Cellulitis of unspecified part of limb
CPT/HCPCS: 80053; 85025; 86140

== ENCOUNTER 2020-08-02 10:00 | Outpatient (RCR) | payer OTHER, SELFPAY ==
--- NOTE | 2020-07-21 18:20 | HMH.PTOPWND ---
Rehab Outpt Wound Evaluation Rehab OP Wound Evaluation Start: 07/21/20 18:07 Freq: Status: Active Protocol: Document 07/21/20 18:07 AMANDASALLY (Rec: 07/21/20 18:20 PWSALLY [id number]) Electronically Signed By James Millard PT 07/21/20 18:07 Subjective/History History History This is the initial Wound clinic evaluation for Johanna Esteban. Pt is known to PT from IP procedures - pt has long hx of wound care needs and multiple wounds with poor healing record. Pt has Bilateral AKA due to severe rheumatoid arthritis, associated disorders and vascular clotting disorder. Pt reports the wounds for this visit began in in December of 2019 after she had Tim AKA. Wounds began on B ischial tuberosity as small blisters and quickly progressed into large black, escharred, purulent wounds. Pt reports she was admitted to [facility] for surgical debridement and cleaning and has returned home w/ daily dressing changes. Subjective Subjective Pt reports pain in periwound area to touch and cleaning Wound Eval Wound Right Upper Buttock Wound Type Incision Wound Length (cm) 6.0 Wound Width (cm) 6.0 Wound Depth (cm) 1.0 Wound Bed Appearance Dusky Red,[place],Yellow,Pale, Slough Percentage Granulated (%) 50 Percentage of Slough (%) 50 Percentage of Eschar (Yellow) (%) 50 Wound Margins Description Roll Under Edges Undermining Position 12-12 Undermining Length (cm) 3.0 Undermining Width (cm) 2.0 Surrounding Tissue Appearance [place] Surrounding Tissue Temperature Warm Drainage Description Serosanguineous Drainage Amount Small Drainage Odor No Odor Dressing Status Soiled Wound Topical Solution/Irrigant Antibiotic Irrigant Packing Type Impregnated Gauze Pads Comment betadyne gauze Primary Dressing Absorbant Pad Comment optilok Wound Secondary Dressing Type Absorbant Pad Dressing Change Date
== END 2020-08-02 10:05 | disposition home or self-care (01) ==
LOC: PT 10:00
PROVIDERS: PCP Internal Medicine Adolescent Medicine; Visit Provider Internal Medicine Adolescent Medicine
DX: L89.320 Pressure ulcer of left buttock, unstageable (principal); L89.153 Pressure ulcer of sacral region, stage 3
CPT/HCPCS: 97163; 97597; 97598

== ENCOUNTER 2020-08-02 11:38 | Outpatient (CLI) | payer OTHER, SELFPAY ==
[2020-08-02 11:55] VITALS: BMI 16.0
[2020-08-02 12:06] LABS: Basophils % 0.3 % (0.1-2.0); Eosinophils # 0.1 K/mm3 (0.0-0.4); Eosinophils % 0.8 % (0.1-12.0); Hemoglobin 10.3 g/dL (12.2-16.2); Lymphocytes # 1.5 K/mm3 (0.7-4.5); Lymphocytes % 19.4 % (10-50); Mean Corpuscular HGB Conc 31.2 g/dL (31.8-35.4); Mean Corpuscular Volume 83.3 fl (81-99); Mean Platelet Volume 7.2 fl (7.4-10.4); Monocytes # 0.4 K/mm3 (0.1-1.0); Monocytes % 4.6 % (1.7-9.3); Neutrophils # 5.9 K/mm3 (1.8-7.8); Neutrophils % 74.8 % (37.0-80.0); Platelet Count 567 K/mm3 (142-424); Red Blood Count 3.96 M/mm3 (4.20-5.40); Red Cell Distribution Width 20.6 % (11.5-17.5); White Blood Count 7.9 K/mm3 (4.8-10.8)
[2020-08-02 12:10] LABS: Chloride 103 mmol/L (98-107); Potassium 3.8 mmoL/L (3.5-5.1); Sodium 132 mmol/L (136-145)
[2020-08-02 12:12] LABS: Alanine Aminotransferase 16 U/L (12-78); Aspartate Amino Transferase 29 U/L (14-36); Bilirubin,Total 0.2 mg/dl (0.2-1.3); Blood Urea Nitrogen 5 mg/dl (7-17); Creatinine Clearance Estimated 130 mL/min (50-200); Estimated Glomerular Filt Rate 235 ml/min (>60); GFR (African American) 284 ML/MIN (>60)
[2020-08-02 12:13] LABS: Albumin Level 2.3 g/dl (3.5-5.0); Albumin/Globulin Ratio 0.7 (1.1-1.8); Alkaline Phosphatase 147 U/L (38-126); Anion Gap 5.8 mEq/L (5-15); Calcium 7.5 mg/dl (8.4-10.2); Carbon Dioxide 27 mmol/L (22.0-30.0); Globulin 3.4 g/dL (1.3-3.2); Total Protein,Serum 5.7 g/dl (6.3-8.2)
[2020-08-02 12:18] LABS: Glucose 50 mg/dl (74-100)
[2020-08-02 12:19] LABS: C-Reactive Protein 55.1 mg/L (0-4)
== END 2020-08-02 11:45 | disposition home or self-care (01) ==
LOC: INF 11:38
PROVIDERS: PCP Internal Medicine Adolescent Medicine; Visit Provider Internal Medicine Adolescent Medicine
DX: Z45.2 Encounter for adjustment and management of vascular access device (principal); L03.119 Cellulitis of unspecified part of limb
CPT/HCPCS: 80053; 85025; 86140; J1642

== ENCOUNTER 2020-08-16 13:38 | Outpatient (CLI) | payer OTHER, SELFPAY ==
[2020-08-16 13:40] VITALS: BMI 16.0
[2020-08-16 14:27] LABS: Alanine Aminotransferase 23 U/L (12-78); Albumin Level 2.3 g/dl (3.5-5.0); Albumin/Globulin Ratio 0.7 (1.1-1.8); Alkaline Phosphatase 131 U/L (38-126); Anion Gap 5.8 mEq/L (5-15); Aspartate Amino Transferase 32 U/L (14-36); Bilirubin,Total 0.3 mg/dl (0.2-1.3); Blood Urea Nitrogen 10 mg/dl (7-17); Calcium 7.5 mg/dl (8.4-10.2); Carbon Dioxide 30 mmol/L (22.0-30.0); Chloride 103 mmol/L (98-107); Creatinine Clearance Estimated 98 mL/min (50-200); Estimated Glomerular Filt Rate 168 ml/min (>60); GFR (African American) 204 ML/MIN (>60); Globulin 3.4 g/dL (1.3-3.2); Glucose 73 mg/dl (74-100); Potassium 3.8 mmoL/L (3.5-5.1); Sodium 135 mmol/L (136-145); Total Protein,Serum 5.7 g/dl (6.3-8.2)
[2020-08-16 14:28] LABS: Basophils % 0.2 % (0.1-2.0); Eosinophils # 0.1 K/mm3 (0.0-0.4); Hematocrit 31.6 % (37.0-47.0); Hemoglobin 9.7 g/dL (12.2-16.2); Lymphocytes # 2.4 K/mm3 (0.7-4.5); Lymphocytes % 29.4 % (10-50); Mean Corpuscular HGB Conc 30.8 g/dL (31.8-35.4); Mean Corpuscular Hemoglobin 26.2 pg (27.0-31.2); Mean Platelet Volume 7.7 fl (7.4-10.4); Monocytes # 0.5 K/mm3 (0.1-1.0); Monocytes % 6.4 % (1.7-9.3); Neutrophils # 5.1 K/mm3 (1.8-7.8); Platelet Count 520 K/mm3 (142-424); Red Blood Count 3.71 M/mm3 (4.20-5.40); Red Cell Distribution Width 20.5 % (11.5-17.5)
[2020-08-16 15:17] LABS: C-Reactive Protein 59.2 mg/L (0-4)
== END 2020-08-16 14:28 | disposition home or self-care (01) ==
LOC: INF 13:38
PROVIDERS: PCP Internal Medicine Adolescent Medicine; Visit Provider Internal Medicine Infectious Disease
DX: Z45.2 Encounter for adjustment and management of vascular access device (principal)
CPT/HCPCS: 80053; 85025; 86140; J1642

== ENCOUNTER 2020-09-06 15:30 | Outpatient (CLI) | payer OTHER, SELFPAY ==
[2020-09-06 15:56] VITALS: BMI 15.0
[2020-09-06 16:12] LABS: Basophils % 0.3 % (0.1-2.0); Chloride 106 mmol/L (98-107); Eosinophils % 0.1 % (0.1-12.0); Hematocrit 30.1 % (37.0-47.0); Hemoglobin 9.3 g/dL (12.2-16.2); Lymphocytes # 0.8 K/mm3 (0.7-4.5); Lymphocytes % 7.6 % (10-50); Mean Corpuscular HGB Conc 30.9 g/dL (31.8-35.4); Mean Corpuscular Hemoglobin 26.7 pg (27.0-31.2); Mean Corpuscular Volume 86.4 fl (81-99); Mean Platelet Volume 7.4 fl (7.4-10.4); Monocytes # 0.2 K/mm3 (0.1-1.0); Monocytes % 1.5 % (1.7-9.3); Neutrophils # 9.3 K/mm3 (1.8-7.8); Neutrophils % 90.5 % (37.0-80.0); Platelet Count 488 K/mm3 (142-424); Potassium 3.9 mmoL/L (3.5-5.1); Red Blood Count 3.48 M/mm3 (4.20-5.40); Red Cell Distribution Width 19.1 % (11.5-17.5); Sodium 136 mmol/L (136-145); White Blood Count 10.3 K/mm3 (4.8-10.8)
[2020-09-06 16:15] LABS: Blood Urea Nitrogen 8 mg/dl (7-17); Creatine Kinase 34 U/L (30-135); Creatinine Clearance Estimated 122 mL/min (50-200); Estimated Glomerular Filt Rate 235 ml/min (>60); GFR (African American) 284 ML/MIN (>60)
[2020-09-06 16:16] LABS: Anion Gap 7.9 mEq/L (5-15); Calcium 7.4 mg/dl (8.4-10.2); Carbon Dioxide 26 mmol/L (22.0-30.0); Glucose 101 mg/dl (74-100); MANUAL DIFFERENTIAL MANUAL DIFFERENTIAL (MANUAL DIFF)
[2020-09-06 16:28] LABS: Prothrombin Time 13.8 seconds (10.1-12.5)
[2020-09-06 16:44] LABS: C-Reactive Protein 39.9 mg/L (0-4)
[2020-09-06 16:54] LABS: INR 1.18 (0.9-1.1)
[2020-09-06 17:37] LABS: Lymphocytes % 10 % (10-50); Monocytes % 4 % (2-9); Neutrophils % 85 % (42-76); Total Cells Counted 100
[2020-09-06 17:38] LABS: Platelet Estimate Slight Increase
[2020-09-06 17:39] LABS: Anisocytosis 2+; Hypochromasia 2+; Microcytosis 1+
[2020-09-06 17:41] LABS: Howell-Jolly Bodies 1+
== END 2020-09-06 16:08 | disposition home or self-care (01) ==
LOC: INF 15:38
PROVIDERS: PCP Internal Medicine Adolescent Medicine; Visit Provider Hospitalist
DX: L89.154 Pressure ulcer of sacral region, stage 4 (principal); M86.652 Other chronic osteomyelitis, left thigh; D68.61 Antiphospholipid syndrome
CPT/HCPCS: 80048; 82550; 85007; 85025; 85610; 86140; J1642

== ENCOUNTER 2020-09-20 14:44 | Outpatient (CLI) | payer OTHER, SELFPAY ==
[2020-09-20 14:44] VITALS: BMI 15.2
[2020-09-20 15:11] LABS: Basophils % 0.2 % (0.1-2.0); Eosinophils # 0.1 K/mm3 (0.0-0.4); Hematocrit 32.4 % (37.0-47.0); Hemoglobin 9.4 g/dL (12.2-16.2); Lymphocytes # 2.2 K/mm3 (0.7-4.5); Lymphocytes % 27.4 % (10-50); Mean Corpuscular Volume 89.6 fl (81-99); Mean Platelet Volume 6.9 fl (7.4-10.4); Monocytes # 0.3 K/mm3 (0.1-1.0); Monocytes % 4.1 % (1.7-9.3); Neutrophils # 5.3 K/mm3 (1.8-7.8); Neutrophils % 67.3 % (37.0-80.0); Platelet Count 583 K/mm3 (142-424); Red Blood Count 3.61 M/mm3 (4.20-5.40); Red Cell Distribution Width 16.9 % (11.5-17.5); White Blood Count 7.9 K/mm3 (4.8-10.8)
[2020-09-20 15:34] LABS: Alanine Aminotransferase 23 U/L (12-78); Albumin Level 2.7 g/dl (3.5-5.0); Alkaline Phosphatase 93 U/L (38-126); Aspartate Amino Transferase 30 U/L (14-36); Bilirubin,Direct 0.2 mg/dl (0.0-0.4); Bilirubin,Total 0.2 mg/dl (0.2-1.3); Blood Urea Nitrogen 11 mg/dl (7-17); Creatinine Clearance Estimated 93 mL/min (50-200); Estimated Glomerular Filt Rate 168 ml/min (>60); GFR (African American) 204 ML/MIN (>60); Total Protein,Serum 6.4 g/dl (6.3-8.2)
[2020-09-22 15:33] LABS: CK-BB 0 % (0); CK-MB 0 % (0-3); CK-MM 100 % (97-100); Creatine Kinase,Total,Serum 43 U/L (32-182); Macro Type 1 0 % (Not Observed); Macro Type 2 0 % (Not Observed)
== END 2020-09-20 15:22 | disposition home or self-care (01) ==
LOC: INF 14:44
PROVIDERS: PCP Internal Medicine Adolescent Medicine; Visit Provider Internal Medicine
DX: Z45.2 Encounter for adjustment and management of vascular access device (principal); Z89.611 Acquired absence of right leg above knee; Z89.612 Acquired absence of left leg above knee
CPT/HCPCS: 80076; 82550; 82552; 82565; 84520; 85025; 86140; J1642

== ENCOUNTER 2020-11-09 10:52 | Outpatient (CLI) | payer OTHER, SELFPAY ==
[2020-11-09 11:14] VITALS: BMI 13.6
[2020-11-09 11:43] LABS: Basophils % 0.3 % (0.1-2.0); Eosinophils # 0.1 K/mm3 (0.0-0.4); Eosinophils % 0.6 % (0.1-12.0); Hematocrit 27.7 % (37.0-47.0); Hemoglobin 7.7 g/dL (12.2-16.2); Lymphocytes # 1.9 K/mm3 (0.7-4.5); Lymphocytes % 26.7 % (10-50); Mean Corpuscular HGB Conc 27.8 g/dL (31.8-35.4); Mean Corpuscular Hemoglobin 23.9 pg (27.0-31.2); Mean Corpuscular Volume 86.1 fl (81-99); Monocytes # 0.4 K/mm3 (0.1-1.0); Monocytes % 5.6 % (1.7-9.3); Neutrophils # 4.7 K/mm3 (1.8-7.8); Neutrophils % 66.7 % (37.0-80.0); Platelet Count 467 K/mm3 (142-424); Red Blood Count 3.21 M/mm3 (4.20-5.40); Red Cell Distribution Width 15.3 % (11.5-17.5); White Blood Count 7.1 K/mm3 (4.8-10.8)
[2020-11-09 11:50] LABS: Alanine Aminotransferase 19 U/L (12-78); Albumin Level 2.3 g/dl (3.5-5.0); Albumin/Globulin Ratio 0.7 (1.1-1.8); Alkaline Phosphatase 180 U/L (38-126); Anion Gap 8.6 mEq/L (5-15); Aspartate Amino Transferase 33 U/L (14-36); Blood Urea Nitrogen 14 mg/dl (7-17); Calcium 7.4 mg/dl (8.4-10.2); Carbon Dioxide 26 mmol/L (22.0-30.0); Chloride 103 mmol/L (98-107); Creatinine Clearance Estimated 67 mL/min (50-200); Estimated Glomerular Filt Rate 130 ml/min (>60); GFR (African American) 157 ML/MIN (>60); Globulin 3.3 g/dL (1.3-3.2); Glucose 82 mg/dl (74-100); Magnesium 1.4 mg/dl (1.6-2.3); Potassium 4.6 mmoL/L (3.5-5.1); Sodium 133 mmol/L (136-145); Total Protein,Serum 5.6 g/dl (6.3-8.2)
[2020-11-09 11:52] LABS: Bilirubin,Total 0.1 mg/dl (0.2-1.3)
--- NOTE | 2020-11-09 12:13 | PC.NURSE ---
spoke with Chaka at Dr. Soliman office to report pts Hgb of 7.7. stated she would pass the message to the MD for further orders
[2020-11-09 12:38] LABS: INR > 8.00 (0.9-1.1)
--- NOTE | 2020-11-09 12:38 | PC.NURSE ---
1238 Sonia Vazquez in lab called this nurse at 1238 to report a PT of 90 and a INR >8.0. This nurse repeated and verified pt name, and Lab values. result called to Jayy at Dr. Draper's office. no new orders received at this time
[2020-11-11 08:32] LABS: Prealbumin 10 mg/dL (10-36)
== END 2020-11-09 11:35 | disposition home or self-care (01) ==
LOC: ACC 10:53 → LAB 10:59 → INF 11:10
PROVIDERS: Internal Medicine Adolescent Medicine; PCP Internal Medicine Adolescent Medicine; Visit Provider Internal Medicine Adolescent Medicine
DX: E03.9 Hypothyroidism, unspecified (principal); E43 Unspecified severe protein-calorie malnutrition
CPT/HCPCS: 80053; 83735; 84134; 84443; 85025; 85610; J1642

== ENCOUNTER 2020-11-13 10:08 | Emergency (ER) | payer OTHER, SELFPAY ==
[2020-11-13] VITALS (11 sets, daily range): BP systolic 0–140; BP diastolic 0–101; PULSE 0–138; RESP 0–40; TEMP -17.7–36.8; O2SAT 70–115; BMI 37.5
--- NOTE | 2020-11-13 10:19 | XR_ITS ---
PROCEDURE INFORMATION: Exam: XR Chest Exam date and time: 11/13/2020 10:19 AM Age: 49 years old Clinical indication: Shortness of breath; Additional info: SOB TECHNIQUE: Imaging protocol: XR of the chest. Views: 1 view. COMPARISON: CT CHEST WO CON 12/26/2019 1:29 PM FINDINGS: Tubes, catheters and devices: MediPort terminates in the superior vena cava Lungs: Patchy bilateral opacities may represent multifocal pneumonia including COVID. . Pleural spaces: Mild right pleural effusion.. Heart/Mediastinum: Cardiomegaly Bones/joints: Severe degenerative changes in the glenohumeral joints IMPRESSION: 1. Patchy bilateral opacities may represent multifocal pneumonia including COVID. . 2. Mild right pleural effusion..
--- NOTE | 2020-11-13 10:25 | ECG_ITS ---
APPROVED REPORT Exam: Resting ECG HR:138 bpm ECG Measurements Heart Rate 138 AXES MI 152 P QRSd 84 QRS -8 QT 280 T -10 QTc 424 Conclusion Sinus tachycardia Low voltage QRS Possible Inferior infarct, age undetermined Abnormal ECG Electronically signed by : Raad Larry MD 11/13/2020 21:10:17
[2020-11-13 10:39] LABS: Chloride 107 mmol/L (98-107); Potassium 5.5 mmoL/L (3.5-5.1); Sodium 138 mmol/L (136-145)
[2020-11-13 10:41] LABS: Alanine Aminotransferase 23 U/L (12-78); Aspartate Amino Transferase 29 U/L (14-36); Blood Urea Nitrogen 13 mg/dl (7-17); Estimated Glomerular Filt Rate 105 ml/min (>60); GFR (African American) 128 ML/MIN (>60)
[2020-11-13 10:42] LABS: Albumin Level 2.6 g/dl (3.5-5.0); Albumin/Globulin Ratio 0.8 (1.1-1.8); Alkaline Phosphatase 138 U/L (38-126); Anion Gap 20.5 mEq/L (5-15); Calcium 7.8 mg/dl (8.4-10.2); Carbon Dioxide 16 mmol/L (22.0-30.0); Globulin 3.3 g/dL (1.3-3.2); Glucose 195 mg/dl (74-100); Total Protein,Serum 5.9 g/dl (6.3-8.2)
--- NOTE | 2020-11-13 10:44 | PC.NURSE ---
Barbra from lab called with critical lactic of 7.0. Repeated and verified with lab. Notified MD. Sepsis fluid bolus started 1050.
[2020-11-13 10:45] LABS: Bilirubin,Total 0.1 mg/dl (0.2-1.3)
[2020-11-13 10:48] LABS: Coronavirus 19, PCR Not Detected (NotDetected); Influenza A, PCR Not Detected (NotDetected); Influenza B, PCR Not Detected (NotDetected)
[2020-11-13 10:53] LABS: Basophils % 0.3 % (0.1-2.0); Eosinophils % 0.3 % (0.1-12.0); Hematocrit 30.5 % (37.0-47.0); Hemoglobin 7.9 g/dL (12.2-16.2); Lymphocytes # 4.2 K/mm3 (0.7-4.5); Mean Corpuscular HGB Conc 26.1 g/dL (31.8-35.4); Mean Corpuscular Hemoglobin 23.7 pg (27.0-31.2); Mean Corpuscular Volume 90.8 fl (81-99); Mean Platelet Volume 7.4 fl (7.4-10.4); Monocytes # 0.7 K/mm3 (0.1-1.0); Monocytes % 5.2 % (1.7-9.3); Neutrophils # 8.5 K/mm3 (1.8-7.8); Neutrophils % 63.3 % (37.0-80.0); Platelet Count 699 K/mm3 (142-424); Red Blood Count 3.35 M/mm3 (4.20-5.40); Red Cell Distribution Width 15.5 % (11.5-17.5); White Blood Count 13.5 K/mm3 (4.8-10.8)
[2020-11-13 10:54] LABS: Troponin I 0.06 ng/ml (0.00-0.034)
[2020-11-13 11:19] LABS: ABG Base Excess -12.3 mmol/L (-2.4-2.3); ABG HCO3 15.8 mmhg (22.0-26.0); ABG Oxygen Saturation 100 % (90-100); ABG PCO2 42.1 mmhg (35.0-45.0); ABG PO2 461.5 mmhg (80-100); ABG TCO2 17.1 mmhg (23-27); Allen's Test Non Applicable; Source Left Femoral
[2020-11-13 11:20] LABS: ABG PH 7.19 mmol/L (7.35-7.45)
[2020-11-13 11:44] LABS: Microscopic, Urine URINE MICROSCOPIC (MICROSCOPIC)
[2020-11-13 11:45] LABS: Appearance,Urine CLEAR (Clear); Bilirubin,Urine Negative (Negative); Blood, Urine TRACE-I (Negative); Color,Urine YELLOW (Yellow); Glucose,Urine (UA) Negative (Negative); Ketones,Urine TRACE (Negative); Leukocyte Esterase,Urine 1+ (Negative); Nitrate,Urine POSITIVE (Negative); Protein,Urine 2+ (Negative); Specific Gravity, Urine >= 1.030 (1.005-1.030); Urobilinogen,Urine 0.2 EU/dl (0.2)
--- NOTE | 2020-11-13 12:16 | PC.NURSE ---
1153 bed assignment requested, pt will remain on ed unit bed becomes available. all staff notified
--- NOTE | 2020-11-13 12:18 | PC.NURSE ---
Pt switched to NC 4lpm and sats are at 92%. Pt advises she is feeling much better.
--- NOTE | 2020-11-13 12:57 | PC.NURSE ---
Fluids completed at this time> Pt pressure remains stable. Pt a&o times 3 and still maintaining sats in the 90's and advises she feels much better.
[2020-11-13 13:51] LABS: Troponin I 0.08 ng/ml (0.00-0.034)
--- NOTE | 2020-11-13 13:51 | PC.NURSE ---
came out and advised that pt felt like she was SOA again and gasping for air, pt placed on NRB at 15 lpm and resp rate was at 38. O2 sats remained in the 90's. Notified MD and went to bedside. Notified Resp of need for duonebs
--- NOTE | 2020-11-13 14:01 | PC.NURSE ---
RT at bedside
[2020-11-13 14:28] LABS: Reflex Lactic Add Lactic Reflex
--- NOTE | 2020-11-13 14:43 | XR_ITS ---
PROCEDURE INFORMATION: Exam: XR Chest Exam date and time: 11/13/2020 2:43 PM Age: 49 years old Clinical indication: Shortness of breath; Additional info: Code blue, R/O pneumo TECHNIQUE: Imaging protocol: XR of the chest. Views: 1 view. COMPARISON: CR XR CHEST PORTABLE 11/13/2020 10:29 AM FINDINGS: Tubes, catheters and devices: Endotracheal tube terminates 2.5 cm above the rudy. Recommend withdrawal another cm if desired.. MediPort terminates in the superior vena cava. Lungs: Patchy opacities in the left mid lung region and both bases may represent atelectasis or pneumonia.. Pleural spaces: Mild to moderate right pleural effusion.. Heart/Mediastinum: Stable cardiac silhouette Bones/joints: Unremarkable. IMPRESSION: 1. Endotracheal tube terminates 2.5 cm above the rudy. Recommend withdrawal another cm if desired.. 2. Mild to moderate right pleural effusion.. 3. Patchy opacities in the left mid lung region and both bases may represent atelectasis or pneumonia..
--- NOTE | 2020-11-13 15:36 | PC.NURSE ---
family at bedside
--- NOTE | 2020-11-13 16:47 | PC.NURSE ---
Called [facility] they advised they would be reaching out to the family at this time and would keep me informed.
--- NOTE | 2020-11-13 16:47 | PC.NURSE ---
Fabrice from [facility] spoke with the family and they have decided to use [facility] at this time
--- NOTE | 2020-11-13 17:44 | PC.NURSE ---
Resp Therapy at bedside at 1400 administering neb treatment when patient began gasping for air and advising she did not feel good. They immediately came out and notified MD of status change. MD immediately at bedside, requesting nursing assistance. I came out of room 8 and arrived in room 2 to patient unresponsive, apenic. Pt immediately placed on pads and she was prepared for intubation. at bedside and advised to do everything possible for patient. See timeline below for list of events: 1413: atropine given 1415: CPR started 1417: Pulse check; PEA 1418: Epi given; Pt intubated with 7.0; 23 at the lip, color changed with CO2, lung sounds heard 1419: Pulse Check, PEA, CPR Resumed 1421: EPi givenn, pulse check, CPR resumed 1423: Pulse check showed PEA; MD at bedside with US machine, heart was agonal at this time 1424: Epi given; CPR continued 1425: US showed poss. clot in the heart, no pulse, CPR continued 1426: CPR continued 1427: Epi given; calcium also given at this time 1428: Pulse check; no pulse; CPR 1429: amp of bicarb given 1430: Epi given; pulse check; No cardiac activity on US 1432: Pulse check; asystole; CPR resumed 1434: EPi given; CPR resumed 1436: Pulse check; MD advised to give pt a TPA bolus, pharmacy at bedside to mix TPA 1437:TPA Bolus of 3.15 ml given (31.5mg) dosing confirmed by pharmacy and mixed per pharmacy. CPR resumed; Epi given 1438:Pulse check; asystole; CPR resumed 1439: Pupils fixed and dilated at this time 1440: Pulse check; asystole; no cardiac activity on US 1440: TOD was notified of . Notified straw hat brim raiser operator of @ 1515. Called and spoke with [facility] @1530, they advised that pt would be a candidate for cornea donation and they would need to speak with family. Notified Fabrice with [facility] that pt was not ready to be released until [facility] spoke with family. 1600- Fabrice spoke with family and advised they would like to go with [facility]. 1638- [facility] confirmed pt was candidate for cornea donation 1745- Spoke with [facility] and asked for update. Advised they needed to reach out to the about donation. Advised [facility] he was still at the hospital waiting on an update. She advised they would reach out to him again. 180- Spoke with [facility] and they advised they had spoken with the and he did confirm that pt would be a cornea donor. She advised the team would be here at sometime but did not have a time line due to heavy case load they were facing. Asked if we were taking pt to the morgue and I advised her that we did not have a morgue but we would prep the patient's eyes with saline soaked gauze. Spoke with Taryn Torrez and she gave me a case number of [id number]. Notified Vaina he could leave that pt was going to be a donor.
--- NOTE | 2020-11-13 21:48 | PC.NURSE ---
cornea harvest team here and completed
--- NOTE | 2020-11-13 21:59 | HMH.EDGENADL ---
ED Disposition Clinical Impression: Bradycardic cardiac arrest, Lactic acidosis Community acquired pneumonia Qualifiers: Laterality: right Lung location: lower lobe of lung Qualified Code(s): J18.9 - Pneumonia, unspecified organism Sepsis Qualifiers: Sepsis type: sepsis due to unspecified organism Sepsis acute organ dysfunction status: with acute organ dysfunction Severe sepsis acute organ dysfunction type: unspecified Severe sepsis shock status: without septic shock Qualified Code(s): A41.9 - Sepsis, unspecified organism Disposition: Condition on Discharge: nery Referrals: Provider,Referral, [Primary Care Provider] - - Critical Care Critical Care Time: Yes Attestation: On 11/13/20, the high probability of a clinically significant, sudden or life threatening deterioration of the following system(s) required my full and direct attention, intervention and personal management. The time I documented below is in addition to time spent performing reported procedures but includes the following listed in this critical care notation. Vital system(s) involved:: Circulatory Failure, Respiratory Failure, Shock (Septic) My critical care processes included: Assessment & monitoring of V/S, Initial and Re-exams, Data Review/Interpretation, Coordinating Care, Medication Orders and management, Documentation Probable Cause of : Acute respiratory failure (followed by cardiac arrest) Medical Decision Making - Medical Records Medical records reviewed: Yes: I reviewed the patient's medical records. - Vaibhav Inquiry Pt receiving controlled substance: No Vital Signs: 11/13/20 10:08 11/13/20 10:09 11/13/20 10:34 Temperature 98.3 F Temperature Source Rectal Pulse Rate 138 H 135 H Pulse Rate [Right] 110 H Respiratory Rate 10 L 40 H 12 Blood Pressure 140/101 H 126/86 Blood Pressure [Right Arm] 111/89 Blood Pressure Mean Blood Pressure Mean [Right Arm] 96 Blood Pressure Source [Right Arm] Automatic Cuff Blood Pressure Position [Right Arm] Supine 02 Sat by Pulse Oximetry 72 L 70 L 97 Oxygen Delivery Method Non-Rebreather Room Air Non-Rebreather 11/13/20 10:37 11/13/20 11:00 11/13/20 11:32 Temperature Temperature Source Pulse Rate 138 H 120 H 110 H Pulse Rate [Right] Respiratory Rate 13 16 16 Blood Pressure 111/89 121/85 114/82 Blood Pressure [Right Arm] Blood Pressure Mean Blood Pressure Mean [Right Arm] Blood Pressure Source [Right Arm] Blood Pressure Position [Right Arm] 02 Sat by Pulse Oximetry 90 L 91 L 93 L Oxygen Delivery Method Non-Rebreather Non-Rebreather Nasal Cannula 11/13/20 12:09 11/13/20 12:30 11/13/20 13:00 Temperature Temperature Source Pulse Rate 114 H 90 117 H Pulse Rate [Right] Respiratory Rate 17 13 21 Blood Pressure 120/83 106/75 L 120/83 Blood Pressure [Right Arm] Blood Pressure Mean 89 80 95 Blood Pressure Mean [Right Arm] Blood Pressure Source [Right Arm] Blood Pressure Position [Right Arm] 02 Sat by Pulse Oximetry 100 115 H 100 Oxygen Delivery Method Nasal Cannula Nasal Cannula 11/13/20 13:30 Temperature Temperature Source Pulse Rate 116 H Pulse Rate [Right] Respiratory Rate 17 Blood Pressure 112/83 Blood Pressure [Right Arm] Blood Pressure Mean 89 Blood Pressure Mean [Right Arm] Blood Pressure Source [Right Arm] Blood Pressure Position [Right Arm] 02 Sat by Pulse Oximetry 99 Oxygen Delivery Method Nasal Cannula - Lab Data Lab Results 11/13/20 10:10: WBC 13.5 H, RBC 3.35 L, Hgb 7.9 L, Hct 30.5 L, MCV 90.8, MCH 23.7 L, MCHC 26.1 L, RDW 15.5, Plt Count 699 H D, MPV 7.4, Neut % (Auto) 63.3, Lymph % (Auto) 31.0, [place] % (Auto) 5.2, Eos % (Auto) 0.3, Baso % (Auto) 0.3, Neut # (Auto) 8.5 H, Lymph # (Auto) 4.2, [place] # (Auto) 0.7, Eos # (Auto) 0.0, Baso # (Auto) 0.0 11/13/20 10:10: Sodium 138, Potassium 5.5 H, Chloride 107, Carbon Dioxide 16 L, Anion Gap 20.5 H, BUN 13, Creatinine 0.60, Estimated
--- NOTE | 2020-11-13 22:12 | HMH.EDCPR ---
ED Disposition Clinical Impression: Bradycardic cardiac arrest, Lactic acidosis Community acquired pneumonia Qualifiers: Laterality: right Lung location: lower lobe of lung Qualified Code(s): J18.9 - Pneumonia, unspecified organism Sepsis Qualifiers: Sepsis type: sepsis due to unspecified organism Sepsis acute organ dysfunction status: with acute organ dysfunction Severe sepsis acute organ dysfunction type: unspecified Severe sepsis shock status: without septic shock Qualified Code(s): A41.9 - Sepsis, unspecified organism Disposition: Condition on Discharge: nery Referrals: Provider,Referral, [Primary Care Provider] - - Critical Care Critical Care Time: Yes Attestation: On 11/13/20, the high probability of a clinically significant, sudden or life threatening deterioration of the following system(s) required my full and direct attention, intervention and personal management. The time I documented below is in addition to time spent performing reported procedures but includes the following listed in this critical care notation. Vital system(s) involved:: Circulatory Failure, Central Nervous System, Metabolic Failure, Respiratory Failure, Renal Failure, Shock (Hemorrhage), Shock (Septic) My critical care processes included: Assessment & monitoring of V/S, Initial and Re-exams, Data Review/Interpretation, Coordinating Care, Medication Orders and management, Documentation Probable Cause of : Acute respiratory failure (followed by cardiac arrest) [facility] Code Documentation - Arrest Information Outside of Hospital The Code Document Section documentation for [id number] Johanna Esteban was populated with data that defaulted in from the manugrapher in the Code Assessment on f_Reg Service Date] to provide within this report, the status and treatment of the patient in the ED during a Code. This documentation will be supplemented with my direct findings within the body of the report. Date Treatment Initiated: 11/13/20 Time Treatment Initiated: 14:23 Treatment Initiated By: ED staff Location of Arrest: ED Arrest Witnessed: Yes - Arrest Information in Hospital Date of Arrest: 11/13/20 Time of Arrest: 14:23 Location of Arrest In-house: Emergency Department Type of Arrest In-house: Respiratory In-house Arrest Witnessed: Yes - Monitored - ALS Code Inititation ALS Initiated By: Hospital Staff ALS Type: ACLS ALS Initiated Start Time: 14:23 - Patient Condition At Code Start Condition of Patient at Start of Code: Apneic, Unconscious Monitoring Devices: ECG Monitor, Pulse Oximeter - Circulation Initial Cardiac Rhythm: PEA - Oxygenation Oxygen Breathing Status: Agonal Oxygen Delivery Method: Endotracheal Tube - Code End Time Code Ended: 14:40 Patient Successfully Resuscitated: No Reason Code Ended: - Efforts Terminated Family Members Present During Code: Yes Names of All Individuals Present at Code: Dr. Hill. Nel Crystal RN. Rosaura Leung RN. Martha Plata, RN. DOM Nguyen. STORMY Shell. Resp Therapy. Jamshid Gonzales Pharmacist. Radiology Staff Medical Decision Making - Medical Records Medical records reviewed: Yes: I reviewed the patient's medical records. - Vaibhav Inquiry Pt receiving controlled substance: No Reason not queried -: Emergent pt cond-no time Vital Signs: 11/13/20 10:08 11/13/20 10:09 11/13/20 10:34 Temperature 98.3 F Temperature Source Rectal Pulse Rate 138 H 135 H Pulse Rate [Right] 110 H Respiratory Rate 10 L 40 H 12 Blood Pressure 140/101 H 126/86 Blood Pressure [Right Arm] 111/89 Blood Pressure Mean Blood Pressure Mean [Right Arm] 96 Blood Pressure Source [Right Arm] Automatic Cuff Blood Pressure Position [Right Arm] Supine 02 Sat by Pulse Oximetry 72 L 70 L 97 Oxygen Delivery Method Non-Rebreather Room Air Non-Rebreather 11/13/20 10:37 11/13/20 11:00 11/13/20 11:32 Temperature Temperature Source Puls
--- NOTE | 2020-11-13 22:37 | PC.NURSE ---
Markell home here and collected pt.
== END 2020-11-13 22:52 | disposition expired ==
LOC: ER 10:47 → 2ND 13:27 → ER 21:07
PROVIDERS: Emergency Medicine; Emergency Provider Emergency Medicine
DX: I46.9 Cardiac arrest, cause unspecified (principal); J18.9 Pneumonia, unspecified organism; A41.9 Sepsis, unspecified organism; E87.2 Acidosis; M06.9 Rheumatoid arthritis, unspecified; J45.909 Unspecified asthma, uncomplicated; D64.9 Anemia, unspecified; I10 Essential (primary) hypertension; I25.10 Atherosclerotic heart disease of native coronary artery without angina pectoris; I25.2 Old myocardial infarction; Z89.512 Acquired absence of left leg below knee; Z89.511 Acquired absence of right leg below knee; Z79.899 Other long term (current) drug therapy
CPT/HCPCS: 71045; 80053; 81001; 82803; 83605; 84443; 84484; 85025; 86850; 87040; 87077; 87086; 87088; 87186; 92950; 93005; 96365; 96366; 96375; 99291; C9803; J0456; J2997; U0003; U0005